=== PATIENT | female | born 1940 | race Caucasian/White ===

== ENCOUNTER 2018-03-27 20:44 | Emergency (ER) | payer OTHER ==
--- NOTE | 2018-03-27 21:30 | ER ---
Nurse's Notes [facility] Name: Vilma Curtis Age: 77 yrs Sex: Female : 1940 Arrival Date: 03/27/2018 Time: 20:49 Bed 5 Private MD: Diagnosis: Fall due to bumping against object;Contusion of right lower leg-hematoma Presentation: 03/27 20:49 Presenting complaint: Patient states: This morning I tripped over a gait in the house la1 and injured my right leg. Transition of care: patient was not received from another setting of care. Onset of symptoms was March 27, 2018. Initial Sepsis Screen: Does the patient meet any 2 criteria? No. Patient's initial sepsis screen is negative. Does the patient have a suspected source of infection? No. Patient's initial sepsis screen is negative. Care prior to arrival: None. 20:49 Method Of Arrival: Wheelchair la1 20:49 Acuity: GILDARDO 4 la1 Triage Assessment: 20:59 General: Appears uncomfortable. Injury Description: trip an fall this morning. ak1 Historical: - Allergies: 20:51 Demerol; la1 20:51 Hydrocodone-Acetaminophen; la1 20:51 Lidocaine; la1 20:51 Metoprolol Tartrate; la1 - PMHx: 20:51 Lung Cancer; Irregular heart rate; la1 - Immunization history:: Adult Immunizations up to date. - Social history:: Smoking status: Patient/guardian denies using tobacco. - Family history:: not pertinent. Screenin:59 Abuse screen: Denies threats or abuse. Denies injuries from another. Nutritional ak1 screening: No deficits noted. Tuberculosis screening: No symptoms or risk factors identified. Fall Risk None identified. Assessment: 20:57 General: Appears uncomfortable, Behavior is calm, cooperative. Pain: Complains of pain ak1 in right rodriguez. Neuro: No deficits noted. Cardiovascular: No deficits noted. Respiratory: No deficits noted. GI: No signs and/or symptoms were reported involving the gastrointestinal system. : No signs and/or symptoms were reported regarding the genitourinary system. EENT: No signs and/or symptoms were reported regarding the EENT system. Derm: No signs and/or symptoms reported regarding the dermatologic system. Musculoskeletal: Range of motion: intact in all extremities, swelling noted to right lower leg just below the knee. Vital Signs: 20:51 BP 157 / 77; Pulse 79; Resp 19; Temp 97.0; Pulse Ox 100% on R/A; Weight 79.83 kg; la1 Height 5 ft. 7 in. (170.18 cm); Pain 7/10; 21:41 BP 151 / 92; Pulse 64; Resp 17; Pulse Ox 99% on R/A; mt 20:51 Body Mass Index 27.57 (79.83 kg, 170.18 cm) la1 ED Course: 20:49 Patient arrived in ED. la1 20:50 Triage completed. la1 20:51 Arm band placed on right wrist. la1 20:53 Prince Swanson MD is Attending Physician. shannon 20:55 Yuki Ferguson, RN is Primary Nurse. ak1 20:59 Patient has correct armband on for positive identification. Bed in low position. Call ak1 light in reach. Side rails up X 1. Adult w/ patient. Pulse ox on. NIBP on. 21:11 ice applied to right knee. ak1 21:18 X-ray completed. Portable x-ray completed in exam room. Patient tolerated procedure bb2 well. 21:20 XRAY Knee RIGHT 3 view In Process Unspecified. EDMS 21:29 Yo Lopez MD is Referral Physician. [facility] 21:42 Knee immobilizer applied on right knee. mt 21:51 No provider procedures requiring assistance completed. Patient did not have IV access mg2 during this emergency room visit. Administered Medications: No medications were administered Outcome: 21:29 Discharge ordered by . [facility] 21:52 Discharged to home via wheelchair, with family. ak1 21:52 Condition: good 21:52 Discharge instructions given to patient, family, Instructed on discharge instructions, follow up and referral plans. medication usage, Demonstrated understanding of instructions, follow-up care, medications, Prescriptions given X 1. 21:53 Patient left the ED. ak1 Signatures: Dispatcher [employer] EDMT Prince Swanson MD MD cha Attema, Lee, RN RN la1 Yuki Ferguson, LIZETTE RN ak1 [facility] bb2 Shahbaz Cancino RN RN mg2
--- NOTE | 2018-03-27 21:30 | EDPHYS ---
Physician Documentation [facility] Name: Vilma Curtis Age: 77 yrs Sex: Female : 1940 Arrival Date: 03/27/2018 Time: 20:49 Bed 5 Private MD: ED Physician Prince Swanson HPI: 03/27 21:18 This 77 yrs old Female presents to ER via Wheelchair with complaints of Knee shannon Injury. 21:18 The patient presents with decreased range of motion, pain, swelling, tenderness. The shannon complaints affect the right knee and right rodriguez. Context: The problem was sustained at home, resulted from the patient falling, twisting of the extremity, the patient can partially bear weight, the patient is able to ambulate. Onset: The symptoms/episode began/occurred today. Modifying factors: The symptoms are alleviated by remaining still, the symptoms are aggravated by movement, weight bearing, bending knee. Treatment prior to arrival includes: no previous treatment, elevation of the extremity. Severity of symptoms: At their worst the symptoms were moderate, in the emergency department the symptoms are unchanged. Historical: - Allergies: 20:51 Demerol; la1 20:51 Hydrocodone-Acetaminophen; la1 20:51 Lidocaine; la1 20:51 Metoprolol Tartrate; la1 - PMHx: 20:51 Lung Cancer; Irregular heart rate; la1 - Immunization history:: Adult Immunizations up to date. - Social history:: Smoking status: Patient/guardian denies using tobacco. - Family history:: not pertinent. ROS: 21:18 Constitutional: Negative for fever, chills, and weight loss, Eyes: Negative for injury, shannon pain, redness, and discharge, ENT: Negative for injury, pain, and discharge, Neck: Negative for injury, pain, and swelling, Cardiovascular: Negative for chest pain, palpitations, and edema, Respiratory: Negative for shortness of breath, cough, wheezing, and pleuritic chest pain, Abdomen/GI: Negative for abdominal pain, nausea, vomiting, diarrhea, and constipation, Back: Negative for injury and pain, : Negative for injury, bleeding, discharge, and swelling, Skin: Negative for injury, rash, and discoloration, Neuro: Negative for headache, weakness, numbness, tingling, and seizure, Psych: Negative for depression, anxiety, suicide ideation, homicidal ideation, and hallucinations, Allergy/Immunology: Negative for hives, rash, and allergies, Endocrine: Negative for neck swelling, polydipsia, polyuria, polyphagia, and marked weight changes, Hematologic/Lymphatic: Negative for swollen nodes, abnormal bleeding, and unusual bruising. 21:18 MS/extremity: Positive for ecchymosis, swelling, tenderness, of the right knee. Exam: 21:18 Constitutional: This is a well developed, well nourished patient who is awake, alert, shannon and in no acute distress. Head/Face: Normocephalic, atraumatic. Eyes: Pupils equal round and reactive to light, extra-ocular motions intact. Lids and lashes normal. Conjunctiva and sclera are non-icteric and not injected. Cornea within normal limits. Periorbital areas with no swelling, redness, or edema. ENT: Nares patent. No nasal discharge, no septal abnormalities noted. Tympanic membranes are normal and external auditory canals are clear. Oropharynx with no redness, swelling, or masses, exudates, or evidence of obstruction, uvula midline. Mucous membranes moist. Neck: Trachea midline, no thyromegaly or masses palpated, and no cervical lymphadenopathy. Supple, full range of motion without nuchal rigidity, or vertebral point tenderness. No Meningismus. Chest/axilla: Normal chest wall appearance and motion. Nontender with no deformity. No lesions are appreciated. Cardiovascular: Regular rate and rhythm with a normal S1 and S2. No gallops, murmurs, or rubs. Normal PMI, no JVD. No pulse deficits. Respiratory: Lungs have equal breath sounds bilaterally, clear to auscultation and percussion. No rales, rhonchi or wheezes noted. No increased work of breathing, no retractions or nasal flaring. Abdomen/GI: Soft, non-tender, with normal bowel sounds. No distension or tympany. No guarding or rebound. No evidence of tenderness throughout. Back: No spinal tenderness. No costovertebral tenderness. Full range of motion. Female : Normal external genitalia. Skin: Warm, dry with normal turgor. Normal color with no rashes, no lesions, and no evidence of cellulitis. Neuro: Awake and alert, GCS 15, oriented to person, place, time, and situation. Cranial nerves II-XII grossly intact. Motor strength 5/5 in all extremities. Sensory grossly intact. Cerebellar exam normal. Normal gait. Psych: Awake, alert, with orientation to person, place and time. Behavior, mood, and affect are within normal limits. 21:18 Musculoskeletal/extremity: Extremities: contusion, decreased ROM, pain, ROM: full passive range of motion, limited active range of motion, Pulses: are normal with no appreciated deficits, Compartment Syndrome exam of affected extremity: is normal. no numbness, no tingling, no sensation deficit, no palor, no weak pulses, severe pain, with active ROM, DVT Exam: No signs of deep vein thrombosis. no pain, no swelling, no tenderness, negative Homans' sign noted on exam, no appreciated bluish discoloration, no erythema, no increased warmth. 21:25 Musculoskeletal/extremity: Tendon exam: DVT Exam: [facility] Vital Signs: 20:51 BP 157 / 77; Pulse 79; Resp 19; Temp 97.0; Pulse Ox 100% on R/A; Weight 79.83 kg; la1 Height 5 ft. 7 in. (170.18 cm); Pain 7/10; 21:41 BP 151 / 92; Pulse 64; Resp 17; Pulse Ox 99% on R/A; mt 20:51 Body Mass Index 27.57 (79.83 kg, 170.18 cm) la1 MDM: 20:53 Patient medically screened. [facility] 03/27 21:04 Order name: XRAY Knee RIGHT 3 view ak1 Administered Medications: No medications were administered Disposition: 03/27/18 21:29 Discharged to Home. Impression: Fall due to bumping against object, Contusion of right lower leg - hematoma. - Condition is Stable. - Discharge Instructions: Contusion, Fall Prevention and Home Safety, Contusion, [id number], Fall Prevention and Home Safety, [id number]. - Prescriptions for Motrin IB 200 mg Oral Tablet - take 2 tablet by ORAL route every 6 hours As needed as needed with food; 24 tablet. - Medication Reconciliation Form, Thank You Letter, Antibiotic Education, Prescription Opioid Use form. - Follow up: Private Physician; When: 2 - 3 days; Reason: Recheck today's complaints, Continuance of care, Re-evaluation by your physician. Follow up: Yo Lopez; When: 2 - 3 days; Reason: Recheck today's complaints, Re-evaluation by your physician. - Problem is new. - Symptoms have improved. Signatures: Dispatcher [employer] EDMS Prince Swanson MD MD cha Attema, Lee, RN RN la1 Yuki Ferguson RN RN ak1 Corrections: (The following items were deleted from the chart) 21:53 21:29 03/27/2018 21:29 Discharged to Home. Impression: Fall due to bumping against ak1 object; Contusion of right lower leg - hematoma. Condition is Stable. Discharge Instructions: Contusion, Fall Prevention and Home Safety, Contusion, [id number], Fall Prevention and Home Safety, [id number]. Prescriptions for Motrin IB 200 mg Oral Tablet - take 2 tablet by ORAL route every 6 hours As needed as needed with food; 24 tablet. and Forms are Medication Reconciliation Form, Thank You Letter, Antibiotic Education, Prescription Opioid Use. Follow up: Private Physician; When: 2 - 3 days; Reason: Recheck today's complaints, Continuance of care, Re-evaluation by your physician. Follow up: Yo Lopez; When: 2 - 3 days; Reason: Recheck today's complaints, Re-evaluation by your physician. Problem is new. Symptoms have improved. shannon
--- NOTE | 2018-03-27 21:30 | RAD REPORT ---
EXAM DESCRIPTION: RAD - Knee Right 3 View - 03/27/2018 9:20 pm CLINICAL HISTORY: Right knee pain FINDINGS: No fracture or dislocation is seen. 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 There is no evidence of loosening of the prosthesis.
[2018-03-27 21:56] VITALS: TEMP 97
[2018-03-27 21:57] VITALS: BP 151/92; O2SAT 99
== END 2018-03-27 21:53 | disposition home or self-care (01) ==
LOC: ER 20:44
DX: S80.11XA Contusion of right lower leg, initial encounter (principal); W18.00XA Striking against unspecified object with subsequent fall, initial encounter; Y93.9 Activity, unspecified; Y92.9 Unspecified place or not applicable; Z88.6 Allergy status to analgesic agent
CPT/HCPCS: 99284

== ENCOUNTER 2019-05-14 04:40 | Observation (INO) | payer OTHER ==
--- OUTSIDE RECORDS SUMMARY | 2019-05-14 04:43 | XMS REPORT | Continuity of Care Document ---
:1940 Author Organization [facility] Care Team Providers Name Role Phone [facility] Unavailable Unavailable Problems Problem Status Onset Classification Date Comments Source Date Reported Atrial Active Problem 03/03/2019 [facility] fibrillation [facility] Cervical Active Problem 03/03/2019 [facility] spondylosis [facility] HTN - Hypertension Active Problem 03/03/2019 [facility] Hyperlipidemia Active Problem 03/03/2019 [facility] Lumbar Active Problem 03/03/2019 [facility] radiculopathy [facility] Peripheral Active Problem 03/03/2019 [facility] neuropathy [facility] Medications No Data Provided for This Section Allergies, Adverse Reactions, Alerts Substance Category Reaction Severity Reaction Status Date Comments Source type Reported Demerol HCl Assertion Drug Active [facility] allergy [facility] HYDROcodone Assertion Drug Active [facility] allergy [facility] Immunizations No Data Provided for This Section Results No Data Provided for This Section Pathology Reports No Data Provided for This Section Diagnostic Reports No Data Provided for This Section Consultation Notes No Data Provided for This Section Discharge Summaries No Data Provided for This Section History and Physicals No Data Provided for This Section Vital Signs No Data Provided for This Section Encounters Location Location Encounter Encounter Reason Attending ADM DC Status Source Details Type Number For Provider Date Date Visit Outpatient [id number] ELIZABETH 04/03 [facility] [place] Outpatient [id number] ELIZABETH 04/29 [facility] [place] [facility] Outside [id number] 08/13 08/15 [facility] [place] [facility] /2017 [facility] Records Procedures No Data Provided for This Section Assessment and Plan No Data Provided for This Section Plan of Care No Data Provided for This Section Social History Social History Date Source Social History TypeResponse 04/29/2018 [facility] [place] [facility] Smoking Status Former smoker; Type: Cigarettes; Exposure to Tobacco Smoke None; Cigarette Smoking Last 365 Days No; Reg Smoking Cessation Counseling No entered on: 04/29/18 Family History No Data Provided for This Section Advance Directives No Data Provided for This Section Functional Status No Data Provided for This Section
--- OUTSIDE RECORDS SUMMARY | 2019-05-14 04:43 | XMS REPORT | Clinical Summary ---
:1940 Author Organization [facility] Address [address] [place] [address] Care Team Providers Name Role Phone Unavailable Primary Care Provider Unavailable Allergies Not on File Medications Not on file Active Problems Not on file Social History Tobacco Use Types Packs/Day Years Used Date Never Assessed Sex Assigned at Date Recorded Not on file Job Start Date Occupation Industry Not on file Not on file Not on file Travel History Travel Start Travel End No recent travel history available. Last Filed Vital Signs Not on file Plan of Treatment Health Maintenance Due Date Last Done Comments COLONOSCOPY SCREENING 1992 SHINGLES VACCINES (#1) 1992 65+ PNEUMOCOCCAL VACCINE (1 of 2 - PCV13) 2007 INFLUENZA VACCINE 06/12/2019 Results Not on fileafter 05/13/2018 Advance Directives Patient has advance care planning documents on file. For more information, please contact:[facility] [place] [address]
[2019-05-14] MEDS ORDERED: DIGOXIN 0.25 MG/ML AMP ONE (05:31)
[2019-05-14] MEDS ORDERED: METOPROLOL TARTRATE 5 MG/5 ML INJ IV ONE ×2 (05:31→07:42)
[2019-05-14 05:49] LABS: Urine Blood NEGATIVE (NEG); Urine Glucose NEGATIVE (NEG); Urine Protein NEGATIVE (NEG)
[2019-05-14 05:51] LABS: Absolute Lymphocytes (CBC) 2.2 K/uL (0.7-4.9); Basophils % 0.9 % (0-1.3); Eosinophils % 2.2 % (0-4.4); Hematocrit 42.8 % (36.0-45.0); Lymphocytes % 26.3 % (15.3-44.8); MPV 10.1 fL (7.6-11.3); Monocytes % 11.7 % (3.3-12.3)
[2019-05-14 05:54] LABS: Protime INR 1.19
[2019-05-14 06:11] LABS: Albumin 3.2 g/dL (3.4-5.0); Bilirubin Direct 0.3 mg/dL (0-0.2); Magnesium 2.1 mg/dL (1.8-2.4); Potassium 3.2 mmol/L (3.5-5.1); Thyroid Stimulating Hormone 2.24 uIU/mL (0.360-3.740); Troponin (Emerg Dept Use Only) 0.14 ng/mL (0.0-0.045)
--- NOTE | 2019-05-14 06:28 | ER ---
Nurse's Notes [facility] Name: Vilma Curtis Age: 78 yrs Sex: Female : 1940 Arrival Date: 05/14/2019 Time: 04:43 Bed 8 Private MD: Diagnosis: Abdominal tenderness;Atrial fibrillation and flutter;Chest pain, unspecified;Hypokalemia Presentation: 05/14 04:50 Presenting complaint: Patient states: abd pain, back pain, chest pain, and pain in all aa1 4 extremities x 1 week. Reports she recently made a drastic change to her diet which consisted of water and crackers only for an endoscopy procedure she is having tomorrow with Dr. Martin. Transition of care: patient was not received from another setting of care. Onset of symptoms was May 06, 2019. Risk Assessment: Do you want to hurt yourself or someone else? Patient reports no desire to harm self or others. Initial Sepsis Screen:. Care prior to arrival: IV initiated. 18 GA, in the right antecubital area. 04:50 Method Of Arrival: EMS: [facility] aa1 04:50 Acuity: GILDARDO 3 aa1 06:43 Initial Sepsis Screen: Does the patient meet any 2 criteria? No. Patient's initial bb sepsis screen is negative. Does the patient have a suspected source of infection? No. Patient's initial sepsis screen is negative. Historical: - Allergies: 05:11 Demerol; aa1 05:11 Hydrocodone-Acetaminophen; aa1 05:11 Lidocaine; aa1 05:11 Metoprolol Tartrate; aa1 - Home Meds: 05:11 Betapace 80 mg oral tab 1 tab 2 times per day [Active]; Caltrate 600+D Plus Minerals aa1 Oral daily [Active]; Xarelto 20 mg oral tab 1 tab once daily [Active]; Myrbetriq 50 mg oral Tb24 1 tab once daily [Active]; Dexilant 60 mg oral CpDB 1 cap once daily [Active]; rosuvastatin 10 mg oral tab 1 tab once daily [Active]; Xanax 0.25 mg Oral tab 1 tab daily [Active]; sucralfate 1 gram Oral tab 1 tab 2 times per day [Active]; Levsinex Oral 0.125 mg twice a day [Active]; Creon oral oral [Active]; - PMHx: 05:11 Irregular heart rate; Lung Cancer; aa1 - Immunization history:: Flu vaccine is up to date. - Social history:: Smoking status: Patient/guardian denies using tobacco. - Ebola Screening: : Patient denies exposure to infectious person Patient denies travel to an Ebola-affected area in the 21 days before illness onset. - Family history:: not pertinent. Screenin:42 Abuse screen: Denies threats or abuse. Nutritional screening: No deficits noted. bb Tuberculosis screening: No symptoms or risk factors identified. Fall Risk Secondary diagnosis (15 points) impaired mobility, IV access (20 points). Ambulatory Aid- None/Bed Rest/Nurse Assist (0 pts). Mental Status- Oriented to own ability (0 pts). Total Briggs Fall Scale indicates Low Risk Score (25-44 pts). Fall prevention measures have been instituted. Side Rails Up X 2 Family Present and informed to notify staff if they need to leave bedside As available Patient and Family Educated on Fall Prevention Program and strategies. Assessment: 05:00 General: Appears in no apparent distress. uncomfortable, Behavior is calm, cooperative, aa1 appropriate for age. Pain: Complains of pain in back, chest, abdomen, right arm, left arm, right leg and left leg Pain began 1 week ago. Neuro: Level of Consciousness is awake, alert, obeys commands, Oriented to person, place, time, situation, Moves all extremities. Speech is normal. Cardiovascular: Heart tones S1 S2 present Capillary refill < 3 seconds Patient's skin is warm and dry. Respiratory: Airway is patent Respiratory effort is even, unlabored, Respiratory pattern is regular, symmetrical. GI: Abdomen is non-distended, Abd is soft X 4 quads Patient currently denies diarrhea, nausea, vomiting. : No signs and/or symptoms were reported regarding the genitourinary system. EENT: No signs and/or symptoms were reported regarding the EENT system. Derm: Skin is intact, is healthy with good turgor, Skin is pink, warm \T\ dry. Musculoskeletal: Circulation, motion, and sensation intact. Capillary refill < 3 seconds. 06:00 General: Appears in no apparent distress. uncomfortable, Behavior is calm, cooperative, bb Reports pain in chest, abdomen and arms. Pain: Complains of pain in chest, abdomen, right arm and left arm. Neuro: Level of Consciousness is awake, alert, obeys commands, Oriented to person, place, time, situation. Cardiovascular: Heart tones S1 S2 present Capillary refill < 3 seconds Patient's skin is warm and dry. Pulses are all present. Edema is absent. Rhythm is atrial fibrillation with rapid ventricular response. Respiratory: Airway is patent Respiratory effort is even, unlabored, Respiratory pattern is regular, Breath sounds are clear bilaterally. GI: Abdomen is non-distended, Bowel sounds present X 4 quads. Abd is soft X 4 quads. Derm: Skin is pink, warm \T\ dry. Musculoskeletal: Circulation, motion, and sensation intact. 06:30 Reassessment: Patient and/or family updated on plan of care and expected duration. Pain bb level reassessed. Patient is alert, oriented x 3, equal unlabored respirations, skin warm/dry/pink. pt resting quietly, awaiting CT scan, family at bedside. 07:28 Reassessment: Patient appears in no apparent distress at this time. Patient is alert, sg oriented x 3, equal unlabored respirations, skin warm/dry/pink. notified of the pt VS with HR of 144 sinus tach, and BP of 124/80, ordered to administer the 2.5 mg Lopressor IVP and continue to monitor pt. 07:35 Reassessment: Patient appears in no apparent distress at this time. pt c/o burning up sg the arm from the IV site, IV fluid rate adjusted appropriately, pt reports feeling better. Vital Signs: 04:50 BP 119 / 85; Pulse 125; Resp 20; Temp 97.6; Pulse Ox 97% on R/A; Weight 75.3 kg (R); aa1 Height 5 ft. 7 in. (170.18 cm); Pain 7/10; 05:48 BP 91 / 68; Pulse 103; Resp 18; Pulse Ox 96% on R/A; aa1 06:45 BP 123 / 67; Pulse 129; Resp 18; Temp 97.9; Pulse Ox 99% on R/A; Pain 5/10; aa1 07:12 BP 126 / 104; Pulse 128; Resp 16 S; Pulse Ox 99% on R/A; bb 07:30 BP 124 / 80; Pulse 144; Resp 17; Pulse Ox 96% on R/A; sg 08:00 BP 127 / 73; Pulse 133; Pulse Ox 96% ; sg 08:15 BP 127 / 73; Pulse 84 MON; Resp 16; Pulse Ox 96% on R/A; sg 09:00 BP 113 / 61; Pulse 82; Resp 18 S; Pulse Ox 96% on R/A; sg 04:50 Body Mass Index 26.00 (75.30 kg, 170.18 cm) aa1 08:15 Sinus Rhythm sg ED Course: 04:43 Patient arrived in ED. ds1 04:46 Prince Swanson MD is Attending Physician. shannon 04:50 Avril Palm, LIZETTE is Primary Nurse. aa1 04:50 Arm band placed on right wrist. aa1 04:52 Triage completed. aa1 05:20 Initial lab(s) drawn, by me, sent to lab. aa1 05:49 EKG done, by ED staff, reviewed by Prince Swanson MD. mt 05:55 X-ray completed. Portable x-ray completed in exam room. Patient tolerated procedure kw well. 05:58 Radiology exam delayed due to lab results not completed at this time. eh 06:00 XRAY Chest (1 view) In Process Unspecified. EDMS 06:26 Abel Rodriguez MD is Hospitalizing Provider. shannon 06:42 Patient has correct armband on for positive identification. Bed in low position. Call bb light in reach. Side rails up X2. Adult w/ patient. monitoring tech on. Pulse ox on. NIBP on. Warm blanket given. 07:09 Report given to Aleisha Olmedo RN. aa1 07:13 No provider procedures requiring assistance completed. Patient admitted, IV remains in aa1 place. 07:24 Report received from Aleisha BAUER. sg 08:59 EKG done, by urinalysis technician. reviewed by Rick Mclain MD Repeat EKG. at1 09:20 Repeat lab(s) drawn. by me, sent to lab. troponin repeat. sg Administered Medications: 05:10 Drug: NS 0.9% 500 ml Route: IV; Rate: bolus; Site: right antecubital; aa1 05:40 Follow up: IV Status: Completed infusion; IV Intake: 500ml aa1 05:10 Drug: Lopressor 2.5 mg Route: IVP; Site: right antecubital; aa1 05:10 Drug: Digoxin 0.5 mg Route: IVP; Site: right antecubital; aa1 05:38 Not Given (Hemodynamic Parameters): Lopressor 2.5 mg IVP once; Hold for SBP <100 or HR aa1 <60. 06:17 Not Given (Duplicate Order): NS 0.9% 1000 ml IV at 125 ml/hr continuous shannon 06:22 Drug: Rocephin - (cefTRIAXone) 1 grams Route: IVPB; Infused Over: 30 mins; Site: right bb antecubital; 06:27 Follow up: IV Status: Completed infusion; IV Intake: 10ml ; per pharmacy protocol bb 06:56 Drug: Xarelto 20 mg Route: PO; bb 06:56 Drug: NS 0.9% with KCl 20 mEq/L 1000 ml Route: IV; Rate: 125 ml/hr; Site: right bb antecubital; 07:06 Follow up: IV Status: Infusion continued upon admission aa1 06:56 Drug: Potassium Chloride 20 mEq Route: IV; Rate: per protocol; Site: right antecubital; bb 09:27 Follow up: IV Status: Infusion continued upon admission sg 07:00 CANCELLED (Duplicate Order): Lopressor 2.5 mg IVP once; Hold for SBP <100 or HR <60. shannon 07:01 CANCELLED (Duplicate Order): Lopressor 2.5 mg IVP once; Hold for SBP <100 or HR <60. shannon 07:12 Drug: Sotalol 80 mg Route: PO; bb 07:30 Drug: Lopressor 2.5 mg Route: IVP; Site: right antecubital; sg 09:12 Not Given (Hemodynamic Parameters): Lopressor 2.5 mg IVP once; Hold for SBP <100 or HR sg <60. 09:13 Not Given (Hemodynamic Parameters): Lopressor 2.5 mg IVP once; Hold for SBP <100 or HR sg <60. 09:27 Not Given (Hemodynamic Parameters): Lopressor 2.5 mg IVP once; Hold for SBP <100 or HR sg <60. Intake: 05:40 IV: 500ml; Total: 500ml. aa1 06:27 IV: 10ml; Total: 510ml. bb Outcome: 06:27 Decision to Hospitalize by Provider. shannon 09:26 Admitted to [facility] accompanied by tech, via wheelchair, room 205, with chart, Report sg called to LIZETTE Slade 09:26 Condition: good 09:26 Instructed on the need for admit, safety practices, Demonstrated understanding of instructions. 09:28 Patient left the ED. sg Signatures: Dispatcher [employer] Yo Kraft RN RN sg Autenrieth, Alissa, RN RN aa1 Prince Swanson MD MD cha Hagler, Americo Rosario, Beata ds1 Aleisha Olmedo RN RN bb Whitley, Kimberlee kw Gonzales, Amanda, food checker EKG Tat1 Elvia Mendoza ct
--- NOTE | 2019-05-14 06:28 | EDPHYS ---
Physician Documentation [facility] Name: Vilma Curtis Age: 78 yrs Sex: Female : 1940 Arrival Date: 05/14/2019 Time: 04:43 Bed 8 Private MD: ED Physician Prince Swanson HPI: 05/14 05:10 This 78 yrs old Female presents to ER via EMS with complaints of chest and shannon abdomen pain. 05:10 The patient or guardian reports chest pain that is located primarily in the substernal shannon area, epigastric area, anterior chest wall. Onset: 1 day(s) ago. The patient presents with a history of irregular heart beat, heart racing. Context: The symptoms occur at rest, during sleep. Onset: The symptoms/episode began/occurred last night. Modifying factors: The symptoms are aggravated by nothing. The patient presents with abdominal pain in the epigastric area, in the upper abdomen, abdominal distention in the epigastric area, in the upper abdomen. Historical: - Allergies: 05:11 Demerol; aa1 05:11 Hydrocodone-Acetaminophen; aa1 05:11 Lidocaine; aa1 05:11 Metoprolol Tartrate; aa1 - Home Meds: 05:11 Betapace 80 mg oral tab 1 tab 2 times per day [Active]; Caltrate 600+D Plus Minerals aa1 Oral daily [Active]; Xarelto 20 mg oral tab 1 tab once daily [Active]; Myrbetriq 50 mg oral Tb24 1 tab once daily [Active]; Dexilant 60 mg oral CpDB 1 cap once daily [Active]; rosuvastatin 10 mg oral tab 1 tab once daily [Active]; Xanax 0.25 mg Oral tab 1 tab daily [Active]; sucralfate 1 gram Oral tab 1 tab 2 times per day [Active]; Levsinex Oral 0.125 mg twice a day [Active]; Creon oral oral [Active]; - PMHx: 05:11 Irregular heart rate; Lung Cancer; aa1 - Immunization history:: Flu vaccine is up to date. - Social history:: Smoking status: Patient/guardian denies using tobacco. - Ebola Screening: : Patient denies exposure to infectious person Patient denies travel to an Ebola-affected area in the 21 days before illness onset. - Family history:: not pertinent. ROS: 05:10 Constitutional: Negative for fever, chills, and weight loss, Eyes: Negative for injury, shannon pain, redness, and discharge, ENT: Negative for injury, pain, and discharge, Neck: Negative for injury, pain, and swelling, Respiratory: Negative for shortness of breath, cough, wheezing, and pleuritic chest pain, Back: Negative for injury and pain, : Negative for injury, bleeding, discharge, and swelling, MS/Extremity: Negative for injury and deformity, Skin: Negative for injury, rash, and discoloration, Neuro: Negative for headache, weakness, numbness, tingling, and seizure, Psych: Negative for depression, anxiety, suicide ideation, homicidal ideation, and hallucinations, Allergy/Immunology: Negative for hives, rash, and allergies, Endocrine: Negative for neck swelling, polydipsia, polyuria, polyphagia, and marked weight changes, Hematologic/Lymphatic: Negative for swollen nodes, abnormal bleeding, and unusual bruising. 05:10 Cardiovascular: Positive for chest pain. 05:10 Respiratory: Positive for shortness of breath. 05:10 Abdomen/GI: Positive for abdominal pain, nausea and vomiting. Exam: 05:10 Constitutional: This is a well developed, well nourished patient who is awake, alert, shannon and in no acute distress. Head/Face: Normocephalic, atraumatic. Eyes: Pupils equal round and reactive to light, extra-ocular motions intact. Lids and lashes normal. Conjunctiva and sclera are non-icteric and not injected. Cornea within normal limits. Periorbital areas with no swelling, redness, or edema. ENT: Nares patent. No nasal discharge, no septal abnormalities noted. Tympanic membranes are normal and external auditory canals are clear. Oropharynx with no redness, swelling, or masses, exudates, or evidence of obstruction, uvula midline. Mucous membranes moist. Neck: Trachea midline, no thyromegaly or masses palpated, and no cervical lymphadenopathy. Supple, full range of motion without nuchal rigidity, or vertebral point tenderness. No Meningismus. Chest/axilla: Normal chest wall appearance and motion. Nontender with no deformity. No lesions are appreciated. Respiratory: Lungs have equal breath sounds bilaterally, clear to auscultation and percussion. No rales, rhonchi or wheezes noted. No increased work of breathing, no retractions or nasal flaring. Abdomen/GI: Soft, non-tender, with normal bowel sounds. No distension or tympany. No guarding or rebound. No evidence of tenderness throughout. Back: No spinal tenderness. No costovertebral tenderness. Full range of motion. Skin: Warm, dry with normal turgor. Normal color with no rashes, no lesions, and no evidence of cellulitis. MS/ Extremity: Pulses equal, no cyanosis. Neurovascular intact. Full, normal range of motion. Neuro: Awake and alert, GCS 15, oriented to person, place, time, and situation. Cranial nerves II-XII grossly intact. Motor strength 5/5 in all extremities. Sensory grossly intact. Cerebellar exam normal. Normal gait. Psych: Awake, alert, with orientation to person, place and time. Behavior, mood, and affect are within normal limits. 05:10 Cardiovascular: Rate: tachycardic, Rhythm: irregularly irregular, Pulses: Pulses are 4+ in bilateral radial, brachial, femoral, popliteal, posterior tibial and and dorsalis pedis arteries.. Heart sounds: normal, Edema: JVD: is not appreciated. Vital Signs: 04:50 BP 119 / 85; Pulse 125; Resp 20; Temp 97.6; Pulse Ox 97% on R/A; Weight 75.3 kg (R); aa1 Height 5 ft. 7 in. (170.18 cm); Pain 7/10; 05:48 BP 91 / 68; Pulse 103; Resp 18; Pulse Ox 96% on R/A; aa1 06:45 BP 123 / 67; Pulse 129; Resp 18; Temp 97.9; Pulse Ox 99% on R/A; Pain 5/10; aa1 07:12 BP 126 / 104; Pulse 128; Resp 16 S; Pulse Ox 99% on R/A; bb 07:30 BP 124 / 80; Pulse 144; Resp 17; Pulse Ox 96% on R/A; sg 08:00 BP 127 / 73; Pulse 133; Pulse Ox 96% ; sg 08:15 BP 127 / 73; Pulse 84 MON; Resp 16; Pulse Ox 96% on R/A; sg 09:00 BP 113 / 61; Pulse 82; Resp 18 S; Pulse Ox 96% on R/A; sg 04:50 Body Mass Index 26.00 (75.30 kg, 170.18 cm) aa1 08:15 Sinus Rhythm sg MDM: 04:46 Patient medically screened. [facility] 05:10 Data reviewed: vital signs, nurses notes, lab test result(s), EKG, radiologic studies, [facility] CT scan, plain films. 05/14 04:49 Order name: Basic Metabolic Panel [facility] 05/14 04:49 Order name: CBC with Diff [facility] 05/14 04:49 Order name: LFT's [facility] 05/14 04:49 Order name: Magnesium [facility] 05/14 04:49 Order name: NT PRO-BNP; Complete Time: 06:16 [facility] 05/14 04:49 Order name: PT-INR; Complete Time: 06:09 [facility] 05/14 04:49 Order name: Troponin (emerg Dept Use Only); Complete Time: 06:16 [facility] 05/14 04:49 Order name: Lipase; Complete Time: 06:16 shannon 05/14 04:49 Order name: Urine Culture [facility] 05/14 04:49 Order name: TSH; Complete Time: 06:16 [facility] 05/14 04:50 Order name: Basic Metabolic Panel; Complete Time: 06:16 EDMS 05/14 04:50 Order name: CBC with Automated Diff; Complete Time: 05:55 EDMS 05/14 04:50 Order name: Liver (Hepatic) Function; Complete Time: 06:16 EDMS 05/14 04:50 Order name: Magnesium; Complete Time: 06:16 EDMS 05/14 04:49 Order name: XRAY Chest (1 view) [facility] 05/14 04:49 Order name: CT Aorta for Dissection [facility] 05/14 05:35 Order name: Urine Dipstick--Ancillary (enter results); Complete Time: 05:55 mw2 05/14 07:44 Order name: CT; Complete Time: 08:12 EDMS 05/14 09:04 Order name: Troponin (emerg Dept Use Only) 05/14 04:49 Order name: EKG; Complete Time: 04:52 [facility] 05/14 04:49 Order name: Cardiac monitoring; Complete Time: 05:11 [facility] 05/14 04:49 Order name: EKG - Nurse/Tech; Complete Time: 05:49 [facility] 05/14 04:49 Order name: IV Saline Lock; Complete Time: 05:11 [facility] 05/14 04:49 Order name: Labs collected and sent; Complete Time: 05:38 shannon 05/14 04:49 Order name: O2 Per Protocol; Complete Time: 05:11 shannon 05/14 04:49 Order name: O2 Sat Monitoring; Complete Time: 05:11 shannon 05/14 04:49 Order name: Urine Dipstick-Ancillary (obtain specimen); Complete Time: 05:38 shannon 05/14 06:36 Order name: CONS Physician Consult EDMS Administered Medications: 05:10 Drug: NS 0.9% 500 ml Route: IV; Rate: bolus; Site: right antecubital; aa1 05:40 Follow up: IV Status: Completed infusion; IV Intake: 500ml aa1 05:10 Drug: Lopressor 2.5 mg Route: IVP; Site: right antecubital; aa1 05:10 Drug: Digoxin 0.5 mg Route: IVP; Site: right antecubital; aa1 05:38 Not Given (Hemodynamic Parameters): Lopressor 2.5 mg IVP once; Hold for SBP <100 or HR aa1 <60. 06:17 Not Given (Duplicate Order): NS 0.9% 1000 ml IV at 125 ml/hr continuous shannon 06:22 Drug: Rocephin - (cefTRIAXone) 1 grams Route: IVPB; Infused Over: 30 mins; Site: right bb antecubital; 06:27 Follow up: IV Status: Completed infusion; IV Intake: 10ml ; per pharmacy protocol bb 06:56 Drug: Xarelto 20 mg Route: PO; bb 06:56 Drug: NS 0.9% with KCl 20 mEq/L 1000 ml Route: IV; Rate: 125 ml/hr; Site: right bb antecubital; 07:06 Follow up: IV Status: Infusion continued upon admission aa1 06:56 Drug: Potassium Chloride 20 mEq Route: IV; Rate: per protocol; Site: right antecubital; bb 09:27 Follow up: IV Status: Infusion continued upon admission sg 07:00 CANCELLED (Duplicate Order): Lopressor 2.5 mg IVP once; Hold for SBP <100 or HR <60. shannon 07:01 CANCELLED (Duplicate Order): Lopressor 2.5 mg IVP once; Hold for SBP <100 or HR <60. shannon 07:12 Drug: Sotalol 80 mg Route: PO; bb 07:30 Drug: Lopressor 2.5 mg Route: IVP; Site: right antecubital; sg 09:12 Not Given (Hemodynamic Parameters): Lopressor 2.5 mg IVP once; Hold for SBP <100 or HR sg <60. 09:13 Not Given (Hemodynamic Parameters): Lopressor 2.5 mg IVP once; Hold for SBP <100 or HR sg <60. 09:27 Not Given (Hemodynamic Parameters): Lopressor 2.5 mg IVP once; Hold for SBP <100 or HR sg <60. Disposition: 05/14/19 06:27 Hospitalization ordered by Abel Rodriguez for Inpatient Admission. Preliminary diagnosis are Abdominal tenderness, Atrial fibrillation and flutter, Chest pain, unspecified, Hypokalemia. - Bed requested for Telemetry/MedSurg (Inpatient). - Status is Inpatient Admission. sg - Condition is Fair. - Problem is new. - Symptoms have improved. UTI on Admission? No Signatures: Dispatcher [employer] EDMS Yo Contreras RN RN sg Avril Palm RN RN aa1 Prince Swanson MD MD cha Ballard, Brenda, RN RN bb Solis, Maria ms Corrections: (The following items were deleted from the chart) 07:00 06:58 Lopressor 2.5 mg IVP once; Hold for SBP <100 or HR <60. ordered. shannon shannon 07:01 06:58 Lopressor 2.5 mg IVP once; Hold for SBP <100 or HR <60. ordered. [facility] shannon 08:12 06:27 Hospitalization Ordered by Abel Rodriguez MD for Inpatient Admission. Preliminary ms diagnosis is Abdominal tenderness; Atrial fibrillation and flutter; Chest pain, unspecified; Hypokalemia. Bed requested for Telemetry/MedSurg (Inpatient). Status is Inpatient Admission. Condition is Fair. Problem is new. Symptoms have improved. UTI on Admission? No. shannon 09:28 08:12 05/14/2019 06:27 Hospitalization Ordered by Abel Rodriguez MD for Inpatient sg Admission. Preliminary diagnosis is Abdominal tenderness; Atrial fibrillation and flutter; Chest pain, unspecified; Hypokalemia. Bed requested for Telemetry/MedSurg (Inpatient). Status is Inpatient Admission. Condition is Fair. Problem is new. Symptoms have improved. UTI on Admission? No. ms
[2019-05-14] MEDS ORDERED: CEFTRIAXONE/SWI 1gm 1 GM/10 ML SYR ONE (06:31)
[2019-05-14] MEDS ORDERED: RIVAROXABAN 20 MG TABLET PO ONE (06:39)
[2019-05-14] MEDS ORDERED: NS KCL 20MEQ 1,000 ML IV ONE (06:45)
[2019-05-14] MEDS ORDERED: KCL 20 MEQ/100 mL IVPB 20 MEQ/100 ML BAG IV ONE (06:46)
--- NOTE | 2019-05-14 06:53 | EKG ---
Test Date: 2019-05-14 Test Time: 05:44:58 Intravenous Therapy Nurse: MARIANNA MEASUREMENT RESULTS: Intervals: Rate: 125 AK: QRSD: 88 QT: 300 QTc: 433 [place]: P: AK: QRS: 59 T: 260 INTERPRETIVE STATEMENTS: Atrial fibrillation with rapid ventricular response Marked ST abnormality, possible inferior subendocardial injury Abnormal ECG Compared to ECG 08/16/2017 17:20:11 ST (T wave) deviation now present Sinus rhythm no longer present T-wave abnormality no longer present Electronically Signed On 05-14-19 06:52:58 CDT by oJrge Chavarria
[2019-05-14] MEDS ORDERED: SOTALOL HCL 80 MG TAB ONE (07:23)
--- NOTE | 2019-05-14 07:43 | RAD REPORT ---
EXAM DESCRIPTION: CT - Angio Aorta For Dissection - 05/14/2019 6:56 am CLINICAL HISTORY: Chest pain COMPARISON: Chest films same date TECHNIQUE: Dynamically enhanced 3 mm thick images of the chest, abdomen, and upper pelvis were obtai humaira during administration of approximately 150mL Isovue 370 IV contrast. Sagittal and coronal reconst ruction images were generated using MIP and reviewed. Exam utilizes a protocol to evaluate entire cou rse of the aorta. All CT scans are performed using dose optimization technique as appropriate and may include automated exposure control or mA/KV adjustment according to patient size. FINDINGS: Aorta is normal in diameter with no dissection or other acute aortic findings. Reconstruct ion images show no significant findings. Aortic arch is bovine configuration. Great vessels are tortu ous but without stenosis or acute finding. Atherosclerotic calcifications are present. No aneurysm or displaced calcifications. No iliac stenosis. No pulmonary emboli present. Pulmonary arteries are relatively prominent. No cardiomegaly or pericard ial effusion. Left ventricular hypertrophy is suspected; however, there is enough cardiac motion limi ting accurate wall assessment. Postsurgical changes are present in the right lung field. Scattered ill-defined ground-glass opacitie s are still present. These have been previously detailed. No new or progressive lung parenchymal proc ess. No pleural thickening, pleural effusion or pneumothorax. No abnormal mediastinal or hilar mass or lymphadenopathy seen. No chest wall mass or abnormal axillar y lymphadenopathy. Celiac, SMA and renal arteries show no suspicious findings. Solid abdominal viscera and bowel show no significant findings. No mass or abnormal lymphadenopathy. No free air, free fluid or inflammatory stranding. No urinary bladder abnormality. Uterus is absent. Gallbladder is absent. Remnant left ov padma is noted with no suspicious finding. Right ovary is not clearly seen and may be atrophic or absen t. Disc and bone degenerative changes are present most notable at L2-3 and L4-5. IMPRESSION: No aneurysm, dissection or acute aortic finding. Atherosclerotic calcifications are pres ent. Left ventricular myocardial hypertrophy is suspected ; however, motion limits accurate assessment on CT. No other acute findings on chest, abdomen and upper pelvis examination.Nonacute findings detailed in the body of the report.
--- NOTE | 2019-05-14 09:08 | RAD REPORT ---
EXAM DESCRIPTION: RAD - Chest Single View - 05/14/2019 5:59 am CLINICAL HISTORY: Cough, abdominal pain, chest pain COMPARISON: January 2017 TECHNIQUE: AP portable chest image was obtained 0501 hours . FINDINGS: No acute lung parenchymal process. Postsurgical changes are noted in the right hemithorax. Trachea is midline. Right hemidiaphragm elevation matches comparison. Heart and vasculature are norm al. No measurable pleural effusion and no pneumothorax. No acute bony abnormality seen. No acute aort ic findings suspected. IMPRESSION: No acute cardiopulmonary process. No suspicious change from comparison.
[2019-05-14] MEDS ORDERED: ACETAMINOPHEN 500 MG TAB PO PRN (09:12)
[2019-05-14] MEDS ORDERED: ONDANSETRON 4 MG/2 ML VIAL IV PRN (09:12)
[2019-05-14] MEDS: NS KCL 20MEQ 20 MEQ/1,000 ML BAG IV SCH ×2 (09:12→17:32)
[2019-05-14] MEDS ORDERED: SODIUM CHLORIDE 0.9% 10ML INJ IV PRN (09:12)
[2019-05-14] MEDS: PANTOPRAZOLE 40 MG INJ IVP SCH (11:30)
[2019-05-14] MEDS: POTASSIUM CL SA 10 MEQ TAB PO SCH ×2 (11:30→20:19)
[2019-05-14 12:10] LABS: Urine Appearance CLEAR; Urine Bilirubin NEGATIVE (NEG); Urine Blood NEGATIVE (NEG); Urine Color YELLOW; Urine Glucose NEGATIVE (NEG); Urine Protein NEGATIVE (NEG); Urine Specific Gravity >=1.030 (1.005-1.030)
[2019-05-14 12:18] LABS: Urine Microscopic Reflex ORDER UMIC
[2019-05-14 12:56] LABS: Urine Bacteria <20 /HPF (<20); Urine Culture Reflex Order REFLEXED; Urine RBC <5 /HPF (NONE SEEN)
[2019-05-14] MEDS ORDERED: RIVAROXABAN 20 MG TABLET PO SCH (17:00)
[2019-05-14] MEDS: SOTALOL HCL 80 MG TAB PO SCH (17:33)
[2019-05-14 21:04] VITALS: BMI 25.9
--- NOTE | 2019-05-15 04:34 | HP ---
Date of Admission: 05/14/2019 Chief Complaint: Heart racing feeling. History Of Present Illness: This is a very pleasant 78-year-old female patient with history of atria l fibrillation, takes her medications regularly including her sotalol and Xarelto, came into emergenc y room with heart racing feeling. The patient woke up from her sleep around 2 o'clock in the morning to go to the bathroom, and at that time, she noted that she felt like having heart racing feeling an d this feeling continued for about an hour and a half. Her brought her to emergency room aft er giving 1 extra dose of sotalol at home. When the patient came into the ER, she was in atrial fibr illation with rapid ventricular rate. In the emergency room, she received 0.5 mg of digoxin and IV L opressor 2.5 mg x3 doses and 1 dose of her Xarelto. She was admitted to the hospital. I saw her in the emergency room this morning for this admission. She did not take her Xarelto yesterday because a s of today she was planning to have ERCP with possibility of a biliary stent placement for bile stric ture problem and this was planned by Dr. Martin, but obviously we will have to cancel that now. Denies any chest pain, but had some shortness of breath and nausea feeling and feeling cold, clammy with th is heart racing feeling. Medications: List reviewed. Review of Systems: Cardiovascular: As mentioned above. GI: Has right upper quadrant pain, for which she has seen Dr. Martin and this was thought to be due to biliary stricture. All other systems reviewed and negative. Allergies: TO HYDROCODONE, MEPERIDINE, AND SHRIMP. Past Medical History: Significant for hypertension, hyperlipidemia, overactive bladder, vitamin D de ficiency, insomnia, gastroesophageal reflux disease, diverticulosis, lung cancer, and atrial fibrilla tion. Past Surgical History: Knee replacement, appendectomy, cholecystectomy, , hysterectomy, his tory of DVT and pulmonary embolism in 1994, and rotator cuff repair. Family History: Mother had kidney disease. Father, blood clot problem. Social History: Negative for smoking or alcohol use. Physical Examination: Vital Signs: When she came into emergency room, temperature 97.6, pulse 125, respiratory rate 20, bl ood pressure 119/85, oxygen saturation 95%, height 5 feet 7 inches, weight 166 pounds. General: Awake, alert, oriented, not in distress. HEENT: Head atraumatic, normocephalic. Conjunctivae nonerythematous. Sclerae white. Mouth, no thr ush or edema noted. Ears/Nose, no mass, lesion, discharge noted. Neck: Supple. No JVD, lymph nodes, bruit, thyromegaly noted. Lungs: Bilateral good equal air entry. Clear to auscultation. No rhonchi. No rales. Heart: Normal heart sounds, no murmur or gallop. Abdomen: Soft, bowel sounds normal. No guarding, rigidity, tenderness, mass, hepatosplenomegaly, dis tention, or bruit noted. Extremities: No leg edema. No calf tenderness. Skin: No rash, ulcer, cellulitis. Lymphatics: No lymph node enlargement in neck, supraclavicular, infraclavicular region. Neuro: No focal neurological deficit. Chest: Unremarkable. External Genitalia: Deferred. Rectal: Deferred. Laboratory Data: White count 8.4, hemoglobin 14.7, platelets 205. Sodium 137, potassium 3.2, chlori de 110, bicarb 25, BUN 10, creatinine 0.71, glucose 100. Liver function tests unremarkable. Troponi n 0.14 on the first set, 0.20 on the second set, 0.21 on the third set. Lactic acid 2.34. Urinalysi s; trace esterase, less than 20 bacteria, negative for nitrites. CT scan of aorta per dissection pro tocol shows no evidence of aneurysm, dissection, or acute aortic finding. Left ventricular hypertrop hy suspected. Chest x-ray; no acute cardiopulmonary changes. EKG; atrial fibrillation with rapid ve ntricular rate. Impression: 1.Atrial fibrillation, chronic, with rapid ventricular rate. 2.Hypokalemia. 3.Biliary stricture. 4.Hypertension. 5.Hyperlipidemia. 6.Overactive bladder. 7.Vitamin D deficiency. 8.Insomnia. 9.Gastroesophageal reflux disease. 10.Diverticulosis. 11.Lung cancer. Plan: Admit the patient to hospital for further evaluation and management of this problem. The [facility] ent is appropriate for inpatient and is expected to spend 2 midnights in hospital. We will continue her anticoagulation therapy, antiarrhythmic therapy per supervisor inspection, and we will follow up with card iologist regarding further recommendation. The patient reports that she has recurrent problem with p alpitation, and about once a week, she has such problem with heart racing feeling. So, she will comm unicate with supervisor inspection regarding further therapeutic intervention. We will continue her Xarelto. I will see her tomorrow for followup. ANI/LEEROY Voice ID: [id number]
[2019-05-15 04:36] LABS: Absolute Lymphocytes (CBC) 1.9 K/uL (0.7-4.9); Basophils % 0.8 % (0-1.3); Eosinophils % 3.1 % (0-4.4); Hematocrit 39.9 % (36.0-45.0); Lymphocytes % 29.7 % (15.3-44.8); MPV 10.1 fL (7.6-11.3); Monocytes % 10.9 % (3.3-12.3); RBC Red Blood Cell Count 4.45 M/uL (3.86-4.86)
[2019-05-15 04:49] LABS: BUN Blood Urea Nitrogen 6 mg/dL (7-18); Bicarbonate 29 mmol/L (21-32); Glucose Level 90 mg/dL (74-106); Potassium 3.9 mmol/L (3.5-5.1); Sodium Level 145 mmol/L (136-145)
[2019-05-15] MEDS: NS KCL 20MEQ 20 MEQ/1,000 ML BAG IV SCH (05:38)
[2019-05-15] MEDS: SOTALOL HCL 80 MG TAB PO SCH (05:38)
--- NOTE | 2019-05-15 07:05 | EKG ---
Test Date: 2019-05-14 Test Time: 08:45:20 Skiver Welt End: MICHAEL MEASUREMENT RESULTS: Intervals: Rate: 82 AL: 184 QRSD: 86 QT: 392 QTc: 457 [place]: P: 42 AL: 184 QRS: 26 T: 104 INTERPRETIVE STATEMENTS: Normal sinus rhythm with sinus arrhythmia Nonspecific ST and T wave abnormality Abnormal ECG Compared to ECG 05/14/2019 05:44:58 Atrial fibrillation no longer present ST (T wave) deviation still present Electronically Signed On 05-15-19 07:02:36 CDT by Jorge Chavarria
--- NOTE | 2019-05-15 08:36 | RAD REPORT ---
EXAM DESCRIPTION: [place] Single View05/15/2019 5:59 am CLINICAL HISTORY: Chest pain COMPARISON: May 14, 2019 FINDINGS: The lungs appear clear of acute infiltrate. Right hemidiaphragm remains elevated. The hea rt is normal size IMPRESSION: No acute abnormalities displayed
[2019-05-15 09:00] VITALS: O2SAT 95
[2019-05-15] MEDS: POTASSIUM CL SA 10 MEQ TAB PO SCH (09:05)
[2019-05-15] MEDS: PANTOPRAZOLE 40 MG INJ IVP SCH (09:06)
[2019-05-15 11:59] VITALS: BP 151/68; TEMP 98.3
--- NOTE | 2019-05-15 13:54 | DS ---
Date of Discharge: 05/15/2019 Physical Examination: HEENT: Unremarkable. Lungs: Clear to auscultation. Heart: Heart sounds normal. Abdomen: Soft. Bowel sounds normal. No guarding, rigidity, tenderness, or distention. Extremities: No leg edema. Laboratory Data: Today white count 6.5, hemoglobin 13.5, platelets 178. Sodium 145, potassium 3.9, chloride 111, bicarb 29, BUN 6, creatinine 0.54, glucose 90. Yesterday, potassium of 3.2. Discharge Medications And Instructions: Continue all prior home medication except change sotalol 80 mg, the patient to take 1 tablet in the morning and 2 tablets in the evening. Follow up with Dr. Blanc in 2 weeks and follow up at my office in 1 month. Hospital Course: This is a 78-year-old female patient admitted to the hospital with atrial fibrillat ion with rapid ventricular rate. Please see dictated H and P for more information. The patient is o n sotalol 80 mg twice a day and Xarelto 20 mg daily along with her other usual medications that she t akes on a regular basis. She came in with palpitation feeling and after she was evaluated in the ER, she was admitted to the hospital. The patient says that lately she has been having this palpitation feeling at least once a week and it may last up to 2 hours or so. In the emergency room yesterday, she was given IV digoxin, IV Lopressor, and she took 1 extra dose of sotalol before she came to emerg ency room. Cardiology consultation was requested from Dr. Chavarria. The patient remained in [facility] after admission to the hospital. This morning when I saw her, she felt fine, had no complaints and I did discuss details with Dr. Chavarria. He has released her to go home from Cardiology [facility] with instruction to take 1 tablet of sotalol in the morning and 2 tablets in the evening time. T he patient verbalizes these instructions very well and she is medically stable for discharge. Final Diagnoses: 1.Atrial fibrillation, chronic, with rapid ventricular rate. 2.Hypokalemia. 3.Biliary stricture. 4.Hypertension. 5.Hyperlipidemia. 6.Overactive bladder. 7.Vitamin D deficiency. 8.Insomnia. 9.Gastroesophageal reflux disease. 10.Diverticulosis. 11.Lung cancer. ANI/MODL Voice ID: [id number] Report ID: [id number]
--- NOTE | 2019-05-16 07:58 | ECHO ---
HEIGHT: 5 ft 7 in WEIGHT: 166 lb 0 oz DATE OF STUDY: 05/14/[address]: Prince Swanson MD 2-DIMENSIONAL: YES M.MODE: YES DOPPLER: YES COLOR FLOW: YES TDS: NO PORTABLE: NO DEFINITY: NO BUBBLE STUDY: NO DIAGNOSIS: ATRIAL FIBRILLATION CARDIAC HISTORY: CATHERIZATION: NO SURGERY: NO PROSTHETIC VALVE: NO PACEMAKER: NO MEASUREMENTS (cm) DIASTOLIC (NORMALS) SYSTOLIC (NORMALS) IVSd 1.2 (0.6-1.2) LA Diam 3.2 (1.9-4.0) LVEF 78% LVIDd 3.9 (3.5-5.7) LVIDs 2.1 (2.0-3.5) %FS 46% LVPWd 1.2 (0.6-1.2) Ao Diam 2.6 (2.0-3.7) 2 DIMENSIONAL ASSESSMENT: RIGHT ATRIUM: NORMAL LEFT ATRIUM: NORMAL RIGHT VENTRICLE: NORMAL LEFT VENTRICLE: NORMAL TRICUSPID VALVE: NORMAL MITRAL VALVE: NORMAL PULMONIC VALVE: NORMAL AORTIC VALVE: NORMAL PERICARDIAL EFFUSION: NONE AORTIC ROOT: NORMAL LEFT VENTRICULAR WALL MOTION: NORMAL. DOPPLER/COLOR FLOW: NORMAL. COMMENTS: NORMAL LEFT VENTRICULAR SIZE AND FUNCTION. NORMAL LEFT ATRIAL SIZE. NO THROMBUS. TECHNOLOGIST: VANDANA MULLIGAN
--- NOTE | 2019-05-16 12:28 | CON ---
Date of Consultation: 05/15/2019 Reason For Consultation: Atrial fibrillation. History Of Present Illness: Ms. Curtis is a 78-year-old woman. She is known to have atrial fibrill ation. She takes Betapace 80 mg 1 p.o. b.i.d. at home along with Xarelto. Apparently has been having some breakthrough episodes of atrial fibrillation over the last 2-3 months, but on 05/14, she had a very prolonged episode and came into the hospital. She was converted to sinus rhyth m after IV beta blockers. She was hypokalemic at 3.2. Denied any chest pain, nausea, vomiting, diap horesis, PND, pedal edema, or syncope. She had some shortness of breath with her atrial fibrillation . Past Medical History: Include atrial fibrillation, hypertension, dyslipidemia, gastroesophageal refl ux disease. She has had a history of lung cancer status post partial lobectomy and she has had bilia ry stricture for which she is getting an ERCP in the near future. Allergies: SHE IS ALLERGIC TO CODEINE, DEMEROL, SHRIMP, METOPROLOL AND LIDOCAINE. Review of Systems: Negative. Social History: Negative. Family History: Noncontributory. Medications: At home include Xanax, Carafate, Dexilant, Myrbetriq, , Xarelto, sotalol, and Crestor. Physical Examination: General: Today, she was in no acute distress. She was in a sinus rhythm. HEENT: Negative. Neck: Supple with no bruit, lymphadenopathy, JVD, or thyromegaly. Chest: Clear to auscultation and percussion. Cardiac: Revealed a regular rhythm and rate without any murmurs, gallops, or rubs. Abdomen: Benign. Extremities: Revealed no clubbing, cyanosis, or edema. Diagnostic Data: Troponin was 0.21, potassium 3.2. Chest x-ray showed postoperative changes, but ot herwise clear lungs. First EKG showed atrial fibrillation, second one showed normal rhythm. Impression And Plan: 1.Recurrent atrial fibrillation. 2.Biliary stricture. 3.History of lung cancer, status post lobectomy. 4.Dyslipidemia. 5.Gastroesophageal reflux disease. 6.Hypertension. 7.Hypokalemia. I would for sure replace her potassium as that has been done. I think we need to increase her sotalol dose from 80 mg twice a day to have her take 80 mg in the mor maury and 160 in the evening. We may have to even go up higher on the dose and obviously if this does not work, we should probably consider an ablation on her. I would continue the Xarelto. From my st [facility]point, I think she is still clear to undergo her ERCP. I am not concerned about her troponin elev ation. This is definitely secondary to her atrial fibrillation with a rapid rate. She has had negat pop stress test in the past in our office. I will discuss the case further with Dr. Rodriguez. She can g o home today as far as I am concerned. LUIS/LEEROY Voice ID: [id number] Report ID: [id number]
== END 2019-05-15 12:22 | disposition home or self-care (01) ==
LOC: ER 04:40 → ERHOLD 06:50 → INTOOBSV 06:50 → 2ND 09:11
PROVIDERS: ADMIT Internal Medicine; ATTEND Internal Medicine
DX: I48.2 Chronic atrial fibrillation (principal); Z79.01 Long term (current) use of anticoagulants; E87.6 Hypokalemia; I10 Essential (primary) hypertension; E78.5 Hyperlipidemia, unspecified; N32.81 Overactive bladder; E55.9 Vitamin D deficiency, unspecified; G47.00 Insomnia, unspecified; K21.9 Gastro-esophageal reflux disease without esophagitis; K57.90 Diverticulosis of intestine, part unspecified, without perforation or abscess without bleeding; Z85.118 Personal history of other malignant neoplasm of bronchus and lung; K83.1 Obstruction of bile duct; Z96.659 Presence of unspecified artificial knee joint
CPT/HCPCS: 96365; 93005 ×2; 93306; 87088; 85025 ×2; 87086; 80048 ×2; 36415; 83735; 85610; 80076; 84443; 87077; 87186; 84484 ×3; 83690; 83880; 71275; 74175; 71045 ×2; 96375; 99285; 96366; Q9967; J1160; C9113 ×2; J0696; 81003; 81015

== ENCOUNTER 2019-05-22 22:08 | Emergency (ER) | payer OTHER ==
--- OUTSIDE RECORDS SUMMARY | 2019-05-22 22:10 | XMS REPORT | Clinical Summary ---
:1940 Author Organization [facility] Address [address] [place] [address] Care Team Providers Name Role Phone Unavailable [...] INFLUENZA VACCINE 06/12/2019 Results Not on fileafter 05/21/2018 Advance Directives Patient has advance care planning documents on file. For more information, please contact:[facility] [place] [address]
--- OUTSIDE RECORDS SUMMARY | 2019-05-22 22:10 | XMS REPORT | Continuity of Care Document ---
:1940 Author Organization [facility] Care Team Providers Name Role Phone [facility] Unavailable Unavailable Problems Problem Status Onset Classification [...] Number For Provider Date Date Visit Outpatient [id number] ELIZABETH 04/03 [facility] [place] Outpatient [id number] ELIZABETH 04/29 [facility] [place] [facility] [id number] 08/13 08/15 [facility] [place] [facility] Neurology Medical /2017 Neuro [place] Records Procedures No Data Provided for This Section Assessment and Plan No Data Provided for This Section Plan of Care No Data Provided for This Section Social History Social History Date Source Social History TypeResponse 04/29/2018 [facility] Neuro Smoking Status Former smoker; Type: Cigarettes; Exposure to Tobacco Smoke None; Cigarette Smoking Last 365 Days No; Reg Smoking Cessation Counseling No entered on: 04/29/18 Family History No Data Provided for This Section Advance Directives No Data Provided for This Section Functional Status No Data Provided for This Section
[2019-05-22] MEDS ORDERED: FENTANYL CITR 100 MCG/2 ML ONE (23:26)
[2019-05-22] MEDS ORDERED: NS KCL 20MEQ 0 ML IV ONE (23:27)
[2019-05-22 23:37] LABS: Eosinophils % 2.3 % (0-4.4); Hematocrit 43.5 % (36.0-45.0); Lymphocytes % 25.4 % (15.3-44.8); MPV 10.5 fL (7.6-11.3); Monocytes % 9.8 % (3.3-12.3)
[2019-05-22] MEDS ORDERED: NA CHLORIDE 0.9% 1,000 ML ONE (23:42)
[2019-05-22 23:49] LABS: Albumin 3.4 g/dL (3.4-5.0); Bilirubin Direct 0.2 mg/dL (0-0.2); Bilirubin Total 0.7 mg/dL (0.2-1.0); Potassium 3.8 mmol/L (3.5-5.1); Protein, Total 6.4 g/dL (6.4-8.2)
--- NOTE | 2019-05-23 00:43 | EDPHYS ---
Physician Documentation [facility] Name: Vilma Curtis Age: 78 yrs Sex: Female : 1940 Arrival Date: 05/22/2019 Time: 22:09 Bed 4 Private MD: Abel Rodriguez ED Physician Levi Upton HPI: 05/23 00:58 This 78 yrs old Female presents to ER via Wheelchair with complaints of gs Abdominal Swelling, Abdominal Pain. 00:58 The patient presents with abdominal pain that is diffuse. Onset: The symptoms/episode gs began/occurred today. The symptoms radiate to Associated signs and symptoms: Pertinent positives: nausea, Pertinent negatives: nausea and vomiting, fever. The symptoms are described as sharp. Modifying factors: The symptoms are alleviated by nothing, the symptoms are aggravated by nothing. Severity of pain: At its worst the pain was severe in the emergency department the pain is unchanged. The patient has experienced similar episodes in the past, a few times. has pancreatic stent placed. Historical: - Allergies: 05/22 22:28 Demerol; ao 22:28 Hydrocodone-Acetaminophen; ao 22:28 Lidocaine; ao 22:28 Metoprolol Tartrate; ao - Home Meds: 22:28 aspirin 81 mg Oral TbEC 2 tabs once daily [Active]; Betapace 80 mg Oral tab 1 tab 2 ao times per day [Active]; Caltrate 600+D Plus Minerals Oral daily [Active]; Creon Oral [Active]; Dexilant 60 mg Oral CpDB 1 cap once daily [Active]; Levsinex Oral 0.125 mg twice a day [Active]; Enablex 15 mg Oral Tb24 1 tab once daily [Active]; metoprolol tartrate 25 mg Oral tab 1 tab 2 times per day [Active]; Nexium 20 mg Oral cpDR 1 cap 2 times per day [Active]; Nitrofurantoin Macrocrystal Oral [Active]; Myrbetriq 50 mg Oral Tb24 1 tab once daily [Active]; rosuvastatin 10 mg Oral tab 1 tab once daily [Active]; sucralfate 1 gram Oral tab 1 tab 2 times per day [Active]; Vitamin D3 Oral [Active]; Xanax 0.25 mg Oral tab 1 tab daily [Active]; vitamin E Oral [Active]; Xarelto 20 mg Oral tab 1 tab once daily [Active]; nitrofurantoin macrocrystal 100 mg Oral cap 1 cap every 6 hours [Active]; potassium chloride 10 mEq Oral cpER 1 cap 2 times per day [Active]; promethazine 25 mg Oral tab 1 tab once daily [Active]; - PMHx: 22:28 Irregular heart rate; Lung Cancer; ao - PSHx: 22:28 Scope; ao - Immunization history:: Adult Immunizations up to date. - Social history:: Smoking status: Patient uses tobacco products, smokes one pack cigarettes per day. - Ebola Screening: : Patient negative for fever greater than or equal to 101.5 degrees Fahrenheit, and additional compatible Ebola Virus Disease symptoms Patient denies exposure to infectious person Patient denies travel to an Ebola-affected area in the 21 days before illness onset. ROS: 05/23 00:58 All other systems are negative. gs Exam: 00:58 Head/Face: Normocephalic, atraumatic. Eyes: Pupils equal round and reactive to light, gs extra-ocular motions intact. Lids and lashes normal. Conjunctiva and sclera are non-icteric and not injected. Cornea within normal limits. Periorbital areas with no swelling, redness, or edema. ENT: Nares patent. No nasal discharge, no septal abnormalities noted. Tympanic membranes are normal and external auditory canals are clear. Oropharynx with no redness, swelling, or masses, exudates, or evidence of obstruction, uvula midline. Mucous membranes moist. Neck: Trachea midline, no thyromegaly or masses palpated, and no cervical lymphadenopathy. Supple, full range of motion without nuchal rigidity, or vertebral point tenderness. No Meningismus. Chest/axilla: Normal chest wall appearance and motion. Nontender with no deformity. No lesions are appreciated. Cardiovascular: Regular rate and rhythm with a normal S1 and S2. No gallops, murmurs, or rubs. Normal PMI, no JVD. No pulse deficits. Respiratory: Lungs have equal breath sounds bilaterally, clear to auscultation and percussion. No rales, rhonchi or wheezes noted. No increased work of breathing, no retractions or nasal flaring. Back: No spinal tenderness. No costovertebral tenderness. Full range of motion. Skin: Warm, dry with normal turgor. Normal color with no rashes, no lesions, and no evidence of cellulitis. MS/ Extremity: Pulses equal, no cyanosis. Neurovascular intact. Full, normal range of motion. Neuro: Awake and alert, GCS 15, oriented to person, place, time, and situation. Cranial nerves II-XII grossly intact. Motor strength 5/5 in all extremities. Sensory grossly intact. Cerebellar exam normal. Normal gait. 00:58 Constitutional: The patient appears alert, awake. 00:58 ECG was reviewed by the Attending Physician. 00:58 Abdomen/GI: Palpation: mild abdominal tenderness, in all quadrants, rebound tenderness, is not appreciated. Vital Signs: 05/22 22:29 BP 112 / 70; Pulse 57; Resp 18; Temp 98.0(O); Pulse Ox 95% on R/A; Weight 74.84 kg (R); ao Height 5 ft. 7 in. (170.18 cm) (R); Pain 8/10; 23:29 BP 109 / 68; Pulse 60; Resp 18; Pulse Ox 99% on R/A; ao 22:29 Body Mass Index 25.84 (74.84 kg, 170.18 cm) ao MDM: 23:00 Patient medically screened. 05/23 00:58 Differential diagnosis: gastritis, gastroesophageal reflux disease, non-specific abd gs pain, pancreatitis. Data reviewed: vital signs, nurses notes. Counseling: I had a detailed discussion with the patient and/or guardian regarding: the historical points, exam findings, and any diagnostic results supporting the discharge/admit diagnosis, lab results, radiology results, the need for outpatient follow up. Response to treatment: the patient's symptoms have resolved after treatment, the patient's condition has returned to base line, and as a result, I will discharge patient. 05/22 23:05 Order name: Basic Metabolic Panel 05/22 23:05 Order name: CBC with Diff 05/22 23:05 Order name: Hepatic Function 05/22 23:05 Order name: Lipase 05/22 23:06 Order name: Basic Metabolic Panel; Complete Time: 00:38 EDMS 05/22 23:06 Order name: CBC with Automated Diff; Complete Time: 00:38 EDMS 05/22 23:05 Order name: IV Saline Lock; Complete Time: 23:24 05/22 23:05 Order name: Labs collected and sent; Complete Time: 23:24 05/22 23:05 Order name: CT Stone Protocol 05/22 23:06 Order name: Liver (Hepatic) Function; Complete Time: 00:38 [facility] 05/22 23:06 Order name: Lipase; Complete Time: 00:38 [facility] 05/22 23:05 Order name: EKG - Nurse/Tech; Complete Time: 23:49 gs EC:58 Rate is 72 beats/min. Rhythm is regular. AL interval is normal. QRS interval is normal. gs T waves are Normal. No ST changes noted. Clinical impression: Sinus bradycardia. Interpreted by me. Administered Medications: 05/22 23:23 Drug: fentaNYL (PF) 50 mcg Route: IVP; Site: left antecubital; ao 05/23 00:30 Follow up: Response: Pain is decreased ao 01:16 Follow up: Response: No adverse reaction ao 05/22 23:24 Not Given (Duplicate Order; Changed to NS): NS 0.45 % with KCl 20 mEq/L 1000 ml IV at ao 125 ml/hr once 23:31 Drug: NS 0.9% 1000 ml Route: IV; Rate: 125 ml/hr; Site: left antecubital; ao 05/23 01:15 Follow up: IV Status: Order to discontinue infusion; IV Intake: 350ml ao Disposition: 05/23/19 00:42 Discharged to Home. Impression: Generalized abdominal pain. - Condition is Stable. - Discharge Instructions: Abdominal Pain, Adult. - Medication Reconciliation Form, Thank You Letter, Antibiotic Education, Prescription Opioid Use form. - Follow up: Private Physician; When: 1 - 2 days; Reason: Re-evaluation by your physician. Signatures: Dispatcher [facility] Hospital[facility]hupendra Olivas RN RN Levi Walker MD MD gs Corrections: (The following items were deleted from the chart) 01:14 00:42 05/23/2019 00:42 Discharged to Home. Impression: Generalized abdominal pain. ao Condition is Stable. Forms are Medication Reconciliation Form, Thank You Letter, Antibiotic Education, Prescription Opioid Use. Follow up: Private Physician; When: 1 - 2 days; Reason: Re-evaluation by your physician.
--- NOTE | 2019-05-23 00:43 | ER ---
Nurse's Notes [facility] Name: Vilma Curtis Age: 78 yrs Sex: Female : 1940 Arrival Date: 05/22/2019 Time: 22:09 Bed 4 Private MD: Abel Rodriguez Diagnosis: Generalized abdominal pain Presentation: 05/22 22:22 Presenting complaint: Patient states: Abdominal and back pain X2 days. Patient reports ao a stent placement in the pancreas two day ago. Negative for vomiting and positive for nausea. Transition of care: patient was not received from another setting of care. Onset of symptoms is unknown. Risk Assessment: Do you want to hurt yourself or someone else? Patient reports no desire to harm self or others. Initial Sepsis Screen: Does the patient meet any 2 criteria? No. Patient's initial sepsis screen is negative. Does the patient have a suspected source of infection? No. Patient's initial sepsis screen is negative. Care prior to arrival: None. 22:22 Method Of Arrival: Wheelchair ao 22:22 Acuity: GILDARDO 3 ao Triage Assessment: 22:30 General: Appears in no apparent distress. comfortable, Behavior is calm, cooperative, ao appropriate for age. Pain: Complains of pain in abdomen Pain does not radiate. Pain currently is 8 out of 10 on a pain scale. EENT: No signs and/or symptoms were reported regarding the EENT system. Neuro: Level of Consciousness is awake, alert, obeys commands, Oriented to person, place, time, situation, Appropriate for age Moves all extremities. Full function Speech is normal, Facial symmetry appears normal. Cardiovascular: Capillary refill < 3 seconds. Respiratory: Airway is patent Respiratory effort is even, unlabored, Respiratory pattern is regular, symmetrical. GI: Abdomen is non-distended. GI: Reports upper abdominal pain, nausea. : No signs and/or symptoms were reported regarding the genitourinary system. Derm: Skin is pink, warm \T\ dry. normal, Skin temperature is warm. Musculoskeletal: Circulation, motion, and sensation intact. Range of motion: limited in all extremities. Historical: - Allergies: 22:28 Demerol; ao 22:28 Hydrocodone-Acetaminophen; ao 22:28 Lidocaine; ao 22:28 Metoprolol Tartrate; ao - Home Meds: 22:28 aspirin 81 mg Oral TbEC 2 tabs once daily [Active]; Betapace 80 mg Oral tab 1 tab 2 ao times per day [Active]; Caltrate 600+D Plus Minerals Oral daily [Active]; Creon Oral [Active]; Dexilant 60 mg Oral CpDB 1 cap once daily [Active]; Levsinex Oral 0.125 mg twice a day [Active]; Enablex 15 mg Oral Tb24 1 tab once daily [Active]; metoprolol tartrate 25 mg Oral tab 1 tab 2 times per day [Active]; Nexium 20 mg Oral cpDR 1 cap 2 times per day [Active]; Nitrofurantoin Macrocrystal Oral [Active]; Myrbetriq 50 mg Oral Tb24 1 tab once daily [Active]; rosuvastatin 10 mg Oral tab 1 tab once daily [Active]; sucralfate 1 gram Oral tab 1 tab 2 times per day [Active]; Vitamin D3 Oral [Active]; Xanax 0.25 mg Oral tab 1 tab daily [Active]; vitamin E Oral [Active]; Xarelto 20 mg Oral tab 1 tab once daily [Active]; nitrofurantoin macrocrystal 100 mg Oral cap 1 cap every 6 hours [Active]; potassium chloride 10 mEq Oral cpER 1 cap 2 times per day [Active]; promethazine 25 mg Oral tab 1 tab once daily [Active]; - PMHx: 22:28 Irregular heart rate; Lung Cancer; ao - PSHx: 22:28 Scope; ao - Immunization history:: Adult Immunizations up to date. - Social history:: Smoking status: Patient uses tobacco products, smokes one pack cigarettes per day. - Ebola Screening: : Patient negative for fever greater than or equal to 101.5 degrees Fahrenheit, and additional compatible Ebola Virus Disease symptoms Patient denies exposure to infectious person Patient denies travel to an Ebola-affected area in the 21 days before illness onset. Screenin:29 Abuse screen: Denies threats or abuse. Denies injuries from another. Nutritional ao screening: No deficits noted. Tuberculosis screening: No symptoms or risk factors identified. Fall Risk None identified. Assessment: 22:30 General: See triage assessment. ao 23:29 Reassessment: Patient and/or family updated on plan of care and expected duration. Pain ao level reassessed. Patient is alert, oriented x 3, equal unlabored respirations, skin warm/dry/pink. Patient going to CT Patient states feeling better. 23:35 GI: Bowel sounds present X 4 quads. Abd is soft and non tender Abd is non tender. ao 05/23 00:50 Reassessment: DC instructions given to patient and significant other. Patient agree ao with POC and to follow up with surgeon and PCP. Vital Signs: 05/22 22:29 BP 112 / 70; Pulse 57; Resp 18; Temp 98.0(O); Pulse Ox 95% on R/A; Weight 74.84 kg (R); ao Height 5 ft. 7 in. (170.18 cm) (R); Pain 8/10; 23:29 BP 109 / 68; Pulse 60; Resp 18; Pulse Ox 99% on R/A; ao 22:29 Body Mass Index 25.84 (74.84 kg, 170.18 cm) ao ED Course: 22:09 Patient arrived in ED. mr 22:09 Abel Rodriguez MD is Private Physician. mr 22:24 Triage completed. ao 22:29 Arm band placed on right wrist. Patient placed in an exam room, on a stretcher, on ao radiation monitor, on pulse oximetry, Patient notified of wait time. 22:38 Bhupendra Galaviz RN is Primary Nurse. ao 22:54 Levi Upton MD is Attending Physician. gs 23:15 Inserted saline lock: 20 gauge in left antecubital area, using aseptic technique. Blood ao collected. 23:32 Patient has correct armband on for positive identification. residential monitor on. Pulse ao ox on. NIBP on. 23:52 CT Stone Protocol In Process Unspecified. EDMS 23:55 CT completed. Patient tolerated procedure well. Patient moved to CT via stretcher. Patient moved back from CT. 05/23 01:12 No provider procedures requiring assistance completed. IV discontinued, intact, ao bleeding controlled, No redness/swelling at site. Pressure dressing applied. Administered Medications: 05/22 23:23 Drug: fentaNYL (PF) 50 mcg Route: IVP; Site: left antecubital; ao 05/23 00:30 Follow up: Response: Pain is decreased ao 01:16 Follow up: Response: No adverse reaction ao 05/22 23:24 Not Given (Duplicate Order; Changed to NS): NS 0.45 % with KCl 20 mEq/L 1000 ml IV at ao 125 ml/hr once 23:31 Drug: NS 0.9% 1000 ml Route: IV; Rate: 125 ml/hr; Site: left antecubital; ao 05/23 01:15 Follow up: IV Status: Order to discontinue infusion; IV Intake: 350ml ao Intake: 01:15 IV: 350ml; Total: 350ml. ao Outcome: 00:42 Discharge ordered by . gs 01:12 Discharged to home ambulatory. ao 01:12 Condition: stable 01:12 Discharge instructions given to patient, Instructed on discharge instructions, follow up and referral plans. Demonstrated understanding of instructions, follow-up care. 01:14 Patient left the ED. ao Signatures: Dispatcher [employer] Lola Valdez Rahul, Bhupendra Dugan RN RN Levi Walker MD MD
[2019-05-23 02:40] VITALS: TEMP 98
[2019-05-23 02:41] VITALS: BP 109/68; O2SAT 99
--- NOTE | 2019-05-23 09:51 | RAD REPORT ---
EXAM DESCRIPTION: CT Stone Protocol CLINICAL HISTORY: 78 years Female Epigastric pain with nausea. Pancreatic stent placed two days pr ior. TECHNIQUE: Contiguous axial images obtained through the abdomen and pelvis without the administratio n of IV contrast. Coronal and sagittal reformatted images provided. This CT exam was performed according to our departmental dose-optimization program, which includes on e or more of the following dose reduction techniques: automated exposure control, adjustment of the m A and/or kV according to patient size, and/or use of iterative reconstruction technique. COMPARISON: Comparison is made with the prior CT angiogram dated 05/14/2019 FINDINGS: There is now a stent in the mid-distal common bile duct, terminating in the proximal to mi d duodenum. There is pneumobilia without visualized biliary stone. Patient again seen to be status post cholecystectomy. Minimal bibasilar atelectasis. The unenhanced liver, pancreas, spleen, adrenal glands, and kidneys are normal. Again seen is a left posterior bladder calculus without hydroureteronephrosis. Prior hysterectomy. Suspected prior appendectomy. There is no bowel inflammation, obstruction, free intraperitoneal air, or ascites. The Atherosclerosis of the abdominal aorta without aneurysm or evidence of acute retroperitoneal hemorrha ge. Chronic degenerative changes present throughout the spine. IMPRESSION: New stent in the common bile duct with pneumobilia. No other acute findings in the abdomen or pelvis. No evidence of pancreatitis. Stable left posterior bladder calculus. Electronically signed by: Benita Campoverde MD 05/23/2019 12:04 AM CDT Due to temporary technical issues with the PACS/Fluency reporting system, reports are being signed by the in house radiologist as a courtesy to ensure prompt reporting. The interpreting radiologist is f ully responsible for the content of the report.
--- NOTE | 2019-05-23 15:03 | EKG ---
Test Date: 2019-05-22 Test Time: 23:43:55 Principal Quality Engineer: DEMETRIO MEASUREMENT RESULTS: Intervals: Rate: 72 VA: 192 QRSD: 90 QT: 434 QTc: 475 [place]: P: 42 VA: 192 QRS: 14 T: 88 INTERPRETIVE STATEMENTS: Sinus rhythm with marked sinus arrhythmia Otherwise normal ECG Compared to ECG 05/14/2019 08:45:20 ST (T wave) deviation no longer present Electronically Signed On 05-23-19 15:02:50 CDT by Deven Champagne
== END 2019-05-23 01:14 | disposition home or self-care (01) ==
LOC: ER 22:08
DX: R10.84 Generalized abdominal pain (principal); F17.210 Nicotine dependence, cigarettes, uncomplicated; Z85.118 Personal history of other malignant neoplasm of bronchus and lung; Z88.6 Allergy status to analgesic agent
CPT/HCPCS: 96361; 93005; 85025; 80048; 36415; 80076; 83690; 76377; 74176; 96374; 99285; J3010; J7030

== ENCOUNTER 2019-12-07 15:50 | Inpatient (IN) | payer OTHER ==
--- OUTSIDE RECORDS SUMMARY | 2019-12-07 16:06 | XMS REPORT ---
:1940 [facility] Address [address] [place] [address] Dr. Zhu [address] [place] [id number] Care Team Providers Name Role Phone Unavailable Unavailable Unavailable Problems This patient has no known problems. Allergies, Adverse Reactions, Alerts This patient has no known allergies or adverse reactions. Medications This patient has no known medications.
[2019-12-07] MEDS ORDERED: HYDROMORPHONE HCL 0.5 MG/0.5 ML INJ ONE (16:07)
[2019-12-07] MEDS ORDERED: PROMETHAZINE INJ 25 MG/ML AMP ONE (16:27)
[2019-12-07] MEDS ORDERED: NA CHLORIDE 0.9% 100 ML IV ONE ×2 (16:28→18:27)
[2019-12-07 16:36] LABS: Absolute Lymphocytes (CBC) 2.4 K/uL (0.7-4.9); Basophils % 0.6 % (0-1.3); Hematocrit 41.4 % (36.0-45.0); Lymphocytes % 22.9 % (15.3-44.8); MPV 9.9 fL (7.6-11.3); RBC Red Blood Cell Count 4.66 M/uL (3.86-4.86)
[2019-12-07 16:48] LABS: Protime INR 1.14
[2019-12-07 16:50] LABS: Potassium 3.6 mmol/L (3.5-5.1)
--- NOTE | 2019-12-07 17:32 | RAD REPORT ---
EXAM DESCRIPTION: RAD - Pelvis - 12/07/2019 5:19 pm CLINICAL HISTORY: Right hip pain FINDINGS: Moderately displaced impacted subcapital right femoral fracture. No dislocation
--- NOTE | 2019-12-07 17:33 | RAD REPORT ---
EXAM DESCRIPTION: RAD - Hip Right 2 View - 12/07/2019 5:20 pm CLINICAL HISTORY: Right hip pain FINDINGS: Moderately displaced impacted subcapital right femoral fracture. No dislocation
--- NOTE | 2019-12-07 17:34 | RAD REPORT ---
EXAM DESCRIPTION: Naveen Single View12/07/2019 5:21 pm CLINICAL HISTORY: Chest pain COMPARISON: 2018 FINDINGS: The lungs appear clear of acute infiltrate. The heart is normal size IMPRESSION: No acute abnormalities displayed
[2019-12-07] MEDS ORDERED: HYDROMORPHONE HCL 1 MG/ML INJ ONE (18:26)
--- NOTE | 2019-12-07 18:51 | EDPHYS ---
Physician Documentation [facility] Name: Vilma Curtis Age: 78 yrs Sex: Female : 1940 Arrival Date: 12/07/2019 Time: 15:51 Bed 4 Private MD: ED Physician Khoa Parks HPI: 12/08 12:44 This 78 yrs old Female presents to ER via EMS with complaints of Fall Injury. kdr 12:44 Details of fall: The patient fell from an upright position, while walking. Onset: The kdr symptoms/episode began/occurred acutely, just prior to arrival. Associated injuries: The patient sustained Right hip. Severity of symptoms: At their worst the symptoms were mild, moderate, just prior to arrival, in the emergency department the symptoms are unchanged. The patient has not experienced similar symptoms in the past. The patient has not recently seen a physician. The patient was walking and tripped falling onto her right hip.. Historical: - Allergies: 12/07 15:59 Demerol; jl7 15:59 Hydrocodone-Acetaminophen; jl7 15:59 Lidocaine; jl7 15:59 Metoprolol Tartrate; jl7 - Home Meds: 15:59 aspirin 81 mg Oral TbEC 2 tabs once daily [Active]; Betapace 80 mg Oral tab 1 tab 2 jl7 times per day [Active]; Caltrate 600+D Plus Minerals Oral daily [Active]; Creon Oral [Active]; Dexilant 60 mg Oral CpDB 1 cap once daily [Active]; Enablex 15 mg Oral Tb24 1 tab once daily [Active]; Levsinex Oral 0.125 mg twice a day [Active]; metoprolol tartrate 25 mg Oral tab 1 tab 2 times per day [Active]; Myrbetriq 50 mg Oral Tb24 1 tab once daily [Active]; Nexium 20 mg Oral cpDR 1 cap 2 times per day [Active]; nitrofurantoin macrocrystal 100 mg Oral cap 1 cap every 6 hours [Active]; Nitrofurantoin Macrocrystal Oral [Active]; potassium chloride 10 mEq Oral cpER 1 cap 2 times per day [Active]; promethazine 25 mg Oral tab 1 tab once daily [Active]; rosuvastatin 10 mg Oral tab 1 tab once daily [Active]; sucralfate 1 gram Oral tab 1 tab 2 times per day [Active]; Vitamin D3 Oral [Active]; vitamin E Oral [Active]; Xanax 0.25 mg Oral tab 1 tab daily [Active]; Xarelto 20 mg Oral tab 1 tab once daily [Active]; - PMHx: 15:59 Irregular heart rate; Lung Cancer; Hypertension; High Cholesterol; GERD; jl7 - PSHx: 15:59 Scope; jl7 - Immunization history:: Adult Immunizations unknown. - Coronavirus screen:: The patient has NOT traveled to [place], [place], or [place] in the past 14 days. - Social history:: Smoking status: Patient denies any tobacco usage or history of. - Ebola Screening: : No symptoms or risks identified at this time. ROS: 12/08 12:44 Constitutional: Negative for fever, chills, and weight loss, Eyes: Negative for injury, kdr pain, redness, and discharge, ENT: Negative for injury, pain, and discharge, Neck: Negative for injury, pain, and swelling, Cardiovascular: Negative for chest pain, palpitations, and edema, Respiratory: Negative for shortness of breath, cough, wheezing, and pleuritic chest pain, Abdomen/GI: Negative for abdominal pain, nausea, vomiting, diarrhea, and constipation, Back: Negative for injury and pain, : Negative for injury, bleeding, discharge, and swelling, Skin: Negative for injury, rash, and discoloration, Neuro: Negative for headache, weakness, numbness, tingling, and seizure activity. Psych: Negative for depression, anxiety, suicide ideation, homicidal ideation, and hallucinations, Allergy/Immunology: Negative for hives, rash, and allergies, Endocrine: Negative for neck swelling, polydipsia, polyuria, polyphagia, and marked weight changes, Hematologic/Lymphatic: Negative for swollen nodes, abnormal bleeding, and unusual bruising. MS/extremity: Positive for injury or acute deformity, decreased range of motion, pain, tenderness. Exam: 12:44 Constitutional: This is a well developed, well nourished patient who is awake, alert, kdr and in no acute distress. Head/Face: Normocephalic, atraumatic. Eyes: Pupils equal round and reactive to light, extra-ocular motions intact. Lids and lashes normal. Conjunctiva and sclera are non-icteric and not injected. Cornea within normal limits. Periorbital areas with no swelling, redness, or edema. Neck: Trachea midline, no thyromegaly or masses palpated, and no cervical lymphadenopathy. Supple, full range of motion without nuchal rigidity, or vertebral point tenderness. No Meningismus. Chest/axilla: Normal chest wall appearance and motion. Nontender with no deformity. No lesions are appreciated. Cardiovascular: Regular rate and rhythm with a normal S1 and S2. No gallops, murmurs, or rubs. Normal PMI, no JVD. No pulse deficits. Respiratory: Lungs have equal breath sounds bilaterally, clear to auscultation and percussion. No rales, rhonchi or wheezes noted. No increased work of breathing, no retractions or nasal flaring. Abdomen/GI: Soft, non-tender, with normal bowel sounds. No distension or tympany. No guarding or rebound. No evidence of tenderness throughout. Back: No spinal tenderness. No costovertebral tenderness. Full range of motion. Skin: Warm, dry with normal turgor. Normal color with no rashes, no lesions, and no evidence of cellulitis. Neuro: Awake and alert, GCS 15, oriented to person, place, time, and situation. Cranial nerves II-XII grossly intact. Motor strength 5/5 in all extremities. Sensory grossly intact. Cerebellar exam normal. Normal gait. Psych: Awake, alert, with orientation to person, place and time. Behavior, mood, and affect are within normal limits. 12:44 Musculoskeletal/extremity: Extremities: grossly normal except: noted in the right hip: decreased ROM, pain, Pulses good distally and no neuro changes. Vital Signs: 12/07 15:59 BP 160 / 94; Pulse 78; Resp 17; Temp 97.8; Pulse Ox 99% ; ae4 18:03 BP 133 / 79; Pulse 87; Resp 16; Pulse Ox 96% on R/A; ae4 19:25 BP 120 / 69; Pulse 87; Resp 18; Pulse Ox 99% ; ea MDM: 18:50 Patient medically screened. kdr 12/08 12:44 Data reviewed: vital signs, nurses notes, lab test result(s), radiologic studies. kdr Counseling: I had a detailed discussion with the patient and/or guardian regarding: the historical points, exam findings, and any diagnostic results supporting the discharge/admit diagnosis, lab results, radiology results, the need for further work-up and treatment in the hospital. Physician consultation: Abel Rodriguez MD regarding admission, patient's condition, and will see patient in inpatient room, tomorrow. 12/07 16:01 Order name: CBC with Diff; Complete Time: 18:55 kdr 12/07 16:01 Order name: Chem 7; Complete Time: 18:55 kdr 12/07 16:01 Order name: PT-INR; Complete Time: 18:55 kdr 12/07 19:07 Order name: Basic Metabolic Panel EDMS 12/07 19:07 Order name: Basic Metabolic Panel EDMS 12/07 19:07 Order name: CBC with Automated Diff EDMS 12/07 16:01 Order name: Pelvis XRAY; Complete Time: 18:55 kdr 12/07 16:01 Order name: Hip Right 2 View XRAY; Complete Time: 18:55 kdr 12/07 17:16 Order name: Chest Single View XRAY; Complete Time: 18:55 ms 12/07 18:57 Order name: Hip Right Wo Con EDMS 12/07 19:07 Order name: CBC with Automated Diff EDMS 12/07 19:07 Order name: CONS Physician Consult EDWI 12/07 19:07 Order name: Regular EDMS Administered Medications: 12/07 16:10 Drug: Dilaudid 0.5 mg Route: IVP; Site: left antecubital; ae4 18:35 Follow up: Response: Pain is decreased ae4 16:28 Drug: Phenergan 12.5 mg Route: IVP; Site: left antecubital; jl7 17:00 Follow up: Response: No adverse reaction; Nausea is decreased jl7 18:30 Drug: Dilaudid 1 mg Route: IVP; Site: left antecubital; ae4 19:16 Follow up: Response: Pain is decreased ae4 Disposition: 12/07/19 18:50 Hospitalization ordered by Abel Rodriguez for Inpatient Admission. Preliminary diagnosis is Right Hip Fracture. - Bed requested for Telemetry/MedSurg (Inpatient). - Status is Inpatient Admission. ea - Condition is Fair. - Problem is new. - Symptoms have improved. UTI on Admission? No Signatures: Dispatcher [employer] EDWI Khoa Parks MD MD kdr Garcia, Cindy, RN RN Bobo Singletary RN RN jl7 Geri Weiss, LIZETTE RN ea Ellis Eden RN RN ae4 Corrections: (The following items were deleted from the chart) 19: 18:50 Hospitalization Ordered by Abel Rodriguez MD for Inpatient Admission. Preliminary cg diagnosis is Right Hip Fracture. Bed requested for Telemetry/MedSurg (Inpatient). Status is Inpatient Admission. Condition is Fair. Problem is new. Symptoms have improved. UTI on Admission? No. kdr 20:01 19:26 12/07/2019 18:50 Hospitalization Ordered by Abel Rodriguez MD for Inpatient ea Admission. Preliminary diagnosis is Right Hip Fracture. Bed requested for Telemetry/MedSurg (Inpatient). Status is Inpatient Admission. Condition is Fair. Problem is new. Symptoms have improved. UTI on Admission? No. cg
--- NOTE | 2019-12-07 18:51 | ER ---
Nurse's Notes [facility] Name: Vilma Curtis Age: 78 yrs Sex: Female : 1940 Arrival Date: 12/07/2019 Time: 15:51 Bed 4 Private MD: Diagnosis: Right Hip Fracture Presentation: 12/07 15:53 Presenting complaint: EMS states: Fell from standing, on right hip, did not hit head, jl7 reports right hip pain, no other complaints. Transition of care: patient was not received from another setting of care. Onset of symptoms was December 07, 2019. Risk Assessment: Do you want to hurt yourself or someone else? Patient reports no desire to harm self or others. Initial Sepsis Screen: Does the patient meet any 2 criteria? No. Patient's initial sepsis screen is negative. Does the patient have a suspected source of infection? No. Patient's initial sepsis screen is negative. Care prior to arrival: Placed on backboard. pelvic binder placed pt refused any treatment from EMS. 15:53 Method Of Arrival: EMS: [facility] jl7 15:53 Acuity: GILDARDO 4 jl7 16:00 Acuity: GILDARDO 3 jl7 Historical: - Allergies: 15:59 Demerol; jl7 15:59 Hydrocodone-Acetaminophen; jl7 15:59 Lidocaine; jl7 15:59 Metoprolol Tartrate; jl7 - Home Meds: 15:59 aspirin 81 mg Oral TbEC 2 tabs once daily [Active]; Betapace 80 mg Oral tab 1 tab 2 jl7 times per day [Active]; Caltrate 600+D Plus Minerals Oral daily [Active]; Creon Oral [Active]; Dexilant 60 mg Oral CpDB 1 cap once daily [Active]; Enablex 15 mg Oral Tb24 1 tab once daily [Active]; Levsinex Oral 0.125 mg twice a day [Active]; metoprolol tartrate 25 mg Oral tab 1 tab 2 times per day [Active]; Myrbetriq 50 mg Oral Tb24 1 tab once daily [Active]; Nexium 20 mg Oral cpDR 1 cap 2 times per day [Active]; nitrofurantoin macrocrystal 100 mg Oral cap 1 cap every 6 hours [Active]; Nitrofurantoin Macrocrystal Oral [Active]; potassium chloride 10 mEq Oral cpER 1 cap 2 times per day [Active]; promethazine 25 mg Oral tab 1 tab once daily [Active]; rosuvastatin 10 mg Oral tab 1 tab once daily [Active]; sucralfate 1 gram Oral tab 1 tab 2 times per day [Active]; Vitamin D3 Oral [Active]; vitamin E Oral [Active]; Xanax 0.25 mg Oral tab 1 tab daily [Active]; Xarelto 20 mg Oral tab 1 tab once daily [Active]; - PMHx: 15:59 Irregular heart rate; Lung Cancer; Hypertension; High Cholesterol; GERD; jl7 - PSHx: 15:59 Scope; jl7 - Immunization history:: Adult Immunizations unknown. - Coronavirus screen:: The patient has NOT traveled to [place], [place], or [place] in the past 14 days. - Social history:: Smoking status: Patient denies any tobacco usage or history of. - Ebola Screening: : No symptoms or risks identified at this time. Screenin:33 Abuse screen: Denies threats or abuse. Nutritional screening: No deficits noted. ae4 Nutritional screening: No deficits noted. Fall Risk Fall in past 12 months (25 points). No secondary diagnosis (0 pts). IV access (20 points). Ambulatory Aid- None/Bed Rest/Nurse Assist (0 pts). Gait- Normal/Bed Rest/Wheelchair (0 pts) Mental Status- Oriented to own ability (0 pts). 16:34 Tuberculosis screening: No symptoms or risk factors identified. ae4 Assessment: 16:19 General: Appears in no apparent distress. ae4 16:20 Pain: Complains of pain in right inguinal area, right iliac crest and right hip Pain ae4 currently is 8 out of 10 on a pain scale. Neuro: Level of Consciousness is awake, alert, obeys commands, Oriented to person, place, time, situation, Appropriate for age. Cardiovascular: Heart tones S1 S2 present Patient's skin is warm and dry. Respiratory: Airway is patent Respiratory effort is even, unlabored, Respiratory pattern is regular, Breath sounds are clear bilaterally. GI: Abdomen is round non-distended, Bowel sounds present X 4 quads. : No signs and/or symptoms were reported regarding the genitourinary system. EENT: No signs and/or symptoms were reported regarding the EENT system. Derm: Skin is pink, warm \T\ dry. Musculoskeletal: Reports pain in right inguinal area, right iliac crest and right hip. Injury Description: Fall injury. 16:25 Reassessment:. GI: Reports nausea, Provider notified, new orders received. ae4 17:51 Reassessment: Dr. Parks at bedside discussing results and POC. jl7 19:07 Reassessment: Pt taken to CT. ea 19:36 General: Appears uncomfortable, Behavior is appropriate for age. Pain: Complains of ea pain in right hip. Neuro: Level of Consciousness is awake, alert, obeys commands, Oriented to person, place, time, situation, Appropriate for age. Cardiovascular: Patient's skin is warm and dry. Respiratory: Airway is patent Respiratory effort is even, unlabored, Respiratory pattern is regular, symmetrical, pt on O2 at 2 L per nasal cannula. Derm: Skin is pink, warm \T\ dry. Musculoskeletal: Reports pain in right hip. 19:52 Reassessment: Report called to Silva BAUER on second floor. ea 20:00 Reassessment: Patient and/or family updated on plan of care and expected duration. Pain ea level reassessed. Patient is alert, oriented x 3, equal unlabored respirations, skin warm/dry/pink. Pt admitted to second floor, left ED per tech, pt tolerating well. Pt accompanied by significant other. Vital Signs: 15:59 BP 160 / 94; Pulse 78; Resp 17; Temp 97.8; Pulse Ox 99% ; ae4 18:03 BP 133 / 79; Pulse 87; Resp 16; Pulse Ox 96% on R/A; ae4 19:25 BP 120 / 69; Pulse 87; Resp 18; Pulse Ox 99% ; ea ED Course: 15:51 Patient arrived in ED. ss 15:53 Khoa Parks MD is Attending Physician. snw 15:53 Bobo Singletary, LIZETTE is Primary Nurse. jl7 15:56 Triage completed. jl7 15:59 Arm band placed on right wrist. jl7 16:00 Ellis Eden, LIZETTE is Primary Nurse. ae4 16:13 Inserted saline lock: 22 gauge in left antecubital area, using aseptic technique. Blood ae4 collected. 16:33 Placed in gown. Bed in low position. Call light in reach. Side rails up X2. Adult w/ ae4 patient. patient monitor on. Pulse ox on. NIBP on. Warm blanket given. 17:19 Pelvis XRAY In Process Unspecified. EDMS 17:19 Hip Right 2 View XRAY In Process Unspecified. EDMS 17:20 Chest Single View XRAY In Process Unspecified. EDMS 18:50 Abel Rodriguez MD is Hospitalizing Provider. kdr 19:17 Hip Right Wo Con In Process Unspecified. EDMS 19:24 No provider procedures requiring assistance completed. Patient admitted, IV remains in ea place. Administered Medications: 16:10 Drug: Dilaudid 0.5 mg Route: IVP; Site: left antecubital; ae4 18:35 Follow up: Response: Pain is decreased ae4 16:28 Drug: Phenergan 12.5 mg Route: IVP; Site: left antecubital; jl7 17:00 Follow up: Response: No adverse reaction; Nausea is decreased jl7 18:30 Drug: Dilaudid 1 mg Route: IVP; Site: left antecubital; ae4 19:16 Follow up: Response: Pain is decreased ae4 Outcome: 18:50 Decision to Hospitalize by Provider. kdr 19:24 Instructed on the need for admit. ea 19:52 Admitted to Med/surg accompanied by tech, room 221, with chart, Report called to Silva golden RN 19:52 Condition: stable 20:01 Patient left the ED. ea Signatures: Dispatcher [employer] EDMS Khoa Parks MD MD kdr Therrien, Shelly, METAL FABRICATOR WELDER-C METAL FABRICATOR WELDER-Csnw Laura Jaime RN RN ss Leal, Jahala RN RN jl7 Geri Weiss RN RN ea Elliott, Andrea, RN RN ae4
[2019-12-07] MEDS ORDERED: ACETAMINOPHEN 500 MG TAB PO PRN (18:54)
[2019-12-07] MEDS ORDERED: ONDANSETRON 4 MG/2 ML VIAL IV PRN (18:59)
[2019-12-07] MEDS ORDERED: MORPHINE 4 MG/ML SYR IV PRN (18:59)
--- NOTE | 2019-12-07 19:39 | RAD REPORT ---
EXAM DESCRIPTION: CT - Hip Right Wo Con - 12/07/2019 7:17 pm CLINICAL HISTORY: Right hip pain status post fall COMPARISON: X-rays on the same date. TECHNIQUE: Computed axial tomography of the right hip were obtained. Coronal and sagittal reconstruc tion was performed. All CT scans are performed using dose optimization technique as appropriate and may include automated exposure control or mA/KV adjustment according to patient size. FINDINGS: A mildly to moderately displaced subcapital right femoral fracture which is impacted. The fracture extends into the femoral neck. No dislocation Area sclerosis within the right acetabulum probably a bone island IMPRESSION: A mildly to moderately displaced subcapital right femoral fracture which is impacted. Th e fracture extends into the femoral neck.
[2019-12-07 20:33] VITALS: BMI 27.7
[2019-12-08 06:07] LABS: Urine Appearance CLEAR; Urine Bilirubin NEGATIVE (NEG); Urine Blood NEGATIVE (NEG); Urine Color YELLOW; Urine Glucose NEGATIVE (NEG); Urine Protein NEGATIVE (NEG); Urine Urobilinogen 0.2 mg/dL (0.2-1.0); Urine pH 5.5 (5.0-7.0)
[2019-12-08 06:13] LABS: Urine Microscopic Reflex NO UMIC
[2019-12-08 06:14] LABS: Absolute Lymphocytes (CBC) 2.6 K/uL (0.7-4.9); Basophils % 0.5 % (0-1.3); Hematocrit 41.4 % (36.0-45.0); Lymphocytes % 27.4 % (15.3-44.8); MPV 9.8 fL (7.6-11.3); RBC Red Blood Cell Count 4.62 M/uL (3.86-4.86)
[2019-12-08 06:38] LABS: BUN Blood Urea Nitrogen 12 mg/dL (7-18); Bicarbonate 29 mmol/L (21-32); Glucose Level 98 mg/dL (74-106); Potassium 3.6 mmol/L (3.5-5.1); Sodium Level 143 mmol/L (136-145)
[2019-12-08] MEDS ORDERED: PNEUMOCOCCAL VACCINE 0.5 ML IMVAC ONE (08:00)
[2019-12-08] MEDS ORDERED: INFLUENZA VACCINE (for 3y+) 0.5 ML DOSE IMVAC ONE (08:00)
[2019-12-08] MEDS ORDERED: SOTALOL HCL 80 MG TAB PO SCH (09:00)
--- NOTE | 2019-12-08 09:05 | EKG ---
Test Date: 2019-12-08 Test Time: 08:21:15 Technical Recruiter: ALEXIS MEASUREMENT RESULTS: Intervals: Rate: 89 MA: 158 QRSD: 88 QT: 368 QTc: 447 [place]: P: 45 MA: 158 QRS: 56 T: 62 INTERPRETIVE STATEMENTS: Sinus rhythm with occasional premature atrial complexes Otherwise normal ECG Compared to ECG 05/22/2019 23:43:55 Atrial premature complex(es) now present Electronically Signed On 12-08-19 09:05:01 POLISHER AND SANDER by Deven Champagne
--- NOTE | 2019-12-08 09:50 | CON ---
Reason For Consult: Preop clearance before hip joint replacement surgery. History Of Present Illness: Ms. Curtis has a history of paroxysmal atrial fib. She has been doing well for several years with no evidence of atrial fibrillation in a few years. She takes sotalol 160 b.i.d. and rivaroxaban 20 mg. Her last dose of rivaroxaban was Sunday night. Did not take it las t night, so she is in a good anticoagulation position to undergo the hip surgery today. She has a hi story of lung cancer with no evidence of disease, history of dyslipidemia. Medications: Outpatient medications have been alprazolam, Dexilant, mirabegron, Ditropan, Xarelto, C restor, Carafate and sotalol 160 b.i.d. Physical Examination: General: She is alert, oriented, pleasant, not in distress. Lungs: Clear. Heart: Exam is within normal limits. EKG is unremarkable. She is in sinus rhythm on telemetry, though she has a history of atrial fibrill ation. She needs to continue with sotalol, hold Xarelto and she is a good candidate for undergoing h ip surgery. She fell without syncope. Her right hip has a fracture of the pelvic area that contains the hip joint as well as the head of the femoral neck, so she probably needs a fairly extensive surg bria. She is a good surgical candidate with regard to the heart condition. JADE/LEEROY Voice ID: [id number] Report ID: [id number]
[2019-12-08] MEDS: D5 0.9 NS 1,000 ML IV SCH (09:54)
[2019-12-08] MEDS: SOTALOL HCL 80 MG TAB PO SCH ×2 (09:54→17:30)
[2019-12-08] MEDS ORDERED: LIDOCAINE 2% MPF 5 ML VIAL ONE (11:21)
[2019-12-08] MEDS ORDERED: propofoL 200 MG/20 ML VIAL IV ONE (11:21)
[2019-12-08] MEDS ORDERED: FENTANYL CITR 250 MCG/5 ML ONE (11:22)
[2019-12-08] MEDS ORDERED: ROCURONIUM 50 MG/5 ML VIAL IV ONE (11:22)
[2019-12-08] MEDS ORDERED: Ringers Lactate 1,000 ML IV ONE (11:29)
[2019-12-08] MEDS ORDERED: BUPIVACA 0.5%/EPI 0.0005%/PF 30 ML VIAL ONE (11:52)
[2019-12-08] MEDS ORDERED: CEFAZOLIN/SWI 1gm 1 GM/10 ML SYR ONE (11:59)
[2019-12-08] MEDS ORDERED: TRANEXAMIC ACID IV ONE (12:00)
[2019-12-08] MEDS ORDERED: CEFAZOLIN SODIUM 1 GM/VIAL ONE (12:00)
[2019-12-08] MEDS ORDERED: NA CHLORIDE 0.9% IV ONE (12:00)
[2019-12-08] MEDS ORDERED: WATER FOR INJ,STERILE 10 ML ONE (12:00)
[2019-12-08] MEDS ORDERED: TRANEXAMIC ACID 1,000 MG in NA CHLORIDE 0.9% 50 ML IV ONE (12:00)
[2019-12-08] MEDS ORDERED: EPHEDRINE SULF 50 MG/ML VIAL ONE (12:30)
[2019-12-08] MEDS ORDERED: KETOROLAC 30 MG/ML INJ ONE (13:25)
--- NOTE | 2019-12-08 13:43 | P.BOP ---
Preoperative diagnosis: right femoral neck fracture Postoperative diagnosis: same Primary procedure: closed reduction percutaneous screw fixation right hip fracture Oil Heaterman: NONE,NONE Estimated blood loss: <20 cc Specimen: none Anesthesia: General Drain(s): Urinary catheter Implants: 3 - 6.5 mm cannulated screws Fluids & blood products: per anesthesia record Transferred to: Recovery Room Condition: Good
[2019-12-08] MEDS ORDERED: DOCUSATE NA 100 MG CAP PO PRN (13:49)
[2019-12-08] MEDS ORDERED: ONDANSETRON 4 MG/2 ML VIAL ONE (13:59)
[2019-12-08] MEDS ORDERED: HYDROMORPHONE HCL 1 MG/ML INJ ONE (13:59)
--- NOTE | 2019-12-08 14:10 | RAD REPORT ---
EXAM DESCRIPTION: RAD - Hip In Or - 12/08/2019 2:03 pm CLINICAL HISTORY: Femoral fracture FINDINGS: Intraoperative fluoroscopic spot images demonstrate pins affixing a femoral fracture in go od alignment. The surgeries performed by Dr. Hernandez Fluoroscopy time of 1.3 minutes. Eleven fluoroscopic spot images obtained
[2019-12-08 14:19] LABS: Hematocrit 42.4 % (36.0-45.0)
[2019-12-08] MEDS ORDERED: PROMETHAZINE INJ 25 MG/ML AMP ONE (14:22)
--- NOTE | 2019-12-08 14:35 | RAD REPORT ---
EXAM DESCRIPTION: RAD - Hip Right 2 View - 12/08/2019 2:28 pm CLINICAL HISTORY: Femoral fracture FINDINGS: Pins affix a femoral fracture. No dislocation
[2019-12-08] MEDS: CEFAZOLIN/SWI 2gm 2 GM/20 ML SYR IV SCH (17:31)
[2019-12-08] MEDS ORDERED: SOTALOL HCL PO SCH (21:00)
[2019-12-08] MEDS: ROSUVASTATIN 10 MG TAB PO SCH (21:08)
[2019-12-08] MEDS: SUCRALFATE 1 GM TABLET PO SCH (21:08)
--- NOTE | 2019-12-08 23:47 | CON ---
Date of Consultation: 12/08/2019 Reason For Consultation: Right hip pain. History Of Present Illness: Ms. Curtis is a 78-year-old female, who presented to the ER, last night after sustaining a fall on her right side with subsequent pain, to her right hip and inability to bear weight. Prior to the fall, the patient did not use any assist devices. X-rays in the emergency room demonstrate a right minimally displaced femoral neck fracture as well as CAT scan, which confirms valgus impacted, minimally displaced right femoral neck fracture. She denies any other musculoskeletal complaints at this time. Review of Systems: As above, otherwise negative. Past Medical History: Atrial fibrillation, history of lung cancer, hypertension , hypercholesterolemia, GERD. Medications: Aspirin, Betapace, Caltrate, metoprolol, Myrbetriq, Nexium, potassium chloride, promethazine, rosuvastatin, Xarelto, and Xanax. Social History: She denies any tobacco or alcohol. Review of Systems: As above, otherwise negative. Physical Examination: General: No apparent distress. HEENT: Normocephalic, atraumatic. Neck: Supple. Cardiovascular: Brisk cap refill to all digits. Chest: Nonlabored breathing. Abdomen: Nondistended. Psychiatric: Responsive to exam. Musculoskeletal: Bilateral upper extremities functional range of motion without pain. No gross deformities. No obvious dislocations. Left lower extremity functional range of motion without pain. No gross deformities. No obvious dislocations. Right lower extremity, pain with range of motion of the right hip, tenderness to palpation over the right hip. No tenderness to palpation over the right knee, foot, or ankle. Neurovascularly intact distally. X-rays: CAT scan of the right hip demonstrate a minimally displaced valgus impacted femoral neck fracture. Assessment And Plan: Ms. Curtis is a 78-year-old female with a right femoral neck fracture. I discussed with the patient and her family at length. Risks, benefits associated with operative and nonoperative treatment. We will proceed with closed reduction and percutaneous fixation. Risks and benefits associated with the procedure were discussed at length. They expressed understanding and elected to proceed with operative treatment. We will await Cardiology clearance to proceed with surgery as the patient has been off Xarelto for at least 36 hours. CV/MODL Voice ID: [id number] Report ID: [id number] MTDD
[2019-12-09] MEDS: CEFAZOLIN/SWI 2gm 2 GM/20 ML SYR IV SCH ×2 (00:04→06:27)
[2019-12-09] MEDS: TRAMADOL HCL 50 MG TAB PO PRN ×3 (02:19→22:20)
[2019-12-09] MEDS: D5 0.9 NS 1,000 ML IV SCH (03:27)
--- NOTE | 2019-12-09 03:43 | HP ---
Date of Admission: 12/08/2019 Chief Complaint: Fall and hip pain. History Of Present Illness: This is a 78-year-old pleasant female patient who was doing fine in her normal usual state of health until yesterday as she was walking in her house from outside. There was a small step and she stumbled over that, fell down on her right side and immediately soon as she fell down, she heard something popping in her right hip and severe pain started. She was brought into emergency room, after she was evaluated she was admitted to the hospital with hip fracture problem. She denies any head injury or loss of consciousness. Allergies: TO CODEINE CAUSING RASH AND HIVES. DEMEROL CAUSING THROAT SWELLING. Medications: List reviewed. Past Medical History: Significant for peripheral neuropathy, impaired fasting glucose, lung cancer involving right upper lobe, hypertension, mixed hyperlipidemia, paroxysmal atrial fibrillation, gastroesophageal reflux disease , diverticulosis, overactive bladder, insomnia, and vitamin D deficiency. Past Surgical History: VATS, video-assisted thoracoscopic surgery, for a right upper lobe lobectomy due to adenocarcinoma of lung done on October 19, 2014. In the past, she had cholecystectomy, appendectomy, , hysterectomy, right shoulder surgery, knee surgery, removal of melanoma from back. Family History: Significant for father of pulmonary embolism. Mother , had kidney disease. Social History: Negative for smoking, use of alcohol, occasional use of 1 glass of wine. Review of Systems: Musculoskeletal: As mentioned above. All other systems reviewed and negative. Physical Examination: Vital Signs: Temperature 97.6, pulse 107, respiratory rate 18, blood pressure 144/87, oxygen saturation 97%, height 5 feet 7 inches, weight 177 pounds. PHYSICAL EXAMINATION: General: Awake, alert, oriented, not in distress. HEENT: Head atraumatic, normocephalic. Conjunctivae nonerythematous. Sclerae white. Mouth, no thrush or edema noted. Ears/Nose, no mass, lesion, discharge noted. Neck: Supple. No JVD, lymph nodes, bruit, thyromegaly noted. Lungs: Bilateral good equal air entry. Clear to auscultation. No rhonchi. No rales. Heart: Normal heart sounds, no murmur or gallop. Abdomen: Soft, bowel sounds normal. No guarding, rigidity, tenderness, mass, hepatosplenomegaly, distention, or bruit noted. Extremities: No leg edema. No calf tenderness. Skin: No rash, ulcer, cellulitis. Lymphatics: No lymph node enlargement in neck, supraclavicular, infraclavicular region. Neuro: No focal neurological deficit. Chest: Unremarkable. External Genitalia: Deferred. Rectal: Deferred. Laboratory Data: Yesterday, white count 10.5, hemoglobin 14.2, platelets 193. Today, white count 9.4, hemoglobin 14.1, platelets 178. CAT scan of the right hip shows mild to moderately displaced subcapital right femoral fracture, which is impacted. Chest x-ray, no acute cardiopulmonary changes. Hip x-ray also shows right femur subcapital fracture. Impression: 1. Right femur subcapital fracture. 2. Paroxysmal atrial fibrillation. 3. Hypertension. 4. Mixed hyperlipidemia. 5. Impaired fasting glucose. 6. Right-sided lung cancer. 7. Diverticulosis. 8. Overactive bladder. 9. Gastroesophageal reflux disease. Plan: Admit patient to hospital for further evaluation and management of this problem. Patient is appropriate for inpatient and is expected to spend 2 midnights in hospital. She takes Xarelto daily for her paroxysmal atrial fibrillation and last dose of Xarelto was on 12/06/2019, in the evening time. As of this morning when I saw her, she has already beyond 36 hours from the last dose of anticoagulation therapy. Patient is at acceptable risk from hip surgery. Orthopedic consultation has been requested from Dr. Hernandez and cardiac consultation has been requested from [facility]. The patient and the patient' s , Dr. Curtis, has some questions about getting surgery at our local hospital and they will make their final decision. After visiting with Dr. Hernandez , and I did talk to Dr. Hernandez in details and after Dr. Hernandez evaluated her and talked to the patient and , they decided to go with surgery, which Dr. Hernandez is planning to do it today. Home medications will be continued per order and I will see her tomorrow for followup. ANI/MODL Voice ID: [id number] MTDD
[2019-12-09] MEDS: SOTALOL HCL 80 MG TAB PO SCH ×2 (06:27→17:17)
--- NOTE | 2019-12-09 07:55 | P.PN ---
Subjective Date of Service: 12/09/19 Chief Complaint: s/p CRPP right hip Subjective: Doing well pain controlled Physical Examination - Vital Signs Temperature: 97.4 F Blood Pressure: 127/65 Pulse: 79 Respirations: 16 Pulse Ox (%): 99 - Physical Exam General: Alert, In no apparent distress Musculoskeletal: Other (RLE: dressing c/d/i; +EHL/FHL/GSC/TA; sensation grossly intact over the dorsal and plantar foot) Assessment And Plan - Plan Vilma is a 78 yo female s/p CRPP of the right hip POD#1 -PT to mobilize; TDWB RLE -may restart Xarelto for a-fib and DVT prophylaxis -rehab eval pending -d/c erwin after OOB with PT
[2019-12-09 08:23] LABS: Absolute Lymphocytes (CBC) 1.5 K/uL (0.7-4.9); Basophils % 0.6 % (0-1.3); Hematocrit 41.2 % (36.0-45.0); Lymphocytes % 15.3 % (15.3-44.8); MPV 9.2 fL (7.6-11.3); RBC Red Blood Cell Count 4.59 M/uL (3.86-4.86)
[2019-12-09] MEDS: PANTOPRAZOLE 40MG TABLET PO SCH (08:43)
[2019-12-09] MEDS: SUCRALFATE 1 GM TABLET PO SCH ×2 (08:44→20:43)
[2019-12-09] MEDS: HOME MED 1 EA UNK (Mirabegron [Myrbetriq] 1 TAB) PO SCH (08:45)
--- NOTE | 2019-12-09 08:49 | OP ---
Date of Procedure: 12/08/2019 Surgeon: Osvaldo Hernandez MD Preoperative Diagnosis: Right hip femoral neck fracture. Postoperative Diagnosis: Right hip femoral neck fracture. Procedure Performed: Closed reduction percutaneous screw fixation of right femoral neck fracture. Anesthesia: General LMA. Fluids: Per Anesthesia record. Estimated Blood Loss: Less than 20 mL. Complications: None. Implants: Three 6.5 mm cannulated screws. Indication For Procedure: Ms. Curtis is a 78-year-old female presented to the ER yesterday after sustaining a fall on to her right side with subsequent pain to her right hip and inability to bear weight. X-ray findings as well as CT scan findings demonstrated a minimally displaced valgus impacted right femoral neck fracture. We discussed with the patient and her family at length risks and benefits associated with operative and non-operative treatment. They expressed understanding and elected to proceed with the operative treatment. Description Of Procedure: After informed consent was obtained, the patient was identified in the preoperative holding. The right lower extremity was marked. Patient was then taken back to the operating room, transferred to the operating table in the supine fashion and placed under general LMA anesthesia. She was placed on the fracture table with her extremities well padded. Preoperatively, the fluoroscopy was then used to evaluate the right hip and confirm overall proper reduction of the right femoral neck in both AP and lateral views. After proper reduction was obtained, the right extremity was prepped and draped in sterile fashion. A time-out was initiated. The correct patient and the procedure were confirmed and identified. The patient had received preoperative prophylactic antibiotics. Fluoroscopy was then used to harsh out placement of the initial guide pin. A stab incision was made over the lateral thigh. Guide pin was then placed over the lateral aspect of the proximal femur above the level of the lesser trochanter. The guide pin was then placed on the drill and brought into the femoral using center-center position along the inferior aspect of the femoral neck and head. Once the proper position and depth of the pin in the subchondral bone as confirmed with fluoroscopy in AP and lateral views, a second pin was placed in the superior-anterior position within the femoral neck and head followed by a superoposterior pin in femoral neck and head. They were then measured. The screws were placed in an inverted triangle position. The proximal outer cortex was then drilled and three 6.5 mm short thread screws were placed into position, overall reduction and positioning of the screws was confirmed using fluoroscopy. Final x-rays were taken of both AP and lateral views to ensure proper reduction, placement and depth of the screws. Screws were noted to not intraarticular. The wounds were then irrigated thoroughly with normal saline. Subcutaneous tissue was approximated using 2-0 Vicryl. Skin was approximated using neo. Sterile dressings were applied. The patient was awakened and transferred to PACU in stable condition. Postoperative Plan: She will be touchdown weightbearing in the right lower extremity. Physical therapy will be consulted to aid mobilization, which will begin with physical therapy tomorrow. TRESA/LEEROY Voice ID: [id number] Report ID: [id number] TERRA
[2019-12-09] MEDS ORDERED: ALPRAZOLAM 0.25 MG TABLET PO SCH ×2 (09:00→21:00)
[2019-12-09] MEDS ORDERED: MULTIVIT W/ MINERAL TAB PO SCH (09:00)
[2019-12-09] MEDS ORDERED: OXYBUTYNIN CHLORIDE 5 MG TAB PO SCH (09:00)
[2019-12-09] MEDS ORDERED: ENOXAPARIN 40 MG/0.4 ML SQ SCH (17:00)
[2019-12-09 17:44] VITALS: O2SAT 95
[2019-12-09] MEDS: ROSUVASTATIN 10 MG TAB PO SCH (20:43)
--- NOTE | 2019-12-10 01:28 | PN ---
Date of Progress Note: 12/09/2019 Subjective: Patient was seen this morning for followup. No new complaints or problems reported by gladys tyson. Her pain is under good control with pain medications. Objective: Vital Signs: Reviewed. HEENT: Unremarkable. Lungs: Clear to auscultation. Heart: Heart sounds normal. Abdomen: Soft. Bowel sounds normal. No guarding, rigidity, tenderness, or distention. Extremities: No leg edema. Impression: 1.Right hip fracture. 2.Paroxysmal atrial fibrillation. 3.Hypertension. 4.Mixed hyperlipidemia. Plan: Today's CBC results reviewed. CBC is normal. We will continue current pain medications start ing this evening. We will start her on Lovenox and depending on her condition tomorrow, if there is no evidence of any bleeding, we will go ahead and start her on Xarelto starting tomorrow. Physical t herapy to help patient, and if her condition is stable tomorrow, we will plan to discharge her to go to rehab floor. ANI/MODL Voice ID: [id number] Report ID: [id number]
[2019-12-10] MEDS: SOTALOL HCL 80 MG TAB PO SCH (06:00)
[2019-12-10 06:16] LABS: Absolute Lymphocytes (CBC) 2.3 K/uL (0.7-4.9); Basophils % 0.7 % (0-1.3); Hematocrit 39.7 % (36.0-45.0); Lymphocytes % 27.2 % (15.3-44.8); MPV 9.3 fL (7.6-11.3); RBC Red Blood Cell Count 4.47 M/uL (3.86-4.86)
[2019-12-10 06:34] LABS: BUN Blood Urea Nitrogen 10 mg/dL (7-18); Bicarbonate 33 mmol/L (21-32); Glucose Level 101 mg/dL (74-106); Sodium Level 143 mmol/L (136-145)
[2019-12-10] MEDS: SUCRALFATE 1 GM TABLET PO SCH (09:00)
[2019-12-10] MEDS: HOME MED 1 EA UNK (Mirabegron [Myrbetriq] 1 TAB) PO SCH (09:00)
[2019-12-10] MEDS: PANTOPRAZOLE 40MG TABLET PO SCH (09:00)
[2019-12-10 09:15] VITALS: BP 155/72; TEMP 98
--- NOTE | 2019-12-10 11:22 | P.PN ---
Subjective Date of Service: 12/10/19 Chief Complaint: s/p CRPP right hip Subjective: Ambulating, Improving, Working w/ PT pain controlled Physical Examination - Vital Signs Temperature: 98 F Blood Pressure: 155/72 Pulse: 83 Respirations: 18 Pulse Ox (%): 93 - Physical Exam General: Alert, In no apparent distress Musculoskeletal: Other (RLE: dressing c/d/i; minimal swelling of the right hip; NVI distally) Assessment And Plan - Plan Vilma is a 78 yo female s/p CRPP of the right hip POD#2 -PT to mobilize; TDWB RLE -lovenox for DVT prophylaxis; will transition to Xarelto -d/c to rehab today -f/u in my clinic in 2 weeks for staple removal
[2019-12-10] MEDS: TRAMADOL HCL 50 MG TAB PO PRN (11:39)
[2019-12-10] MEDS ORDERED: RIVAROXABAN 20 MG TABLET PO SCH (21:00)
--- NOTE | 2019-12-11 04:27 | DS ---
Date of Discharge: 12/10/2019 Disposition: Discharged to go to rehab floor. Physical Examination: HEENT: Unremarkable. Lungs: Clear to auscultation. Heart: Heart sounds normal. Abdomen: Soft, bowel sounds normal. No guarding, rigidity, tenderness, or distention. Extremities: No leg edema. Laboratory Data: Upon admission, white count 10.5, hemoglobin 14.2, platelets 193. Last white count today 8.4, hemoglobin 13.5, platelets 168. Upon admission, sodium 144, potassium 3.6, chloride 111, bicarb 28, BUN 20, creatinine 0.77, glucose 89. Today, sodium 143, potassium 4, chloride 107, bicarb 33, BUN 10, creatinine 0.58, glucose 101. Hospital Course: This is a 79-year-old female, very pleasant female patient, admitted to the hospital after she fell down at home. Please see dictated H and P for more information. After the patient fell down at home, she immediately started complaining of pain in her right hip. She was brought into the emergency room. After evaluation in the emergency room, she was admitted to the hospital with right hip fracture. Dr. Hernandez from Orthopedic surgery was consulted and Cardiology clearance was obtained and patient had surgery done day before yesterday by Dr. Hernandez. Postoperatively, she did very well. Pain is under good control. As of yesterday, which is her postoperative day #1, she was started on Lovenox 40 mg subcutaneous injection daily in the evening time, which she has tolerated well. There is no evidence of acute blood loss anemia, so starting today, we will discontinue her Lovenox and start her on her usual dose of Xarelto 20 mg daily that she takes for her atrial fibrillation problem. Rehab was consulted. Physical Therapy was consulted and the patient was accepted to rehab and was transferred in stable condition with instruction to continue all her current medical therapy. Final Diagnoses: 1. Right femoral subcapital fracture, status post surgery. 2. Paroxysmal atrial fibrillation. 3. Hypertension. 4. Mixed hyperlipidemia. 5. Impaired fasting glucose. 6. Right-sided lung cancer. 7. Diverticulosis. 8. Overactive bladder. 9. Gastroesophageal reflux disease. ANI/MODL Voice ID: [id number] Report ID: [id number] [facility]
== END 2019-12-10 12:01 | DRG 482 ==
LOC: ER 15:50 → ERHOLD 19:15 → 2ND 19:48
PROVIDERS: ADMIT Internal Medicine; ATTEND Internal Medicine
PROC: 0QS634Z Reposition Right Upper Femur with Internal Fixation Device, Percutaneous Approach (ICD-10-PCS; principal; 2019-12-08 12:00)
DX: S72.011A Unspecified intracapsular fracture of right femur, initial encounter for closed fracture (principal); W10.9XXA Fall (on) (from) unspecified stairs and steps, initial encounter; Y92.009 Unspecified place in unspecified non-institutional (private) residence as the place of occurrence of the external cause; I48.0 Paroxysmal atrial fibrillation; Z79.01 Long term (current) use of anticoagulants; I10 Essential (primary) hypertension; E78.2 Mixed hyperlipidemia; Z85.118 Personal history of other malignant neoplasm of bronchus and lung; K57.90 Diverticulosis of intestine, part unspecified, without perforation or abscess without bleeding; N32.81 Overactive bladder; K21.9 Gastro-esophageal reflux disease without esophagitis
CPT/HCPCS: 36415; 71045; 72170; 73530; 73700; 80048; 81003; 85014; 85018; 85025; 85610; 93005; 96374; 96375; 97110; 97116; 97161; 97530; 99285; J0690; J1170; J1650; J2405; J2550; J2704; J3010; J7042; J7120

== ENCOUNTER 2019-12-09 10:48 | Inpatient (IN) | payer OTHER ==
--- NOTE | 2019-12-09 13:38 | R.PREADM ---
SCREENING DATE AND TIME 12/09/2019 11:34 (BATTERY SERVICE TECHNICIAN) ANTICIPATED REHAB ADMISSION DATE 12/11/[address] [facility] REFERRAL DATE AND TIME 12/09/2019 11:34 (BATTERY SERVICE TECHNICIAN) REFERRAL OFFICE PHONE [phone] REFERRAL ROOM# [id number] ACUTE ADMIT DATE 12/07/2019 Previous Rehabilitation(s): No. ACUTE TECHNICIAN SUPPORT ENGINEER/DC MIXER PIGMENT Griselda Nunn REFERRING PHYSICIAN SWAPNIL OVIEDO REHAB FACILITY [facility] CLINICAL LIAISON Simon Neff PHYSICIAN REVIEWER Dr. Waqar Srinivasan M.D. MR# [id number] NAME ARYA CURTIS ADDRESS [address] [place] [address] PHONE [facility] [id number] DATE OF 1940 AGE 78 N# [id number] GENDER female MARITAL STATUS RACE white ADMIT FROM 02 - [facility] PRE-HOSPITAL LIVING SETTING 01 - Home (private home/apt. board/care, assisted living, snf, transitional living) HOME TYPE AND DETAILS Type of home: single family house # of levels in the residence: 1 # of steps to enter the residence: 1 # of steps within the residence: 1 PRE-HOSPITAL LIVING WITH Family/Relatives FAMILY SUPPORT Yes PRIMARY FAMILY CONTACT NAME Yovany Curtis PRIMARY FAMILY CONTACT PHONE PHONE PRIMARY FAMILY CONTACT ON ADM.? no IS PRIMARY FAMILY CONTACT AUTH. REP.? no 1ST EMERGENCY CONTACT Yovany Curtis 1ST CONTACT PHONE PHONE 1ST CONTACT ON ADM. no IS 1ST CONTACT AUTH. REP.? no PHONE 2ND CONTACT ON ADM.? no PATIENT EMPLOYMENT STATUS Retired (for age) PATIENT EMPLOYER No Employer PAYOR INFORMATION: 1ST PAYOR NAME MEDICARE 1ST PAYOR PHONE [phone] 1ST PAYOR INJURY/ILLNESS DUE TO ACCIDENT? No ANOTHER CONSTITUTION PARTY RESPONSIBLE? No PRIMARY REHAB/ACUTE DIAGNOSIS: Right Hip Femoral Neck Fracture ONSET DATE 12/07/2019 REHAB IMPAIRMENT CATEGORY (CLEOPATRA): 07 Fracture of LE (FracLE) MEETS 60% rule AFFECTED EXTREMITIES: RLE PRIMARY DIAGNOSIS-RELATED SURGERIES: Closed Reduction Percutaneous Screw Fixation of Right Femoral Neck Fracture - performed by KEYONA OVIEDO on 12/08/2019 COMORBID REHAB/ACUTE DIAGNOSES: - Non-Tiered Impaired fasting glucose (R73.01) Paroxysmal atrial fibrillation (I48.0) GERD Diverticulosis of small intestine without perforation or abscess without bleeding (K57.10) Overactive Bladder Insomnia Vitamin D deficiency, unspecified (E55.9) - N/A peripheral neuropathy lung cancer Hypertension Mixed Hyperlipidemia INTERVENTIONS: - Hypertension Fluid management Medications VS - GERD Altered diet Elevation of head of bed Medications Nausea/vomiting Nighttime food/fluid restrictions Nutrition RISK FOR COMPLICATIONS: - Hypertension CVA Hypotension DC TIA - GERD Alteration in sleep Aspiration Dehydration Malnutrition Pain SUMMARY OF ACUTE HOSPITALIZATION: Pt. is a 78 yo Right-handed white female. She has past medical history significant for Peripheral Neuropathy on Neurontin 100mg. Her impairment category is Orthopaedic Disorders 08 - Unilateral Hip Fracture (08.11). Pre-morbidly, Pt. was independent/mod-I in Locomotion, Safety Awareness, Balance, Social Cognition, T ransfers Control, Sphincter Control, Self-Care, Communication, and Endurance; and she had good Locomo tion, Safety Awareness, Balance, Social Cognition, Transfers Control, Sphincter Control, Self-Care, C ommunication, and Endurance. Currently, she has deficits of Locomotion, Balance, Transfers Control, Self-Care, and Endurance. Pt. is now referred to [facility] for acute in-patient rehabilitation in order to maximize patient's functional independence in activities of daily living, strength, ROM, and mobi lity. Patient has realistic goal of being discharged at assistance level 6-Valdez to reside at Home with Fam eder/Relatives. Arya Curtis is a 78 year old female that lives in a single caryn home with her spouse. She ambulates independently without any assistive device. On 12/07/2019, there was a small step inside their home and she stumble over and fell down on her right side and immediately after she fell down she heard something popping in her right hip and severe pain started and was admitted to [facility] and treated. She is now medically stable but in need of 24-hour nursing, doctor supervision and oversite while receiving active and ongoing intensive (PT, reasonably expected to participate in 3hours of therapy a day/15 hours per week and receive care with an intensive interdisciplinary approach. PAST MEDICAL HISTORY Diverticulosis of small intestine without perforation or abscess without bleeding (K57.10) GERD Hypertension Impaired fasting glucose (R73.01) Insomnia Mixed Hyperlipidemia Overactive Bladder Paroxysmal atrial fibrillation (I48.0) Vitamin D deficiency, unspecified (E55.9) lung cancer peripheral neuropathy PAST SURGICAL HISTORY: VATS Cholecystectomy APPENDECTOMY C- section Hysterectomy RIGHT SHOULDER SURGERY KNEE SURGERY MEDICATION ALLERGIES: Codeine Demerol ENVIRONMENTAL ALLERGIES: None Known - Substance Allergies None Known - Other Allergies None Known CODE STATUS: Full code WEIGHT/HEIGHT/BMI: WEIGHT 177 lbs HEIGHT 5' 7" BMI 27.7 DIET: - Diet Type Regular - Diet - Solid Texture Regular - Diet - Liquid Texture Regular - Tube Feed N/A SKIN DIAGRAM: Incision on Right upper leg; extent - small; stage - NS(Not Stageable). Treatment - Per Physician's O rders. REVIEW OF SYSTEMS: - Gen Alert and awake Lying in bed No apparent distress Oriented to: person, time, and place - Vital Signs Temperature: 98.1 F SBP/DBP: 129/69 Pulse: 85 Resp: 17 Vital signs stable, afebrile - CVS RRR VITAL SIGNS Temperature: 98.1 F SBP/DBP: 129/69 Pulse: 85 Resp: 17 Vital signs stable, afebrile MEDICATIONS/TREATMENT: Other- See attached MAR (Medication Administration Record) Arya Curtis.pdf. CURRENT SPHINCTER CONTROL: Pre-hospital bladder status: continent # of bladder accidents in the last 7 days prior to screenin Pre-hospital bowel status: continent # of bowel accidents in the last 7 days prior to screenin Last Bowel Movement Date: CURRENT LOCOMOTION STATUS: distance walked 30 feet DETAILED CURRENT FUNCTIONAL STATUS: - Bladder accident frequency: Ind - No accidents in the past 7 days - Bowel accident frequency: Ind - No accidents in the past 7 days - Walking score based on distance walked: 0(N/A) score based on distance walked: 1(<=50ft) - Wheelchair score based on distance traveled: 0(N/A) QI SCORES: - Self-Care A. Eating 05-Setup or clean-up assistance B. Oral hygiene 05-Setup or clean-up assistance C. Toileting hygiene 03-Partial/moderate assistance E. Shower/bathe self 04-Supervision or touching assistance F. Upper body dressing 04-Supervision or touching assistance G. Lower body dressing 03-Partial/moderate assistance H. Putting on/taking off footwear 02-Substantial/maximal assistance - Mobility A. Roll left and right 02-Substantial/maximal assistance B. Sit to lying 02-Substantial/maximal assistance C. Lying to sitting on side of bed 02-Substantial/maximal assistance D. Sit to stand 02-Substantial/maximal assistance E. Chair/[id number]-[id number] transfer 02-Substantial/maximal assistance F. Toilet transfer 02-Substantial/maximal assistance G. Car transfer 10-Not attempted due to environmental limitations I. Walk 10 feet 03-Partial/moderate assistance J. Walk 50 feet with two turns 88-Not attempted due to medical condition or safety concerns K. Walk 150 feet 88-Not attempted due to medical condition or safety concerns L. Walking 10 feet on uneven surfaces 88-Not attempted due to medical condition or safety concerns M. 1 step (curb) 88-Not attempted due to medical condition or safety concerns N. 4 steps 88-Not attempted due to medical condition or safety concerns O. 12 steps 88-Not attempted due to medical condition or safety concerns P. Picking up object 88-Not attempted due to medical condition or safety concerns R. Wheel 50 feet with two turns 88-Not attempted due to medical condition or safety concerns S. Wheel 150 feet 88-Not attempted due to medical condition or safety concerns - Bladder and Bowel Bladder continence 0-Always continent Bowel continence 0-Always continent - Endurance Fair - Balance Fair - Safety Awareness Fair [facility]IC[facility]: Self-Care, Mobility, Endurance, Balance, and Safety Awareness CURRENT / PREVIOUS ASSISTIVE DEVICES: 3-in-1 Commode [facility] Bed Rolling Walker Shower Chair Tub Bench Wheelchair HISTORY OF FALLS. HAS THE PATIENT HAD TWO OR MORE FALLS IN THE PAST YEAR OR ANY FALL WITH INJURY IN T HE PAST YEAR?: No PRIOR SURGERY. DID THE PATIENT HAVE MAJOR SURGERY DURING THE 100 DAYS PRIOR TO ADMISSION?: No THERAPY NOTES FROM ACUTE CARE: Attached. SPECIAL NEEDS: - Safety Concerns Skin breakdown precautions needed due to skin breakdown risk PRECAUTIONS: - Posterior Hip Precaution No adduction across midline No external rotation No hip flexion >90 degrees No internal rotation No wheel chair propulsion - Weight Bearing Precaution TTWB right LE PATIENT NEEDS ACTIVE AND ONGOING THERAPEUTIC INTERVENTION OF MULTIPLE THERAPY DISCIPLINES, INCLUDING: - Dietary and Nutrition Adequate Nutrition. Nutritional Education. Nutritional Supplements. PATIENT NEEDS CLOSE MEDICAL SUPERVISION BY A REHABILITATION PHYSICIAN FOR: Coordination of Treatment Team Medical and Co-Morbidity Management Sleep Problems Wound Care PATIENT REQUIRES 24X7 REHAB NURSING FOR MEDICAL AND FUNCTIONAL MGT. OF THE FOLLOWING DEFICITS: Disease Management Medication Management Patient/Family Education Providing Safe Environment Skin Integrity PATIENT REQUIRES INTENSIVE, COORDINATED INTERDISCIPLINARY APPROACH TO REHAB: Arranging Home Equipment/Services Discharge Planning Family Intervention/Training [place] Operator/Case Management PATIENT REHAB POTENTIAL: Titus CURTIS is able and expected to receive 3 hours of individualized therapy daily on at least 5 of e very 7 days Titus CURTIS'kamryn prognosis for significant practical improvement within a reasonable period of time appea rs Good Expected level of measurable improvement will be of a practical value to Titus CURTIS's functional capa city or adaptations to impairments Has a viable Discharge Plan Medically appropriate; condition is sufficiently stable to participate in intensive rehab program DISCHARGE PLAN: - Estimated Length of Stay (days) 14. - Consensus on plan Discharge plan has been discussed with primary caregiver. Patient/Family is in agreement with the risa n. Primary caregiver is in agreement with the plan. - Patient/Family Goals Return home with assistance. - Planned Living Setting Upon Discharge Home, to live with Family/Relatives. Transitional Living. RECOMMENDED CARE LEVEL: IRF RECOMMENDATION DETAILS: Recommended Admission to Comprehensive Rehabilitation Program to Increase Functional [place] SCREENER'S COMPLETENESS CONFIRMATION: - Screening Confirmation The patient data collection on this preadmission screening form is finished PHYSICIANS REVIEW AND ADMISSION DETERMINATION Admit - Based on my review of the Pre-Admission Screening results, in my medical judgment and experie nce, I concur with the findings and recommend admission to [facility], as this patient requires an IRF level of care. SIGNATURE PANEL: Clinical Liaison - [electronically] signed by Simon Neff on 12/09/2019 at 12:16 (BATTERY SERVICE TECHNICIAN) Physician Reviewer - [electronically] signed by Dr. Waqar Srinivasan M.D. on 12/09/2019 at 13:37 (BATTERY SERVICE TECHNICIAN )
--- OUTSIDE RECORDS SUMMARY | 2019-12-10 12:13 | XMS REPORT ---
:1940 [facility] Address [address] [place] [address] Dr. Zhu [address] [place] [id number] Care Team Providers Name Role Phone Unavailable Unavailable Unavailable Problems This patient has no known problems. Allergies, Adverse Reactions, Alerts This patient has no known allergies or adverse reactions. Medications This patient has no known medications.
[2019-12-10] MEDS ORDERED: ALPRAZOLAM 0.25 MG TABLET PO PRN (12:56)
[2019-12-10] MEDS ORDERED: DOCUSATE NA 100 MG CAP PO PRN (12:56)
[2019-12-10] MEDS ORDERED: ONDANSETRON 4 MG (ODT) TAB PO PRN (15:42)
[2019-12-10] MEDS: SOTALOL HCL 80 MG TAB PO SCH (18:00)
[2019-12-10 18:59] LABS: Urine Appearance CLEAR; Urine Bilirubin NEGATIVE (NEG); Urine Blood NEGATIVE (NEG); Urine Color YELLOW; Urine Glucose NEGATIVE (NEG); Urine Protein NEGATIVE (NEG); Urine pH 6.5 (5.0-7.0)
[2019-12-10 19:15] LABS: Urine Bacteria <20 /HPF (<20); Urine Culture Reflex Order NOT NEEDED; Urine Mucus 1+ /HPF (NONE SEEN); Urine RBC <5 /HPF (NONE SEEN)
[2019-12-10] MEDS: SUCRALFATE 1 GM TABLET PO SCH (20:00)
[2019-12-10] MEDS: ROSUVASTATIN 10 MG TAB PO SCH (20:52)
[2019-12-10] MEDS: RIVAROXABAN 20 MG TABLET PO SCH (20:53)
[2019-12-10] MEDS: DOCUSATE NA/SENNA CONC 1 TAB PO PRN (21:06)
[2019-12-10] MEDS: TRAMADOL HCL 50 MG TAB PO PRN (21:06)
[2019-12-10] MEDS: HYDROCORTISONE 1 % CREAM 30GM TOP SCH (21:07)
[2019-12-11] MEDS: SOTALOL HCL 80 MG TAB PO SCH ×2 (06:00→17:02)
[2019-12-11 06:01] LABS: Absolute Lymphocytes (CBC) 2.6 K/uL (0.7-4.9); Basophils % 0.9 % (0-1.3); Hematocrit 39.4 % (36.0-45.0); Lymphocytes % 29.7 % (15.3-44.8); MPV 8.9 fL (7.6-11.3); RBC Red Blood Cell Count 4.44 M/uL (3.86-4.86)
[2019-12-11] MEDS: PANTOPRAZOLE 40MG TABLET PO SCH ×2 (06:27→06:30)
[2019-12-11 07:16] LABS: Albumin 2.8 g/dL (3.4-5.0); BUN Blood Urea Nitrogen 11 mg/dL (7-18); Bicarbonate 31 mmol/L (21-32); Glucose Level 100 mg/dL (74-106); Magnesium 2.1 mg/dL (1.8-2.4); Potassium 4.1 mmol/L (3.5-5.1); Prealbumin 12.5 mg/dL (20-40); Sodium Level 143 mmol/L (136-145)
[2019-12-11] MEDS: SUCRALFATE 1 GM TABLET PO SCH ×2 (08:00→20:00)
[2019-12-11] MEDS: MIRABEGRON PO SCH (08:00)
[2019-12-11] MEDS: HYDROCORTISONE 1 % CREAM 30GM TOP SCH ×2 (08:15→21:05)
[2019-12-11] MEDS: TRAMADOL HCL 50 MG TAB PO PRN ×2 (08:16→20:18)
[2019-12-11] MEDS: ACETAMINOPHEN 500 MG TAB PO PRN (11:53)
[2019-12-11] MEDS ORDERED: MAGNESIUM OXIDE 400 MG TAB PO SCH (15:00)
--- NOTE | 2019-12-11 16:17 | FAST ---
ENCOUNTER DATE AND TIME: 12/11/2019 08:00 (INTAKE ASSESSOR) NAME ARYA NOEL DATE OF : 1940 DATE OF ADMISSION: 12/10/2019 12:11 (INTAKE ASSESSOR) PHONE: AGE: 78 N# [id number] GENDER: Female ENCOUNTER PHYSICIAN: Dr. Waqar Srinivasan M.D. ADMISSION DIAGNOSIS: - Orthopaedic Disorders 08 - Unilateral Hip Fracture (08.11) Right Hip Femoral Neck Fracture. ROLL LEFT AND RIGHT: ROLL LEFT AND RIGHT - STEP 1: Does the patient complete the activity by him/herself with no assistance (physical, verbal/nonverbal cueing, setup/clean-up)? No. ROLL LEFT AND RIGHT - STEP 2: Does the patient need only setup/clean-up assistance from one helper? No. ROLL LEFT AND RIGHT - STEP 3: Does the patient need only verbal/nonverbal cueing or touching/steadying/contact guard assistance fro m one helper? Yes. 1. [id number] ADMISSION PERFORMANCE: Supervision or touching assistance CODE: 04 SIT TO LYING: SIT TO LYING - STEP 1: Does the patient complete the activity by him/herself with no assistance (physical, verbal/nonverbal cueing, setup/clean-up)? No. SIT TO LYING - STEP 2: Does the patient need only setup/clean-up assistance from one helper? No. SIT TO LYING - STEP 3: Does the patient need only verbal/nonverbal cueing or touching/steadying/contact guard assistance fro m one helper? Yes. 1. [id number] ADMISSION PERFORMANCE: Supervision or touching assistance CODE: 04 LYING TO SITTING: LYING TO SITTING ON SIDE OF BED - STEP 1: Does the patient complete the activity by him/herself with no assistance (physical, verbal/nonverbal cueing, setup/clean-up)? No. LYING TO SITTING ON SIDE OF BED - STEP 2: Does the patient need only setup/clean-up assistance from one helper? No. LYING TO SITTING ON SIDE OF BED - STEP 3: Does the patient need only verbal/nonverbal cueing or touching/steadying/contact guard assistance fro m one helper? Yes. 1. [id number] ADMISSION PERFORMANCE: Supervision or touching assistance CODE: 04 SIT TO STAND: SIT TO STAND - STEP 1: Does the patient complete the activity by him/herself with no assistance (physical, verbal/nonverbal cueing, setup/clean-up)? No. SIT TO STAND - STEP 2: Does the patient need only setup/clean-up assistance from one helper? No. SIT TO STAND - STEP 3: Does the patient need only verbal/nonverbal cueing or touching/steadying/contact guard assistance fro m one helper? Yes. 1. [id number] ADMISSION PERFORMANCE: Supervision or touching assistance CODE: 04 TRANSFERS: BED, CHAIR: CHAIR/[id number] TRANSFER - STEP 1: Does the patient complete the activity by him/herself with no assistance (physical, verbal/nonverbal cueing, setup/clean-up)? No. CHAIR/[id number] TRANSFER - STEP 2: Does the patient need only setup/clean-up assistance from one helper? No. CHAIR/[id number] TRANSFER - STEP 3: Does the patient need only verbal/nonverbal cueing or touching/steadying/contact guard assistance fro m one helper? Yes. 1. [id number] ADMISSION PERFORMANCE: Supervision or touching assistance CODE: 04 TRANSFER TOILET: TOILET TRANSFER - STEP 1: Does the patient complete the activity by him/herself with no assistance (physical, verbal/nonverbal cueing, setup/clean-up)? No. TOILET TRANSFER - STEP 2: Does the patient need only setup/clean-up assistance from one helper? No. TOILET TRANSFER - STEP 3: Does the patient need only verbal/nonverbal cueing or touching/steadying/contact guard assistance fro m one helper? Yes. 1. [id number] ADMISSION PERFORMANCE: Supervision or touching assistance CODE: 04 TRANSFERS: CAR: Not attempted due to environmental limitations (e.g., lack of equipment, weather constraints) CODE: 10 WALK 10 FEET: WALK 10 FEET - STEP 1: Does the patient complete the activity by him/herself with no assistance (physical, verbal/nonverbal cueing, setup/clean-up)? No. WALK 10 FEET - STEP 2: Does the patient need only setup/clean-up assistance from one helper? No. WALK 10 FEET - STEP 3: Does the patient need only verbal/nonverbal cueing or touching/steadying/contact guard assistance fro m one helper? Yes. 1. [id number] ADMISSION PERFORMANCE: Supervision or touching assistance CODE: 04 WALK 50 FEET: WALK 50 FEET - STEP 1: Does the patient complete the activity by him/herself with no assistance (physical, verbal/nonverbal cueing, setup/clean-up)? No. WALK 50 FEET - STEP 2: Does the patient need only setup/clean-up assistance from one helper? No. WALK 50 FEET - STEP 3: Does the patient need only verbal/nonverbal cueing or touching/steadying/contact guard assistance fro m one helper? Yes. 1. [id number] ADMISSION PERFORMANCE: Supervision or touching assistance CODE: 04 WALK 150 FEET: WALK 150 FEET - STEP 1: Does the patient complete the activity by him/herself with no assistance (physical, verbal/nonverbal cueing, setup/clean-up)? No. WALK 150 FEET - STEP 2: Does the patient need only setup/clean-up assistance from one helper? No. WALK 150 FEET - STEP 3: Does the patient need only verbal/nonverbal cueing or touching/steadying/contact guard assistance fro m one helper? Yes. 1. [id number] ADMISSION PERFORMANCE: Supervision or touching assistance CODE: WALK 10 FEET UNEVEN: Not attempted due to medical condition or safety concerns CODE: 88 1 STEP (CURB): Not attempted due to medical condition or safety concerns CODE: 88 PICKING UP OBJECT: Not attempted due to medical condition or safety concerns CODE: 88 DOES THE PATIENT USE A WHEELCHAIR/SCOOTER? Q1. DOES THE PATIENT USE A WHEELCHAIR/SCOOTER?: Yes CODE: 1 WHEEL 50 FEET WITH TWO TURNS: WHEEL 50 FEET WITH TWO TURNS - STEP 1: Does the patient complete the activity by him/herself with no assistance (physical, verbal/nonverbal cueing, setup/clean-up)? No. WHEEL 50 FEET WITH TWO TURNS - STEP 2: Does the patient need only setup/clean-up assistance from one helper? No. WHEEL 50 FEET WITH TWO TURNS - STEP 3: Does the patient need only verbal/nonverbal cueing or touching/steadying/contact guard assistance fro m one helper? Yes. 1. [id number] ADMISSION PERFORMANCE: Supervision or touching assistance CODE: 04 INDICATE THE TYPE OF WHEELCHAIR/SCOOTER USED: RR1. INDICATE THE TYPE OF WHEELCHAIR/SCOOTER USED.: Manual CODE: 1 WHEEL 150 FEET: WHEEL 150 FEET - STEP 1: Does the patient complete the activity by him/herself with no assistance (physical, verbal/nonverbal cueing, setup/clean-up)? No. WHEEL 150 FEET - STEP 2: Does the patient need only setup/clean-up assistance from one helper? No. WHEEL 150 FEET - STEP 3: Does the patient need only verbal/nonverbal cueing or touching/steadying/contact guard assistance fro m one helper? Yes. 1. [id number] ADMISSION PERFORMANCE: Supervision or touching assistance CODE: 04 INDICATE THE TYPE OF WHEELCHAIR/SCOOTER USED: SS1. INDICATE THE TYPE OF WHEELCHAIR/SCOOTER USED.: Manual CODE: 1 BLADDER AND BOWEL: CODE: EXPR CODE: EXPR SIGNATURE PANEL: The following modified sections: 1. [id number] Admission Performance, 1. [id number] Admission Performance, 1. [id number] Admission Performance, 1. [id number] Admission Performance, 1. [id number] Admission Performance, 1. [id number] Admission Performance, 1. [id number] Admission Performance, 1. [id number] Admission Performance , 1. HS2291H Admission Performance, 1. [id number] Admission Performance, 1. [id number] Admission Performanc e, Q1. Does the patient use a wheelchair/scooter?, 1. [id number] Admission Performance, RR1. Indicate th e type of wheelchair/scooter used., 1. [id number] Admission Performance, Code, SS1. Indicate the type of wheelchair/scooter used. were [electronically] signed by Mason Quiroz PT on SunDec 11 2019 16: 15:38 GMT-0600 (Central Standard Time)
--- NOTE | 2019-12-11 16:21 | FAST ---
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 Waqar Srinivasan M.D. ADMISSION DIAGNOSIS: - Orthopaedic Disorders 08 - Unilateral Hip Fracture (08.11) Right Hip Femoral Neck Fracture. EATING: EATING - STEP 1: Does the patient complete the activity by him/herself with no assistance (physical, verbal/nonverbal cueing, setup/clean-up)? No. EATING - STEP 2: Does the patient need only setup/clean-up assistance from one helper? Yes. 1. [id number] ADMISSION PERFORMANCE: Setup or clean-up assistance CODE: 05 ORAL HYGIENE: ORAL HYGIENE - STEP 1: Does the patient complete the activity by him/herself with no assistance (physical, verbal/nonverbal cueing, setup/clean-up)? No. ORAL HYGIENE - STEP 2: Does the patient need only setup/clean-up assistance from one helper? Yes. 1. [id number] ADMISSION PERFORMANCE: Setup or clean-up assistance CODE: 05 TOILETING HYGIENE: TOILETING HYGIENE - STEP 1: Does the patient complete the activity by him/herself with no assistance (physical, verbal/nonverbal cueing, setup/clean-up)? No. TOILETING HYGIENE - STEP 2: Does the patient need only setup/clean-up assistance from one helper? Yes. 1. [id number] ADMISSION PERFORMANCE: Setup or clean-up assistance CODE: 05 BATHING: Not assessed/no information CODE: - DRESSING - UPPER BODY: DRESSING - UPPER BODY - STEP 1: Does the patient complete the activity by him/herself with no assistance (physical, verbal/nonverbal cueing, setup/clean-up)? No. DRESSING - UPPER BODY - STEP 2: Does the patient need only setup/clean-up assistance from one helper? Yes. 1. [id number] ADMISSION PERFORMANCE: Setup or clean-up assistance CODE: 05 DRESSING - LOWER BODY: DRESSING - LOWER BODY - STEP 1: Does the patient complete the activity by him/herself with no assistance (physical, verbal/nonverbal cueing, setup/clean-up)? No. DRESSING - LOWER BODY - STEP 2: Does the patient need only setup/clean-up assistance from one helper? Yes. 1. [id number] ADMISSION PERFORMANCE: Setup or clean-up assistance CODE: 05 PUTTING ON/TAKING OFF FOOTWEAR: FOOTWEAR - STEP 1: Does the patient complete the activity by him/herself with no assistance (physical, verbal/nonverbal cueing, setup/clean-up)? No. FOOTWEAR - STEP 2: Does the patient need only setup/clean-up assistance from one helper? Yes. 1. [id number] ADMISSION PERFORMANCE: Setup or clean-up assistance CODE: 05 ROLL LEFT AND RIGHT: ROLL LEFT AND RIGHT - STEP 1: Does the patient complete the activity by him/herself with no assistance (physical, verbal/nonverbal cueing, setup/clean-up)? No. ROLL LEFT AND RIGHT - STEP 2: Does the patient need only setup/clean-up assistance from one helper? No. ROLL LEFT AND RIGHT - STEP 3: Does the patient need only verbal/nonverbal cueing or touching/steadying/contact guard assistance fro m one helper? Yes. 1. [id number] ADMISSION PERFORMANCE: Supervision or touching assistance CODE: 04 SIT TO LYING: SIT TO LYING - STEP 1: Does the patient complete the activity by him/herself with no assistance (physical, verbal/nonverbal cueing, setup/clean-up)? No. SIT TO LYING - STEP 2: Does the patient need only setup/clean-up assistance from one helper? No. SIT TO LYING - STEP 3: Does the patient need only verbal/nonverbal cueing or touching/steadying/contact guard assistance fro m one helper? Yes. 1. [id number] ADMISSION PERFORMANCE: Supervision or touching assistance CODE: 04 LYING TO SITTING: LYING TO SITTING ON SIDE OF BED - STEP 1: Does the patient complete the activity by him/herself with no assistance (physical, verbal/nonverbal cueing, setup/clean-up)? No. LYING TO SITTING ON SIDE OF BED - STEP 2: Does the patient need only setup/clean-up assistance from one helper? No. LYING TO SITTING ON SIDE OF BED - STEP 3: Does the patient need only verbal/nonverbal cueing or touching/steadying/contact guard assistance fro m one helper? Yes. 1. [id number] ADMISSION PERFORMANCE: Supervision or touching assistance CODE: 04 SIT TO STAND: SIT TO STAND - STEP 1: Does the patient complete the activity by him/herself with no assistance (physical, verbal/nonverbal cueing, setup/clean-up)? No. SIT TO STAND - STEP 2: Does the patient need only setup/clean-up assistance from one helper? No. SIT TO STAND - STEP 3: Does the patient need only verbal/nonverbal cueing or touching/steadying/contact guard assistance fro m one helper? Yes. 1. [id number] ADMISSION PERFORMANCE: Supervision or touching assistance CODE: 04 TRANSFERS: BED, CHAIR: CHAIR/[id number] TRANSFER - STEP 1: Does the patient complete the activity by him/herself with no assistance (physical, verbal/nonverbal cueing, setup/clean-up)? No. CHAIR/[id number] TRANSFER - STEP 2: Does the patient need only setup/clean-up assistance from one helper? No. CHAIR/[id number] TRANSFER - STEP 3: Does the patient need only verbal/nonverbal cueing or touching/steadying/contact guard assistance fro m one helper? Yes. 1. [id number] ADMISSION PERFORMANCE: Supervision or touching assistance CODE: 04 TRANSFER TOILET: TOILET TRANSFER - STEP 1: Does the patient complete the activity by him/herself with no assistance (physical, verbal/nonverbal cueing, setup/clean-up)? No. TOILET TRANSFER - STEP 2: Does the patient need only setup/clean-up assistance from one helper? No. TOILET TRANSFER - STEP 3: Does the patient need only verbal/nonverbal cueing or touching/steadying/contact guard assistance fro m one helper? Yes. 1. [id number] ADMISSION PERFORMANCE: Supervision or touching assistance CODE: 04 TRANSFERS: CAR: Not assessed/no information CODE: - WALK 10 FEET: Not assessed/no information CODE: - 1 STEP (CURB): Not assessed/no information CODE: - PICKING UP OBJECT: Not assessed/no information CODE: - DOES THE PATIENT USE A WHEELCHAIR/SCOOTER? Q1. DOES THE PATIENT USE A WHEELCHAIR/SCOOTER?: Yes CODE: 1 WHEEL 50 FEET WITH TWO TURNS: WHEEL 50 FEET WITH TWO TURNS - STEP 1: Does the patient complete the activity by him/herself with no assistance (physical, verbal/nonverbal cueing, setup/clean-up)? No. WHEEL 50 FEET WITH TWO TURNS - STEP 2: Does the patient need only setup/clean-up assistance from one helper? Yes. 1. [id number] ADMISSION PERFORMANCE: Setup or clean-up assistance CODE: 05 INDICATE THE TYPE OF WHEELCHAIR/SCOOTER USED: RR1. INDICATE THE TYPE OF WHEELCHAIR/SCOOTER USED.: Manual CODE: 1 WHEEL 150 FEET: WHEEL 150 FEET - STEP 1: Does the patient complete the activity by him/herself with no assistance (physical, verbal/nonverbal cueing, setup/clean-up)? No. WHEEL 150 FEET - STEP 2: Does the patient need only setup/clean-up assistance from one helper? Yes. 1. [id number] ADMISSION PERFORMANCE: Setup or clean-up assistance CODE: 05 INDICATE THE TYPE OF WHEELCHAIR/SCOOTER USED: SS1. INDICATE THE TYPE OF WHEELCHAIR/SCOOTER USED.: Manual CODE: 1 BLADDER AND BOWEL: H350. BLADDER CONTINENCE (3-DAY ASSESSMENT PERIOD): Always continent (no documented incontinence) CODE: 0 H400. BOWEL CONTINENCE (3-DAY ASSESSMENT PERIOD): Always continent CODE: 0 SIGNATURE PANEL: The following modified sections: 1. [id number] Admission Performance, 1. [id number] Admission Performance, 1. XR4125L Admission Performance, 1. RA0442z Admission Performance, 1. CR6000c Admission Performance, 1. DL5940v Admission Performance, 1. WR4370A Admission Performance, 1. QP0457S Admission Performance , 1. ZL7295V Admission Performance, 1. RF1010I Admission Performance, 1. PK8342V Admission Performanc e, 1. TF5676B Admission Performance, Q1. Does the patient use a wheelchair/scooter?, 1. PS4316M Admis kathy Performance, RR1. Indicate the type of wheelchair/scooter used., 1. CL0364O Admission Performanc e, Code, SS1. Indicate the type of wheelchair/scooter used., H350. Bladder Continence (3-day assessme nt period), H400. Bowel Continence (3-day assessment period) were [electronically] signed by Sujatha DamonNRonen on SunDec 11 2019 16:20:57 GMT-0600 (Central Standard Time)
--- NOTE | 2019-12-11 18:40 | R.HP ---
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 board/care, assisted living, nursing home, transitional living) PRE-HOSPITAL LIVING WITH Family/Relatives ENCOUNTER PHYSICIAN: Dr. Waqar Srinivasan M.D. 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) REFERRING FACILITY [facility] HOME TYPE AND DETAILS: Type of home: single family house # of levels in the residence: 1 # of steps to enter the residence: 1 # of steps within the residence: 1 ADMISSION DIAGNOSIS: Right Hip Femoral Neck Fracture ONSET DATE: 12/07/2019 PRIMARY DIAGNOSIS-RELATED SURGERIES: Closed Reduction Percutaneous Screw Fixation of Right Femoral Neck Fracture - performed by KEYONA OVIEDO on 12/08/2019 SECONDARY/COMORBID DIAGNOSES (TIERED): - Non-Tiered Impaired fasting glucose (R73.01) Paroxysmal atrial fibrillation (I48.0) GERD Diverticulosis of small intestine without perforation or abscess without bleeding (K57.10) Overactive Bladder Insomnia Vitamin D deficiency, unspecified (E55.9) - N/A peripheral neuropathy lung cancer Hypertension Mixed Hyperlipidemia HISTORY OF PRESENT ILLNESS (HPI): Pt. is a 78 yo Right-handed white female. She has past medical history significant for Peripheral Neuropathy on Neurontin 100mg. Her impairment category is Orthopaedic Disorders 08 - Unilateral Hip Fracture (08.11). Pre-morbidly, Pt. was independent/mod-I in Locomotion, Safety Awareness, Balance, Social Cognition, T ransfers Control, Sphincter Control, Self-Care, Communication, and Endurance; and she had good Locomo tion, Safety Awareness, Balance, Social Cognition, Transfers Control, Sphincter Control, Self-Care, C ommunication, and Endurance. Currently, she has deficits of Locomotion, Balance, Transfers Control, Self-Care, and Endurance. Pt. is now referred to [facility] for acute in-patient rehabilitation in order to maximize patient's functional independence in activities of daily living, strength, ROM, and mobi lity. Patient has realistic goal of being discharged at assistance level 6-Valdez to reside at Home with Fam eder/Relatives. Arya Curtis is a 78 year old female that lives in a single caryn home with her spouse. She ambulates independently without any assistive device. On 12/07/2019, there was a small step inside their home and she stumble over and fell down on her right side and immediately after she fell down she heard something popping in her right hip and severe pain started and was admitted to [facility] and treated. She is now medically stable but in need of 24-hour nursing, doctor supervision and oversite while receiving active and ongoing intensive (PT, reasonably expected to participate in 3hours of therapy a day/15 hours per week and receive care with an intensive interdisciplinary approach. MEDICATION ALLERGIES: Codeine Demerol ENVIRONMENTAL ALLERGIES: None Known - Substance Allergies None Known - Other Allergies None Known PAST MEDICAL HISTORY: Diverticulosis of small intestine without perforation or abscess without bleeding (K57.10) GERD Hypertension Impaired fasting glucose (R73.01) Insomnia Mixed Hyperlipidemia Overactive Bladder Paroxysmal atrial fibrillation (I48.0) Vitamin D deficiency, unspecified (E55.9) lung cancer peripheral neuropathy PAST SURGICAL HISTORY: VATS Cholecystectomy APPENDECTOMY C- section Hysterectomy RIGHT SHOULDER SURGERY KNEE SURGERY FAMILY HISTORY: Family history is not contributory. SOCIAL HISTORY: - Home Living Family/Relatives REVIEW OF SYSTEMS: - Gen No Chills Fatigue No Fever - Eyes No Double Vision No itchiness - ENMT No Difficulty Swallowing - CVS No Chest Discomfort No Chest Pain Fatigue No Weight Gain - Resp No Cough No Shortness of Breath - GI Continent No Abdominal Pain Constipation No Diarrhea - Continent No Kidney Pain No Painful Urination No Urinary Urgency - MSK Joint Pain Muscle Cramps Stiffness - Skin No Itching No Rash No Suspicious Lesions - Neuro Coordination Difficulty No Difficulty with Concentration No Memory Loss No Seizures Weakness - Psych No Anxiety No Depression No HIV Exposure No Persistent Infections No Seasonal Allergies - Endo No Cold/Heat Intolerance No Excessive Hunger No Excessive Thirst No Excessive Urination PHYSICAL EXAM - Gen Alert and awake Lying in bed No apparent distress Oriented to: person, time, and place - Skin No skin breakdown. Normacephalic - Eyes No abnormalities - ENMT No abnormalities - Neck No abnormalities - CVS RRR - Chest No abnormalities - Resp Clear to auscultation - Abd Soft - GI Non distended Deferred - No abnormalities - Ext Mild right lower extremity edema. - MSK 4+/5 weakness in right lower extremity - Neuro 4/5 strength right lower extremity. - Psych No abnormalities VITAL SIGNS Temperature: 98.1 F SBP/DBP: 136/63 Pulse: 81 Resp: 17 NURSING: - Shower allowing shower - Neuro monitoring sleep QShift and report to MD if pt. is excessively lethargic - Skin care per protocol PRECAUTIONS: - Posterior Hip Precaution No adduction across midline No external rotation No hip flexion >90 degrees No internal rotation No wheel chair propulsion - Weight Bearing Precaution TTWB right LE ACTIVITIES OOB only with supervision QI SCORES: - Self-Care A. Eating 05-Setup or clean-up assistance B. Oral hygiene 05-Setup or clean-up assistance C. Toileting hygiene 03-Partial/moderate assistance E. Shower/bathe self 04-Supervision or touching assistance F. Upper body dressing 04-Supervision or touching assistance G. Lower body dressing 03-Partial/moderate assistance H. Putting on/taking off footwear 02-Substantial/maximal assistance - Mobility A. Roll left and right 02-Substantial/maximal assistance B. Sit to lying 02-Substantial/maximal assistance C. Lying to sitting on side of bed 02-Substantial/maximal assistance D. Sit to stand 02-Substantial/maximal assistance E. Chair/mga-rr-dblax transfer 02-Substantial/maximal assistance F. Toilet transfer 02-Substantial/maximal assistance G. Car transfer 10-Not attempted due to environmental limitations I. Walk 10 feet 03-Partial/moderate assistance J. Walk 50 feet with two turns 88-Not attempted due to medical condition or safety concerns K. Walk 150 feet 88-Not attempted due to medical condition or safety concerns L. Walking 10 feet on uneven surfaces 88-Not attempted due to medical condition or safety concerns M. 1 step (curb) 88-Not attempted due to medical condition or safety concerns N. 4 steps 88-Not attempted due to medical condition or safety concerns O. 12 steps 88-Not attempted due to medical condition or safety concerns P. Picking up object 88-Not attempted due to medical condition or safety concerns R. Wheel 50 feet with two turns 88-Not attempted due to medical condition or safety concerns S. Wheel 150 feet 88-Not attempted due to medical condition or safety concerns - Bladder and Bowel Bladder continence 0-Always continent Bowel continence 0-Always continent - Endurance Fair - Balance Fair - Safety Awareness Fair [facility] DEFICITS: Self-Care, Mobility, Endurance, Balance, and Safety Awareness MEDICATIONS: - Other See attached MAR (Medication Administration Record) Arya Curtis.pdf ASSESSMENT: Pt. is a 78 yo Right-handed white female.She has past medical history significant for Peripheral Neur opathy on Neurontin 100mg.Her impairment category is Orthopaedic Disorders 08 - Unilateral Hip Frac ture (06.22).Pre-morbidly, Pt. was independent/mod-I in Locomotion, Safety Awareness, Balance, Social Cognition, Transfers Control, Sphincter Control, Self-Care, Communication, and Endurance; and she thorne d good Locomotion, Safety Awareness, Balance, Social Cognition, Transfers Control, Sphincter Control, Self-Care, Communication, and Endurance.Currently, she has deficits of Locomotion, Balance, Transfer s Control, Self-Care, and Endurance.Pt. is now referred to [facility] for acut e in-patient rehabilitation in order to maximize patient's functional independence in activities of d aily living, strength, ROM, and mobility.- Rehab Goal Patient has realistic goal of being discharged at assistance level 6-Valdez to reside at Home with Fam eder/Relatives. Arya Curtis is a 78 year old female that lives in a single caryn home with her spouse. She ambulates independently without any assistive device. On 12/07/2019, there was a small step inside their home and she stumble over and fell down on her right side and immediately after she fell down she heard something popping in her right hip and severe pain started and was admitted to [facility] and treated. She is now medically stable but in need of 24-hour nursing, doctor supervision and oversite while receiving active and ongoing intensive (PT, reasonably expected to participate in 3hours of therapy a day/15 hours per week and receive care with an intensive interdisciplinary approach.REHAB PLAN: - Physical Therapy Decreased range of motion - to improve, our physical therapists will perform initial evaluation of pt 's status upon admission and devise an individualized program for increasing patient's Range of Motio n. Gait dysfunction - to improve, our physical therapists will perform initial evaluation of pt's status upon admission and devise an individualized program for Gait Training, and Wheel Chair mobility Inability to transfer - to improve, our physical therapists will perform initial evaluation of pt's s tatus upon admission and devise an individualized program for Bed mobility Need for home safety evaluation - to improve, our physical therapists will perform initial evaluation of pt's status upon admission and devise an individualized program for Home Evaluation Need in caregiver upon discharge - to improve, our physical therapists will perform initial evaluatio n of pt's status upon admission and devise an individualized program for Caregiver Training New precaution - to improve, our physical therapists will perform initial evaluation of pt's status u jorge admission and devise an individualized program for Patient precaution education Edema - to improve, our physical therapists will perform initial evaluation of pt's status upon admi ssion and devise an individualized program for Elevation Training, and Lymphedema Therapy Poor balance - to improve, our physical therapists will perform initial evaluation of pt's status upo n admission and devise an individualized program for Balance Training Poor endurance - to improve, our physical therapists will perform initial evaluation of pt's status u jorge admission and devise an individualized program for Endurance Training Weakness - to improve, our physical therapists will perform initial evaluation of pt's status upon ad mission and devise an individualized program for Aquatic Therapy, Neuromuscular Reeducation, and Stre ngthening Achieving independence - to improve, our physical therapists will perform initial evaluation of pt's status upon admission and devise an individualized program for Community Reintegration Activities - Occupational Therapy ADL deficits - to improve, our occupation therapists will perform initial evaluation of pt's status u jorge admission and devise an individualized program for Bathing, Bed mobility, Community Reintegration , Cooking, Dressing, Eating, Fine Motor Skills, Grooming, Homemaking, Kitchen Mobility, Laundry, Kelsie ent Education, Safety Awareness, Splinting - Positioning, Transfers(Toilet, Tub, Shower), and Wheel C hair Management Need for care transition mgr - to improve, our occupation therapists will perform initial evaluation of pt's s tatus upon admission and devise an individualized program for Caregiver Training Weakness - to improve, our occupation therapists will perform initial evaluation of pt's status upon admission and devise an individualized program for Aquatic Therapy, Balance, Endurance, UE ROM, and U E strengthening MEDICAL PLAN: - Anterior Hip Precaution No abduction No active extension No adduction across midline No external rotation No hip flexion >90 degrees No internal rotation - Diet - Liquid Texture Start Regular - Tube Feed Start N/A - Diet Type Start Regular - Posterior Hip Precaution No adduction across midline No external rotation No hip flexion >90 degrees No internal rotation No wheel chair propulsion - Neuro monitoring sleep QShift and report to MD if pt. is excessively lethargic - Weight Bearing Precaution TTWB right LE - Peripheral Neuropathy Start Neurontin 100mg 1 tab po TID cont - ordered for Peripheral Neuropathy - Skin care per protocol - Other See attached MAR (Medication Administration Record) See attached MAR (Medication Administration Record) Arya Curtis.pdf - Diet - Solid Texture Regular - Shower shower DISCHARGE PLAN: - Estimated Length of Stay (days) 14. - Consensus on plan Discharge plan has been discussed with primary caregiver. Patient/Family is in agreement with the risa n. Primary caregiver is in agreement with the plan. - Patient/Family Goals Return home with assistance. - Planned Living Setting Upon Discharge Home, to live with Family/Relatives. Transitional Living. 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
--- NOTE | 2019-12-11 18:43 | PAPE ---
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 Waqar Srinivasan M.D. ADMISSION DIAGNOSIS: Right Hip Femoral Neck Fracture ONSET DATE 12/07/2019 SECONDARY/COMORBID DIAGNOSES TIERED: - Non-Tiered Impaired fasting glucose (R73.01) Paroxysmal atrial fibrillation (I48.0) GERD Diverticulosis of small intestine without perforation or abscess without bleeding (K57.10) Overactive Bladder Insomnia Vitamin D deficiency, unspecified (E55.9) - N/A peripheral neuropathy lung cancer Hypertension Mixed Hyperlipidemia POST-ADMISSION FUNCTIONAL/MEDICAL STATUS: - Bladder Same accident frequency: Ind - No accidents in the past 7 days - Bowel Same accident frequency: Ind - No accidents in the past 7 days - Walking Same score based on distance walked: 0(N/A) Same score based on distance walked: 1(<=50ft) - Wheelchair Same score based on distance traveled: 0(N/A) STATUS CHANGE EVALUATION: No change in Functional or Medical Status is identified compared with Pre-Admission screening. PATIENT NEEDS CLOSE MEDICAL SUPERVISION BY A REHABILITATION PHYSICIAN FOR: Coordination of Treatment Team Medical and Co-Morbidity Management Sleep Problems Wound Care PATIENT REQUIRES 24X7 REHAB NURSING FOR MEDICAL AND FUNCTIONAL MGT. OF THE FOLLOWING DEFICITS: Disease Management Medication Management Patient/Family Education Providing Safe Environment Skin Integrity PATIENT REQUIRES INTENSIVE, COORDINATED INTERDISCIPLINARY APPROACH TO REHAB: Arranging Home Equipment/Services Discharge Planning Family Intervention/Training Hydraulic Jack Adjuster/Case Management LIST OF IDENTIFIED AND POTENTIAL PROBLEMS: Alteration in Sleep Alteration in leisure activities Bladder, Incontinence Blood Pressure, Hypertension/hypotension Issues Bowel, Incontinence Infection, Actual or Potential Mobility Impaired Pain, Alteration in Comfort Self Care Deficit Skin Integrity, Actual or Potential Urinary Tract Infection (UTI), Actual or Potential RISK FOR COMPLICATIONS - Hypertension CVA. Hypotension. [place]. TIA. - GERD Alteration in sleep. Aspiration. Dehydration. Malnutrition. Pain. INTERVENTIONS - Hypertension - GERD Altered diet. Elevation of head of bed. Medications. Nausea/vomiting. Nighttime food/fluid restrictio ns. Nutrition. PATIENT COULD BE AT RISK FOR COMPLICATIONS FROM ADVERSE MEDICAL CONDITIONS DUE TO HIS/HER COMORBIDITI ES AND THE RIGORS OF THE INTENSIVE REHABILLITATION PROGRAM. METHODS OR INTERVENTIONS TO AVOID COMPLIC ATIONS INCLUDE: - Bleeding Assess lab values and manage abnormalities. Nursing to teach precautions for anti-coagulation therapy . Wound to be assessed every shift. - Infection Clinical staff to assess and manage the signs and symptoms of infection including fever, redness, war mth, etc. - Urinary Tract Infection - Falls Patient will be evaluated for Fall Precautions and will be placed on Fall Precautions as indicated pe r protocol. - Skin Breakdown Nursing will assess skin daily using assessment tool and will place on Skin Breakdown Precautions as indicated per protocol. - Pain Clinical staff may employ non-medication methods such as massage, distraction, decrease stimulus, etc . as needed. Clinical staff will assess patient's pain level every shift per protocol to assess and e nsure pain management effectiveness. Medications will be given and the pain level re-assessed. PRELIMINARY PLAN OF CARE: - Physical Therapy Patient needs Physical Therapy for a daily minimum of 1.5 hours at least 5 out of 7 days, to improve: Mobility, Strengthening, Transfers, Stretching, ROM, Endurance, Ability to manage stairs, Gait, and Balance. - Rehabilitation Nursing Patient requires 24x7 Rehabilitation Nursing for: Pain Issues, Identifying and preventing risk factor s, Monitoring and reporting current medical conditions, Assisting with ambulation and transfer, Carin ting with all ADL-s, Teaching patients about disease process and medications, Family teaching, Provid ing safe environment, Bowel and Bladder Issues, Skin Integrity, and Medication Management. Patient needs Hydraulic Jack Adjuster and/or Case Management for: Discharge Planning, Arranging Home Equipmen t or Services, and Family Interventions. - Dietary and Nutrition Services Patient needs Dietary and Nutrition Services for: Adequate Nutrition, Nutritional Supplements, and Nu tritional Education. - Occupational Therapy Patient needs Occupational Therapy for a daily minimum of 1.5 hours at least 5 out of 7 days, to impr ove Activities of Daily Living, including: Eating, Grooming, Bathing, Dressing, Toileting, Toilet Tra nsfers, Community Reintegration, Higher functional activities, Adaptive Equipment, Splinting, Househo ld Tasks, and Other activities as determined. QI SCORES: - Self-Care A. Eating 05-Setup or clean-up assistance B. Oral hygiene 05-Setup or clean-up assistance C. Toileting hygiene 03-Partial/moderate assistance E. Shower/bathe self 04-Supervision or touching assistance F. Upper body dressing 04-Supervision or touching assistance G. Lower body dressing 03-Partial/moderate assistance H. Putting on/taking off footwear 02-Substantial/maximal assistance - Mobility A. Roll left and right 02-Substantial/maximal assistance B. Sit to lying 02-Substantial/maximal assistance C. Lying to sitting on side of bed 02-Substantial/maximal assistance D. Sit to stand 02-Substantial/maximal assistance E. Chair/dhh-sc-qyaht transfer 02-Substantial/maximal assistance F. Toilet transfer 02-Substantial/maximal assistance G. Car transfer 10-Not attempted due to environmental limitations I. Walk 10 feet 03-Partial/moderate assistance J. Walk 50 feet with two turns 88-Not attempted due to medical condition or safety concerns K. Walk 150 feet 88-Not attempted due to medical condition or safety concerns L. Walking 10 feet on uneven surfaces 88-Not attempted due to medical condition or safety concerns M. 1 step (curb) 88-Not attempted due to medical condition or safety concerns N. 4 steps 88-Not attempted due to medical condition or safety concerns O. 12 steps 88-Not attempted due to medical condition or safety concerns P. Picking up object 88-Not attempted due to medical condition or safety concerns R. Wheel 50 feet with two turns 88-Not attempted due to medical condition or safety concerns S. Wheel 150 feet 88-Not attempted due to medical condition or safety concerns - Bladder and Bowel Bladder continence 0-Always continent Bowel continence 0-Always continent - Endurance Fair - Balance Fair - Safety Awareness Fair POTENTIAL FUNCTIONAL GOALS FOR PATIENT TO ACHIEVE BY DISCHARGE: - Safety Precaution Patient will remain free from falls or injury at time of discharge. - Bed Mobility Patient will perform bed mobility at 4-Amira level of assistance. - Transfers Patient will complete transfers from bed to chair at 4-Amira level of assistance. - Mobility Patient will ambulate 150 ft with 4-Amira level of assistance with RW. PATIENT REHAB POTENTIAL Titus NOEL is able and expected to receive 3 hours of individualized therapy daily on at least 5 of e very 7 days Titus NOEL's prognosis for significant practical improvement within a reasonable period of time appea rs Good Expected level of measurable improvement will be of a practical value to Titus NOEL's functional capa city or adaptations to impairments Has a viable Discharge Plan Medically appropriate; condition is sufficiently stable to participate in intensive rehab program DISCHARGE PLAN: - Estimated Length of Stay (days) 14. - Consensus on plan Discharge plan has been discussed with primary caregiver. Patient/Family is in agreement with the risa n. Primary caregiver is in agreement with the plan. - Patient/Family Goals Return home with assistance. - Planned Living Setting Upon Discharge Home, to live with Family/Relatives. Transitional Living. CONCLUSION ON REHABILITATION NECESSITY: I have evaluated patient's pre-admission functional status and, comparing it to the patient's post-ad mission functional status now, I conclude that the pre-admission assessment was accurate. Patient's c ondition on admission supports the medical necessity of admission to IR[facility]. It is safe to proceed with patient's therapy program. SIGNATURE PANEL: (DIRECTOR TELEVISION)
[2019-12-11] MEDS: MAGNESIUM OXIDE 400 MG TAB PO SCH (20:18)
[2019-12-11] MEDS: DOCUSATE NA/SENNA CONC 1 TAB PO PRN (20:18)
[2019-12-11] MEDS: RIVAROXABAN 20 MG TABLET PO SCH (21:00)
[2019-12-11] MEDS: ROSUVASTATIN 10 MG TAB PO SCH (21:00)
--- NOTE | 2019-12-12 00:02 | PN ---
Date of Progress Note: 12/11/2019 Subjective: Patient was seen for followup. She was on rehab floor sitting at bedside, feeling much better this morning. Objective: Vital Signs: Reviewed. HEENT: Unremarkable. Lungs: Clear to auscultation. Heart: Heart sounds normal. Abdomen: Soft, bowel sounds normal. No guarding, rigidity, tenderness, or distention. Extremities: No leg edema. Skin: Has some faint pink macular rash over her back and she started having this rash and itching as of yesterday. Laboratory Data: White count 8.6, hemoglobin 13.4, platelets 167. Sodium 143, potassium 4.1, chloride 106, bicarb 31, BUN 11, creatinine 0.60, glucose 100. Impression: 1. Contact dermatitis. 2. Right hip fracture. 3. Hypertension. 4. Mixed hyperlipidemia. Plan: Continue current anticoagulation medication, Xarelto. Continue current antihypertensive medication. I will start her on triamcinolone to help with this contact dermatitis problem and I will see her tomorrow for followup. Physical therapy to be provided under guidance of Dr. Srinivasan. ANI/MODL Voice ID: [id number] Report ID: [id number] TERRA
[2019-12-12] MEDS: SOTALOL HCL 80 MG TAB PO SCH ×2 (06:00→17:36)
[2019-12-12] MEDS: PANTOPRAZOLE 40MG TABLET PO SCH (06:30)
[2019-12-12] MEDS: SUCRALFATE 1 GM TABLET PO SCH ×3 (06:54→20:15)
[2019-12-12] MEDS: MIRABEGRON PO SCH (06:54)
[2019-12-12] MEDS: MAGNESIUM OXIDE 400 MG TAB PO SCH ×2 (06:57→20:00)
[2019-12-12] MEDS: TRIAMCINOLONE ACET 0.1% CREAM 80 GM TOP SCH ×2 (07:01→20:16)
[2019-12-12] MEDS: TRAMADOL HCL 50 MG TAB PO PRN (08:28)
[2019-12-12] MEDS: HYDROCORTISONE 1 % CREAM 30GM TOP SCH ×2 (08:32→20:00)
--- NOTE | 2019-12-12 09:58 | P.RH.PN ---
Estimated Length of Stay: 14 Expected Discharge Date: 11/23/19 Discharge Disposition Plan: Home Family Support: Yes [facility]pc Goal: Mobility, Transfers, Self Care Vital Signs: Last Vital Signs Temp 97 F 12/12/19 08:43 Pulse 70 12/12/19 08:43 Resp 17 12/12/19 09:28 BP 140/63 12/12/19 08:43 Pulse Ox 95 12/12/19 09:28 Laboratory: Laboratory Last Values WBC 8.6 K/uL (4.3-10.9) 12/11/19 05:45 RBC 4.44 M/uL (3.86-4.86) 12/11/19 05:45 Hgb 13.8 g/dL (12.0-15.0) 12/11/19 05:45 Hct 39.4 % (36.0-45.0) 12/11/19 05:45 MCV 88.7 fL (80-100) 12/11/19 05:45 MCH 31.1 pg (27.0-35.0) 12/11/19 05:45 MCHC 35.1 g/dL (32.0-36.0) 12/11/19 05:45 RDW 13.3 % (12.1-15.2) 12/11/19 05:45 Plt Count 167 K/uL (152-406) 12/11/19 05:45 MPV 8.9 fL (7.6-11.3) 12/11/19 05:45 Neutrophils % 51.2 % (41.7-73.7) 12/11/19 05:45 Lymphocytes % 29.7 % (15.3-44.8) 12/11/19 05:45 Monocytes % 12.1 % (3.3-12.3) 12/11/19 05:45 Eosinophils % 6.1 % (0-4.4) H 12/11/19 05:45 Basophils % 0.9 % (0-1.3) 12/11/19 05:45 Absolute Neutrophils 4.4 K/uL (1.8-8.0) 12/11/19 05:45 Absolute Lymphocytes 2.6 K/uL (0.7-4.9) 12/11/19 05:45 Absolute Monocytes 1.0 K/uL (0.1-1.3) 12/11/19 05:45 Absolute Eosinophils 0.5 K/uL (0-0.5) 12/11/19 05:45 Absolute Basophils 0.1 K/uL (0-0.5) 12/11/19 05:45 Sodium 143 mmol/L (136-145) 12/11/19 05:45 Potassium 4.1 mmol/L (3.5-5.1) 12/11/19 05:45 Chloride 106 mmol/L (98-107) 12/11/19 05:45 Carbon Dioxide 31 mmol/L (21-32) 12/11/19 05:45 BUN 11 mg/dL (7-18) 12/11/19 05:45 Creatinine 0.60 mg/dL (0.55-1.3) 12/11/19 05:45 Estimated GFR > 90 mL/min (=/>90) 12/11/19 05:45 Glucose 100 mg/dL (74-106) 12/11/19 05:45 Calcium 8.6 mg/dL (8.5-10.1) 12/11/19 05:45 Magnesium 2.1 mg/dL (1.8-2.4) 12/11/19 05:45 Albumin 2.8 g/dL (3.4-5.0) L 12/11/19 05:45 Prealbumin 12.5 mg/dL (20-40) L 12/11/19 05:45 Urine Color Yellow 12/10/19 17:35 Urine Appearance Clear 12/10/19 17:35 Urine pH 6.5 (5.0-7.0) 12/10/19 17:35 Ur Specific [place] 1.010 (1.005-1.030) 12/10/19 17:35 Urine Ketones Negative (NEG) 12/10/19 17:35 Urine Blood Negative (NEG) 12/10/19 17:35 Urine Nitrite Negative (NEG) 12/10/19 17:35 Urine Bilirubin Negative (NEG) 12/10/19 17:35 Urine Urobilinogen 1.0 mg/dL (0.2-1.0) 12/10/19 17:35 Ur Leukocyte Esterase Negative (NEG) 12/10/19 17:35 Urine RBC <5 /HPF (NONE SEEN) 12/10/19 17:35 Urine WBC <5 /HPF (<5) 12/10/19 17:35 Ur Squamous Epith Cells <5 /HPF (NONE SEEN) 12/10/19 17:35 Urine Bacteria <20 /HPF (<20) 12/10/19 17:35 Urine Mucus 1+ /HPF (NONE SEEN) 12/10/19 17:35 Urine Culture Reflexed Not needed 12/10/19 17:35 Urine Glucose Negative (NEG) 12/10/19 17:35 Urine Total Protein Negative (NEG) 12/10/19 17:35 Weight: 177 lb Wound Present: No Closed Surgical Incision Present: Yes Negative Pressure Wound Therapy Present: No Physician Update: Labs reviewed and are stable. Preablumin is mildly low. She is on promod. She is doing very well with physical and occupational therapy. She has a chronic right rotator cuff injury but she is still doing well. She walks 250 feet. Medical Issues: Patient is always continent with bladder and bowel Pain Issues: Patient is taking Tylenol 500mg Q6H PO PRN and Tramadol 50mg Q6H PO PRN Summary: Patient's care plan and shelter goals have been reviewed and revised as necessary. Please see the Rehabilitation Signature page for all necessary signatures.
--- NOTE | 2019-12-12 10:28 | P.PN ---
Subjective Date of Service: 12/12/19 Chief Complaint: s/p CRPP right hip Subjective: Ambulating, Improving, Working w/ PT pain controlled; improving with mobilization Physical Examination - Vital Signs Temperature: 97 F Blood Pressure: 140/63 Pulse: 70 Respirations: 17 Pulse Ox (%): 95 - Physical Exam General: Alert, In no apparent distress Musculoskeletal: Other (RLE: incision clean/dry/intact; no erythema or drainage ; NVI distally; no swelling of thigh) Assessment And Plan - Plan Vilma is a 79 yo female s/p CRPP of her right hip POD#4 -continue to mobilize with PT; TDWB RLE -Xarelto for afib and DVT prophylaxis -dressing changed today without complication -f/u in my clinic 2 weeks postop for staple removal
--- NOTE | 2019-12-12 13:15 | FAST ---
ENCOUNTER DATE AND TIME: 12/12/2019 08:00 (APPLICATION ASSISTANT) NAME ARYA NOEL DATE OF : 1940 DATE OF ADMISSION: 12/10/2019 12:11 (APPLICATION ASSISTANT) PHONE: AGE: 78 N# [id number] GENDER: Female ENCOUNTER PHYSICIAN: Dr. Waqar Srinivasan M.D. ADMISSION DIAGNOSIS: - Orthopaedic Disorders 08 - Unilateral Hip Fracture (08.11) Right Hip Femoral Neck Fracture. EATING: Not assessed/no information CODE: - ORAL HYGIENE: ORAL HYGIENE - STEP 1: Does the patient complete the activity by him/herself with no assistance (physical, verbal/nonverbal cueing, setup/clean-up)? Yes. 1. [id number] ADMISSION PERFORMANCE: Independent CODE: 06 TOILETING HYGIENE: Not assessed/no information CODE: - BATHING: SHOWER/BATHE SELF - STEP 1: Does the patient complete the activity by him/herself with no assistance (physical, verbal/nonverbal cueing, setup/clean-up)? No. SHOWER/BATHE SELF - STEP 2: Does the patient need only setup/clean-up assistance from one helper? No. SHOWER/BATHE SELF - STEP 3: Does the patient need only verbal/nonverbal cueing or touching/steadying/contact guard assistance fro m one helper? Yes. 1. [id number] ADMISSION PERFORMANCE: Supervision or touching assistance CODE: 04 DRESSING - UPPER BODY: DRESSING - UPPER BODY - STEP 1: Does the patient complete the activity by him/herself with no assistance (physical, verbal/nonverbal cueing, setup/clean-up)? No. DRESSING - UPPER BODY - STEP 2: Does the patient need only setup/clean-up assistance from one helper? Yes. 1. [id number] ADMISSION PERFORMANCE: Setup or clean-up assistance CODE: 05 DRESSING - LOWER BODY: DRESSING - LOWER BODY - STEP 1: Does the patient complete the activity by him/herself with no assistance (physical, verbal/nonverbal cueing, setup/clean-up)? No. DRESSING - LOWER BODY - STEP 2: Does the patient need only setup/clean-up assistance from one helper? No. DRESSING - LOWER BODY - STEP 3: Does the patient need only verbal/nonverbal cueing or touching/steadying/contact guard assistance fro m one helper? Yes. 1. [id number] ADMISSION PERFORMANCE: Supervision or touching assistance CODE: 04 PUTTING ON/TAKING OFF FOOTWEAR: FOOTWEAR - STEP 1: Does the patient complete the activity by him/herself with no assistance (physical, verbal/nonverbal cueing, setup/clean-up)? No. FOOTWEAR - STEP 2: Does the patient need only setup/clean-up assistance from one helper? No. FOOTWEAR - STEP 3: Does the patient need only verbal/nonverbal cueing or touching/steadying/contact guard assistance fro m one helper? No. FOOTWEAR - STEP 4: Does the patient need physical assistance - for example lifting or trunk support from one helper - wi th the helper providing less than half of the effort? Yes. 1. [id number] ADMISSION PERFORMANCE: Partial/moderate assistance CODE: 03 DOES THE PATIENT USE A WHEELCHAIR/SCOOTER? CODE: EXPR INDICATE THE TYPE OF WHEELCHAIR/SCOOTER USED: CODE: EXPR INDICATE THE TYPE OF WHEELCHAIR/SCOOTER USED: CODE: EXPR BLADDER AND BOWEL: CODE: EXPR CODE: EXPR SIGNATURE PANEL: The following modified sections: 1. [id number] Admission Performance, 1. OT5142g Admission Performance, 1. PE1084p Admission Performance, 1. KD2543g Admission Performance, 1. SE8173y Admission Performance were [electronically] signed by Lorie Chang OT on SunDec 12 2019 13:14:19 GMT-0600 ([facility] Standard Time)
[2019-12-12] MEDS: ACETAMINOPHEN 500 MG TAB PO PRN (13:21)
--- NOTE | 2019-12-12 14:24 | PN ---
Date of Progress Note: 12/12/2019 Subjective: Patient was seen this morning for followup. She was lying in bed, not in any distress. Denies any new complaints. Still has some rash and itching on her back. Otherwise, no new complain ts or problems reported. Objective: Vital Signs: Reviewed. HEENT: Unremarkable. Lungs: Clear to auscultation. Heart: Sounds normal. Abdomen: Soft. Bowel sounds normal. No guarding, rigidity, tenderness, or distention. Extremities: No leg edema. Impression: 1.Hypertension. 2.Mixed hyperlipidemia. 3.Right hip fracture. 4.Contact dermatitis. 5.Paroxysmal atrial fibrillation. Plan: Continue Xarelto. Continue current antihypertensive medication and topical steroid cream for contact dermatitis per order. I will see her tomorrow for followup visit. Had a bowel movement yest erday and she is doing well. Physical therapy to be provided under guidance of Dr. Srinivasan. ANI/MODL Voice ID: [id number] Report ID: [id number]
[2019-12-12] MEDS: ROSUVASTATIN 10 MG TAB PO SCH ×2 (20:15→21:00)
[2019-12-12] MEDS: RIVAROXABAN 20 MG TABLET PO SCH ×2 (20:20→21:00)
[2019-12-13] MEDS: SOTALOL HCL 80 MG TAB PO SCH ×2 (05:03→17:25)
[2019-12-13 05:26] VITALS: BMI 26.4
[2019-12-13] MEDS: PANTOPRAZOLE 40MG TABLET PO SCH (06:30)
[2019-12-13] MEDS ORDERED: LIDOCAINE 4% PATCH TOP SCH (08:00)
[2019-12-13] MEDS: MIRABEGRON PO SCH (08:00)
[2019-12-13] MEDS: SUCRALFATE 1 GM TABLET PO SCH ×2 (08:00→20:00)
[2019-12-13] MEDS: HYDROCORTISONE 1 % CREAM 30GM TOP SCH ×2 (08:00→20:00)
[2019-12-13] MEDS: TRIAMCINOLONE ACET 0.1% CREAM 80 GM TOP SCH ×2 (08:08→20:32)
[2019-12-13] MEDS: MAGNESIUM OXIDE 400 MG TAB PO SCH ×2 (08:09→20:30)
[2019-12-13] MEDS: TRAMADOL HCL 50 MG TAB PO PRN ×2 (11:18→20:30)
--- NOTE | 2019-12-13 17:19 | PN ---
Date of Progress Note: 12/13/2019 Subjective: Patient was seen this morning for followup. She was sitting at bedside. Denies any com plaints. Her pain is under good control. Last bowel movement was day before yesterday. No heartbur n, indigestion, nausea, vomiting. Objective: Vital Signs: Reviewed. HEENT: Unremarkable. Lungs: Clear to auscultation. Heart: Sounds normal. Abdomen: Soft. Bowel sounds normal. No guarding, rigidity, tenderness, or distention. Extremities: No leg edema. Impression: 1.Paroxysmal atrial fibrillation. 2.Hypertension. 3.Hyperlipidemia. 4.Right hip fracture. 5.Constipation. Plan: We will go ahead and continue current things and I have advised her to take it every day as sh e did not take it last night. Continue current DVT prophylaxis. We will continue current antihypert ensive medication, pain medication, and physical therapy under guidance of Dr. Srinivasan. ANI/MODL Voice ID: [id number] Report ID: [id number]
[2019-12-13] MEDS: DOCUSATE NA/SENNA CONC 1 TAB PO PRN (20:29)
[2019-12-13] MEDS: RIVAROXABAN 20 MG TABLET PO SCH (20:33)
[2019-12-13] MEDS: ROSUVASTATIN 10 MG TAB PO SCH (20:33)
[2019-12-14] MEDS: SOTALOL HCL 80 MG TAB PO SCH ×2 (05:20→17:19)
[2019-12-14] MEDS: PANTOPRAZOLE 40MG TABLET PO SCH (06:26)
[2019-12-14] MEDS: SUCRALFATE 1 GM TABLET PO SCH ×2 (07:42→20:00)
[2019-12-14] MEDS: HYDROCORTISONE 1 % CREAM 30GM TOP SCH ×2 (07:42→20:00)
[2019-12-14] MEDS: MAGNESIUM OXIDE 400 MG TAB PO SCH ×2 (07:43→20:00)
[2019-12-14] MEDS: MIRABEGRON PO SCH (07:44)
[2019-12-14] MEDS: TRIAMCINOLONE ACET 0.1% CREAM 80 GM TOP SCH ×2 (09:38→20:10)
[2019-12-14] MEDS: ACETAMINOPHEN 500 MG TAB PO PRN (14:56)
[2019-12-14] MEDS: DOCUSATE NA/SENNA CONC 1 TAB PO PRN (20:08)
[2019-12-14] MEDS: ROSUVASTATIN 10 MG TAB PO SCH (20:10)
[2019-12-14] MEDS: RIVAROXABAN 20 MG TABLET PO SCH (20:11)
[2019-12-14] MEDS: ALPRAZOLAM 0.25 MG TABLET PO SCH (21:00)
[2019-12-14] MEDS ORDERED: ALPRAZOLAM 0.25 MG TABLET PO SCH (21:00)
[2019-12-14] MEDS: TRAMADOL HCL 50 MG TAB PO PRN (22:00)
[2019-12-15] MEDS: SOTALOL HCL 80 MG TAB PO SCH ×2 (05:48→17:04)
[2019-12-15] MEDS: PANTOPRAZOLE 40MG TABLET PO SCH ×2 (06:30→07:25)
[2019-12-15] MEDS: SUCRALFATE 1 GM TABLET PO SCH ×2 (08:00→20:00)
[2019-12-15] MEDS: TRIAMCINOLONE ACET 0.1% CREAM 80 GM TOP SCH ×2 (08:00→20:10)
[2019-12-15] MEDS: MIRABEGRON PO SCH (08:00)
[2019-12-15] MEDS: MAGNESIUM OXIDE 400 MG TAB PO SCH ×2 (08:00→20:00)
[2019-12-15] MEDS: HYDROCORTISONE 1 % CREAM 30GM TOP SCH ×2 (08:00→20:00)
[2019-12-15] MEDS: TRAMADOL HCL 50 MG TAB PO PRN ×2 (09:08→16:23)
--- NOTE | 2019-12-15 14:46 | FAST ---
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 Waqar Srinivasan M.D. ADMISSION DIAGNOSIS: - Orthopaedic Disorders 08 - Unilateral Hip Fracture (08.11) Right Hip Femoral Neck Fracture. EATING: Not assessed/no information CODE: - ORAL HYGIENE: ORAL HYGIENE - STEP 1: Does the patient complete the activity by him/herself with no assistance (physical, verbal/nonverbal cueing, setup/clean-up)? Yes. 1. [id number] ADMISSION PERFORMANCE: Independent CODE: 06 TOILETING HYGIENE: Not assessed/no information CODE: - BATHING: SHOWER/BATHE SELF - STEP 1: Does the patient complete the activity by him/herself with no assistance (physical, verbal/nonverbal cueing, setup/clean-up)? No. SHOWER/BATHE SELF - STEP 2: Does the patient need only setup/clean-up assistance from one helper? Yes. 1. [id number] ADMISSION PERFORMANCE: Setup or clean-up assistance CODE: 05 DRESSING - UPPER BODY: DRESSING - UPPER BODY - STEP 1: Does the patient complete the activity by him/herself with no assistance (physical, verbal/nonverbal cueing, setup/clean-up)? Yes. 1. [id number] ADMISSION PERFORMANCE: Independent CODE: 06 DRESSING - LOWER BODY: DRESSING - LOWER BODY - STEP 1: Does the patient complete the activity by him/herself with no assistance (physical, verbal/nonverbal cueing, setup/clean-up)? No. DRESSING - LOWER BODY - STEP 2: Does the patient need only setup/clean-up assistance from one helper? No. DRESSING - LOWER BODY - STEP 3: Does the patient need only verbal/nonverbal cueing or touching/steadying/contact guard assistance fro m one helper? Yes. 1. [id number] ADMISSION PERFORMANCE: Supervision or touching assistance CODE: 04 PUTTING ON/TAKING OFF FOOTWEAR: FOOTWEAR - STEP 1: Does the patient complete the activity by him/herself with no assistance (physical, verbal/nonverbal cueing, setup/clean-up)? No. FOOTWEAR - STEP 2: Does the patient need only setup/clean-up assistance from one helper? No. FOOTWEAR - STEP 3: Does the patient need only verbal/nonverbal cueing or touching/steadying/contact guard assistance fro m one helper? Yes. 1. [id number] ADMISSION PERFORMANCE: Supervision or touching assistance CODE: 04 DOES THE PATIENT USE A WHEELCHAIR/SCOOTER? CODE: EXPR INDICATE THE TYPE OF WHEELCHAIR/SCOOTER USED: CODE: EXPR INDICATE THE TYPE OF WHEELCHAIR/SCOOTER USED: CODE: EXPR BLADDER AND BOWEL: CODE: EXPR CODE: EXPR SIGNATURE PANEL: The following modified sections: 1. [id number] Admission Performance, 1. GH5400y Admission Performance, 1. [id number] Admission Performance, 1. MC6629d Admission Performance, 1. ZO9534g Admission Performance, 1. KN7202f Admission Performance, 1. GX2408z Admission Performance, 1. WK8779b Admission Performance , 1. SI1453n Admission Performance were [electronically] signed by MATEUSZ Alexis on SunDec 15 2019 14:45:48 GMT-0600 (Central Standard Time)
--- NOTE | 2019-12-15 15:14 | FAST ---
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 Waqar Srinivasan M.D. ADMISSION DIAGNOSIS: - Orthopaedic Disorders 08 - Unilateral Hip Fracture (08.11) Right Hip Femoral Neck Fracture. EATING: EATING - STEP 1: Does the patient complete the activity by him/herself with no assistance (physical, verbal/nonverbal cueing, setup/clean-up)? No. EATING - STEP 2: Does the patient need only setup/clean-up assistance from one helper? Yes. 1. [id number] ADMISSION PERFORMANCE: Setup or clean-up assistance CODE: 05 ORAL HYGIENE: ORAL HYGIENE - STEP 1: Does the patient complete the activity by him/herself with no assistance (physical, verbal/nonverbal cueing, setup/clean-up)? Yes. 1. [id number] ADMISSION PERFORMANCE: Independent CODE: 06 TOILETING HYGIENE: TOILETING HYGIENE - STEP 1: Does the patient complete the activity by him/herself with no assistance (physical, verbal/nonverbal cueing, setup/clean-up)? No. TOILETING HYGIENE - STEP 2: Does the patient need only setup/clean-up assistance from one helper? Yes. 1. [id number] ADMISSION PERFORMANCE: Setup or clean-up assistance CODE: 05 BATHING: Not assessed/no information CODE: - DRESSING - UPPER BODY: DRESSING - UPPER BODY - STEP 1: Does the patient complete the activity by him/herself with no assistance (physical, verbal/nonverbal cueing, setup/clean-up)? No. DRESSING - UPPER BODY - STEP 2: Does the patient need only setup/clean-up assistance from one helper? Yes. 1. [id number] ADMISSION PERFORMANCE: Setup or clean-up assistance CODE: 05 DRESSING - LOWER BODY: DRESSING - LOWER BODY - STEP 1: Does the patient complete the activity by him/herself with no assistance (physical, verbal/nonverbal cueing, setup/clean-up)? No. DRESSING - LOWER BODY - STEP 2: Does the patient need only setup/clean-up assistance from one helper? Yes. 1. [id number] ADMISSION PERFORMANCE: Setup or clean-up assistance CODE: 05 PUTTING ON/TAKING OFF FOOTWEAR: FOOTWEAR - STEP 1: Does the patient complete the activity by him/herself with no assistance (physical, verbal/nonverbal cueing, setup/clean-up)? No. FOOTWEAR - STEP 2: Does the patient need only setup/clean-up assistance from one helper? Yes. 1. [id number] ADMISSION PERFORMANCE: Setup or clean-up assistance CODE: 05 ROLL LEFT AND RIGHT: ROLL LEFT AND RIGHT - STEP 1: Does the patient complete the activity by him/herself with no assistance (physical, verbal/nonverbal cueing, setup/clean-up)? No. ROLL LEFT AND RIGHT - STEP 2: Does the patient need only setup/clean-up assistance from one helper? Yes. 1. [id number] ADMISSION PERFORMANCE: Setup or clean-up assistance CODE: 05 SIT TO LYING: SIT TO LYING - STEP 1: Does the patient complete the activity by him/herself with no assistance (physical, verbal/nonverbal cueing, setup/clean-up)? No. SIT TO LYING - STEP 2: Does the patient need only setup/clean-up assistance from one helper? Yes. 1. [id number] ADMISSION PERFORMANCE: Setup or clean-up assistance CODE: 05 LYING TO SITTING: LYING TO SITTING ON SIDE OF BED - STEP 1: Does the patient complete the activity by him/herself with no assistance (physical, verbal/nonverbal cueing, setup/clean-up)? No. LYING TO SITTING ON SIDE OF BED - STEP 2: Does the patient need only setup/clean-up assistance from one helper? Yes. 1. [id number] ADMISSION PERFORMANCE: Setup or clean-up assistance CODE: 05 SIT TO STAND: SIT TO STAND - STEP 1: Does the patient complete the activity by him/herself with no assistance (physical, verbal/nonverbal cueing, setup/clean-up)? No. SIT TO STAND - STEP 2: Does the patient need only setup/clean-up assistance from one helper? Yes. 1. [id number] ADMISSION PERFORMANCE: Setup or clean-up assistance CODE: 05 TRANSFERS: BED, CHAIR: CHAIR/[id number] TRANSFER - STEP 1: Does the patient complete the activity by him/herself with no assistance (physical, verbal/nonverbal cueing, setup/clean-up)? No. CHAIR/[id number] TRANSFER - STEP 2: Does the patient need only setup/clean-up assistance from one helper? Yes. 1. [id number] ADMISSION PERFORMANCE: Setup or clean-up assistance CODE: 05 TRANSFER TOILET: TOILET TRANSFER - STEP 1: Does the patient complete the activity by him/herself with no assistance (physical, verbal/nonverbal cueing, setup/clean-up)? No. TOILET TRANSFER - STEP 2: Does the patient need only setup/clean-up assistance from one helper? Yes. 1. [id number] ADMISSION PERFORMANCE: Setup or clean-up assistance CODE: 05 TRANSFERS: CAR: Not assessed/no information CODE: - WALK 10 FEET: Not assessed/no information CODE: - 1 STEP (CURB): Not assessed/no information CODE: - PICKING UP OBJECT: Not assessed/no information CODE: - DOES THE PATIENT USE A WHEELCHAIR/SCOOTER? Q1. DOES THE PATIENT USE A WHEELCHAIR/SCOOTER?: Yes CODE: 1 WHEEL 50 FEET WITH TWO TURNS: WHEEL 50 FEET WITH TWO TURNS - STEP 1: Does the patient complete the activity by him/herself with no assistance (physical, verbal/nonverbal cueing, setup/clean-up)? No. WHEEL 50 FEET WITH TWO TURNS - STEP 2: Does the patient need only setup/clean-up assistance from one helper? Yes. 1. [id number] ADMISSION PERFORMANCE: Setup or clean-up assistance CODE: 05 INDICATE THE TYPE OF WHEELCHAIR/SCOOTER USED: RR1. INDICATE THE TYPE OF WHEELCHAIR/SCOOTER USED.: Manual CODE: 1 WHEEL 150 FEET: Not assessed/no information CODE: - INDICATE THE TYPE OF WHEELCHAIR/SCOOTER USED: SS1. INDICATE THE TYPE OF WHEELCHAIR/SCOOTER USED.: Manual CODE: 1 BLADDER AND BOWEL: H350. BLADDER CONTINENCE (3-DAY ASSESSMENT PERIOD): Always continent (no documented incontinence) CODE: 0 H400. BOWEL CONTINENCE (3-DAY ASSESSMENT PERIOD): Always continent CODE: 0 SIGNATURE PANEL: The following modified sections: 1. TN3882F Admission Performance, 1. [id number] Admission Performance, 1. KV2570M Admission Performance, 1. UL3436D Admission Performance, 1. RH0156h Admission Performance, 1. VA2951r Admission Performance, 1. VP4882a Admission Performance, 1. PR7422j Admission Performance , 1. QS8467O Admission Performance, 1. RK8661N Admission Performance, 1. RW8661I Admission Performanc e, 1. KO1189I Admission Performance, 1. WS4248M Admission Performance, 1. LW3369E Admission Performan ce, 1. YJ6644P Admission Performance, 1. [id number] Admission Performance, Q1. Does the patient use a wh eelchair/scooter?, 1. AD8557R Admission Performance, RR1. Indicate the type of wheelchair/scooter use d., Code, SS1. Indicate the type of wheelchair/scooter used., H350. Bladder Continence (3-day assessm ent period), H400. Bowel Continence (3-day assessment period) were [electronically] signed by Charla Tran C.N.Titus on SunDec 15 2019 15:13:47 GMT-0600 (Central Standard Time)
[2019-12-15] MEDS ORDERED: PANTOPRAZOLE 40MG TABLET PO SCH (16:30)
--- NOTE | 2019-12-15 18:10 | R.PN ---
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 Pt denied any depression. Ambulated 1000' with standby assistance using a rolling walker. VITAL SIGNS Temperature: 97.6 F SBP/DBP: 142/76 Pulse: 74 Resp: 16 MEDICATION ALLERGIES: Codeine Demerol ENVIRONMENTAL ALLERGIES: None Known - Substance Allergies None Known - Other Allergies None Known NURSING: - Shower allowing shower - Neuro monitoring sleep QShift and report to MD if pt. is excessively lethargic - Skin care per protocol PRECAUTIONS: - Posterior Hip Precaution No adduction across midline No external rotation No hip flexion >90 degrees No internal rotation No wheel chair propulsion - Weight Bearing Precaution TTWB right LE ACTIVITIES OOB only with supervision THERAPIES: - Dietary and Nutrition Adequate Nutrition. Nutritional Education. Nutritional Supplements. PHYSICAL EXAM - Gen Alert and awake Lying in bed No apparent distress Oriented to: person, time, and place - Skin No skin breakdown. Normacephalic - Eyes No abnormalities - ENMT No abnormalities - Neck No abnormalities - CVS RRR - Chest No abnormalities - Resp Clear to auscultation - Abd Soft - GI Non distended Deferred - No abnormalities - Ext Mild right lower extremity edema. - MSK 4+/5 weakness in right lower extremity - Neuro 4/5 strength right lower extremity. - Psych No abnormalities ASSESSMENT: Pt. is a 78 yo Right-handed white female.She has past medical history significant for Peripheral Neur opathy on Neurontin 100mg.Her impairment category is Orthopaedic Disorders 08 - Unilateral Hip Frac ture (06.22).Pre-morbidly, Pt. was independent/mod-I in Locomotion, Safety Awareness, Balance, Social Cognition, Transfers Control, Sphincter Control, Self-Care, Communication, and Endurance; and she thorne d good Locomotion, Safety Awareness, Balance, Social Cognition, Transfers Control, Sphincter Control, Self-Care, Communication, and Endurance.Currently, she has deficits of Locomotion, Balance, Transfer s Control, Self-Care, and Endurance.Pt. is now referred to [facility] for acut e in-patient rehabilitation in order to maximize patient's functional independence in activities of d aily living, strength, ROM, and mobility.- Rehab Goal Patient has realistic goal of being discharged at assistance level 6-Valdez to reside at Home with Fam eder/Relatives. MDM/PLAN: - Physical Therapy Decreased range of motion - to improve, our physical therapists will perform initial evaluation of p t's status upon admission and devise an individualized program for increasing patient's Range of Bharath on. Gait dysfunction - to improve, our physical therapists will perform initial evaluation of pt's statu s upon admission and devise an individualized program for Gait Training, and Wheel Chair mobility Inability to transfer - to improve, our physical therapists will perform initial evaluation of pt's status upon admission and devise an individualized program for Bed mobility Need for home safety evaluation - to improve, our physical therapists will perform initial evaluatio n of pt's status upon admission and devise an individualized program for Home Evaluation Need in caregiver upon discharge - to improve, our physical therapists will perform initial evaluati on of pt's status upon admission and devise an individualized program for Caregiver Training New precaution - to improve, our physical therapists will perform initial evaluation of pt's status upon admission and devise an individualized program for Patient precaution education Edema - to improve, our physical therapists will perform initial evaluation of pt's status upon admis kathy and devise an individualized program for Elevation Training, and Lymphedema Therapy Poor balance - to improve, our physical therapists will perform initial evaluation of pt's status up on admission and devise an individualized program for Balance Training Poor endurance - to improve, our physical therapists will perform initial evaluation of pt's status upon admission and devise an individualized program for Endurance Training Weakness - to improve, our physical therapists will perform initial evaluation of pt's status upon a dmission and devise an individualized program for Aquatic Therapy, Neuromuscular Reeducation, and Str engthening Achieving independence - to improve, our physical therapists will perform initial evaluation of pt's status upon admission and devise an individualized program for Community Reintegration Activities - Occupational Therapy ADL deficits - to improve, our occupation therapists will perform initial evaluation of pt's status upon admission and devise an individualized program for Bathing, Bed mobility, Community Reintegratio n, Cooking, Dressing, Eating, Fine Motor Skills, Grooming, Homemaking, Kitchen Mobility, Laundry, Pat ient Education, Safety Awareness, Splinting - Positioning, Transfers(Toilet, Tub, Shower), and Wheel Chair Management 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 of school 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 care worker - to improve, our occupation therapists will perform initial evaluation of pt's status upon admission and devise an individualized program for Caregiver Training Weakness - to improve, our occupation therapists will perform initial evaluation of pt's status upon admission and devise an individualized program for Aquatic Therapy, Balance, Endurance, UE ROM, and UE strengthening - Other See attached MAR (Medication Administration Record) Hardoin, Arya.pdf See attached MAR (Medication Administration Record) See attached MAR (Medication Administration Record) Hardoin, Arya.pdf - Anterior Hip Precaution No abduction No active extension No adduction across midline No external rotation No hip flexion >90 degrees No internal rotation - Diet - Liquid Texture Continue Regular - Tube Feed Continue N/A - Diet Type Continue Regular - Posterior Hip Precaution No adduction across midline No external rotation No hip flexion >90 degrees No internal rotation No wheel chair propulsion - Neuro monitoring sleep QShift and report to MD if pt. is excessively lethargic - Weight Bearing Precaution TTWB right LE - Peripheral Neuropathy Continue Neurontin 100mg 1 tab po TID cont - ordered for Peripheral Neuropathy - Skin care per protocol - Diet - Solid Texture Continue Regular - Shower allowing shower FUNCTIONAL STATUS: UPDATED AT WEEKLY TEAM CONFERENCE - Bladder Same accident frequency: 7-Ind - No accidents in the past 7 days - Bowel Same accident frequency: 7-Ind - No accidents in the past 7 days - Walking Same score based on distance walked: 0(N/A) Same score based on distance walked: 1(<=50ft) - Wheelchair Same score based on distance traveled: 0(N/A) FUNCTIONAL STATUS: - Self-Care A. Eating Ind B. Grooming sup C. Bathing sup D. Dressing - Upper sup E. Dressing - Lower modA F. Toileting sup - Sphincter Control G. Bladder control sup H. Bowel control sup - Transfers Control I. Bed/Chair/Wheelchair Amira J. Toilet Amira K. Tub/Shower Amira - Locomotion L. Walk/Wheelchair (B) sup M. Stairs ADNO - Communication N. Comprehension (B) Valdez O. Expression (B) Valdez - Social Cognition P. Social Interaction Valdez Q. Problem Solving Valdez R. Memory Valdez - Endurance Good - Balance Good - Safety Awareness Good QI SCORES: - Self-Care A. Eating 05-Setup or clean-up assistance B. Oral hygiene 05-Setup or clean-up assistance C. Toileting hygiene 03-Partial/moderate assistance E. Shower/bathe self 04-Supervision or touching assistance F. Upper body dressing 04-Supervision or touching assistance G. Lower body dressing 03-Partial/moderate assistance H. Putting on/taking off footwear 02-Substantial/maximal assistance - Mobility A. Roll left and right 02-Substantial/maximal assistance B. Sit to lying 02-Substantial/maximal assistance C. Lying to sitting on side of bed 02-Substantial/maximal assistance D. Sit to stand 02-Substantial/maximal assistance E. Chair/[id number] transfer 02-Substantial/maximal assistance F. Toilet transfer 02-Substantial/maximal assistance G. Car transfer 10-Not attempted due to environmental limitations I. Walk 10 feet 03-Partial/moderate assistance J. Walk 50 feet with two turns 88-Not attempted due to medical condition or safety concerns K. Walk 150 feet 88-Not attempted due to medical condition or safety concerns L. Walking 10 feet on uneven surfaces 88-Not attempted due to medical condition or safety concerns M. 1 step (curb) 88-Not attempted due to medical condition or safety concerns N. 4 steps 88-Not attempted due to medical condition or safety concerns O. 12 steps 88-Not attempted due to medical condition or safety concerns P. Picking up object 88-Not attempted due to medical condition or safety concerns R. Wheel 50 feet with two turns 88-Not attempted due to medical condition or safety concerns S. Wheel 150 feet 88-Not attempted due to medical condition or safety concerns - Bladder and Bowel Bladder continence 0-Always continent Bowel continence 0-Always continent - Endurance Fair - Balance Fair - Safety Awareness Fair CURRENT FUNC. 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
[2019-12-15] MEDS: DOCUSATE NA/SENNA CONC 1 TAB PO PRN (20:08)
[2019-12-15] MEDS: ROSUVASTATIN 10 MG TAB PO SCH (20:09)
[2019-12-15] MEDS: ALPRAZOLAM 0.25 MG TABLET PO SCH (20:44)
[2019-12-15] MEDS: RIVAROXABAN 20 MG TABLET PO SCH (20:44)
--- NOTE | 2019-12-15 22:54 | PN ---
Date of Progress Note: 12/15/2019 Subjective: Patient was seen this morning for followup. No new complaints or problems reported by h er. Objective: Vital Signs: Reviewed. HEENT: Examination unremarkable. Lungs: Clear to auscultation. Heart: Sounds normal. Abdomen: Soft. Bowel sounds normal. No guarding, rigidity, tenderness, distention. Extremities: No leg edema. Impression: 1.Right hip fracture. 2.Hypertension. 3.Paroxysmal atrial fibrillation. 4.Mixed hyperlipidemia. Plan: We will go ahead and continue current anticoagulation therapy, antihypertensive medication. C ontinue physical therapy under guidance of Dr. Srinivasan. Continue current stool softener. I will se e her tomorrow for followup. ANI/MODL Voice ID: [id number] Report ID: [id number]
[2019-12-16] MEDS: SOTALOL HCL 80 MG TAB PO SCH ×2 (05:17→17:11)
[2019-12-16] MEDS ORDERED: DEXILANT PO SCH (06:30)
[2019-12-16] MEDS: TRIAMCINOLONE ACET 0.1% CREAM 80 GM TOP SCH ×2 (08:00→20:00)
[2019-12-16] MEDS: MIRABEGRON PO SCH (08:00)
[2019-12-16] MEDS: SUCRALFATE 1 GM TABLET PO SCH ×2 (08:00→20:00)
[2019-12-16] MEDS: HYDROCORTISONE 1 % CREAM 30GM TOP SCH (08:00)
[2019-12-16] MEDS: MAGNESIUM OXIDE 400 MG TAB PO SCH ×2 (08:00→20:00)
[2019-12-16] MEDS: TRAMADOL HCL 50 MG TAB PO PRN ×3 (09:36→22:00)
--- NOTE | 2019-12-16 18:22 | R.PN ---
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 Pt denied any depression. Ambulated 600' with independence using a rolling walker. VITAL SIGNS Temperature: 97.6 F SBP/DBP: 129/76 Pulse: 75 Resp: 16 MEDICATION ALLERGIES: Codeine Demerol ENVIRONMENTAL ALLERGIES: None Known - Substance Allergies None Known - Other Allergies None Known NURSING: - Shower allowing shower - Neuro monitoring sleep QShift and report to MD if pt. is excessively lethargic - Skin care per protocol PRECAUTIONS: - Posterior Hip Precaution No adduction across midline No external rotation No hip flexion >90 degrees No internal rotation No wheel chair propulsion - Weight Bearing Precaution TTWB right LE ACTIVITIES OOB only with supervision THERAPIES: - Dietary and Nutrition Adequate Nutrition. Nutritional Education. Nutritional Supplements. PHYSICAL EXAM - Gen Alert and awake Lying in bed No apparent distress Oriented to: person, time, and place - Skin No skin breakdown. Normacephalic - Eyes No abnormalities - ENMT No abnormalities - Neck No abnormalities - CVS RRR - Chest No abnormalities - Resp Clear to auscultation - Abd Soft - GI Non distended Deferred - No abnormalities - Ext Mild right lower extremity edema. - MSK 4+/5 weakness in right lower extremity - Neuro 4/5 strength right lower extremity. - Psych No abnormalities ASSESSMENT: Pt. is a 78 yo Right-handed white female.She has past medical history significant for Peripheral Neur opathy on Neurontin 100mg.Her impairment category is Orthopaedic Disorders 08 - Unilateral Hip Frac ture (06.22).Pre-morbidly, Pt. was independent/mod-I in Locomotion, Safety Awareness, Balance, Social Cognition, Transfers Control, Sphincter Control, Self-Care, Communication, and Endurance; and she thorne d good Locomotion, Safety Awareness, Balance, Social Cognition, Transfers Control, Sphincter Control, Self-Care, Communication, and Endurance.Currently, she has deficits of Locomotion, Balance, Transfer s Control, Self-Care, and Endurance.Pt. is now referred to [facility] for acut e in-patient rehabilitation in order to maximize patient's functional independence in activities of d aily living, strength, ROM, and mobility.- Rehab Goal Patient has realistic goal of being discharged at assistance level 6-Valdez to reside at Home with Fam eder/Relatives. MDM/PLAN: - Physical Therapy Decreased range of motion - to improve, our physical therapists will perform initial evaluation of p t's status upon admission and devise an individualized program for increasing patient's Range of Bharath on. Gait dysfunction - to improve, our physical therapists will perform initial evaluation of pt's statu s upon admission and devise an individualized program for Gait Training, and Wheel Chair mobility Inability to transfer - to improve, our physical therapists will perform initial evaluation of pt's status upon admission and devise an individualized program for Bed mobility Need for home safety evaluation - to improve, our physical therapists will perform initial evaluatio n of pt's status upon admission and devise an individualized program for Home Evaluation Need in caregiver upon discharge - to improve, our physical therapists will perform initial evaluati on of pt's status upon admission and devise an individualized program for Caregiver Training New precaution - to improve, our physical therapists will perform initial evaluation of pt's status upon admission and devise an individualized program for Patient precaution education Edema - to improve, our physical therapists will perform initial evaluation of pt's status upon admi ssion and devise an individualized program for Elevation Training, and Lymphedema Therapy Poor balance - to improve, our physical therapists will perform initial evaluation of pt's status up on admission and devise an individualized program for Balance Training Poor endurance - to improve, our physical therapists will perform initial evaluation of pt's status upon admission and devise an individualized program for Endurance Training Weakness - to improve, our physical therapists will perform initial evaluation of pt's status upon a dmission and devise an individualized program for Aquatic Therapy, Neuromuscular Reeducation, and Str engthening Achieving independence - to improve, our physical therapists will perform initial evaluation of pt's status upon admission and devise an individualized program for Community Reintegration Activities - Occupational Therapy ADL deficits - to improve, our occupation therapists will perform initial evaluation of pt's status upon admission and devise an individualized program for Bathing, Bed mobility, Community Reintegratio n, Cooking, Dressing, Eating, Fine Motor Skills, Grooming, Homemaking, Kitchen Mobility, Laundry, Pat ient Education, Safety Awareness, Splinting - Positioning, Transfers(Toilet, Tub, Shower), and Wheel Chair Management Need for senior resident care director - to improve, our occupation therapists will perform initial evaluation of pt's status upon admission and devise an individualized program for Caregiver Training Weakness - to improve, our occupation therapists will perform initial evaluation of pt's status upon admission and devise an individualized program for Aquatic Therapy, Balance, Endurance, UE ROM, and UE strengthening - Other See attached MAR (Medication Administration Record) Ayra Noel.pdf See attached MAR (Medication Administration Record) - Anterior Hip Precaution No abduction No active extension No adduction across midline No external rotation No hip flexion >90 degrees No internal rotation - Diet - Liquid Texture Continue Regular - Tube Feed Continue N/A - Diet Type Continue Regular - Posterior Hip Precaution No adduction across midline No external rotation No hip flexion >90 degrees No internal rotation No wheel chair propulsion - Neuro monitoring sleep QShift and report to MD if pt. is excessively lethargic - Weight Bearing Precaution TTWB right LE - Peripheral Neuropathy Continue Neurontin 100mg 1 tab po TID cont - ordered for Peripheral Neuropathy - Skin care per protocol - Diet - Solid Texture Continue Regular - Shower allowing shower FUNCTIONAL STATUS: UPDATED AT WEEKLY TEAM CONFERENCE - Bladder Same accident frequency: 7-Ind - No accidents in the past 7 days - Bowel Same accident frequency: 7-Ind - No accidents in the past 7 days - Walking Same score based on distance walked: 0(N/A) Same score based on distance walked: 1(<=50ft) - Wheelchair Same score based on distance traveled: 0(N/A) FUNCTIONAL STATUS: - Self-Care A. Eating Ind B. Grooming sup C. Bathing sup D. Dressing - Upper sup E. Dressing - Lower modA F. Toileting sup - Sphincter Control G. Bladder control sup H. Bowel control sup - Transfers Control I. Bed/Chair/Wheelchair Amira J. Toilet Amira K. Tub/Shower Amira - Locomotion L. Walk/Wheelchair (B) sup M. Stairs ADNO - Communication N. Comprehension (B) Valdez O. Expression (B) Valdez - Social Cognition P. Social Interaction Valdez Q. Problem Solving Valdez R. Memory Valdez - Endurance Good - Balance Good - Safety Awareness Good QI SCORES: - Self-Care A. Eating 05-Setup or clean-up assistance B. Oral hygiene 05-Setup or clean-up assistance C. Toileting hygiene 03-Partial/moderate assistance E. Shower/bathe self 04-Supervision or touching assistance F. Upper body dressing 04-Supervision or touching assistance G. Lower body dressing 03-Partial/moderate assistance H. Putting on/taking off footwear 02-Substantial/maximal assistance - Mobility A. Roll left and right 02-Substantial/maximal assistance B. Sit to lying 02-Substantial/maximal assistance C. Lying to sitting on side of bed 02-Substantial/maximal assistance D. Sit to stand 02-Substantial/maximal assistance E. Chair/[id number] transfer 02-Substantial/maximal assistance F. Toilet transfer 02-Substantial/maximal assistance G. Car transfer 10-Not attempted due to environmental limitations I. Walk 10 feet 03-Partial/moderate assistance J. Walk 50 feet with two turns 88-Not attempted due to medical condition or safety concerns K. Walk 150 feet 88-Not attempted due to medical condition or safety concerns L. Walking 10 feet on uneven surfaces 88-Not attempted due to medical condition or safety concerns M. 1 step (curb) 88-Not attempted due to medical condition or safety concerns N. 4 steps 88-Not attempted due to medical condition or safety concerns O. 12 steps 88-Not attempted due to medical condition or safety concerns P. Picking up object 88-Not attempted due to medical condition or safety concerns R. Wheel 50 feet with two turns 88-Not attempted due to medical condition or safety concerns S. Wheel 150 feet 88-Not attempted due to medical condition or safety concerns - Bladder and Bowel Bladder continence 0-Always continent Bowel continence 0-Always continent - Endurance Fair - Balance Fair - Safety Awareness Fair CURRENT FUNC. 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
[2019-12-16] MEDS: ROSUVASTATIN 10 MG TAB PO SCH (20:39)
[2019-12-16] MEDS: ALPRAZOLAM 0.25 MG TABLET PO SCH (20:40)
[2019-12-16] MEDS: RIVAROXABAN 20 MG TABLET PO SCH (20:40)
--- NOTE | 2019-12-16 23:58 | PN ---
Date of Progress Note: 12/16/2019 Subjective: Patient was seen this morning for followup. Denies any new complaints. Pain is in good control. Objective: Vital Signs: Reviewed. HEENT: Unremarkable. Lungs: Clear to auscultation. Heart: Sounds normal. Abdomen: Soft. Bowel sounds normal. No guarding, rigidity, tenderness, or distention. Extremities: No leg edema. Impression: 1.Right hip fracture. 2.Paroxysmal atrial fibrillation. 3.Hypertension. Plan: We will continue current medications. Continue current anticoagulant medication and physical therapy under the guidance of Dr. Srinivasan and continue current antihypertensive medications. I will see her tomorrow for followup. ANI/MODL Voice ID: [id number] Report ID: [id number]
[2019-12-17] MEDS: SOTALOL HCL 80 MG TAB PO SCH ×2 (05:06→17:25)
[2019-12-17] MEDS: TRIAMCINOLONE ACET 0.1% CREAM 80 GM TOP SCH ×2 (08:00→19:37)
[2019-12-17] MEDS: MIRABEGRON PO SCH (08:00)
[2019-12-17] MEDS: SUCRALFATE 1 GM TABLET PO SCH ×2 (08:00→19:29)
[2019-12-17] MEDS: MAGNESIUM OXIDE 400 MG TAB PO SCH ×2 (08:00→19:29)
[2019-12-17] MEDS: TRAMADOL HCL 50 MG TAB PO PRN ×2 (08:41→21:12)
--- NOTE | 2019-12-17 14:43 | FAST ---
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 Waqar Srinivasan M.D. ADMISSION DIAGNOSIS: - Orthopaedic Disorders 08 - Unilateral Hip Fracture (08.11) Right Hip Femoral Neck Fracture. EATING: Not assessed/no information CODE: - ORAL HYGIENE: ORAL HYGIENE - STEP 1: Does the patient complete the activity by him/herself with no assistance (physical, verbal/nonverbal cueing, setup/clean-up)? Yes. 1. [id number] ADMISSION PERFORMANCE: Independent CODE: 06 TOILETING HYGIENE: Not assessed/no information CODE: - BATHING: SHOWER/BATHE SELF - STEP 1: Does the patient complete the activity by him/herself with no assistance (physical, verbal/nonverbal cueing, setup/clean-up)? Yes. 1. [id number] ADMISSION PERFORMANCE: Independent CODE: 06 DRESSING - UPPER BODY: DRESSING - UPPER BODY - STEP 1: Does the patient complete the activity by him/herself with no assistance (physical, verbal/nonverbal cueing, setup/clean-up)? Yes. 1. [id number] ADMISSION PERFORMANCE: Independent CODE: 06 DRESSING - LOWER BODY: DRESSING - LOWER BODY - STEP 1: Does the patient complete the activity by him/herself with no assistance (physical, verbal/nonverbal cueing, setup/clean-up)? Yes. 1. [id number] ADMISSION PERFORMANCE: Independent CODE: 06 PUTTING ON/TAKING OFF FOOTWEAR: FOOTWEAR - STEP 1: Does the patient complete the activity by him/herself with no assistance (physical, verbal/nonverbal cueing, setup/clean-up)? No. FOOTWEAR - STEP 2: Does the patient need only setup/clean-up assistance from one helper? No. FOOTWEAR - STEP 3: Does the patient need only verbal/nonverbal cueing or touching/steadying/contact guard assistance fro m one helper? Yes. 1. [id number] ADMISSION PERFORMANCE: Supervision or touching assistance CODE: 04 DOES THE PATIENT USE A WHEELCHAIR/SCOOTER? CODE: EXPR INDICATE THE TYPE OF WHEELCHAIR/SCOOTER USED: CODE: EXPR INDICATE THE TYPE OF WHEELCHAIR/SCOOTER USED: CODE: EXPR BLADDER AND BOWEL: CODE: EXPR CODE: EXPR SIGNATURE PANEL: The following modified sections: 1. [id number] Admission Performance, 1. [id number] Admission Performance, 1. [id number] Admission Performance, 1. [id number] Admission Performance, 1. CK1169d Admission Performance were [electronically] signed by MATEUSZ Alexis on SunDec 17 2019 14:41:58 GMT-0600 (Central Standard Time)
--- NOTE | 2019-12-17 18:33 | R.PN ---
ENCOUNTER DATE AND TIME: 12/17/2019 18:31 ([employer]) NAME ARYA NOEL DATE OF : 1940 DATE OF ADMISSION: 12/10/2019 12:11 ([employer]) Right Hip Femoral Neck FractureCHIEF COMPLAINT: Right hip fracture SUBJECTIVE: Pt denied any Shortness of Breath. Pt denied any depression. Ambulated 600' with independence using a rolling walker. VITAL SIGNS Temperature: 97.7 F SBP/DBP: 123/71 Pulse: 76 Resp: 16 MEDICATION ALLERGIES: Codeine Demerol ENVIRONMENTAL ALLERGIES: None Known - Substance Allergies None Known - Other Allergies None Known NURSING: - Shower allowing shower - Neuro monitoring sleep QShift and report to MD if pt. is excessively lethargic - Skin care per protocol PRECAUTIONS: - Posterior Hip Precaution No adduction across midline No external rotation No hip flexion >90 degrees No internal rotation No wheel chair propulsion - Weight Bearing Precaution TTWB right LE ACTIVITIES OOB only with supervision THERAPIES: - Dietary and Nutrition Adequate Nutrition. Nutritional Education. Nutritional Supplements. PHYSICAL EXAM - Gen Alert and awake Lying in bed No apparent distress Oriented to: person, time, and place - Skin No skin breakdown. Normacephalic - Eyes No abnormalities - ENMT No abnormalities - Neck No abnormalities - CVS RRR - Chest No abnormalities - Resp Clear to auscultation - Abd Soft - GI Non distended Deferred - No abnormalities - Ext Mild right lower extremity edema. - MSK 4+/5 weakness in right lower extremity - Neuro 4/5 strength right lower extremity. - Psych No abnormalities ASSESSMENT: Pt. is a 78 yo Right-handed white female.She has past medical history significant for Peripheral Neur opathy on Neurontin 100mg.Her impairment category is Orthopaedic Disorders 08 - Unilateral Hip Frac ture (06.22).Pre-morbidly, Pt. was independent/mod-I in Locomotion, Safety Awareness, Balance, Social Cognition, Transfers Control, Sphincter Control, Self-Care, Communication, and Endurance; and she thorne d good Locomotion, Safety Awareness, Balance, Social Cognition, Transfers Control, Sphincter Control, Self-Care, Communication, and Endurance.Currently, she has deficits of Locomotion, Balance, Transfer s Control, Self-Care, and Endurance.Pt. is now referred to [facility] for acut e in-patient rehabilitation in order to maximize patient's functional independence in activities of d aily living, strength, ROM, and mobility.- Rehab Goal Patient has realistic goal of being discharged at assistance level 6-Valdez to reside at Home with Fam eder/Relatives. MDM/PLAN: - Physical Therapy Decreased range of motion - to improve, our physical therapists will perform initial evaluation of p t's status upon admission and devise an individualized program for increasing patient's Range of Bharath on. Gait dysfunction - to improve, our physical therapists will perform initial evaluation of pt's statu s upon admission and devise an individualized program for Gait Training, and Wheel Chair mobility Inability to transfer - to improve, our physical therapists will perform initial evaluation of pt's status upon admission and devise an individualized program for Bed mobility Need for home safety evaluation - to improve, our physical therapists will perform initial evaluatio n of pt's status upon admission and devise an individualized program for Home Evaluation Need in caregiver upon discharge - to improve, our physical therapists will perform initial evaluati on of pt's status upon admission and devise an individualized program for Caregiver Training New precaution - to improve, our physical therapists will perform initial evaluation of pt's status upon admission and devise an individualized program for Patient precaution education Edema - to improve, our physical therapists will perform initial evaluation of pt's status upon admi ssion and devise an individualized program for Elevation Training, and Lymphedema Therapy Poor balance - to improve, our physical therapists will perform initial evaluation of pt's status up on admission and devise an individualized program for Balance Training Poor endurance - to improve, our physical therapists will perform initial evaluation of pt's status upon admission and devise an individualized program for Endurance Training Weakness - to improve, our physical therapists will perform initial evaluation of pt's status upon a dmission and devise an individualized program for Aquatic Therapy, Neuromuscular Reeducation, and Str engthening Achieving independence - to improve, our physical therapists will perform initial evaluation of pt's status upon admission and devise an individualized program for Community Reintegration Activities - Occupational Therapy ADL deficits - to improve, our occupation therapists will perform initial evaluation of pt's status upon admission and devise an individualized program for Bathing, Bed mobility, Community Reintegratio n, Cooking, Dressing, Eating, Fine Motor Skills, Grooming, Homemaking, Kitchen Mobility, Laundry, Pat ient Education, Safety Awareness, Splinting - Positioning, Transfers(Toilet, Tub, Shower), and Wheel Chair Management Need for care services manager - to improve, our occupation therapists will perform initial evaluation of pt's status upon admission and devise an individualized program for Caregiver Training Weakness - to improve, our occupation therapists will perform initial evaluation of pt's status upon admission and devise an individualized program for Aquatic Therapy, Balance, Endurance, UE ROM, and UE strengthening - Other See attached MAR (Medication Administration Record) Arya Noel.pdf See attached MAR (Medication Administration Record) - Anterior Hip Precaution No abduction No active extension No adduction across midline No external rotation No hip flexion >90 degrees No internal rotation - Diet - Liquid Texture Continue Regular - Tube Feed Continue N/A - Diet Type Continue Regular - Posterior Hip Precaution No adduction across midline No external rotation No hip flexion >90 degrees No internal rotation No wheel chair propulsion - Neuro monitoring sleep QShift and report to MD if pt. is excessively lethargic - Weight Bearing Precaution TTWB right LE - Peripheral Neuropathy Continue Neurontin 100mg 1 tab po TID cont - ordered for Peripheral Neuropathy - Skin care per protocol - Diet - Solid Texture Continue Regular - Shower allowing shower FUNCTIONAL STATUS: UPDATED AT WEEKLY TEAM CONFERENCE - Bladder Same accident frequency: 7-Ind - No accidents in the past 7 days - Bowel Same accident frequency: 7-Ind - No accidents in the past 7 days - Walking Same score based on distance walked: 0(N/A) Same score based on distance walked: 1(<=50ft) - Wheelchair Same score based on distance traveled: 0(N/A) FUNCTIONAL STATUS: - Self-Care A. Eating Ind B. Grooming sup C. Bathing sup D. Dressing - Upper sup E. Dressing - Lower modA F. Toileting sup - Sphincter Control G. Bladder control sup H. Bowel control sup - Transfers Control I. Bed/Chair/Wheelchair Amira J. Toilet Amira K. Tub/Shower Amira - Locomotion L. Walk/Wheelchair (B) sup M. Stairs ADNO - Communication N. Comprehension (B) Valdez O. Expression (B) Valdez - Social Cognition P. Social Interaction Valdez Q. Problem Solving Valdez R. Memory Valdez - Endurance Good - Balance Good - Safety Awareness Good QI SCORES: - Self-Care A. Eating 05-Setup or clean-up assistance B. Oral hygiene 05-Setup or clean-up assistance C. Toileting hygiene 03-Partial/moderate assistance E. Shower/bathe self 04-Supervision or touching assistance F. Upper body dressing 04-Supervision or touching assistance G. Lower body dressing 03-Partial/moderate assistance H. Putting on/taking off footwear 02-Substantial/maximal assistance - Mobility A. Roll left and right 02-Substantial/maximal assistance B. Sit to lying 02-Substantial/maximal assistance C. Lying to sitting on side of bed 02-Substantial/maximal assistance D. Sit to stand 02-Substantial/maximal assistance E. Chair/[id number] transfer 02-Substantial/maximal assistance F. Toilet transfer 02-Substantial/maximal assistance G. Car transfer 10-Not attempted due to environmental limitations I. Walk 10 feet 03-Partial/moderate assistance J. Walk 50 feet with two turns 88-Not attempted due to medical condition or safety concerns K. Walk 150 feet 88-Not attempted due to medical condition or safety concerns L. Walking 10 feet on uneven surfaces 88-Not attempted due to medical condition or safety concerns M. 1 step (curb) 88-Not attempted due to medical condition or safety concerns N. 4 steps 88-Not attempted due to medical condition or safety concerns O. 12 steps 88-Not attempted due to medical condition or safety concerns P. Picking up object 88-Not attempted due to medical condition or safety concerns R. Wheel 50 feet with two turns 88-Not attempted due to medical condition or safety concerns S. Wheel 150 feet 88-Not attempted due to medical condition or safety concerns - Bladder and Bowel Bladder continence 0-Always continent Bowel continence 0-Always continent - Endurance Fair - Balance Fair - Safety Awareness Fair CURRENT FUNC. DEFICITS: Self-Care, Mobility, Endurance, Balance, and Safety Awareness SIGNATURE PANEL: ([employer])
[2019-12-17] MEDS: ROSUVASTATIN 10 MG TAB PO SCH (19:29)
[2019-12-17] MEDS: RIVAROXABAN 20 MG TABLET PO SCH (19:30)
[2019-12-17] MEDS: ALPRAZOLAM 0.25 MG TABLET PO SCH (19:30)
--- NOTE | 2019-12-18 01:10 | PN ---
Date of Progress Note: 12/17/2019 Subjective: Patient was seen this morning for followup. No new complaints or problems reported by p atient. Sitting at bedside. No nausea, vomiting. No constipation. Objective: Vital Signs: Reviewed. HEENT: Unremarkable. Lungs: Clear to auscultation. Cardiac: Heart sounds normal. Abdomen: Soft. Bowel sounds normal. No guarding, rigidity, tenderness, or distention. Extremities: No leg edema. Impression: 1.Right hip fracture. 2.Hypertension. 3.Paroxysmal atrial fibrillation. Plan: Continue current medications. Continue current Xarelto. Physical therapy under guidance of Helen Srinivasan. I will see her tomorrow for followup. She is scheduled to go home on Sunday, which is a day after tomorrow. ANI/MODL Voice ID: [id number] Report ID: [id number]
[2019-12-18] MEDS: SOTALOL HCL 80 MG TAB PO SCH ×2 (05:22→17:32)
[2019-12-18 06:31] LABS: Absolute Lymphocytes (CBC) 2.5 K/uL (0.7-4.9); Basophils % 1.1 % (0-1.3); Hematocrit 40.1 % (36.0-45.0); Lymphocytes % 32.6 % (15.3-44.8); MPV 9.2 fL (7.6-11.3)
[2019-12-18 07:03] LABS: Albumin 3.2 g/dL (3.4-5.0); Magnesium 2.1 mg/dL (1.8-2.4); Potassium 4.1 mmol/L (3.5-5.1); Prealbumin 15.2 mg/dL (20-40)
[2019-12-18] MEDS: SUCRALFATE 1 GM TABLET PO SCH ×2 (08:00→19:43)
[2019-12-18] MEDS: MAGNESIUM OXIDE 400 MG TAB PO SCH ×2 (08:00→19:43)
[2019-12-18] MEDS: TRIAMCINOLONE ACET 0.1% CREAM 80 GM TOP SCH ×2 (08:00→19:43)
[2019-12-18] MEDS: MIRABEGRON PO SCH (08:00)
[2019-12-18] MEDS: TRAMADOL HCL 50 MG TAB PO PRN ×2 (08:46→21:59)
--- NOTE | 2019-12-18 11:25 | FAST ---
SHIFT START DATE/TIME: 12/18/2019 07:00 ([employer]) SHIFT END DATE/TIME: 12/18/2019 19:00 ([employer]) NAME ARYA NOEL DATE OF : 1940 DATE OF ADMISSION: 12/10/2019 12:11 ([employer]) PHONE: AGE: 78 N# [id number] GENDER: Female ENCOUNTER PHYSICIAN: Dr. Waqar Srinivasan M.D. ADMISSION DIAGNOSIS: - Orthopaedic Disorders 08 - Unilateral Hip Fracture (08.11) Right Hip Femoral Neck Fracture. EATING: EATING - STEP 1: Does the patient complete the activity by him/herself with no assistance (physical, verbal/nonverbal cueing, setup/clean-up)? No. EATING - STEP 2: Does the patient need only setup/clean-up assistance from one helper? Yes. 1. [id number] ADMISSION PERFORMANCE: Setup or clean-up assistance CODE: 05 ORAL HYGIENE: ORAL HYGIENE - STEP 1: Does the patient complete the activity by him/herself with no assistance (physical, verbal/nonverbal cueing, setup/clean-up)? No. ORAL HYGIENE - STEP 2: Does the patient need only setup/clean-up assistance from one helper? Yes. 1. [id number] ADMISSION PERFORMANCE: Setup or clean-up assistance CODE: 05 TOILETING HYGIENE: TOILETING HYGIENE - STEP 1: Does the patient complete the activity by him/herself with no assistance (physical, verbal/nonverbal cueing, setup/clean-up)? No. TOILETING HYGIENE - STEP 2: Does the patient need only setup/clean-up assistance from one helper? Yes. 1. [id number] ADMISSION PERFORMANCE: Setup or clean-up assistance CODE: 05 BATHING: Not assessed/no information CODE: - DRESSING - UPPER BODY: Not assessed/no information CODE: - DRESSING - LOWER BODY: Not assessed/no information CODE: - PUTTING ON/TAKING OFF FOOTWEAR: Not assessed/no information CODE: - ROLL LEFT AND RIGHT: Not assessed/no information CODE: - SIT TO LYING: Not assessed/no information CODE: - LYING TO SITTING: Not assessed/no information CODE: - SIT TO STAND: SIT TO STAND - STEP 1: Does the patient complete the activity by him/herself with no assistance (physical, verbal/nonverbal cueing, setup/clean-up)? No. SIT TO STAND - STEP 2: Does the patient need only setup/clean-up assistance from one helper? Yes. 1. [id number] ADMISSION PERFORMANCE: Setup or clean-up assistance CODE: 05 TRANSFERS: BED, CHAIR: CHAIR/[id number] TRANSFER - STEP 1: Does the patient complete the activity by him/herself with no assistance (physical, verbal/nonverbal cueing, setup/clean-up)? No. CHAIR/[id number] TRANSFER - STEP 2: Does the patient need only setup/clean-up assistance from one helper? Yes. 1. [id number] ADMISSION PERFORMANCE: Setup or clean-up assistance CODE: 05 TRANSFER TOILET: TOILET TRANSFER - STEP 1: Does the patient complete the activity by him/herself with no assistance (physical, verbal/nonverbal cueing, setup/clean-up)? No. TOILET TRANSFER - STEP 2: Does the patient need only setup/clean-up assistance from one helper? Yes. 1. [id number] ADMISSION PERFORMANCE: Setup or clean-up assistance CODE: 05 TRANSFERS: CAR: Not assessed/no information CODE: - WALK 10 FEET: Not assessed/no information CODE: - 1 STEP (CURB): Not assessed/no information CODE: - PICKING UP OBJECT: Not assessed/no information CODE: - DOES THE PATIENT USE A WHEELCHAIR/SCOOTER? CODE: EXPR WHEEL 50 FEET WITH TWO TURNS: Not assessed/no information CODE: - INDICATE THE TYPE OF WHEELCHAIR/SCOOTER USED: CODE: EXPR WHEEL 150 FEET: Not assessed/no information CODE: - INDICATE THE TYPE OF WHEELCHAIR/SCOOTER USED: CODE: EXPR BLADDER AND BOWEL: H350. BLADDER CONTINENCE (3-DAY ASSESSMENT PERIOD): Always continent (no documented incontinence) CODE: 0 H400. BOWEL CONTINENCE (3-DAY ASSESSMENT PERIOD): Always continent CODE: 0 SIGNATURE PANEL: The following modified sections: 1. [id number] Admission Performance, 1. [id number] Admission Performance, 1. [id number] Admission Performance, 1. [id number] Admission Performance, 1. [id number] Admission Performance, 1. [id number] Admission Performance, 1. [id number] Admission Performance, Code, H350. Bladder Continence ( 3-day assessment period), H400. Bowel Continence (3-day assessment period) were [electronically] sign ed by Vinicius Flowers on SunDec 18 2019 11:25:11 GMT-0600 (Central Standard Time)
--- NOTE | 2019-12-18 17:09 | P.PN ---
Subjective Date of Service: 12/16/19 Chief Complaint: s/p CRPP right hip Subjective: Ambulating, Improving, Working w/ PT pain controlled; improving with mobilization Physical Examination - Vital Signs Temperature: 97.2 F Blood Pressure: 129/68 Pulse: 81 Respirations: 18 Pulse Ox (%): 93 - Physical Exam General: Alert, In no apparent distress Musculoskeletal: Other (RLE: incisions healing; no active drainage or erythema; NVI distally) - Studies Laboratory Data (last 24 hrs) 12/18/19 05:58: Sodium 143, Potassium 4.1, BUN 9, Creatinine 0.67, Glucose 96, Magnesium 2.1 12/18/19 05:58: WBC 7.8, Hgb 13.6, Hct 40.1, Plt Count 248 D Assessment And Plan - Plan Vilma is a 79 yo female s/p CRPP of her right hip -continue to mobilize with PT; TDWB RLE -Xarelto for afib and DVT prophylaxis -f/u in my clinic 2 weeks after discharge
--- NOTE | 2019-12-18 17:43 | R.PN ---
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 Pt denied any depression. Ambulated 600' with independence and touch down weight bearing using a rolling walker. CBC with differential essentially normal. Prealbumin 15.2. 25 VITAL SIGNS Temperature: 97.2 F SBP/DBP: 129/68 Pulse: 81 Resp: 16 MEDICATION ALLERGIES: Codeine Demerol ENVIRONMENTAL ALLERGIES: None Known - Substance Allergies None Known - Other Allergies None Known NURSING: - Shower allowing shower - Neuro monitoring sleep QShift and report to MD if pt. is excessively lethargic - Skin care per protocol PRECAUTIONS: - Posterior Hip Precaution No adduction across midline No external rotation No hip flexion >90 degrees No internal rotation No wheel chair propulsion - Weight Bearing Precaution TTWB right LE ACTIVITIES OOB only with supervision THERAPIES: - Dietary and Nutrition Adequate Nutrition. Nutritional Education. Nutritional Supplements. PHYSICAL EXAM - Gen Alert and awake Lying in bed No apparent distress Oriented to: person, time, and place - Skin No skin breakdown. Normacephalic - Eyes No abnormalities - ENMT No abnormalities - Neck No abnormalities - CVS RRR - Chest No abnormalities - Resp Clear to auscultation - Abd Soft - GI Non distended Deferred - No abnormalities - Ext Mild right lower extremity edema. - MSK 4+/5 weakness in right lower extremity - Neuro 4/5 strength right lower extremity. - Psych No abnormalities ASSESSMENT: Pt. is a 78 yo Right-handed white female.She has past medical history significant for Peripheral Neur opathy on Neurontin 100mg.Her impairment category is Orthopaedic Disorders 08 - Unilateral Hip Frac ture (08.).Pre-morbidly, Pt. was independent/mod-I in Locomotion, Safety Awareness, Balance, Social Cognition, Transfers Control, Sphincter Control, Self-Care, Communication, and Endurance; and she thorne d good Locomotion, Safety Awareness, Balance, Social Cognition, Transfers Control, Sphincter Control, Self-Care, Communication, and Endurance.Currently, she has deficits of Locomotion, Balance, Transfer s Control, Self-Care, and Endurance.Pt. is now referred to [facility] for acut e in-patient rehabilitation in order to maximize patient's functional independence in activities of d aily living, strength, ROM, and mobility.- Rehab Goal Patient has realistic goal of being discharged at assistance level 6-Valdez to reside at Home with Fam eder/Relatives. MDM/PLAN: - Physical Therapy Decreased range of motion - to improve, our physical therapists will perform initial evaluation of p t's status upon admission and devise an individualized program for increasing patient's Range of Bharath on. Gait dysfunction - to improve, our physical therapists will perform initial evaluation of pt's statu s upon admission and devise an individualized program for Gait Training, and Wheel Chair mobility Inability to transfer - to improve, our physical therapists will perform initial evaluation of pt's status upon admission and devise an individualized program for Bed mobility Need for home safety evaluation - to improve, our physical therapists will perform initial evaluatio n of pt's status upon admission and devise an individualized program for Home Evaluation Need in caregiver upon discharge - to improve, our physical therapists will perform initial evaluati on of pt's status upon admission and devise an individualized program for Caregiver Training New precaution - to improve, our physical therapists will perform initial evaluation of pt's status upon admission and devise an individualized program for Patient precaution education Edema - to improve, our physical therapists will perform initial evaluation of pt's status upon admi ssion and devise an individualized program for Elevation Training, and Lymphedema Therapy Poor balance - to improve, our physical therapists will perform initial evaluation of pt's status up on admission and devise an individualized program for Balance Training Poor endurance - to improve, our physical therapists will perform initial evaluation of pt's status upon admission and devise an individualized program for Endurance Training Weakness - to improve, our physical therapists will perform initial evaluation of pt's status upon a dmission and devise an individualized program for Aquatic Therapy, Neuromuscular Reeducation, and Str engthening Achieving independence - to improve, our physical therapists will perform initial evaluation of pt's status upon admission and devise an individualized program for Community Reintegration Activities - Occupational Therapy ADL deficits - to improve, our occupation therapists will perform initial evaluation of pt's status upon admission and devise an individualized program for Bathing, Bed mobility, Community Reintegratio n, Cooking, Dressing, Eating, Fine Motor Skills, Grooming, Homemaking, Kitchen Mobility, Laundry, Pat ient Education, Safety Awareness, Splinting - Positioning, Transfers(Toilet, Tub, Shower), and Wheel Chair Management Need for healthcare network pricing consultant - to improve, our occupation therapists will perform initial evaluation of pt's status upon admission and devise an individualized program for Caregiver Training Weakness - to improve, our occupation therapists will perform initial evaluation of pt's status upon admission and devise an individualized program for Aquatic Therapy, Balance, Endurance, UE ROM, and UE strengthening - Other See attached MAR (Medication Administration Record) Arya Noel.pdf See attached MAR (Medication Administration Record) - Anterior Hip Precaution No abduction No active extension No adduction across midline No external rotation No hip flexion >90 degrees No internal rotation - Diet - Liquid Texture Continue Regular - Tube Feed Continue N/A - Diet Type Continue Regular - Posterior Hip Precaution No adduction across midline No external rotation No hip flexion >90 degrees No internal rotation No wheel chair propulsion - Neuro monitoring sleep QShift and report to MD if pt. is excessively lethargic - Weight Bearing Precaution TTWB right LE - Peripheral Neuropathy Continue Neurontin 100mg 1 tab po TID cont - ordered for Peripheral Neuropathy - Skin care per protocol - Diet - Solid Texture Continue Regular - Shower allowing shower FUNCTIONAL STATUS: UPDATED AT WEEKLY TEAM CONFERENCE - Bladder Same accident frequency: 7-Ind - No accidents in the past 7 days - Bowel Same accident frequency: 7-Ind - No accidents in the past 7 days - Walking Same score based on distance walked: 0(N/A) Same score based on distance walked: 1(<=50ft) - Wheelchair Same score based on distance traveled: 0(N/A) FUNCTIONAL STATUS: - Self-Care A. Eating Ind B. Grooming sup C. Bathing sup D. Dressing - Upper sup E. Dressing - Lower modA F. Toileting sup - Sphincter Control G. Bladder control sup H. Bowel control sup - Transfers Control I. Bed/Chair/Wheelchair Amira J. Toilet Amira K. Tub/Shower Amira - Locomotion L. Walk/Wheelchair (B) sup M. Stairs ADNO - Communication N. Comprehension (B) Valdez O. Expression (B) Valdez - Social Cognition P. Social Interaction Valdez Q. Problem Solving Valdez R. Memory Valdez - Endurance Good - Balance Good - Safety Awareness Good QI SCORES: - Self-Care A. Eating 05-Setup or clean-up assistance B. Oral hygiene 05-Setup or clean-up assistance C. Toileting hygiene 03-Partial/moderate assistance E. Shower/bathe self 04-Supervision or touching assistance F. Upper body dressing 04-Supervision or touching assistance G. Lower body dressing 03-Partial/moderate assistance H. Putting on/taking off footwear 02-Substantial/maximal assistance - Mobility A. Roll left and right 02-Substantial/maximal assistance B. Sit to lying 02-Substantial/maximal assistance C. Lying to sitting on side of bed 02-Substantial/maximal assistance D. Sit to stand 02-Substantial/maximal assistance E. Chair/[id number] transfer 02-Substantial/maximal assistance F. Toilet transfer 02-Substantial/maximal assistance G. Car transfer 10-Not attempted due to environmental limitations I. Walk 10 feet 03-Partial/moderate assistance J. Walk 50 feet with two turns 88-Not attempted due to medical condition or safety concerns K. Walk 150 feet 88-Not attempted due to medical condition or safety concerns L. Walking 10 feet on uneven surfaces 88-Not attempted due to medical condition or safety concerns M. 1 step (curb) 88-Not attempted due to medical condition or safety concerns N. 4 steps 88-Not attempted due to medical condition or safety concerns O. 12 steps 88-Not attempted due to medical condition or safety concerns P. Picking up object 88-Not attempted due to medical condition or safety concerns R. Wheel 50 feet with two turns 88-Not attempted due to medical condition or safety concerns S. Wheel 150 feet 88-Not attempted due to medical condition or safety concerns - Bladder and Bowel Bladder continence 0-Always continent Bowel continence 0-Always continent - Endurance Fair - Balance Fair - Safety Awareness Fair CURRENT FUNC. 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
[2019-12-18] MEDS: ROSUVASTATIN 10 MG TAB PO SCH (19:44)
[2019-12-18] MEDS: ALPRAZOLAM 0.25 MG TABLET PO SCH (19:44)
[2019-12-18] MEDS: RIVAROXABAN 20 MG TABLET PO SCH (19:44)
[2019-12-18] MEDS: DOCUSATE NA/SENNA CONC 1 TAB PO PRN (21:59)
--- NOTE | 2019-12-18 23:15 | PN ---
Date of Progress Note: 12/18/2019 Subjective: Patient was seen this morning for followup. No new complaints or problems reported by p jah. Lying in bed, not in any distress. Objective: Vital Signs: Reviewed. HEENT: Unremarkable. Lungs: Clear to auscultation. Heart: Sounds normal. Abdomen: Soft. Bowel sounds normal. No guarding, rigidity, tenderness, or distention. Extremities: No leg edema. Laboratory Data: White count 7.8, hemoglobin 13.6, platelets 248. Sodium 143, potassium 4.1, chlori de 107, bicarb 30, BUN 9, creatinine 0.67, glucose 96. Impression: 1.Right hip fracture. 2.Hypertension. 3.Mixed hyperlipidemia. 4.Paroxysmal atrial fibrillation. Plan: We will continue current medications, including Xarelto. Physical Therapy to be provided as p roel Srinivasan. I will see her tomorrow for followup and she is scheduled to go home tomorrow. [facility] she is stable for discharge. I will see her tomorrow morning and then will discharge her marlin rrow. ANI/MODL Voice ID: [id number] Report ID: [id number]
[2019-12-19] MEDS: SOTALOL HCL 80 MG TAB PO SCH (04:52)
[2019-12-19 07:49] VITALS: BP 132/73; TEMP 97.7
[2019-12-19] MEDS ORDERED: MYRBETRIQ 50 MG PO SCH (08:00)
[2019-12-19] MEDS: MAGNESIUM OXIDE 400 MG TAB PO SCH (08:00)
[2019-12-19] MEDS: SUCRALFATE 1 GM TABLET PO SCH (08:00)
[2019-12-19] MEDS: TRIAMCINOLONE ACET 0.1% CREAM 80 GM TOP SCH (09:25)
--- NOTE | 2019-12-19 10:01 | P.RH.PN ---
Estimated Length of Stay: 10 Expected Discharge Date: 12/19/19 Discharge Disposition Plan: Home Family Support: Yes Skilled Nursing Goal: Mobility, Transfers, Self Care Vital Signs: Last Vital Signs Temp 97.7 F 12/19/19 07:48 Pulse 73 12/19/19 07:48 Resp 16 12/19/19 07:48 BP 132/73 12/19/19 07:48 Pulse Ox 97 12/19/19 07:48 Laboratory: Laboratory Last Values WBC 7.8 K/uL (4.3-10.9) 12/18/19 05:58 RBC 4.50 M/uL (3.86-4.86) 12/18/19 05:58 Hgb 13.6 g/dL (12.0-15.0) 12/18/19 05:58 Hct 40.1 % (36.0-45.0) 12/18/19 05:58 MCV 89.1 fL (80-100) 12/18/19 05:58 MCH 30.3 pg (27.0-35.0) 12/18/19 05:58 MCHC 34.0 g/dL (32.0-36.0) 12/18/19 05:58 RDW 12.9 % (12.1-15.2) 12/18/19 05:58 Plt Count 248 K/uL (152-406) D 12/18/19 05:58 MPV 9.2 fL (7.6-11.3) 12/18/19 05:58 Neutrophils % 48.0 % (41.7-73.7) 12/18/19 05:58 Lymphocytes % 32.6 % (15.3-44.8) 12/18/19 05:58 Monocytes % 11.5 % (3.3-12.3) 12/18/19 05:58 Eosinophils % 6.8 % (0-4.4) H 12/18/19 05:58 Basophils % 1.1 % (0-1.3) 12/18/19 05:58 Absolute Neutrophils 3.7 K/uL (1.8-8.0) 12/18/19 05:58 Absolute Lymphocytes 2.5 K/uL (0.7-4.9) 12/18/19 05:58 Absolute Monocytes 0.9 K/uL (0.1-1.3) 12/18/19 05:58 Absolute Eosinophils 0.5 K/uL (0-0.5) 12/18/19 05:58 Absolute Basophils 0.1 K/uL (0-0.5) 12/18/19 05:58 Sodium 143 mmol/L (136-145) 12/18/19 05:58 Potassium 4.1 mmol/L (3.5-5.1) 12/18/19 05:58 Chloride 107 mmol/L (98-107) 12/18/19 05:58 Carbon Dioxide 30 mmol/L (21-32) 12/18/19 05:58 BUN 9 mg/dL (7-18) 12/18/19 05:58 Creatinine 0.67 mg/dL (0.55-1.3) 12/18/19 05:58 Estimated GFR 85 mL/min (=/>90) L 12/18/19 05:58 Glucose 96 mg/dL (74-106) 12/18/19 05:58 Calcium 8.7 mg/dL (8.5-10.1) 12/18/19 05:58 Magnesium 2.1 mg/dL (1.8-2.4) 12/18/19 05:58 Albumin 3.2 g/dL (3.4-5.0) L 12/18/19 05:58 Prealbumin 15.2 mg/dL (20-40) L 12/18/19 05:58 Urine Color Yellow 12/10/19 17:35 Urine Appearance Clear 12/10/19 17:35 Urine pH 6.5 (5.0-7.0) 12/10/19 17:35 Ur Specific [place] 1.010 (1.005-1.030) 12/10/19 17:35 Urine Ketones Negative (NEG) 12/10/19 17:35 Urine Blood Negative (NEG) 12/10/19 17:35 Urine Nitrite Negative (NEG) 12/10/19 17:35 Urine Bilirubin Negative (NEG) 12/10/19 17:35 Urine Urobilinogen 1.0 mg/dL (0.2-1.0) 12/10/19 17:35 Ur Leukocyte Esterase Negative (NEG) 12/10/19 17:35 Urine RBC <5 /HPF (NONE SEEN) 12/10/19 17:35 Urine WBC <5 /HPF (<5) 12/10/19 17:35 Ur Squamous Epith Cells <5 /HPF (NONE SEEN) 12/10/19 17:35 Urine Bacteria <20 /HPF (<20) 12/10/19 17:35 Urine Mucus 1+ /HPF (NONE SEEN) 12/10/19 17:35 Urine Culture Reflexed Not needed 12/10/19 17:35 Urine Glucose Negative (NEG) 12/10/19 17:35 Urine Total Protein Negative (NEG) 12/10/19 17:35 Weight: 168 lb 8 oz Wound Present: Yes Closed Surgical Incision Present: Yes Negative Pressure Wound Therapy Present: No Physician Update: Labs reviewed and are stable. She did well with therapy and is ready for discharge home today. Medical Issues: Patient is always continent with bladder and bowel Pain Issues: Patient is taking Tylenol 500mg Q6H PO PRN and Tramadol 50mg Q6H PO PRN Functional Improvement: pt has been demonstrating consistent progress throughout the week. She has demonstrated the ability to perform functional mobility Independently using her RW while adhering to her TDWB. pt will be safe to return home with her and has met many functional goals. A car transfer and ramp negotiation will be performed prior to discharge. Summary: Patient's care plan and custodial goals have been reviewed and revised as necessary. Please see the Rehabilitation Signature page for all necessary signatures.
--- NOTE | 2019-12-19 13:06 | FAST ---
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 Waqar Srinivasan M.D. ADMISSION DIAGNOSIS: - Orthopaedic Disorders 08 - Unilateral Hip Fracture (08.11) Right Hip Femoral Neck Fracture. EATING: EATING - STEP 1: Does the patient complete the activity by him/herself with no assistance (physical, verbal/nonverbal cueing, setup/clean-up)? No. EATING - STEP 2: Does the patient need only setup/clean-up assistance from one helper? Yes. 1. [id number] ADMISSION PERFORMANCE: Setup or clean-up assistance CODE: 05 ORAL HYGIENE: ORAL HYGIENE - STEP 1: Does the patient complete the activity by him/herself with no assistance (physical, verbal/nonverbal cueing, setup/clean-up)? No. ORAL HYGIENE - STEP 2: Does the patient need only setup/clean-up assistance from one helper? Yes. 1. [id number] ADMISSION PERFORMANCE: Setup or clean-up assistance CODE: 05 TOILETING HYGIENE: TOILETING HYGIENE - STEP 1: Does the patient complete the activity by him/herself with no assistance (physical, verbal/nonverbal cueing, setup/clean-up)? No. TOILETING HYGIENE - STEP 2: Does the patient need only setup/clean-up assistance from one helper? Yes. 1. [id number] ADMISSION PERFORMANCE: Setup or clean-up assistance CODE: 05 BATHING: Not assessed/no information CODE: - DRESSING - UPPER BODY: DRESSING - UPPER BODY - STEP 1: Does the patient complete the activity by him/herself with no assistance (physical, verbal/nonverbal cueing, setup/clean-up)? Yes. 1. [id number] ADMISSION PERFORMANCE: Independent CODE: 06 DRESSING - LOWER BODY: DRESSING - LOWER BODY - STEP 1: Does the patient complete the activity by him/herself with no assistance (physical, verbal/nonverbal cueing, setup/clean-up)? Yes. 1. [id number] ADMISSION PERFORMANCE: Independent CODE: 06 PUTTING ON/TAKING OFF FOOTWEAR: FOOTWEAR - STEP 1: Does the patient complete the activity by him/herself with no assistance (physical, verbal/nonverbal cueing, setup/clean-up)? Yes. 1. [id number] ADMISSION PERFORMANCE: Independent CODE: 06 ROLL LEFT AND RIGHT: ROLL LEFT AND RIGHT - STEP 1: Does the patient complete the activity by him/herself with no assistance (physical, verbal/nonverbal cueing, setup/clean-up)? No. ROLL LEFT AND RIGHT - STEP 2: Does the patient need only setup/clean-up assistance from one helper? Yes. 1. [id number] ADMISSION PERFORMANCE: Setup or clean-up assistance CODE: 05 SIT TO LYING: SIT TO LYING - STEP 1: Does the patient complete the activity by him/herself with no assistance (physical, verbal/nonverbal cueing, setup/clean-up)? No. SIT TO LYING - STEP 2: Does the patient need only setup/clean-up assistance from one helper? Yes. 1. [id number] ADMISSION PERFORMANCE: Setup or clean-up assistance CODE: 05 LYING TO SITTING: LYING TO SITTING ON SIDE OF BED - STEP 1: Does the patient complete the activity by him/herself with no assistance (physical, verbal/nonverbal cueing, setup/clean-up)? No. LYING TO SITTING ON SIDE OF BED - STEP 2: Does the patient need only setup/clean-up assistance from one helper? Yes. 1. [id number] ADMISSION PERFORMANCE: Setup or clean-up assistance CODE: 05 SIT TO STAND: SIT TO STAND - STEP 1: Does the patient complete the activity by him/herself with no assistance (physical, verbal/nonverbal cueing, setup/clean-up)? No. SIT TO STAND - STEP 2: Does the patient need only setup/clean-up assistance from one helper? Yes. 1. [id number] ADMISSION PERFORMANCE: Setup or clean-up assistance CODE: 05 TRANSFERS: BED, CHAIR: CHAIR/[id number] TRANSFER - STEP 1: Does the patient complete the activity by him/herself with no assistance (physical, verbal/nonverbal cueing, setup/clean-up)? No. CHAIR/[id number] TRANSFER - STEP 2: Does the patient need only setup/clean-up assistance from one helper? Yes. 1. [id number] ADMISSION PERFORMANCE: Setup or clean-up assistance CODE: 05 TRANSFER TOILET: TOILET TRANSFER - STEP 1: Does the patient complete the activity by him/herself with no assistance (physical, verbal/nonverbal cueing, setup/clean-up)? Yes. 1. [id number] ADMISSION PERFORMANCE: Independent CODE: 06 TRANSFERS: CAR: Not assessed/no information CODE: - WALK 10 FEET: Not assessed/no information CODE: - 1 STEP (CURB): Not assessed/no information CODE: - PICKING UP OBJECT: Not assessed/no information CODE: - DOES THE PATIENT USE A WHEELCHAIR/SCOOTER? Q1. DOES THE PATIENT USE A WHEELCHAIR/SCOOTER?: Yes CODE: 1 WHEEL 50 FEET WITH TWO TURNS: WHEEL 50 FEET WITH TWO TURNS - STEP 1: Does the patient complete the activity by him/herself with no assistance (physical, verbal/nonverbal cueing, setup/clean-up)? Yes. 1. [id number] ADMISSION PERFORMANCE: Independent CODE: 06 INDICATE THE TYPE OF WHEELCHAIR/SCOOTER USED: RR1. INDICATE THE TYPE OF WHEELCHAIR/SCOOTER USED.: Manual CODE: 1 WHEEL 150 FEET: Not assessed/no information CODE: - INDICATE THE TYPE OF WHEELCHAIR/SCOOTER USED: SS1. INDICATE THE TYPE OF WHEELCHAIR/SCOOTER USED.: Manual CODE: 1 BLADDER AND BOWEL: H350. BLADDER CONTINENCE (3-DAY ASSESSMENT PERIOD): Always continent (no documented incontinence) CODE: 0 H400. BOWEL CONTINENCE (3-DAY ASSESSMENT PERIOD): Always continent CODE: 0 SIGNATURE PANEL: The following modified sections: 1. [id number] Admission Performance, 1. [id number] Admission Performance, 1. [id number] Admission Performance, 1. UT9771a Admission Performance, 1. [id number] Admission Performance, 1. JD2637h Admission Performance, 1. [id number] Admission Performance, 1. [id number] Admission Performance , 1. [id number] Admission Performance, 1. [id number] Admission Performance, 1. [id number] Admission Performanc e, 1. MR7807M Admission Performance, Q1. Does the patient use a wheelchair/scooter?, 1. [id number] Admis kathy Performance, RR1. Indicate the type of wheelchair/scooter used., Code, SS1. Indicate the type of wheelchair/scooter used., H350. Bladder Continence (3-day assessment period), H400. Bowel Continence (3-day assessment period) were [electronically] signed by Charla De La Fuente C.N.A. on SunDec 19 2019 13 :04:45 GMT-0600 (Central Standard Time)
--- NOTE | 2019-12-19 15:54 | FAST ---
ENCOUNTER DATE AND TIME: 12/19/2019 08:00 (RESEARCH SUBJECT) NAME ARYA NOEL DATE OF : 1940 DATE OF ADMISSION: 12/10/2019 12:11 (RESEARCH SUBJECT) PHONE: AGE: 78 N# [id number] GENDER: Female ENCOUNTER PHYSICIAN: Dr. Waqar Srinivasan M.D. ADMISSION DIAGNOSIS: - Orthopaedic Disorders 08 - Unilateral Hip Fracture (.11) Right Hip Femoral Neck Fracture. EATING: Patient refused CODE: 07 ORAL HYGIENE: ORAL HYGIENE - STEP 1: Does the patient complete the activity by him/herself with no assistance (physical, verbal/nonverbal cueing, setup/clean-up)? Yes. 1. ADMISSION PERFORMANCE: Independent CODE: 06 TOILETING HYGIENE: Not assessed/no information CODE: - BATHING: SHOWER/BATHE SELF - STEP 1: Does the patient complete the activity by him/herself with no assistance (physical, verbal/nonverbal cueing, setup/clean-up)? Yes. 1. ADMISSION PERFORMANCE: Independent CODE: 06 DRESSING - UPPER BODY: DRESSING - UPPER BODY - STEP 1: Does the patient complete the activity by him/herself with no assistance (physical, verbal/nonverbal cueing, setup/clean-up)? Yes. 1. ADMISSION PERFORMANCE: Independent CODE: 06 DRESSING - LOWER BODY: DRESSING - LOWER BODY - STEP 1: Does the patient complete the activity by him/herself with no assistance (physical, verbal/nonverbal cueing, setup/clean-up)? Yes. 1. ADMISSION PERFORMANCE: Independent CODE: 06 PUTTING ON/TAKING OFF FOOTWEAR: FOOTWEAR - STEP 1: Does the patient complete the activity by him/herself with no assistance (physical, verbal/nonverbal cueing, setup/clean-up)? Yes. 1. [id number] ADMISSION PERFORMANCE: Independent CODE: 06 DOES THE PATIENT USE A WHEELCHAIR/SCOOTER? CODE: EXPR INDICATE THE TYPE OF WHEELCHAIR/SCOOTER USED: CODE: EXPR INDICATE THE TYPE OF WHEELCHAIR/SCOOTER USED: CODE: EXPR BLADDER AND BOWEL: CODE: EXPR CODE: EXPR SIGNATURE PANEL: The following modified sections: 1. [id number] Admission Performance, 1. WV4199i Admission Performance, 1. DH1146w Admission Performance, 1. EK5037p Admission Performance, 1. NW0031u Admission Performance were [electronically] signed by MATEUSZ Alexis on SunDec 19 2019 15:53:53 GMT-0600 (Central Standard Time)
--- NOTE | 2019-12-20 07:32 | DS ---
Date of Discharge: 12/19/2019 Patient was seen this morning for followup. No new complaints or problems reported by patient. Objective: Vital Signs: Reviewed. HEENT: Examination unremarkable. Lungs: Clear to auscultation. Heart: Sounds normal. Abdomen: Soft. Bowel sounds normal. No guarding, rigidity, tenderness, distention. Extremities Exam: No leg edema. Laboratory Data: Last CBC yesterday, white count 7.8, hemoglobin 13.6, platelets 248. Chemistry: S odium 143, potassium 4.1, chloride 107, bicarb 30, BUN 9, creatinine 0.67, glucose 96. Discharge Diagnoses: 1.Right femoral subcapital fracture. 2.Paroxysmal atrial fibrillation. 3.Hypertension. 4.Mixed hyperlipidemia. 5.Impaired fasting glucose. 6.Right-sided lung cancer. 7.Diverticulosis. 8.Overactive bladder. 9.Gastroesophageal reflux disease. Hospital Course: This is a 79-year-old pleasant female patient who was admitted to rehab floor for r ehab therapy after hip fracture surgery. Patient received her physical therapy as per guidance of Dr Betty Srinivasan and she has done well with therapy and today she was determined stable for discharge from rehab point of view. Medically, she is stable for discharge. Her medical problems remained stable d uring this hospitalization. Her pain is well controlled with medication like tramadol. Her neo will be removed today. She will follow up with Dr. Hernandez on outpatient basis per his instruction. Discharge Medication Instruction: 1.Continue all prior home medications. 2.Next follow up in my office in 2 weeks. 3.Tramadol 50 mg p.o. q.6 hours p.r.n. for pain. Prescription written for 15 tablets with 1 extra re fill. ANI/MODL Voice ID: [id number] Report ID: [id number]
== END 2019-12-19 13:45 | disposition home health service (06) | DRG 560 ==
LOC: 5TH 12-10 12:11
PROVIDERS: ADMIT Internal Medicine; ATTEND Internal Medicine
DX: S72.011D Unspecified intracapsular fracture of right femur, subsequent encounter for closed fracture with routine healing (principal); C34.91 Malignant neoplasm of unspecified part of right bronchus or lung; R73.01 Impaired fasting glucose; I48.0 Paroxysmal atrial fibrillation; K21.9 Gastro-esophageal reflux disease without esophagitis; K57.10 Diverticulosis of small intestine without perforation or abscess without bleeding; I10 Essential (primary) hypertension; E78.2 Mixed hyperlipidemia; L25.9 Unspecified contact dermatitis, unspecified cause; K59.00 Constipation, unspecified; G62.9 Polyneuropathy, unspecified; N32.81 Overactive bladder; G47.00 Insomnia, unspecified; E55.9 Vitamin D deficiency, unspecified
CPT/HCPCS: 36415; 80048; 81001; 82040; 83735; 84134; 85025; 87086; 87088; 97110; 97116; 97161; 97530; 97542

== ENCOUNTER 2020-01-05 07:16 | Emergency (ER) | payer OTHER ==
--- OUTSIDE RECORDS SUMMARY | 2020-01-05 07:19 | XMS REPORT ---
:1940 [facility] Address [address] [place] [address] Dr. Zhu [address] [place] [id number] Care Team Providers Name Role Phone Unavailable Unavailable Unavailable Problems This patient has no known problems. Allergies, Adverse Reactions, Alerts This patient has no known allergies or adverse reactions. Medications This patient has no known medications.
[2020-01-05] MEDS ORDERED: KETOROLAC 30 MG/ML INJ ONE (08:26)
[2020-01-05] MEDS ORDERED: NA CHLORIDE 0.9% 500 ML ONE (08:26)
[2020-01-05] MEDS ORDERED: MORPHINE 4 MG/ML SYR ONE (08:26)
[2020-01-05] MEDS ORDERED: ONDANSETRON 4 MG/2 ML VIAL ONE (08:26)
[2020-01-05 08:31] LABS: Absolute Lymphocytes (CBC) 2.3 K/uL (0.7-4.9); Basophils % 0.8 % (0-1.3); Hematocrit 42.4 % (36.0-45.0); Lymphocytes % 30.1 % (15.3-44.8); MPV 9.3 fL (7.6-11.3); RBC Red Blood Cell Count 4.75 M/uL (3.86-4.86)
[2020-01-05 08:51] LABS: Albumin 3.4 g/dL (3.4-5.0); Bilirubin Direct 0.2 mg/dL (0-0.2); Bilirubin Total 0.8 mg/dL (0.2-1.0); Potassium 3.6 mmol/L (3.5-5.1); Protein, Total 6.7 g/dL (6.4-8.2)
--- NOTE | 2020-01-05 09:55 | RAD REPORT ---
EXAM DESCRIPTION: CT - Chest For Pe Angio - 01/05/2020 9:22 am CLINICAL HISTORY: Chest pain COMPARISON: 2016 TECHNIQUE: Dynamically enhanced axial 3 mm thick images of the chest were obtained during administra tion of <100> mL Isovue 370 IV contrast. Coronal and oblique reconstruction images were generated and reviewed. Exam utilizes a protocol for optimal evaluation of pulmonary arterial tree. Maximum intensity projections 3D imaging was utilized All CT scans are performed using dose optimization technique as appropriate and may include automated exposure control or mA/KV adjustment according to patient size. FINDINGS: A pulmonary embolus is not seen. A web is seen within the right main pulmonary artery. A thoracic aortic aneurysm is not noted. A pleural effusion is not seen. A pericardial effusion is not seen. A lung consolidation is not present. Multiple, bilateral subcentimeter ground-glass nodules unchanged . A couple of the additional nodules are minimally increased in size Right lobectomy IMPRESSION: Negative for a pulmonary embolism. Most of the bilateral subcentimeter ground-glass nodules are unchanged in size. There are couple of n odules minimally increased in size
--- NOTE | 2020-01-05 10:07 | RAD REPORT ---
EXAM DESCRIPTION: CT - Abdomen Pelvis W Contrast - 01/05/2020 9:20 am CLINICAL HISTORY: Abdominal pain COMPARISON: 2015 TECHNIQUE: Computed axial tomography of the abdomen pelvis was obtained. 100 cc Isovue-300 was admin istered intravenously. Oral contrast was not requested which limits evaluation of bowel. All CT scans are performed using dose optimization technique as appropriate and may include automated exposure control or mA/KV adjustment according to patient size. FINDINGS: Cholecystectomy The liver, spleen, pancreas, adrenal and kidneys appear unremarkable. There is no evidence of diverticulitis. Small inguinal hernias Pins affix a right femoral fracture IMPRESSION: No acute abnormality is displayed.
--- NOTE | 2020-01-05 11:54 | ER ---
Nurse's Notes [facility] Name: Vilma Curtis Age: 79 yrs Sex: Female : 1940 Arrival Date: 01/05/2020 Time: 07:18 Bed 16 Private MD: Abel Rodriguez Diagnosis: Abdominal and pelvic pain Presentation: 01/05 07:40 Presenting complaint: Patient states: right upper abd pain/flank pain for a few days, iw also has pain under ribs, hx of pancreatic stone, pain increases when takes a deep breath, had recent right hip surgery on Dec 08 but has been healing well. Transition of care: patient was not received from another setting of care. Onset of symptoms was January 03, 2020. Risk Assessment: Do you want to hurt yourself or someone else? Patient reports no desire to harm self or others. Initial Sepsis Screen: Does the patient meet any 2 criteria? No. Patient's initial sepsis screen is negative. Does the patient have a suspected source of infection? No. Patient's initial sepsis screen is negative. Care prior to arrival: None. 07:40 Method Of Arrival: Wheelchair iw 07:40 Acuity: GILDARDO 3 iw Historical: - Allergies: 07:45 Demerol; iw 07:45 Hydrocodone-Acetaminophen; iw 07:45 Lidocaine; iw 07:45 Metoprolol Tartrate; iw - Home Meds: 07:45 Betapace 80 mg Oral tab 1 tab 2 times per day [Active]; Dexilant 60 mg Oral CpDB 1 cap iw once daily [Active]; Levsin/SL 0.125 mg sublingual subl daily [Active]; Myrbetriq 50 mg Oral Tb24 1 tab once daily [Active]; sucralfate 1 gram Oral tab 1 tab 2 times per day [Active]; Xarelto 20 mg Oral tab 1 tab once daily [Active]; Xanax 0.25 mg Oral tab 1 tab daily [Active]; - PMHx: 07:45 High Cholesterol; GERD; Hypertension; Irregular heart rate; Lung Cancer; iw - PSHx: 07:45 Scope; right hip; iw - Immunization history:: Adult Immunizations not up to date. - Coronavirus screen:: The patient has NOT traveled to [place] in the past 14 days. Proceed with normal triage process as indicated. - Social history:: Smoking status: Patient denies any tobacco usage or history of. - Ebola Screening: : Patient negative for fever greater than or equal to 101.5 degrees Fahrenheit, and additional compatible Ebola Virus Disease symptoms Patient denies exposure to infectious person Patient denies travel to an Ebola-affected area in the 21 days before illness onset No symptoms or risks identified at this time. Screenin:00 Abuse screen: Denies threats or abuse. Denies injuries from another. Nutritional jl7 screening: No deficits noted. Tuberculosis screening: No symptoms or risk factors identified. Fall Risk IV access (20 points). Total Briggs Fall Scale indicates No Risk (0-24 pts). Assessment: 08:00 General: Appears in no apparent distress. uncomfortable, Behavior is calm, cooperative, jl7 appropriate for age. Pain: Complains of pain in right upper quadrant and right lower quadrant Pain does not radiate. Pain currently is 8 out of 10 on a pain scale. Pain began 1 day ago. Is continuous. Neuro: Level of Consciousness is awake, alert, obeys commands, Oriented to person, place, time, situation. Cardiovascular: Patient's skin is warm and dry. Respiratory: Airway is patent Respiratory effort is even, unlabored, Respiratory pattern is regular, symmetrical. GI: Abdomen is non-distended, Stools are reported to be loose, Reports nausea, Patient currently denies diarrhea, vomiting. Derm: Skin is pink, warm \T\ dry. 08:45 Reassessment: Pt's O2 saturation dropped to 87% after medication administration, placed jl7 pt on 1 lpm via nasal canula. 09:00 Reassessment: Patient appears in no apparent distress at this time. Patient and/or jl7 family updated on plan of care and expected duration. Pain level reassessed. Patient is alert, oriented x 3, equal unlabored respirations, skin warm/dry/pink. Reports pain 3/10 at this time. Patient states feeling better. 10:00 Reassessment: Patient appears in no apparent distress at this time. No changes from jl7 previously documented assessment. Patient and/or family updated on plan of care and expected duration. Pain level reassessed. Patient is alert, oriented x 3, equal unlabored respirations, skin warm/dry/pink. Vital Signs: 07:45 BP 159 / 72; Pulse 74; Resp 16; Temp 98.4; Pulse Ox 100% ; Weight 74.39 kg; Height 5 iw ft. 7 in. (170.18 cm); Pain 8/10; 09:00 BP 136 / 72; Pulse 59; Resp 19; Pulse Ox 99% on 1 lpm NC; Pain 3/10; jl7 09:49 BP 125 / 69; Pulse 72; Resp 17 S; Pulse Ox 97% on R/A; jl7 11:30 BP 130 / 70; Pulse 74; Resp 16 S; Pulse Ox 99% on R/A; jl7 07:45 Body Mass Index 25.69 (74.39 kg, 170.18 cm) iw ED Course: 07:18 Patient arrived in ED. mr 07:19 Abel Rodriguez MD is Private Physician. mr 07:39 Khoa Parks MD is Attending Physician. kdr 07:42 Triage completed. iw 07:42 Bobo Singletary RN is Primary Nurse. jl7 07:45 Arm band placed on. iw 08:10 Missed attempt(s): 20 gauge in left forearm. Bleeding controlled, band aid applied, jl7 catheter tip intact. 08:15 Initial lab(s) drawn, by wi, sent to lab. Inserted saline lock: 20 gauge in left jl7 antecubital area, using aseptic technique. Blood collected. 09:00 Patient has correct armband on for positive identification. Bed in low position. Call jl7 light in reach. Side rails up X2. Pulse ox on. NIBP on. Warm blanket given. 09:43 CT Abd/Pelvis - IV Contrast Only In Process Unspecified. EDMS 09:44 CT Chest For PE Angio In Process Unspecified. EDMS 11:52 Abel Rodriguez MD is Referral Physician. kdr 12:19 No provider procedures requiring assistance completed. IV discontinued, intact, jl7 bleeding controlled, No redness/swelling at site. Pressure dressing applied. Administered Medications: 08:20 Drug: NS 0.9% 500 ml Route: IV; Rate: bolus; Site: left antecubital; jl7 09:00 Follow up: Response: No adverse reaction; IV Status: Completed infusion; IV Intake: jl7 500ml 08:21 Drug: Zofran 4 mg Route: IVP; Site: left antecubital; jl7 08:45 Follow up: Response: No adverse reaction; Nausea is decreased jl7 08:23 Drug: TORadol - Ketorolac 15 mg Route: IVP; Site: left antecubital; jl7 08:45 Follow up: Response: No adverse reaction; Pain is decreased jl7 08:25 Drug: morphine 4 mg Route: IVP; Site: left antecubital; jl7 08:45 Follow up: Response: No adverse reaction; Pain is decreased jl7 Intake: 09:00 IV: 500ml; Total: 500ml. jl7 Outcome: 11:53 Discharge ordered by . freeman 12:19 Discharged to home via wheelchair, with family. jl7 12:19 Condition: stable 12:19 Discharge instructions given to patient, family, Instructed on discharge instructions, follow up and referral plans. medication usage, Demonstrated understanding of instructions, follow-up care, medications, Prescriptions given X 1. 12:20 Patient left the ED. jl7 Signatures: Dispatcher [employer] EDMS Khoa Parks MD MD kdr Rivera, Mary mr Williams, Irene, RN RN iw Leal, Jahala, RN RN jl7
--- NOTE | 2020-01-05 11:54 | EDPHYS ---
Physician Documentation [facility] Name: Vilma Curtis Age: 79 yrs Sex: Female : 1940 Arrival Date: 01/05/2020 Time: 07:18 Bed 16 Private MD: Abel Rodriguez ED Physician Khoa Parks HPI: 01/05 12:00 This 79 yrs old Female presents to ER via Wheelchair with complaints of Hip kdr Pain, Abdominal Pain. 12:00 The patient presents with abdominal pain in the right upper quadrant. kdr 12:00 Onset: The symptoms/episode began/occurred gradually, 3 day(s) ago. The symptoms do not kdr radiate. Associated signs and symptoms: Pertinent positives: Pertinent negatives: nausea, vomiting, and diarrhea, chest pain, constipation, diarrhea, dysuria, fever, headache, hematuria, nausea, palpitations, shortness of breath. The symptoms are described as achy, constant, steady. Modifying factors: The symptoms are alleviated by nothing, the symptoms are aggravated by coughing, movement, pressure, touching the area. Severity of pain: At its worst the pain was severe in the emergency department the pain has improved mildly. The patient has not experienced similar symptoms in the past. The patient has been recently seen by a physician: The patient had a left hip fracture and repair about a month ago. Historical: - Allergies: 07:45 Demerol; iw 07:45 Hydrocodone-Acetaminophen; iw 07:45 Lidocaine; iw 07:45 Metoprolol Tartrate; iw - Home Meds: 07:45 Betapace 80 mg Oral tab 1 tab 2 times per day [Active]; Dexilant 60 mg Oral CpDB 1 cap iw once daily [Active]; Levsin/SL 0.125 mg sublingual subl daily [Active]; Myrbetriq 50 mg Oral Tb24 1 tab once daily [Active]; sucralfate 1 gram Oral tab 1 tab 2 times per day [Active]; Xarelto 20 mg Oral tab 1 tab once daily [Active]; Xanax 0.25 mg Oral tab 1 tab daily [Active]; - PMHx: 07:45 High Cholesterol; GERD; Hypertension; Irregular heart rate; Lung Cancer; iw - PSHx: 07:45 Scope; right hip; iw - Immunization history:: Adult Immunizations not up to date. - Coronavirus screen:: The patient has NOT traveled to [place] in the past 14 days. Proceed with normal triage process as indicated. - Social history:: Smoking status: Patient denies any tobacco usage or history of. - Ebola Screening: : Patient negative for fever greater than or equal to 101.5 degrees Fahrenheit, and additional compatible Ebola Virus Disease symptoms Patient denies exposure to infectious person Patient denies travel to an Ebola-affected area in the 21 days before illness onset No symptoms or risks identified at this time. ROS: 12:00 Constitutional: Negative for fever, chills, and weight loss, Eyes: Negative for injury, kdr pain, redness, and discharge, ENT: Negative for injury, pain, and discharge, Neck: Negative for injury, pain, and swelling, Cardiovascular: Negative for chest pain, palpitations, and edema, Respiratory: Negative for shortness of breath, cough, wheezing, and pleuritic chest pain, Back: Negative for injury and pain, : Negative for injury, bleeding, discharge, and swelling, MS/Extremity: Negative for injury and deformity, Skin: Negative for injury, rash, and discoloration, Neuro: Negative for headache, weakness, numbness, tingling, and seizure activity. Psych: Negative for depression, anxiety, suicide ideation, homicidal ideation, and hallucinations, Allergy/Immunology: Negative for hives, rash, and allergies, Endocrine: Negative for neck swelling, polydipsia, polyuria, polyphagia, and marked weight changes, Hematologic/Lymphatic: Negative for swollen nodes, abnormal bleeding, and unusual bruising. 12:00 Abdomen/GI: Positive for abdominal pain, Negative for nausea and vomiting, nausea, vomiting, and diarrhea, nausea, vomiting, diarrhea, constipation, abdominal cramps, abdominal distension, anorexia, dysphagia, hematemesis, black/tarry stool, rectal pain, rectal bleeding, bowel incontinence. Exam: 12:00 Constitutional: This is a well developed, well nourished patient who is awake, alert, kdr and in no acute distress. Head/Face: Normocephalic, atraumatic. Eyes: Pupils equal round and reactive to light, extra-ocular motions intact. Lids and lashes normal. Conjunctiva and sclera are non-icteric and not injected. Cornea within normal limits. Periorbital areas with no swelling, redness, or edema. Neck: Trachea midline, no thyromegaly or masses palpated, and no cervical lymphadenopathy. Supple, full range of motion without nuchal rigidity, or vertebral point tenderness. No Meningismus. Chest/axilla: Normal chest wall appearance and motion. Nontender with no deformity. No lesions are appreciated. Cardiovascular: Regular rate and rhythm with a normal S1 and S2. No gallops, murmurs, or rubs. Normal PMI, no JVD. No pulse deficits. Respiratory: Lungs have equal breath sounds bilaterally, clear to auscultation and percussion. No rales, rhonchi or wheezes noted. No increased work of breathing, no retractions or nasal flaring. Back: No spinal tenderness. No costovertebral tenderness. Full range of motion. Skin: Warm, dry with normal turgor. Normal color with no rashes, no lesions, and no evidence of cellulitis. MS/ Extremity: Pulses equal, no cyanosis. Neurovascular intact. Full, normal range of motion. Neuro: Awake and alert, GCS 15, oriented to person, place, time, and situation. Cranial nerves II-XII grossly intact. Motor strength 5/5 in all extremities. Sensory grossly intact. Cerebellar exam normal. Normal gait. Psych: Awake, alert, with orientation to person, place and time. Behavior, mood, and affect are within normal limits. 12:00 Abdomen/GI: Inspection: abdomen appears normal, Bowel sounds: normal, Palpation: soft, mild abdominal tenderness, in the right upper quadrant. Vital Signs: 07:45 BP 159 / 72; Pulse 74; Resp 16; Temp 98.4; Pulse Ox 100% ; Weight 74.39 kg; Height 5 iw ft. 7 in. (170.18 cm); Pain 8/10; 09:00 BP 136 / 72; Pulse 59; Resp 19; Pulse Ox 99% on 1 lpm NC; Pain 3/10; jl7 09:49 BP 125 / 69; Pulse 72; Resp 17 S; Pulse Ox 97% on R/A; jl7 11:30 BP 130 / 70; Pulse 74; Resp 16 S; Pulse Ox 99% on R/A; jl7 07:45 Body Mass Index 25.69 (74.39 kg, 170.18 cm) iw MDM: 11:53 Patient medically screened. kdr 12:00 Data reviewed: vital signs, nurses notes, lab test result(s), radiologic studies. kdr Counseling: I had a detailed discussion with the patient and/or guardian regarding: the historical points, exam findings, and any diagnostic results supporting the discharge/admit diagnosis, lab results, radiology results, the need for outpatient follow up. Physician consultation: Abel Rodriguez MD was called at 11:30, was contacted at 11:30, and will see patient in office, in 2-3 days. 01/05 07:52 Order name: Basic Metabolic Panel; Complete Time: 08:56 kdr 01/05 07:52 Order name: CBC with Diff; Complete Time: 08:56 kdr 01/05 07:52 Order name: Creatinine for Radiology; Complete Time: 08:56 [facility] 01/05 07:52 Order name: Hepatic Function; Complete Time: 08:56 [facility] 01/05 07:52 Order name: Lipase; Complete Time: 08:56 [facility] 01/05 08:10 Order name: DD; Complete Time: 09:33 [facility] 01/05 07:52 Order name: IV Saline Lock; Complete Time: 08:33 [facility] 01/05 07:52 Order name: CT Abd/Pelvis - IV Contrast Only 01/05 08:10 Order name: US Abdomen Limited 01/05 08:56 Order name: CT Chest For PE Angio; Complete Time: 11:23 kdr 01/05 07:52 Order name: Labs collected and sent; Complete Time: 08:33 [facility] 01/05 11:25 Order name: Urine Dipstick-Ancillary (obtain specimen); Complete Time: 11:41 iw Administered Medications: 08:20 Drug: NS 0.9% 500 ml Route: IV; Rate: bolus; Site: left antecubital; jl7 09:00 Follow up: Response: No adverse reaction; IV Status: Completed infusion; IV Intake: jl7 500ml 08:21 Drug: Zofran 4 mg Route: IVP; Site: left antecubital; jl7 08:45 Follow up: Response: No adverse reaction; Nausea is decreased jl7 08:23 Drug: TORadol - Ketorolac 15 mg Route: IVP; Site: left antecubital; jl7 08:45 Follow up: Response: No adverse reaction; Pain is decreased jl7 08:25 Drug: morphine 4 mg Route: IVP; Site: left antecubital; jl7 08:45 Follow up: Response: No adverse reaction; Pain is decreased jl7 Disposition: 01/05/20 11:53 Discharged to Home. Impression: Abdominal and pelvic pain. - Condition is Stable. - Discharge Instructions: Abdominal Pain, Adult, [id number]. - Prescriptions for Tylenol- Codeine #3 300-30 mg Oral Tablet - take 2 tablets by ORAL route every 6 hours As needed; 16 tablet. - Medication Reconciliation Form, Thank You Letter, Prescription Opioid Use form. - Follow up: Abel Rodriguez MD; When: 2 - 3 days; Reason: If symptoms return, Further diagnostic work-up, Recheck today's complaints, Continuance of care, Re-evaluation by your physician. - Problem is new. - Symptoms have improved. Signatures: Dispatcher [employer] EDMS Khoa Parks MD MD kdr Yue Avalos RN RN iw Bobo Singletary RN RN jl7 Corrections: (The following items were deleted from the chart) 12:20 11:53 01/05/2020 11:53 Discharged to Home. Impression: Abdominal and pelvic pain. jl7 Condition is Stable. Forms are Medication Reconciliation Form, Thank You Letter, Antibiotic Education, Prescription Opioid Use. Follow up: Abel Rodriguez; When: 2 - 3 days; Reason: If symptoms return, Further diagnostic work-up, Recheck today's complaints, Continuance of care, Re-evaluation by your physician. Problem is new. Symptoms have improved. kdr
[2020-01-05 12:27] VITALS: TEMP 98.4
[2020-01-05 12:32] VITALS: BP 130/70; O2SAT 99
== END 2020-01-05 12:20 | disposition home or self-care (01) ==
LOC: ER 07:16
DX: R10.2 Pelvic and perineal pain (principal); I10 Essential (primary) hypertension; E78.00 Pure hypercholesterolemia, unspecified; Z85.118 Personal history of other malignant neoplasm of bronchus and lung; Z79.01 Long term (current) use of anticoagulants; Z88.5 Allergy status to narcotic agent; Z88.8 Allergy status to other drugs, medicaments and biological substances
CPT/HCPCS: 96361; 85025; 80048; 36415; 85379; 80076; 83690; 71275; 74177; 96375; 96374; 99284; Q9967; J7040; J2405

== ENCOUNTER 2022-11-12 07:38 | Inpatient (IN) | payer OTHER ==
--- OUTSIDE RECORDS SUMMARY | 2022-11-12 07:42 | XMS REPORT | Clinical Summary ---
:1940 Author Organization [facility] Address [address] [place] [address] Care Team Providers Name Role Phone Jayson Canchola Unavailable Abel Rodriguez MD Unavailable Zahraa Parker MD Primary Care Provider Allergies Active Allergy Reactions Severity Noted Date Comments Codeine Swelling Medium 06/10/2018 Hydrocodone Swelling Medium 06/10/2018 Shellfish Containing Products Shortness Of Breath High 05/14 Medications Medication Sig Dispensed Refills Start Date End Date Status rivaroxaban (XARELTO) 20 Take 20 mg by 0 Active mg tablet mouth. sotalol (BETAPACE) 80 mg Take by mouth. 0 Active tablet darifenacin (ENABLEX) 15 Take 15 mg by 0 Active mg 24 hr tablet mouth daily. sucralfate (CARAFATE) 1 Take by mouth. 0 Active g tablet dexlansoprazole Take by mouth. 0 Active (DEXILANT) 60 mg capsule hyoscyamine Take 0.125 mg by 0 A ctive (ANASPAZ,LEVSIN) 0.125 mouth every 4 mg tablet (four) hours as needed for cramping. ALPRAZolam (XANAX) 0.25 Take 0.25 mg by 0 Active mg tablet mouth. calcium carbonate Take 600 mg by 0 Active (OS-JARROD) 600 mg calcium mouth 2 (two) (1,500 mg) tablet times a day with meals. beclomethasone Inhale by mouth. 0 Active dipropionate (QVAR INHALATION) acetaminophen (TYLENOL Take 2 tablets 0 07/09/2018 Active EXTRA STRENGTH) 500 mg (1,000 mg) by tabletIndications: mouth every 6 Malignant melanoma of (six) hours as skin of back needed for mild pain. 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 06/21/2018 Lung cancer 06/11/2018 Overview: Mandatory [facility] ICD-10 2020 UPDATE Hypertension 06/11/2018 Atrial fibrillation 06/11/2018 Malignant melanoma of skin of back 06/10/2018 Overview: Added automatically from request for kimberli millan [id number] Malignant melanoma of back 05/28/2018 Surgical History Surgery Date Site/Laterality Comments LUNG CANCER SURGERY 11/12/2013 - Right RUL lobectom y 11/11/2014 TOTAL KNEE ARTHROPLASTY 11/12/2009 - Right 11/11/2010 CHOLECYSTECTOMY 11/12/2007 - 11/11/2008 SHOULDER SURGERY 11/12/2011 - Right 11/11/2012 TOTAL ABDOMINAL HYSTERECTOMY ND EXCISION MAL LESION 07/09/2018 Right Procedure : EXCISION OF TRUNK/ARM/LEG 0.6-1.0 CM MALIGNA NT LESION OF TRUNK, right low er back; Surgeon: Zahraa Parker MD; Location: CHECK O ; Service: SURG ON C - [place] Medical History Medical History Date Comments Atrial fibrillation 2014 pt reports that she had palpitations. pt denies cardioversion or abl ation Neuropathy Adenocarcinoma of right lung 2013 Pulmonary embolism occurred post-op. pt reports that she was Coumadin for a few m onths Gastroesophageal reflux disease Arthritis Hyperlipidemia pt has been on and o ff for years Family History Medical History Relation Name Comments Stomach cancer Brother Kidney disease Mother congenital singl e kidney. did require HD -Brain cancer Sister Bleeding Disorder Neg Hx Coronary artery disease Neg Hx Diabetes Neg Hx Hypertension Neg Hx Stroke Neg Hx VTE Neg Hx Relation Name Status Comments Brother Mother Sister Social History Tobacco Use Types Packs/Day Years Used Date Smoking Tobacco: Former Cigarettes 1 19 1960 - 1979 Smokeless Tobacco: Never Alcohol Use Standard Drinks/Week Comments No 0 (1 standard drink = 0.6 oz pure alcoho l) social drinker Sex Assigned at Date Recorded Not on file Obstetrics History Last Filed Vital Signs Not on file Plan of Treatment Health Maintenance Due Date Last Done Comments COVID-19 Vaccination (#1) 06/09/1941 Results Not on fileafter 11/12/2021 Insurance Payer Benefit Plan / Subscriber ID Effective Dates Phone Addre ss Type Group MEDICARE MEDICARE PART [id number] 2007-Janet [phone] [facility] Medicare A AND B t 2 SOLUTIONS [address] [place] [address] Advance Directives Code Status Date Activated Date Inactivated Comments Full Code 07/09/2018 11:38 AM 07/09/2018 4:20 PM Care Teams Production Manager Relationship Specialty Start Date End Date Jayson Canchola, PCP - External Referring Physician Parts Representative 05/20/[address] [id number] Abel Rodriguez MD PCP - External Primary Internal Medicine 05/20/[address] [place] [address] [place] [id number] Zahraa Parker MD PCP - General Surgical Oncology 05/20/[address] [place] [id number]
--- OUTSIDE RECORDS SUMMARY | 2022-11-12 07:47 | XMS REPORT | Continuity of Care Document ---
:1940 Author Organization [facility] t Address [address] [place] [address] Care Team Providers Name Role Phone YAIMA LANCASTER Primary Care Physician Unavailable Abel Rodriguez Attending Clinician Unavailable Pierre Parker MD Attending Clinician ABDULLAHI NASCIMENTO Attending Clinician Unavailable Abdullahi Nascimento MD Attending Clinician Gregorio Attending Clinician Unavailable Doctor Unassigned, [place] Attending Clinician Unavailable Lab, Ang - Db Attending Clinician Unavailable PIERRE PARKER Attending Clinician Unavailable PIERRE PARKER Attending Clinician Unavailable CHADD TAY Attending Clinician Unavailable Nurse, Adc Pob Immunization Attending Clinician Unavailable Chadd Tay DO Attending Clinician JESÚS HERNÁNDEZ Attending Clinician Unavailable PIERRE PARKER Admitting Clinician Unavailable Gregorio Admitting Clinician Unavailable Payers Payer Name Policy Type Policy Number Effective Date Expiration Date S ource [place]ICARE [place]: [id number] 2007 [place] 00:00:00 Problems Condition Condition Condition Status Onset Resolution Last Treating Co mments Source Name Details Category Date Date Treatment Clinician Date Chronic Chronic Disease Active 2018-0 Univers lung lung 8-10 ity of disease disease 00:00: [place] 00 MD [facility] H/O: H/O: Disease Active Univers thromboemb thromboemb 810 it y of olism olism 00:00: 00 MD [facility] 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 Center Mandatory CMS ICD-10 2020 UPDATE Hypertensi Hypertensi Disease Active U nivers on on 06-11 ity of 00:00: 00 MD [facility] Atrial Atrial Disease Active Univers fibrillati fibrillati 06-11 it y of on on 00:00: 00 MD [facility] Malignant Malignant Disease Active Overview: Univers melanoma melanoma 06-10 Formattin ity of of skin of of skin of 00:00: g of this [place] back back 00 note might be Nathaniel haas n from the Cancer original. Center Added automatic ally from request for surgery [id number] Malignant Malignant Disease Active Uni vers melanoma melanoma 05-28 ity of of back of back 00:00: 00 MD [facility] No known No known Disease Unive rs active active ity of problems problems [facility] [facility] [id number] Arthritis, Problem Co mmon midfoot [facility] - [facility] [id number] Status Problem Commo n 105 post total [facility] left knee - [facility] replacemen [facility] [id number] Tear of Problem Commo n right [facility] extent, Center unspecifie d whether traumatic [id number] Incomplete Problem Co mmon tear of [facility] right - CHI rotator St cuff, kes unspecifie Medica l d whether Center traumatic [id number] Acute Problem Common cystitis [facility] without - [facility] hematuria [facility] [id number] Overactive Problem Co mmon bladder [facility] - [facility] [id number] 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[facility] acromiocla - [facility] vicular [facility] Hyperlipid Hyperlipi Problem Active 2019-03-03 Memoria emia demia 14:40:10 l (disorder) (disorder) He rmann Active Problem 03/03/2019 [facility] 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 14:40:10 l thy thy David (disorder) (disorder) Active Problem 03/03/2019 [facility] Peripheral Periphera Problem Active 2019-03-03 Memoria nerve l nerve 14:40:10 l disease disease David (disorder) (disorder) Active Problem 03/03/2019 [facility] 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 14:40:10 l s s David (disorder) (disorder) Active Problem 03/03/2019 [facility] Allergies, Adverse Reactions, Alerts Allergy Allergy Status Severity Reaction(s) Onset Inactive Treating Comm ents Source Name Type Date Date Clinician MEPERIDI DRUG Active Anxiety Univers NE INGREDI 06-12 ity of 00:00: [place] [facility] SHRIMP DRUG Active SOB Univers INGREDI 06-12 ity of 00:00: [place] 00 [facility] Shrimp Drug Active Shortness of Univ ers Allergy Breath 06-12 ity of 00:00: [place] 00 [facility] CODEINE DRUG Active Med Swelling Univers INGREDI 7-30 ity of 00:00: [place] 00 [facility] HYDROCOD DRUG Active Med Swelling Univer s ONE INGREDI 7-30 ity of 00:00: [place] 00 [facility] Codeine Propensi Active Swelling Unive rs ty to 7-30 ity of adverse 00:00: [place] reaction 00 MD kamryn [facility] Hydrocod Propensi Active Swelling Univ ers one ty to 7-30 ity of adverse 00:00: [place] reaction 00 MD kamryn veloz [facility] Shellfis Propensi Active Shortness Of Univers h ty to Breath 7-30 ity of Containi adverse 00:00: [place] ng reaction 00 MD Sneha veloz [facility] acetamin acetamin Active Unknown Commo n ophen / ophen / Spirit hydrocod hydrocod - [facility]I one one [facility] meperidi meperidi Active Unknown Commo n ne ne [facility] Demerol Demerol Active Memoria HCl HCl [place] HYDROcod HYDROcod Active Memori a one one [place] Family History Family Member Diagnosis Comments Start Date Stop Date Source Natural brother Stomach cancer [facility]ity [facility] [place] MD [facility] Natural mother Kidney disease [facility] [place] MD [facility] Natural sister -Brain cancer Univers ity of [place] MD [facility] Family member [facility] [place] [facility] Family member Coronary artery Univer sity of disease [place] MD Reza taylor [facility] Family member Diabetes [facility] MD Reza taylor [facility] Family member Hypertension Universit y [facility] [place] [facility] MD Reza taylor [facility] Family member Stroke [facility]za [facility] Family member VTE [facility] MD Reza taylor [facility] Social History Social Habit Start Date Stop Date Quantity Comments Source History of Tobacco Common [facility] - Use [facility] Exposure to 2022-10-14 2022-10-24 Not sure University SARS-CoV-2 (event) 00:00:00 10:15:00 [facility] [facility] Alcohol intake 2018-07-11 2018-07-11 Current University of 00:00:00 00:00:00 non-drinker of [place] MD Raphael moore alcohol [facility] (finding) Alcohol Comment 2018-06-21 2018-06-21 social drinker Unive rsity of 00:00:00 00:00:00 [place] MD Reza taylor [facility] Tobacco use and 2018-06-10 2018-06-10 Smokeless Universit y of exposure 00:00:00 00:00:00 tobacco non-user [facility] Cigarettes smoked 2018-06-10 2018-06-10 Univers ity of current (pack per 00:00:00 00:00:00 [place] Joslyn Cervantes ) - Reported Cancer Ce nter Cigarette 2018-06-10 2018-06-10 University of pack-years 00:00:00 00:00:00 [place] MD Reza taylor [facility] Sex [birth year] Universit y of 00:00:00 00:00:00 [place] MD Reza taylor [facility] Smoking Status Start Date Stop Date Source Tobacco smoking consumption [facility] unknown Social History 2018-04-29 20:28:07 2018-04-29 20:28:07 [facility] Medications Ordered Filled Start Stop Current Ordering Indication Dosage Frequency Signature Comments Components Source Medication Medication Date Date Medication? Clinician (SIG) Name Name Bupivicaine Bupivicaine 2021-11 No 2.5mg Common [place] -22 Spirit 00:00: - [facility] Angelito Eaton 2021-11 No 40mg Common (Triamcinol (Triamcinol 1-22 S pirit one) one) 00:00: - [facility] Angelito Eaton 0 No 40mg Common (Triamcinol (Triamcinol 9-02 S pirit one) one) 00:00: - [facility]I 00 [facility] Naropin Naropin 0 No 5mg Common (Ropivacain (Ropivacain 9-02 S pirit e HCl) e HCl) 00:00: - [facility]I 00 [facility] Angelito Eaton 0 No 40mg Common (Triamcinol (Triamcinol 9-02 S pirit one) one) 00:00: - [facility]I 00 [facility] Naropin Naropin 2021-0 No 5mg Common (Ropivacain (Ropivacain 9-02 S pirit e HCl) e HCl) 00:00: - [facility]I 00 [facility] Angelito Eaton 0 No 40mg Common (Triamcinol (Triamcinol 9-02 S pirit one) one) 00:00: - [facility]I 00 [facility] Naropin Naropin 2021-0 No 5mg Common (Ropivacain (Ropivacain 9-02 S pirit e HCl) e HCl) 00:00: - [facility]I 00 [facility] Angelito Antonioalog 2021-0 No 40mg Common (Triamcinol (Triamcinol 9-02 S pirit one) one) 00:00: - [facility]I 00 [facility] Naropin Naropin 2-0 No 5mg Common (Ropivacain (Ropivacain 9-02 S pirit e HCl) e HCl) 00:00: - [facility] Angelito Antonioalog 2021-0 No 40mg Common (Triamcinol (Triamcinol 9-02 S pirit one) one) 00:00: - [facility]I 00 [facility] Naropin Naropin 2021-0 No 5mg Common (Ropivacain (Ropivacain 9-02 S pirit e HCl) e HCl) 00:00: - [facility] 00 [facility] Cyclobenzap Cyclobenzap 2021-0 No 1{table TID Cyclobenza rine HCl 10 rine HCl 10 8-25 t_at_be ilene HCl MG MG 00:00: dtime_a 10 MG 00 s_neede d} Acetaminoph Acetaminoph 2-0 No 1{table QID Acetaminop en-Codeine en-Codeine 8-25 t_as_ne hen-Codein #3 300-30 #3 300-30 00:00: eded} e #3 MG MG 00 300-30 MG Cyclobenzap Cyclobenzap 2022-0 No 1{table TID Cyclobenza rine HCl 10 rine HCl 10 8-25 t_at_be ilene HCl MG MG 00:00: dtime_a 10 MG 00 s_neede d} Acetaminoph Acetaminoph 2022-0 No 1{table QID Acetaminop en-Codeine en-Codeine 8-25 t_as_ne hen-Codein #3 300-30 #3 300-30 00:00: eded} e #3 MG MG 00 300-30 MG Cyclobenzap Cyclobenzap 2022-0 No 1{table TID Cyclobenza rine HCl 10 rine HCl 10 8-25 t_at_be ilene HCl MG MG 00:00: dtime_a 10 MG 00 s_neede d} Acetaminoph Acetaminoph 2022-0 No 1{table QID Acetaminop en-Codeine en-Codeine 8-25 t_as_ne hen-Codein #3 300-30 #3 300-30 00:00: eded} e #3 MG MG 00 300-30 MG Cyclobenzap Cyclobenzap 2022-0 No 1{table TID Cyclobenza rine HCl 10 rine HCl 10 8-25 t_at_be ilene HCl MG MG 00:00: dtime_a 10 MG 00 s_neede d} Acetaminoph Acetaminoph 2022-0 No 1{table QID Acetaminop en-Codeine en-Codeine 8-25 t_as_ne hen-Codein #3 300-30 #3 300-30 00:00: eded} e #3 MG MG 00 300-30 MG Cyclobenzap Cyclobenzap 2022-0 No 1{table TID Cyclobenza rine HCl 10 rine HCl 10 8-25 t_at_be ilene HCl MG MG 00:00: dtime_a 10 MG 00 s_neede d} Acetaminoph Acetaminoph 2022-0 No 1{table QID Acetaminop en-Codeine en-Codeine 8-25 t_as_ne hen-Codein #3 300-30 #3 300-30 00:00: eded} e #3 MG MG 00 300-30 MG Cyclobenzap Cyclobenzap 2022-0 No 1{table TID Cyclobenza rine HCl 10 rine HCl 10 8-25 t_at_be ilene HCl MG MG 00:00: dtime_a 10 MG 00 s_neede d} Acetaminoph Acetaminoph 2022-0 No 1{table QID Acetaminop en-Codeine en-Codeine 8-25 t_as_ne hen-Codein #3 300-30 #3 300-30 00:00: eded} e #3 MG MG 00 300-30 MG Acetaminoph Acetaminoph 2022-0 No 1{table QID Acetaminop en-Codeine en-Codeine 8-25 t_as_ne hen-Codein #3 300-30 #3 300-30 00:00: eded} e #3 MG MG 00 300-30 MG Cyclobenzap Cyclobenzap 2022-0 No 1{table TID Cyclobenza rine HCl 10 rine HCl 10 8-25 t_at_be ilene HCl MG MG 00:00: dtime_a 10 MG 00 s_neede d} Acetaminoph Acetaminoph 2022-0 No 1{table QID Acetaminop en-Codeine en-Codeine 8-25 t_as_ne hen-Codein #3 300-30 #3 300-30 00:00: eded} e #3 MG MG 00 300-30 MG Cyclobenzap Cyclobenzap 2022-0 No 1{table TID Cyclobenza rine HCl 10 rine HCl 10 07-06 t_at_be ilene HCl MG MG 00:00: dtime_a 10 MG 00 s_neede d} codeine-gua Yes Virtussin U nivers ifenesin 06-12 AC 10 ity of 10-100 mg/5 12:57: [place]-100 [place] oral 47 mg/5 mL Medical solution oral Branch liquid fluticasone Yes fluticason Univers propionate 06-12 e ity of 50 12:57: propionate [place] mcg/actuati 47 50 Medical on nasal mcg/actuat Branc h spray ion nasal spray,susp ension codeine-gua Yes Virtussin U nivers ifenesin 06-12 AC 10 ity of 10-100 mg/5 12:57: mg-100 [place] mL oral 47 mg/5 mL Medical solution oral Branch liquid fluticasone Yes fluticason Univers propionate 06-12 e ity of 50 12:57: propionate [place] mcg/actuati 47 50 Medical on nasal mcg/actuat Branc h spray ion nasal spray,susp ension codeine-gua Yes Virtussin U nivers ifenesin 06-12 AC 10 ity of 10-100 mg/5 12:57: mg-100 [place] mL oral 47 mg/5 mL Medical solution oral Branch liquid fluticasone Yes fluticason Univers propionate 06-12 e ity of 50 12:57: propionate [place] mcg/actuati 47 50 Medical on nasal mcg/actuat Branc h spray ion nasal spray,susp ension codeine-gua Yes Virtussin U nivers ifenesin 06-12 AC 10 ity of 10-100 mg/5 12:57: mg-100 [place] mL oral 47 mg/5 mL Medical solution oral Branch liquid fluticasone Yes fluticason Univers propionate 06-12 e ity of 50 12:57: propionate [place] mcg/actuati 47 50 Medical on nasal mcg/actuat Branc h spray ion nasal spray,susp ension codeine-gua Yes Virtussin U nivers ifenesin 06-12 AC 10 ity of 10-100 mg/5 12:57: mg-100 [place] mL oral 47 mg/5 mL Medical solution oral Branch liquid fluticasone Yes fluticason Univers propionate 06-12 e ity of 50 12:57: propionate [place] mcg/actuati 47 50 Medical on nasal mcg/actuat Branc h spray ion nasal spray,susp ension codeine-gua Yes Virtussin U nivers ifenesin 06-12 AC 10 ity of 10-100 mg/5 12:57: mg-100 [place] mL oral 47 mg/5 mL Medical solution oral Branch liquid fluticasone Yes fluticason Univers propionate 06-12 e ity of 50 12:57: propionate [place] mcg/actuati 47 50 Medical on nasal mcg/actuat Branc h spray ion nasal spray,susp ension acetaminoph Yes acetaminop Univers en-codeine 06-12 hen 300 ity of 300-30 mg 12:57: mg-codeine [place] tablet 46 30 mg Medical tablet Branch albuterol Yes Ventolin Univ ers (VENTOLIN 06-12 HFA 90 ity of HFA) 90 12:57: mcg/actuat [place] mcg/actuati 46 ion Medical on inhaler aerosol Branch inhaler amoxicillin Yes amoxicilli Univers -pot 06-12 n 500 ity of clavulanate 12:57: mg-potassi [place] 500 mg 46 um Medical 500-125 mg clavulanat Bra n[facility] tablet e 125 mg tablet benzonatate Yes benzonatat Univers 100 mg 06-12 e 100 mg ity of capsule 12:57: capsule [place] 46 Medical Branch budesonide- Yes Symbicort U nivers formoteroL 06-12 160 ity of 160-4.5 12:57: mcg-4.5 [place] mcg/actuati 46 mcg/actuat Me dical on inhaler ion HFA Branch aerosol inhaler acetaminoph Yes acetaminop Univers en-codeine 06-12 hen 300 ity of 300-30 mg 12:57: mg-codeine [place] tablet 46 30 mg Medical tablet Branch albuterol Yes Ventolin Univ ers (VENTOLIN 06-12 HFA 90 ity of HFA) 90 12:57: mcg/actuat [place] mcg/actuati 46 ion Medical on inhaler aerosol Branch inhaler amoxicillin Yes amoxicilli Univers -pot 06-12 n 500 ity of clavulanate 12:57: mg-potassi [place] 500 mg 46 um Medical 500-125 mg clavulanat Bra [facility] tablet e 125 mg tablet benzonatate Yes benzonatat Univers 100 mg 06-12 e 100 mg ity of capsule 12:57: capsule [place] 46 Medical Branch budesonide- Yes Symbicort U nivers formoteroL 06-12 160 ity of 160-4.5 12:57: mcg-4.5 [place] mcg/actuati 46 mcg/actuat Me dical on inhaler ion HFA Branch aerosol inhaler acetaminoph Yes acetaminop Univers en-codeine 06-12 hen 300 ity of 300-30 mg 12:57: mg-codeine [place] tablet 46 30 mg Medical tablet Branch albuterol Yes Ventcorning Univ ers (VENTOLIN 06-12 HFA 90 ity of HFA) 90 12:57: mcg/actuat [place] mcg/actuati 46 ion Medical on inhaler aerosol Branch inhaler amoxicillin Yes amoxicilli [facility] -pot 06-12 n 500 ity of clavulanate 12:57: mg-potassi [place] 500 mg 46 um Medical 500-125 mg clavulanat Bra nch tablet e 125 mg tablet benzonatate Yes benzonatat Univers 100 mg 06-12 e 100 mg ity of capsule 12:57: capsule [place] 46 Medical Branch budesonide- Yes Symbicort U nivers formoteroL 06-12 160 ity of 160-4.5 12:57: mcg-4.5 [place] mcg/actuati 46 mcg/actuat Me dical on inhaler ion HFA Branch aerosol inhaler acetaminoph Yes acetaminop Univers en-codeine 06-12 hen 300 ity of 300-30 mg 12:57: mg-codeine [place] tablet 46 30 mg Medical tablet Branch albuterol Yes Ventolin Univ ers (VENTOLIN 06-12 HFA 90 ity of HFA) 90 12:57: mcg/actuat [place] mcg/actuati 46 ion Medical on inhaler aerosol Branch inhaler amoxicillin Yes amoxicilli Univers -pot 06-12 n 500 ity of clavulanate 12:57: mg-potassi [place] 500 mg 46 um Medical 500-125 mg clavulanat Bra n[facility] tablet e 125 mg tablet benzonatate Yes benzonatat Univers 100 mg 06-12 e 100 mg ity of capsule 12:57: capsule [place] 46 Medical Branch budesonide- Yes Symbicort U nivers formoteroL 06-12 160 ity of 160-4.5 12:57: mcg-4.5 [place] mcg/actuati 46 mcg/actuat Me dical on inhaler ion HFA Branch aerosol inhaler acetaminoph Yes acetaminop Univers en-codeine 06-12 hen 300 ity of 300-30 mg 12:57: mg-codeine [place] tablet 46 30 mg Medical tablet Branch albuterol Yes Ventolin Univ ers (VENTOLIN 06-12 HFA 90 ity of HFA) 90 12:57: mcg/actuat [place] mcg/actuati 46 ion Medical on inhaler aerosol Branch inhaler amoxicillin Yes amoxicilli Univers -pot 06-12 n 500 ity of clavulanate 12:57: mg-potassi [place] 500 mg 46 um Medical 500-125 mg clavulanat Bra [facility] tablet e 125 mg tablet benzonatate Yes benzonatat Univers 100 mg 06-12 e 100 mg ity of capsule 12:57: capsule [place] 46 Medical Branch budesonide- Yes Symbicort U nivers formoteroL 06-12 160 ity of 160-4.5 12:57: mcg-4.5 [place] mcg/actuati 46 mcg/actuat Me dical on inhaler ion HFA Branch aerosol inhaler acetaminoph Yes acetaminop Univers en-codeine 06-12 hen 300 ity of 300-30 mg 12:57: mg-codeine [place] tablet 46 30 mg Medical tablet Branch albuterol Yes Ventolin Univ ers (VENTOLIN 06-12 HFA 90 ity of HFA) 90 12:57: mcg/actuat [place] mcg/actuati 46 ion Medical on inhaler aerosol Branch inhaler amoxicillin Yes amoxicilli Univers -pot 06-12 n 500 ity of clavulanate 12:57: mg-potassi [place] 500 mg 46 um Medical 500-125 mg clavulanat Bra [facility] tablet e 125 mg tablet benzonatate Yes benzonatat Univers 100 mg 06-12 e 100 mg ity of capsule 12:57: capsule [place] 46 Medical Branch budesonide- Yes Symbicort U nivers formoteroL 06-12 160 ity of 160-4.5 12:57: mcg-4.5 [place] mcg/actuati 46 mcg/actuat Me dical on inhaler ion HFA Branch aerosol inhaler DEXILANT 60 Yes Univer s mg capsule 7-27 ity of 00:00: [place] 00 Medical Branch DEXILANT 60 Yes Univer s mg capsule 7-27 ity of 00:00: [place] 00 Medical Branch DEXILANT 60 0 Yes Univer s mg capsule 7-27 ity of 00:00: [place] 00 Medical Branch DEXILANT 60 0 Yes Univer s mg capsule 7-27 ity of 00:00: [place] 00 Medical Branch DEXILANT 60 0 Yes Univer s mg capsule 7-27 ity of 00:00: [place] 00 Medical Branch DEXILANT 60 0 Yes Univer s mg capsule 7-27 ity of 00:00: [place] 00 Medical Branch rosuvastati Yes 10mg Take 10 mg Univers n 10 mg 7-22 by mouth ity of tablet 00:00: every [place] 00 evening. Medical Branch hyoscyamine Yes DISSOLVE 1 Univers sulfate 7-22 TABLET ity of 0.125 mg 00:00: UNDER THE [place] sublingual 00 TONGUE Medical tablet EVERY 12 Branch HOURS NEEDED rosuvastati Yes 10mg Take 10 mg Univers n 10 mg 7-22 by mouth ity of tablet 00:00: every [place] 00 evening. Medical Branch hyoscyamine Yes DISSOLVE 1 Univers sulfate 7-22 TABLET ity of 0.125 mg 00:00: UNDER THE [place] sublingual 00 TONGUE Medical tablet EVERY 12 Branch HOURS NEEDED rosuvastati Yes 10mg Take 10 mg Univers n 10 mg 7-22 by mouth ity of tablet 00:00: every [place] 00 evening. Medical Branch hyoscyamine Yes DISSOLVE 1 Univers sulfate 7-22 TABLET ity of 0.125 mg 00:00: UNDER THE [place] sublingual 00 TONGUE Medical tablet EVERY 12 Branch HOURS NEEDED rosuvastati Yes 10mg Take 10 mg Univers n 10 mg 7-22 by mouth ity of tablet 00:00: every [place] 00 evening. Medical Branch hyoscyamine Yes DISSOLVE 1 Univers sulfate 7-22 TABLET ity of 0.125 mg 00:00: UNDER THE [place] sublingual 00 TONGUE Medical tablet EVERY 12 Branch HOURS NEEDED rosuvastati Yes 10mg Take 10 mg Univers n 10 mg 7-22 by mouth ity of tablet 00:00: every [place] 00 evening. Medical Branch hyoscyamine Yes DISSOLVE 1 Univers sulfate 7-22 TABLET ity of 0.125 mg 00:00: UNDER THE [place] sublingual 00 TONGUE Medical tablet EVERY 12 Branch HOURS NEEDED rosuvastati Yes 10mg Take 10 mg Univers n 10 mg 7-22 by mouth ity of tablet 00:00: every [place] 00 evening. Medical Branch hyoscyamine Yes DISSOLVE 1 Univers sulfate 7-22 TABLET ity of 0.125 mg 00:00: UNDER THE [place] sublingual 00 TONGUE Medical tablet EVERY 12 Branch HOURS NEEDED CREON Yes TAKE 2 Univers 36,000-114, 7-14 CAPSULES ity of 000- 00:00: BY MOUTH [place] 180,000 00 PER MEAL Medical unit CpDR AND 1 Branch CAPSULE PER SNACK (CHANGED DAYS) CREON Yes TAKE 2 Univers 36,000-114, 7-14 CAPSULES ity of 000- 00:00: BY MOUTH [place] 180,000 00 PER MEAL Medical unit CpDR AND 1 Branch CAPSULE PER SNACK (CHANGED DAYS) CREON 0 Yes TAKE 2 Univers 36,000-114, 7-14 CAPSULES ity of 000- 00:00: BY MOUTH [place] 180,000 00 PER MEAL Medical unit CpDR AND 1 Branch CAPSULE PER SNACK (CHANGED DAYS) CREON 0 Yes TAKE 2 Univers 36,000-114, 7-14 CAPSULES ity of 000- 00:00: BY MOUTH [place] 180,000 00 PER MEAL Medical unit CpDR AND 1 Branch CAPSULE PER SNACK (CHANGED DAYS) CREON 2021-0 Yes TAKE 2 Univers 36,000-114, 7-14 CAPSULES ity of 000- 00:00: BY MOUTH [place] 180,000 00 PER MEAL Medical unit CpDR AND 1 Branch CAPSULE PER SNACK (CHANGED DAYS) CREON 2021-0 Yes TAKE 2 Univers 36,000-114, 7-14 CAPSULES ity of 000- 00:00: BY MOUTH [place] 180,000 00 PER MEAL Medical unit CpDR AND 1 Branch CAPSULE PER SNACK (CHANGED DAYS) Cyclobenzap Cyclobenzap 2021-0 No 1{table Cyclobenza rine HCl 5 rine HCl 5 7-07 t} ilene HCl MG MG 00:00: 5 MG 00 Acetaminoph Acetaminoph 2022-0 No 1{table QID Acetaminop en-Codeine en-Codeine 7-07 t_as_ne hen-Codein #3 300-30 #3 300-30 00:00: eded} e #3 MG MG 00 300-30 MG Acetaminoph Acetaminoph 2022-0 No 1{table QID Acetaminop en-Codeine en-Codeine 7-07 t_as_ne hen-Codein #3 300-30 #3 300-30 00:00: eded} e #3 MG MG 00 300-30 MG Cyclobenzap Cyclobenzap 2022-0 No 1{table Cyclobenza rine HCl 5 rine HCl 5 7-07 t} ilene HCl MG MG 00:00: 5 MG 00 Acetaminoph Acetaminoph 2022-0 No 1{table QID Acetaminop en-Codeine en-Codeine 7-07 t_as_ne hen-Codein #3 300-30 #3 300-30 00:00: eded} e #3 MG MG 00 300-30 MG Cyclobenzap Cyclobenzap 2022-0 No 1{table Cyclobenza rine HCl 5 rine HCl 5 7-07 t} ilene HCl MG MG 00:00: 5 MG 00 Acetaminoph Acetaminoph 2022-0 No 1{table QID Acetaminop en-Codeine en-Codeine 7-07 t_as_ne hen-Codein #3 300-30 #3 300-30 00:00: eded} e #3 MG MG 00 300-30 MG Cyclobenzap Cyclobenzap 2022-0 No 1{table Cyclobenza rine HCl 5 rine HCl 5 7-07 t} ilene HCl MG MG 00:00: 5 MG 00 Acetaminoph Acetaminoph 2022-0 No 1{table QID Acetaminop en-Codeine en-Codeine 7-07 t_as_ne hen-Codein #3 300-30 #3 300-30 00:00: eded} e #3 MG MG 00 300-30 MG Cyclobenzap Cyclobenzap 2022-0 No 1{table Cyclobenza rine HCl 5 rine HCl 5 7-07 t} ilene HCl MG MG 00:00: 5 MG 00 Acetaminoph Acetaminoph 2022-0 No 1{table QID Acetaminop en-Codeine en-Codeine 7-07 t_as_ne hen-Codein #3 300-30 #3 300-30 00:00: eded} e #3 MG MG 00 300-30 MG Cyclobenzap Cyclobenzap 2022-0 No 1{table Cyclobenza rine HCl 5 rine HCl 5 7-07 t} ilene HCl MG MG 00:00: 5 MG 00 Acetaminoph Acetaminoph 2022-0 No 1{table QID Acetaminop en-Codeine en-Codeine 7-07 t_as_ne hen-Codein #3 300-30 #3 300-30 00:00: eded} e #3 MG MG 00 300-30 MG Cyclobenzap Cyclobenzap 2022-0 No 1{table Cyclobenza rine HCl 5 rine HCl 5 7-07 t} ilene HCl MG MG 00:00: 5 MG 00 Acetaminoph Acetaminoph 2022-0 No 1{table QID Acetaminop en-Codeine en-Codeine 7-07 t_as_ne hen-Codein #3 300-30 #3 300-30 00:00: eded} e #3 MG MG 00 300-30 MG Cyclobenzap Cyclobenzap 2022-0 No 1{table Cyclobenza rine HCl 5 rine HCl 5 7-07 t} ilene HCl MG MG 00:00: 5 MG 00 Cyclobenzap Cyclobenzap 2021-0 No 1{table Cyclobenza rine HCl 5 rine HCl 5 7-07 t} ilene HCl MG MG 00:00: 5 MG 00 Acetaminoph Acetaminoph 2-0 No 1{table QID Acetaminop en-Codeine en-Codeine - t_as_ne hen-Codein #3 300-30 #3 300-30 00:00: eded} e #3 MG MG 00 300-30 MG methocarbam 2021-0 Yes TAKE 1 Univ ers oL 750 mg 6-24 TABLET BY ity o f tablet 00:00: MOUTH THREE Medical TIMES Branch DAILY DIRECTED methocarbam 2-0 Yes TAKE 1 Univ ers oL 750 mg 6-24 TABLET BY ity o f tablet 00:00: MOUTH THREE Medical TIMES Branch DAILY DIRECTED methocarbam 2-0 Yes TAKE 1 Univ ers oL 750 mg 6-24 TABLET BY ity o f tablet 00:00: MOUTH THREE Medical TIMES Branch DAILY DIRECTED methocarbam 2-0 Yes TAKE 1 Univ ers oL 750 mg 6-24 TABLET BY ity o f tablet 00:00: MOUTH THREE Medical TIMES Branch DAILY DIRECTED methocarbam 2022-0 Yes TAKE 1 Univ ers oL 750 mg 6-24 TABLET BY ity o f tablet 00:00: MOUTH THREE Medical TIMES Branch DAILY DIRECTED methocarbam 2-0 Yes TAKE 1 Univ ers oL 750 mg 6-24 TABLET BY ity o f tablet 00:00: MOUTH THREE Medical TIMES Branch DAILY DIRECTED ALPRAZolam 2-0 Yes TAKE 1 Unive rs 0.25 mg 6-21 TABLET BY ity of tablet 00:00: MOUTH 00 DAILY AT Medical BEDTIME Branch NEEDED FOR SLEEP ALPRAZolam 2-0 Yes TAKE 1 Unive rs 0.25 mg 6-21 TABLET BY ity of tablet 00:00: MOUTH 00 DAILY AT Medical BEDTIME Branch NEEDED FOR SLEEP ALPRAZolam 2-0 Yes TAKE 1 Unive rs 0.25 mg 6-21 TABLET BY ity of tablet 00:00: MOUTH 00 DAILY AT Medical BEDTIME Branch NEEDED FOR SLEEP ALPRAZolam Yes TAKE 1 Unive rs 0.25 mg 6-21 TABLET BY ity of tablet 00:00: MOUTH ONCE [place] 00 DAILY AT Medical BEDTIME Branch NEEDED FOR SLEEP ALPRAZolam 0 Yes TAKE 1 Unive rs 0.25 mg 6-21 TABLET BY ity of tablet 00:00: MOUTH ONCE [place] 00 DAILY AT Medical BEDTIME Branch NEEDED FOR SLEEP ALPRAZolam 0 Yes TAKE 1 Unive rs 0.25 mg 6-21 TABLET BY ity of tablet 00:00: MOUTH ONCE [place] 00 DAILY AT Medical BEDTIME Branch NEEDED FOR SLEEP dexAMETHaso 2021-0 Yes 4mg Take 4 mg U nivers ne 4 mg 6-17 by mouth ity of tablet 00:00: in the [place] morning Medical and 4 mg Branch in the evening. dexAMETHaso 2021-0 Yes 4mg Take 4 mg U nivers ne 4 mg 6-17 by mouth ity of tablet 00:00: in the [place] morning Medical and 4 mg Branch in the evening. dexAMETHaso 2021-0 Yes 4mg Take 4 mg U nivers ne 4 mg 6-17 by mouth ity of tablet 00:00: in the [place] morning Medical and 4 mg Branch in the evening. dexAMETHaso 2021-0 Yes 4mg Take 4 mg U nivers ne 4 mg 6-17 by mouth ity of tablet 00:00: in the [place] morning Medical and 4 mg Branch in the evening. dexAMETHaso 2021-0 Yes 4mg Take 4 mg U nivers ne 4 mg 6-17 by mouth ity of tablet 00:00: in the [place] morning Medical and 4 mg Branch in the evening. dexAMETHaso 2021-0 Yes 4mg Take 4 mg U nivers ne 4 mg 6-17 by mouth ity of tablet 00:00: in the [place] [id number] morning Medical and 4 mg Branch in the evening. predniSONE predniSONE 2021-0 2021- No 1{table QD predniSONE 10 MG 10 MG 5-10 05-17 t} 10 MG 00:00: 00:00 00 :00 Methocarbam Methocarbam 2021-0 2021- No Methocarba ol 750 MG ol 750 MG - 04-02 mol 750 MG 00:00: 00:00 00 :00 Kenalog Kenalog 2020-0 No 40mg Common (Triamcinol (Triamcinol 4-26 S pirit one) one) 00:00: - [facility] Bupivicaine Bupivicaine 2020-0 No Common [place]-26 Spirit 00:00: - [facility] Kenalog Kenalog 2020-0 No 40mg Common (Triamcinol (Triamcinol 4-26 S pirit one) one) 00:00: - [facility] Bupivicaine Bupivicaine 2020-0 No 2.5mg Common [place] 4-26 Spirit 00:00: - [facility] Kenalog Kenalog 2020-0 No 40mg Common (Triamcinol (Triamcinol 4-26 S pirit one) one) 00:00: - [facility] Bupivicaine Bupivicaine 2020-0 No 2.5mg Common [place] 4-26 Spirit 00:00: - [facility] Kenalog Kenalog 2020-0 No 40mg Common (Triamcinol (Triamcinol 4-26 S pirit one) one) 00:00: - [facility] Bupivicaine Bupivicaine 2020-0 No 2.5mg Common [place] 4-26 Spirit 00:00: - [facility] Kenalog Kenalog 2020-0 No 40mg Common (Triamcinol (Triamcinol 4-26 S pirit one) one) 00:00: - [facility] Bupivicaine Bupivicaine 2020-0 No 2.5mg Common [place] 4-26 Spirit 00:00: - [facility] Kenalog Kenalog 2020-0 No 40mg Common (Triamcinol (Triamcinol 4-26 S pirit one) one) 00:00: - [facility] Bupivicaine Bupivicaine 2020-0 No 2.5mg Common [place] 4-26 Spirit 00:00: - [facility] Kenalog Kenalog 2020-0 No 40mg Common (Triamcinol (Triamcinol 4-26 S pirit one) one) 00:00: - [facility] Bupivicaine Bupivicaine 2020-0 No 2.5mg Common [place] 4-26 Spirit 00:00: - [facility] 00 [facility] Kenalog Kenalog 2020-0 No 40mg Common (Triamcinol (Triamcinol 4-26 S pirit one) one) 00:00: - [facility] Bupivicaine Bupivicaine 2020-0 No 2.5mg Common [place] 4-26 Spirit 00:00: - [facility] Kenalog Kenalog 2020-0 No 40mg Common (Triamcinol (Triamcinol 4-26 S pirit one) one) 00:00: - [facility] Bupivicaine Bupivicaine 2020-0 No 2.5mg Common [place] 4-26 Spirit 00:00: - [facility] Kenalog Kenalog 2020-0 No 40mg Common (Triamcinol (Triamcinol 4-26 S pirit one) one) 00:00: - [facility] Bupivicaine Bupivicaine 2020-0 No 2.5mg Common [place] 4-26 Spirit 00:00: - [facility] 00 [facility] Kenalog Kenalog 2020-0 No 40mg Common (Triamcinol (Triamcinol 4-26 S pirit one) one) 00:00: - [facility] Bupivicaine Bupivicaine 2020-0 No 2.5mg Common [place] 4-26 Spirit 00:00: - [facility] 00 [facility] Kenalog Kenalog 2020-0 No 40mg Common (Triamcinol (Triamcinol 4-26 S pirit one) one) 00:00: - [facility] Bupivicaine Bupivicaine 2020-0 No 2.5mg Common [place] 4-26 Spirit 00:00: - [facility] 00 [facility] Kenalog Kenalog 2020-0 No 40mg Common (Triamcinol (Triamcinol 4-26 S pirit one) one) 00:00: - [facility] Bupivicaine Bupivicaine 2020-0 No 2.5mg Common [place] 4-26 Spirit 00:00: - [facility] 00 [facility] Kenalog Kenalog 2020-0 No 40mg Common (Triamcinol (Triamcinol 4-26 S pirit one) one) 00:00: - [facility] Bupivicaine Bupivicaine 2020-0 No 2.5mg Common [place] 4-26 Spirit 00:00: - [facility] 00 [facility] Kenalog Kenalog 2020-0 No 40mg Common (Triamcinol (Triamcinol 4-26 S pirit one) one) 00:00: - [facility] Bupivicaine Bupivicaine 2020-0 No 2.5mg Common [place] 4-26 Spirit 00:00: - [facility] 00 [facility] Kenalog Kenalog 2020-0 No 40mg Common (Triamcinol (Triamcinol 4-26 S pirit one) one) 00:00: - [facility] Bupivicaine Bupivicaine 2020-0 No Common [place] 4[place]26 Spirit 00:00: - [facility] 00 [facility] Acetaminoph Acetaminoph 2020-0 No 1{table QID Acetaminop en-Codeine en-Codeine 3-25 t_as_ne hen-Codein #3 300-30 #3 300-30 00:00: eded} e #3 MG MG 00 300-30 MG Acetaminoph Acetaminoph 2020-0 No 1{table QID Acetaminop en-Codeine en-Codeine 3-25 t_as_ne hen-Codein #3 300-30 #3 300-30 00:00: eded} e #3 MG MG 00 300-30 MG Acetaminoph Acetaminoph 2020-0 No 1{table QID Acetaminop en-Codeine en-Codeine 3-25 t_as_ne hen-Codein #3 300-30 #3 300-30 00:00: eded} e #3 MG MG 00 300-30 MG Acetaminoph Acetaminoph 2020-0 No 1{table QID Acetaminop en-Codeine en-Codeine 3-25 t_as_ne hen-Codein #3 300-30 #3 300-30 00:00: eded} e #3 MG MG 00 300-30 MG Acetaminoph Acetaminoph 2021-0 No 1{table QID Acetaminop en-Codeine en-Codeine 3-25 t_as_ne hen-Codein #3 300-30 #3 300-30 00:00: eded} e #3 MG MG 00 300-30 MG Acetaminoph Acetaminoph 2021-0 No 1{table QID Acetaminop en-Codeine en-Codeine 3-25 t_as_ne hen-Codein #3 300-30 #3 300-30 00:00: eded} e #3 MG MG 00 300-30 MG Acetaminoph Acetaminoph 2021-0 No 1{table QID Acetaminop en-Codeine en-Codeine 3-25 t_as_ne hen-Codein #3 300-30 #3 300-30 00:00: eded} e #3 MG MG 00 300-30 MG Acetaminoph Acetaminoph 2021-0 No 1{table QID Acetaminop en-Codeine en-Codeine 3-25 t_as_ne hen-Codein #3 300-30 #3 300-30 00:00: eded} e #3 MG MG 00 300-30 MG Acetaminoph Acetaminoph 2021-0 No 1{table QID Acetaminop en-Codeine en-Codeine 3-25 t_as_ne hen-Codein #3 300-30 #3 300-30 00:00: eded} e #3 MG MG 00 300-30 MG Acetaminoph Acetaminoph 2021-0 No 1{table QID Acetaminop en-Codeine en-Codeine 3-25 t_as_ne hen-Codein #3 300-30 #3 300-30 00:00: eded} e #3 MG MG 00 300-30 MG Acetaminoph Acetaminoph 2021-0 No 1{table QID Acetaminop en-Codeine en-Codeine 3-25 t_as_ne hen-Codein #3 300-30 #3 300-30 00:00: eded} e #3 MG MG 00 300-30 MG Acetaminoph Acetaminoph 2021-0 No 1{table QID Acetaminop en-Codeine en-Codeine 3-25 t_as_ne hen-Codein #3 300-30 #3 300-30 00:00: eded} e #3 MG MG 00 300-30 MG Acetaminoph Acetaminoph 2021-0 No 1{table QID Acetaminop en-Codeine en-Codeine 3-25 t_as_ne hen-Codein #3 300-30 #3 300-30 00:00: eded} e #3 MG MG 00 300-30 MG Acetaminoph Acetaminoph 2021-0 No 1{table QID Acetaminop en-Codeine en-Codeine 3-25 t_as_ne hen-Codein #3 300-30 #3 300-30 00:00: eded} e #3 MG MG 00 300-30 MG Acetaminoph Acetaminoph 2021-0 No 1{table QID Acetaminop en-Codeine en-Codeine 3-25 t_as_ne hen-Codein #3 300-30 #3 300-30 00:00: eded} e #3 MG MG 00 300-30 MG Acetaminoph Acetaminoph 2021-0 No 1{table QID Acetaminop en-Codeine en-Codeine 3-25 t_as_ne hen-Codein #3 300-30 #3 300-30 00:00: eded} e #3 MG MG 00 300-30 MG Estradiol Estradiol 2019-11 No Estradiol 0.1 MG/GM 0.1 MG/GM 1-04 0.1 MG/GM 00:00: 00 Estradiol Estradiol 2019-11 No Estradiol 0.1 MG/GM 0.1 MG/GM 1-04 0.1 MG/GM 00:00: 00 Estradiol Estradiol 2019-11 No Estradiol 0.1 MG/GM 0.1 MG/GM 1-04 0.1 MG/GM 00:00: 00 Estradiol Estradiol 2019-11 No Estradiol 0.1 MG/GM 0.1 MG/GM 1-04 0.1 MG/GM 00:00: 00 Estradiol Estradiol 2019-11 No Estradiol 0.1 MG/GM 0.1 MG/GM 1-04 0.1 MG/GM 00:00: 00 Estradiol Estradiol 2019-11 No Estradiol 0.1 MG/GM 0.1 MG/GM 1-04 0.1 MG/GM 00:00: 00 Estradiol Estradiol 2019-11 No Estradiol 0.1 MG/GM 0.1 MG/GM 1-04 0.1 MG/GM 00:00: 00 Estradiol Estradiol 2019-11 No Estradiol 0.1 MG/GM 0.1 MG/GM 1-04 0.1 MG/GM 00:00: 00 Estradiol Estradiol 2019-11 No Estradiol 0.1 MG/GM 0.1 MG/GM 1-04 0.1 MG/GM 00:00: 00 Estradiol Estradiol 2019-11 No Estradiol 0.1 MG/GM 0.1 MG/GM 1-04 0.1 MG/GM 00:00: 00 Estradiol Estradiol 2019-11 No Estradiol 0.1 MG/GM 0.1 MG/GM 1-04 0.1 MG/GM 00:00: 00 Estradiol Estradiol 2019-11 No Estradiol 0.1 MG/GM 0.1 MG/GM 1-04 0.1 MG/GM 00:00: 00 Estradiol Estradiol 2019-11 No Estradiol 0.1 MG/GM 0.1 MG/GM 1-04 0.1 MG/GM 00:00: 00 Estradiol Estradiol 2019-11 No Estradiol 0.1 MG/GM 0.1 MG/GM 1-04 0.1 MG/GM 00:00: 00 Estradiol Estradiol 2019-11 No Estradiol 0.1 MG/GM 0.1 MG/GM 1-04 0.1 MG/GM 00:00: 00 Estradiol Estradiol 2019-11 No Estradiol 0.1 MG/GM 0.1 MG/GM 1-04 0.1 MG/GM 00:00: 00 MethylPREDN MethylPREDN 2019-0 Yes Osvaldo as Common ISolone ISolone 8- Hernandez directed Spiri t 00:00: - [facility] 00 [facility] methylPREDN methylPREDN 2020-0 No methylPRED ISolone 4 ISolone 4 8-21 NISolone 4 MG MG 00:00: MG 00 methylPREDN methylPREDN 2020-0 No methylPRED ISolone 4 ISolone 4 8-21 NISolone 4 MG MG 00:00: MG 00 methylPREDN methylPREDN 2020-0 No methylPRED ISolone 4 ISolone 4 8-21 NISolone 4 MG MG 00:00: MG 00 methylPREDN methylPREDN 2020-0 No methylPRED ISolone 4 ISolone 4 8-21 NISolone 4 MG MG 00:00: MG 00 methylPREDN methylPREDN 2020-0 No methylPRED ISolone 4 ISolone 4 8-21 NISolone 4 MG MG 00:00: MG 00 methylPREDN methylPREDN 2020-0 No methylPRED ISolone 4 ISolone 4 8-21 NISolone 4 MG MG 00:00: MG 00 methylPREDN methylPREDN 2020-0 No methylPRED ISolone 4 ISolone 4 8-21 NISolone 4 MG MG 00:00: MG 00 methylPREDN methylPREDN 2020-0 No methylPRED ISolone 4 ISolone 4 8-21 NISolone 4 MG MG 00:00: MG 00 methylPREDN methylPREDN 2020-0 No methylPRED ISolone 4 ISolone 4 8- NISolone 4 MG MG 00:00: MG 00 methylPREDN methylPREDN 2020-0 No methylPRED ISolone 4 ISolone 4 8-21 NISolone 4 MG MG 00:00: MG 00 methylPREDN methylPREDN 2020-0 No methylPRED ISolone 4 ISolone 4 8- NISolone 4 MG MG 00:00: MG 00 methylPREDN methylPREDN 2020-0 No methylPRED ISolone 4 ISolone 4 8-21 NISolone 4 MG MG 00:00: MG 00 methylPREDN methylPREDN 2020-0 No methylPRED ISolone 4 ISolone 4 8- NISolone 4 MG MG 00:00: MG 00 methylPREDN methylPREDN 2020-0 No methylPRED ISolone 4 ISolone 4 8-21 NISolone 4 MG MG 00:00: MG 00 methylPREDN methylPREDN 2020-0 No methylPRED ISolone 4 ISolone 4 8-21 NISolone 4 MG MG 00:00: MG 00 methylPREDN methylPREDN 2020-0 No methylPRED ISolone 4 ISolone 4 8-21 NISolone 4 MG MG 00:00: MG 00 Bupivicaine Bupivicaine 2020-0 No 5mL Common [place] - Spirit 00:00: - [facility] 00 [facility] Kenalog Kenalog 2020-0 No 40mg Common (Triamcinol (Triamcinol 6-29 S pirit one) one) 00:00: - [facility] 00 [facility] Bupivicaine Bupivicaine 2020-0 No 5mL Common [place] 6[place]29 Spirit 00:00: - [facility] 00 [facility] Kenalog Kenalog 2020-0 No 40mg Common (Triamcinol (Triamcinol 6-29 S pirit one) one) 00:00: - [facility] 00 [facility] Bupivicaine Bupivicaine 2020-0 No 5mL Common [place] 6[place]29 Spirit 00:00: - [facility] 00 [facility] Kenalog Kenalog 2020-0 No 40mg Common (Triamcinol (Triamcinol 6-29 S pirit one) one) 00:00: - [facility] 00 [facility] Bupivicaine Bupivicaine 2020-0 No 5mL Common [place] 6-29 Spirit 00:00: - [facility] 00 [facility] Kenalog Kenalog 2020-0 No 40mg Common (Triamcinol (Triamcinol 6-29 S pirit one) one) 00:00: - [facility] 00 [facility] Bupivicaine Bupivicaine 2020-0 No 5mL Common [place] 6-29 Spirit 00:00: - [facility] 00 [facility] Kenalog Kenalog 2020-0 No 40mg Common (Triamcinol (Triamcinol 6-29 S pirit one) one) 00:00: - [facility] 00 [facility] Bupivicaine Bupivicaine 2020-0 No 5mL Common [place] 6-29 Spirit 00:00: - [facility] 00 [facility] Kenalog Kenalog 2020-0 No 40mg Common (Triamcinol (Triamcinol 6-29 S pirit one) one) 00:00: - [facility] 00 [facility] Bupivicaine Bupivicaine 2020-0 No 5mL Common [place] 6-29 Spirit 00:00: - [facility] 00 [facility] Kenalog Kenalog 2020-0 No 40mg Common (Triamcinol (Triamcinol 6-29 S pirit one) one) 00:00: - [facility] 00 [facility] Bupivicaine Bupivicaine 2020-0 No 5mL Common [place] 6-29 Spirit 00:00: - [facility] 00 [facility] Kenalog Kenalog 2020-0 No 40mg Common (Triamcinol (Triamcinol 6-29 S pirit one) one) 00:00: - [facility] 00 [facility] Bupivicaine Bupivicaine 2020-0 No 5mL Common [place] 6[place]29 Spirit 00:00: - [facility] 00 [facility] Kenalog Kenalog 2020-0 No 40mg Common (Triamcinol (Triamcinol 6-29 S pirit one) one) 00:00: - [facility] 00 [facility] Bupivicaine Bupivicaine 2020-0 No 5mL Common [place] 6[place]29 Spirit 00:00: - [facility] 00 [facility] Kenalog Kenalog 2020-0 No 40mg Common (Triamcinol (Triamcinol 6-29 S pirit one) one) 00:00: - [facility] 00 [facility] Bupivicaine Bupivicaine 2020-0 No 5mL Common [place] 6-29 Spirit 00:00: - [facility] 00 [facility] Kenalog Kenalog 2020-0 No 40mg Common (Triamcinol (Triamcinol 6-29 S pirit one) one) 00:00: - [facility] 00 [facility] Bupivicaine Bupivicaine 2020-0 No 5mL Common [place] 6-29 Spirit 00:00: - [facility] 00 [facility] Kenalog Kenalog 2020-0 No 40mg Common (Triamcinol (Triamcinol 6-29 S pirit one) one) 00:00: - [facility] 00 [facility] Bupivicaine Bupivicaine 2020-0 No 5mL Common [place] 6-29 Spirit 00:00: - [facility] 00 [facility] Kenalog Kenalog 2020-0 No 40mg Common (Triamcinol (Triamcinol 6-29 S pirit one) one) 00:00: - [facility] 00 [facility] Bupivicaine Bupivicaine 2020-0 No 5mL Common [place] 6-29 Spirit 00:00: - [facility] 00 [facility] Kenalog Kenalog 2020-0 No 40mg Common (Triamcinol (Triamcinol 6-29 S pirit one) one) 00:00: - [facility] 00 [facility] Bupivicaine Bupivicaine 2020-0 No 5mL Common [place] 6-29 Spirit 00:00: - [facility] 00 [facility] Kenalog Kenalog 2020-0 No 40mg Common (Triamcinol (Triamcinol 6-29 S pirit one) one) 00:00: - [facility] 00 [facility] Bupivicaine Bupivicaine 2020-0 No 5mL Common [place] 6-29 Spirit 00:00: - [facility] Kenalog Kenalog 2020-0 No 40mg Common (Triamcinol (Triamcinol 6-29 S pirit one) one) 00:00: - [facility] 00 [facility] LIDOCAINE LIDOCAINE 2019-0 No 10mg Com mon HCL 10MG/ML HCL 10MG/ML 5-30 S pirit 00:00: - [facility] Kenalog Kenalog 2019-0 No 40mg Common (Triamcinol (Triamcinol 5-30 S pirit one) one) 00:00: - [facility] LIDOCAINE LIDOCAINE 2019-0 No 10mg Com mon HCL 10MG/ML HCL 10MG/ML 5-30 S pirit 00:00: - [facility] Kenalog Kenalog 2019-0 No 40mg Common (Triamcinol (Triamcinol 5-30 S pirit one) one) 00:00: - [facility] LIDOCAINE LIDOCAINE 2019-0 No 10mg Com mon HCL 10MG/ML HCL 10MG/ML 5-30 S pirit 00:00: - [facility] Kenalog Kenalog 2019-0 No 40mg Common (Triamcinol (Triamcinol 5-30 S pirit one) one) 00:00: - [facility] LIDOCAINE LIDOCAINE 2019-0 No 10mg Com mon HCL 10MG/ML HCL 10MG/ML 5-30 S pirit 00:00: - [facility] 00 [facility] Kenalog Kenalog 2019-0 No 40mg Common (Triamcinol (Triamcinol 5-30 S pirit one) one) 00:00: - [facility] LIDOCAINE LIDOCAINE 2019-0 No 10mg Com mon HCL 10MG/ML HCL 10MG/ML 5-30 S pirit 00:00: - [facility] Kenalog Kenalog 2019-0 No 40mg Common (Triamcinol (Triamcinol 5-30 S pirit one) one) 00:00: - [facility] 00 [facility] LIDOCAINE LIDOCAINE 2019-0 No 10mg Com mon HCL 10MG/ML HCL 10MG/ML 5-30 S pirit 00:00: - [facility] 00 [facility] Kenalog Kenalog 2019-0 No 40mg Common (Triamcinol (Triamcinol 5-30 S pirit one) one) 00:00: - [facility] 00 [facility] LIDOCAINE LIDOCAINE 2019-0 No 10mg Com mon HCL 10MG/ML HCL 10MG/ML 5-30 S pirit 00:00: - [facility] Kenalog Kenalog 2019-0 No 40mg Common (Triamcinol (Triamcinol 5-30 S pirit one) one) 00:00: - [facility] 00 [facility] LIDOCAINE LIDOCAINE 2019-0 No 10mg Com mon HCL 10MG/ML HCL 10MG/ML 5-30 S pirit 00:00: - [facility] Kenalog Kenalog 2019-0 No 40mg Common (Triamcinol (Triamcinol 5-30 S pirit one) one) 00:00: - [facility] 00 [facility] LIDOCAINE LIDOCAINE 2019-0 No 10mg Com mon HCL 10MG/ML HCL 10MG/ML 5-30 S pirit 00:00: - [facility] 00 [facility] Kenalog Kenalog 2019-0 No 40mg Common (Triamcinol (Triamcinol 5-30 S pirit one) one) 00:00: - [facility] LIDOCAINE LIDOCAINE 2019-0 No 10mg Com mon HCL 10MG/ML HCL 10MG/ML 5-30 S pirit 00:00: - [facility] 00 [facility] Kenalog Kenalog 2019-0 No 40mg Common (Triamcinol (Triamcinol 5-30 S pirit one) one) 00:00: - [facility] 00 [facility] LIDOCAINE LIDOCAINE 2019-0 No 10mg Com mon HCL 10MG/ML HCL 10MG/ML 5-30 S pirit 00:00: - [facility] Kenalog Kenalog 2019-0 No 40mg Common (Triamcinol (Triamcinol 5-30 S pirit one) one) 00:00: - [facility] LIDOCAINE LIDOCAINE 2019-0 No 10mg Com mon HCL 10MG/ML HCL 10MG/ML 5-30 S pirit 00:00: - [facility] Kenalog Kenalog 2019-0 No 40mg Common (Triamcinol (Triamcinol 5-30 S pirit one) one) 00:00: - [facility] LIDOCAINE LIDOCAINE 2019-0 No 10mg Com mon HCL 10MG/ML HCL 10MG/ML 5-30 S pirit 00:00: - [facility] Kenalog Kenalog 2019-0 No 40mg Common (Triamcinol (Triamcinol 5-30 S pirit one) one) 00:00: - [facility] LIDOCAINE LIDOCAINE 2019-0 No 10mg Com mon HCL 10MG/ML HCL 10MG/ML 5-30 S pirit 00:00: - [facility] Kenalog Kenalog 2019-0 No 40mg Common (Triamcinol (Triamcinol 5-30 S pirit one) one) 00:00: - [facility] LIDOCAINE LIDOCAINE 2019-0 No 10mg Com mon HCL 10MG/ML HCL 10MG/ML 5-30 S pirit 00:00: - [facility] Kenalog Kenalog 2019-0 No 40mg Common (Triamcinol (Triamcinol 5-30 S pirit one) one) 00:00: - [facility] LIDOCAINE LIDOCAINE 2019-0 No 10mg Com mon HCL 10MG/ML HCL 10MG/ML 5-30 S pirit 00:00: - [facility] Kenalog Kenalog 2019-0 No 40mg Common (Triamcinol (Triamcinol 5-30 S pirit one) one) 00:00: - [facility] rivaroxaban 2018-0 Yes 20mg Take 20 mg Univers (XARELTO) 8-28 by mouth. ity o f 20 mg 14:15: [place] tablet 51 [facility] sotalol 2018-0 Yes Take by Univers (BETAPACE) 8-28 mouth. ity of 80 mg 14:15: [place] tablet 51 [facility] darifenacin Yes 15mg Take 15 mg Univers (ENABLEX) 8-28 by mouth ity of 15 mg 24 hr 14:15: [place] 51 [facility] sucralfate Yes Take by Univ ers (CARAFATE) 8-28 mouth. ity of 1 g tablet 14:15: [place] 51 [facility] dexlansopra Yes Take by Uni vers zole 8-28 mouth. ity of (DEXILANT) 14:15: [place] 60 mg 51 MD capsule [facility] hyoscyamine Yes .125mg Take 0.125 Univers (ANASPAZ,LE 8-28 mg by ity of VSIN) 0.125 14:15: mouth [place] mg tablet 51 every 4 MD (four) Anderso hours as n needed for Cancer cramping. [place] ALPRAZolam Yes .25mg Take 0.25 U nivers (XANAX) 8-28 mg by ity of 0.25 mg 14:15: mouth. [place] tablet 51 [facility] calcium Yes 600mg Take 600 Unive rs carbonate 8-28 mg by ity of (OS-ELISSA) 14:15: mouth 2 [place] 600 mg 51 (two) calcium times a Anderso (1,500 mg) day with n tablet meals. [facility] beclomethas Yes Inhale by U nivers one 8-28 mouth. 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 Acetaminoph Acetaminoph Yes Osvaldo (Schedule Common en-Codeine en-Codeine [facility]) [facility] #3 #3 TAKE 1 - [facility] TABLET BY [facility] TIMES Medical DAILY Center NEEDED FOR PAIN Rosuvastati Rosuvastati Yes Osvaldo not Common n Calcium n Calcium Hernandez defined Sp lamont - [facility] Xarelto Xarelto Yes Osvaldo 1 tablet Co mmon Hernandez with food [facility] Myrbetriq Myrbetriq Yes Osvaldo 1 tablet Common Hernandez [facility] Xanax Xanax Yes Osvaldo 1 tablet Common Hernandez [facility] Tramadol Tramadol Yes Osvaldo not Comm on HCl HCl Hernandez defined [facility] Azithromyci Azithromyci Yes Osvaldo not Common n n Hernandez defined [facility] Premarin Premarin Yes Osvaldo not Comm on Hernandez defined [facility] Creon Creon Yes Osvaldo not Common Hernandez defined [facility] Combivent Combivent Yes Osvaldo not Co mmon Respimat Respimat Hernandez defined [facility] Oxybutynin Oxybutynin Yes Osvaldo not Common Chloride Chloride Hernandez defined [facility] Olamide Olamide Yes Osvaldo not Common Hernandez defined [facility] Alprazolam Alprazolam Yes Osvaldo not Common Hernandez defined [facility] Sucralfate Sucralfate Yes Osvaldo not Common Hernandez defined [facility] Dexilant Dexilant Yes Osvaldo not Comm on Hernandez defined [facility] Trimethopri Trimethopri Yes Osvaldo 1 tablet Common m m Hernandez [facility] Symbicort Symbicort Yes Osvaldo not Co mmon Hernandez defined [facility] Losartan Losartan Yes Osvaldo not Comm on Potassium Potassium [facility] Sotalol HCl Yes Osvaldo not Common Hernandez defined [facility] Estradiol Estradiol Yes Osvaldo not Co mmon Hernandez defined [facility] Creon Creon No Creon Losartan Losartan No Losartan Potassium Potassium Potassium Creon Creon No Creon Xarelto 20 Xarelto 20 No 1{table QD Xarelto 20 MG MG t_with_ MG food} Sotalol HCl Sotalol HCl No Sotalol HCl Dexilant Dexilant No Dexilant Combivent Combivent No Combivent Respimat Respimat Respimat Xanax 0.25 Xanax 0.25 No 1{table BID Xanax 0.25 MG MG t} MG Acetaminoph Acetaminoph No Acetaminop en-Codeine en-Codeine hen-Codein #3 300-30 #3 300-30 e #3 MG MG 300-30 MG Symbicort Symbicort No Symbicort Olamide Olamide No Olamide Azithromyci Azithromyci No Azithromyc n n in Sucralfate Sucralfate No Sucralfate Estradiol Estradiol No Estradiol ALPRAZolam ALPRAZolam No ALPRAZolam Rosuvastati Rosuvastati No Rosuvastat n Calcium n Calcium in Calcium traMADol traMADol No traMADol HCl HCl HCl Losartan Losartan No Losartan Potassium Potassium Potassium Azithromyci Azithromyci No Azithromyc n n in Symbicort Symbicort No Symbicort Estradiol Estradiol No Estradiol Sotalol HCl Sotalol HCl No Sotalol HCl Olamide Olamide No Olamide Sucralfate Sucralfate No Sucralfate Dexilant Dexilant No Dexilant Xanax 0.25 Xanax 0.25 No 1{table BID Xanax 0.25 MG MG t} MG Losartan Losartan No Losartan Potassium Potassium Potassium Combivent Combivent No Combivent Respimat Respimat Respimat Xarelto 20 Xarelto 20 No 1{table QD Xarelto 20 MG MG t_with_ MG food} Rosuvastati Rosuvastati No Rosuvastat n Calcium n Calcium in Calcium traMADol traMADol No traMADol HCl HCl HCl ALPRAZolam ALPRAZolam No ALPRAZolam Acetaminoph Acetaminoph No Acetaminop en-Codeine en-Codeine hen-Codein #3 300-30 #3 300-30 e #3 MG MG 300-30 MG Creon Creon No Creon Estradiol Estradiol No Estradiol Azithromyci Azithromyci No Azithromyc n n in Symbicort Symbicort No Symbicort Rosuvastati Rosuvastati No Rosuvastat n Calcium n Calcium in Calcium Sotalol HCl Sotalol HCl No Sotalol HCl Olamide Olamide No Olamide Sucralfate Sucralfate No Sucralfate Dexilant Dexilant No Dexilant Xanax 0.25 Xanax 0.25 No 1{table BID Xanax 0.25 MG MG t} MG Creon Creon No Creon traMADol traMADol No traMADol HCl HCl HCl Xarelto 20 Xarelto 20 No 1{table QD Xarelto 20 MG MG t_with_ MG food} Losartan Losartan No Losartan Potassium Potassium Potassium Combivent Combivent No Combivent Respimat Respimat Respimat ALPRAZolam ALPRAZolam No ALPRAZolam Acetaminoph Acetaminoph No Acetaminop en-Codeine en-Codeine hen-Codein #3 300-30 #3 300-30 e #3 MG MG 300-30 MG Estradiol Estradiol No Estradiol Azithromyci Azithromyci No Azithromyc n n in Symbicort Symbicort No Symbicort Rosuvastati Rosuvastati No Rosuvastat n Calcium n Calcium in Calcium Sotalol HCl Sotalol HCl No Sotalol HCl Olamide Olamide No Olamide Sucralfate Sucralfate No Sucralfate Dexilant Dexilant No Dexilant Xanax 0.25 Xanax 0.25 No 1{table BID Xanax 0.25 MG MG t} MG Creon Creon No Creon traMADol traMADol No traMADol HCl HCl HCl Xarelto 20 Xarelto 20 No 1{table QD Xarelto 20 MG MG t_with_ MG food} Losartan Losartan No Losartan Potassium Potassium Potassium Combivent Combivent No Combivent Respimat Respimat Respimat Methocarbam Methocarbam No Methocarba ol 750 MG ol 750 MG mol 750 MG ALPRAZolam ALPRAZolam No ALPRAZolam Acetaminoph Acetaminoph No Acetaminop en-Codeine en-Codeine hen-Codein #3 300-30 #3 300-30 e #3 MG MG 300-30 MG Estradiol Estradiol No Estradiol Azithromyci Azithromyci No Azithromyc n n in Symbicort Symbicort No Symbicort Rosuvastati Rosuvastati No Rosuvastat n Calcium n Calcium in Calcium Sotalol HCl Sotalol HCl No Sotalol HCl Olamide Olamide No Olamide Sucralfate Sucralfate No Sucralfate Dexilant Dexilant No Dexilant Xanax 0.25 Xanax 0.25 No 1{table BID Xanax 0.25 MG MG t} MG Creon Creon No Creon traMADol traMADol No traMADol HCl HCl HCl Xarelto 20 Xarelto 20 No 1{table QD Xarelto 20 MG MG t_with_ MG food} Losartan Losartan No Losartan Potassium Potassium Potassium Combivent Combivent No Combivent Respimat Respimat Respimat Methocarbam Methocarbam No Methocarba ol 750 MG ol 750 MG mol 750 MG ALPRAZolam ALPRAZolam No ALPRAZolam Acetaminoph Acetaminoph No Acetaminop en-Codeine en-Codeine hen-Codein #3 300-30 #3 300-30 e #3 MG MG 300-30 MG Sucralfate Sucralfate No Sucralfate Symbicort Symbicort No Symbicort Olamide Olamide No Olamide Xarelto 20 Xarelto 20 No 1{table QD Xarelto 20 MG MG t_with_ MG food} traMADol traMADol No traMADol HCl HCl HCl Rosuvastati Rosuvastati No Rosuvastat n Calcium n Calcium in Calcium Combivent Combivent No Combivent Respimat Respimat Respimat Methocarbam Methocarbam No Methocarba ol 750 MG ol 750 MG mol 750 MG ALPRAZolam ALPRAZolam No ALPRAZolam Acetaminoph Acetaminoph No Acetaminop en-Codeine en-Codeine hen-Codein #3 300-30 #3 300-30 e #3 MG MG 300-30 MG Creon Creon No Creon Azithromyci Azithromyci No Azithromyc n n in Sotalol HCl Sotalol HCl No Sotalol HCl Xanax 0.25 Xanax 0.25 No 1{table BID Xanax 0.25 MG MG t} MG Losartan Losartan No Losartan Potassium Potassium Potassium Dexilant Dexilant No Dexilant Azithromyci Azithromyci No Azithromyc n n in Creon Creon No Creon Rosuvastati Rosuvastati No Rosuvastat n Calcium n Calcium in Calcium Dexilant Dexilant No Dexilant traMADol traMADol No traMADol HCl HCl HCl Xarelto 20 Xarelto 20 No 1{table QD Xarelto 20 MG MG t_with_ MG food} Methocarbam Methocarbam No Methocarba ol 750 MG ol 750 MG mol 750 MG Olamide Olamide No Olamide Sotalol HCl Sotalol HCl No Sotalol HCl Acetaminoph Acetaminoph No Acetaminop en-Codeine en-Codeine hen-Codein #3 300-30 #3 300-30 e #3 MG MG 300-30 MG Symbicort Symbicort No Symbicort ALPRAZolam ALPRAZolam No ALPRAZolam Sucralfate Sucralfate No Sucralfate Combivent Combivent No Combivent Respimat Respimat Respimat Losartan Losartan No Losartan Potassium Potassium Potassium Xanax 0.25 Xanax 0.25 No 1{table BID Xanax 0.25 MG MG t} MG Azithromyci Azithromyci No Azithromyc n n in Creon Creon No Creon Rosuvastati Rosuvastati No Rosuvastat n Calcium n Calcium in Calcium Dexilant Dexilant No Dexilant traMADol traMADol No traMADol HCl HCl HCl Xarelto 20 Xarelto 20 No 1{table QD Xarelto 20 MG MG t_with_ MG food} Methocarbam Methocarbam No Methocarba ol 750 MG ol 750 MG mol 750 MG Olamide Olamide No Olamide Sotalol HCl Sotalol HCl No Sotalol HCl Acetaminoph Acetaminoph No Acetaminop en-Codeine en-Codeine hen-Codein #3 300-30 #3 300-30 e #3 MG MG 300-30 MG Symbicort Symbicort No Symbicort ALPRAZolam ALPRAZolam No ALPRAZolam Sucralfate Sucralfate No Sucralfate Combivent Combivent No Combivent Respimat Respimat Respimat Losartan Losartan No Losartan Potassium Potassium Potassium Xanax 0.25 Xanax 0.25 No 1{table BID Xanax 0.25 MG MG t} MG Azithromyci Azithromyci No Azithromyc n n in Creon Creon No Creon Rosuvastati Rosuvastati No Rosuvastat n Calcium n Calcium in Calcium Dexilant Dexilant No Dexilant traMADol traMADol No traMADol HCl HCl HCl Xarelto 20 Xarelto 20 No 1{table QD Xarelto 20 MG MG t_with_ MG food} Methocarbam Methocarbam No Methocarba ol 750 MG ol 750 MG mol 750 MG Olamide Olamide No Olamide Sotalol HCl Sotalol HCl No Sotalol HCl Acetaminoph Acetaminoph No Acetaminop en-Codeine en-Codeine hen-Codein #3 300-30 #3 300-30 e #3 MG MG 300-30 MG Symbicort Symbicort No Symbicort ALPRAZolam ALPRAZolam No ALPRAZolam Sucralfate Sucralfate No Sucralfate Combivent Combivent No Combivent Respimat Respimat Respimat Losartan Losartan No Losartan Potassium Potassium Potassium Xanax 0.25 Xanax 0.25 No 1{table BID Xanax 0.25 MG MG t} MG Sucralfate Sucralfate No Sucralfate Olamide Olamide No Olamide traMADol traMADol No traMADol HCl HCl HCl Acetaminoph Acetaminoph No Acetaminop en-Codeine en-Codeine hen-Codein #3 300-30 #3 300-30 e #3 MG MG 300-30 MG Creon Creon No Creon Xanax 0.25 Xanax 0.25 No 1{table BID Xanax 0.25 MG MG t} MG Sertraline Sertraline No Sertraline HCl HCl HCl Losartan Losartan No Losartan Potassium Potassium Potassium Methocarbam Methocarbam No Methocarba ol 750 MG ol 750 MG mol 750 MG Dexilant Dexilant No Dexilant Azithromyci Azithromyci No Azithromyc n n in Cranberry Cranberry No Cranberry ALPRAZolam ALPRAZolam No ALPRAZolam Sotalol HCl Sotalol HCl No Sotalol HCl Combivent Combivent No Combivent Respimat Respimat Respimat Symbicort Symbicort No Symbicort Caltrate Caltrate No Caltrate 600 600 600 Levsin Levsin No Levsin Rosuvastati Rosuvastati No Rosuvastat n Calcium n Calcium in Calcium Xarelto 20 Xarelto 20 No 1{table QD Xarelto 20 MG MG t_with_ MG food} Oxybutynin Oxybutynin No Oxybutynin Chloride Chloride Chloride Sucralfate Sucralfate No Sucralfate Olamide Olamide No Olamide traMADol traMADol No traMADol HCl HCl HCl Acetaminoph Acetaminoph No Acetaminop en-Codeine en-Codeine hen-Codein #3 300-30 #3 300-30 e #3 MG MG 300-30 MG Creon Creon No Creon Xanax 0.25 Xanax 0.25 No 1{table BID Xanax 0.25 MG MG t} MG Premarin Premarin No Premarin Sertraline Sertraline No Sertraline HCl HCl HCl Losartan Losartan No Losartan Potassium Potassium Potassium Methocarbam Methocarbam No Methocarba ol 750 MG ol 750 MG mol 750 MG Dexilant Dexilant No Dexilant Azithromyci Azithromyci No Azithromyc n n in Cranberry Cranberry No Cranberry ALPRAZolam ALPRAZolam No ALPRAZolam Sotalol HCl Sotalol HCl No Sotalol HCl Acetaminoph Acetaminoph No Acetaminop en-Codeine en-Codeine hen-Codein #3 300-30 #3 300-30 e #3 MG MG 300-30 MG Combivent Combivent No Combivent Respimat Respimat Respimat Symbicort Symbicort No Symbicort Caltrate Caltrate No Caltrate 600 600 600 Levsin Levsin No Levsin Rosuvastati Rosuvastati No Rosuvastat n Calcium n Calcium in Calcium Xarelto 20 Xarelto 20 No 1{table QD Xarelto 20 MG MG t_with_ MG food} traMADol traMADol No traMADol HCl HCl HCl Sucralfate Sucralfate No Sucralfate Olamide Olamide No Olamide traMADol traMADol No traMADol HCl HCl HCl Acetaminoph Acetaminoph No Acetaminop en-Codeine en-Codeine hen-Codein #3 300-30 #3 300-30 e #3 MG MG 300-30 MG Rosuvastati Rosuvastati No Rosuvastat n Calcium n Calcium in Calcium Creon Creon No Creon Xanax 0.25 Xanax 0.25 No 1{table BID Xanax 0.25 MG MG t} MG Sertraline Sertraline No Sertraline HCl HCl HCl Losartan Losartan No Losartan Potassium Potassium Potassium Methocarbam Methocarbam No Methocarba ol 750 MG ol 750 MG mol 750 MG Dexilant Dexilant No Dexilant Azithromyci Azithromyci No Azithromyc n n in Cranberry Cranberry No Cranberry Sucralfate Sucralfate No Sucralfate ALPRAZolam ALPRAZolam No ALPRAZolam Sotalol HCl Sotalol HCl No Sotalol HCl Combivent Combivent No Combivent Respimat Respimat Respimat Symbicort Symbicort No Symbicort Caltrate Caltrate No Caltrate 600 600 600 Symbicort Symbicort No Symbicort Levsin Levsin No Levsin Rosuvastati Rosuvastati No Rosuvastat n Calcium n Calcium in Calcium Xarelto 20 Xarelto 20 No 1{table QD Xarelto 20 MG MG t_with_ MG food} Creon Creon No Creon Sertraline Sertraline No Sertraline HCl HCl HCl Olamide Olamide No Olamide Acetaminoph Acetaminoph No Acetaminop en-Codeine en-Codeine hen-Codein #3 300-30 #3 300-30 e #3 MG MG 300-30 MG Combivent Combivent No Combivent Respimat Respimat Respimat traMADol traMADol No traMADol HCl HCl HCl Caltrate Caltrate No Caltrate 600 600 600 Azithromyci Azithromyci No Azithromyc n n in Cranberry Cranberry No Cranberry Symbicort Symbicort No Symbicort Methocarbam Methocarbam No Methocarba ol 750 MG ol 750 MG mol 750 MG Dexilant Dexilant No Dexilant Losartan Losartan No Losartan Potassium Potassium Potassium Combivent Combivent No Combivent Respimat Respimat Respimat Sotalol HCl Sotalol HCl No Sotalol HCl Sucralfate Sucralfate No Sucralfate Levsin Levsin No Levsin ALPRAZolam ALPRAZolam No ALPRAZolam Creon Creon No Creon Dexilant Dexilant No Dexilant Xanax 0.25 Xanax 0.25 No 1{table BID Xanax 0.25 MG MG t} MG ALPRAZolam ALPRAZolam No ALPRAZolam Rosuvastati Rosuvastati No Rosuvastat n Calcium n Calcium in Calcium Xarelto 20 Xarelto 20 No 1{table QD Xarelto 20 MG MG t_with_ MG food} Trimethopri Trimethopri No Trimethopr m 100 MG m 100 MG im 100 MG Losartan Losartan No Losartan Potassium Potassium Potassium Cranberry Cranberry No Cranberry traMADol traMADol No traMADol HCl HCl HCl Symbicort Symbicort No Symbicort Creon Creon No Creon Sertraline Sertraline No Sertraline HCl HCl HCl Myrbetriq Myrbetriq No 1{table QD Myrbetriq 50 MG 50 MG t} 50 MG Caltrate Caltrate No Caltrate 600 600 600 Sucralfate Sucralfate No Sucralfate Levsin Levsin No Levsin Methocarbam Methocarbam No Methocarba ol 750 MG ol 750 MG mol 750 MG Olamide Olamide No Olamide Xarelto 20 Xarelto 20 No 1{table QD Xarelto 20 MG MG t_with_ MG food} Azithromyci Azithromyci No Azithromyc n n in Acetaminoph Acetaminoph No Acetaminop en-Codeine en-Codeine hen-Codein #3 300-30 #3 300-30 e #3 MG MG 300-30 MG Combivent Combivent No Combivent Respimat Respimat Respimat Rosuvastati Rosuvastati No Rosuvastat n Calcium n Calcium in Calcium Sotalol HCl Sotalol HCl No Sotalol HCl Xarelto 20 Xarelto 20 No 1{table QD Xarelto 20 MG MG t_with_ MG food} Xanax 0.25 Xanax 0.25 No 1{table BID Xanax 0.25 MG MG t} MG Estradiol Estradiol No Estradiol Losartan Losartan No Losartan Potassium Potassium Potassium ALPRAZolam ALPRAZolam No ALPRAZolam Dexilant Dexilant No Dexilant Azithromyci Azithromyci No Azithromyc n n in Xanax 0.25 Xanax 0.25 No 1{table BID Xanax 0.25 MG MG t} MG Olamide Olamide No Olamide Sotalol HCl Sotalol HCl No Sotalol HCl ALPRAZolam ALPRAZolam No ALPRAZolam Xarelto 20 Xarelto 20 No 1{table QD Xarelto 20 MG MG t_with_ MG food} Estradiol Estradiol No Estradiol Xanax 0.25 Xanax 0.25 No 1{table BID Xanax 0.25 MG MG t} MG Olamide Olamide No Olamide Sotalol HCl Sotalol HCl No Sotalol HCl Premarin Premarin No Premarin Symbicort Symbicort No Symbicort Acetaminoph Acetaminoph No Acetaminop en-Codeine en-Codeine hen-Codein #3 300-30 #3 300-30 e #3 MG MG 300-30 MG Trimethopri Trimethopri No Trimethopr m 100 MG m 100 MG im 100 MG traMADol traMADol No traMADol HCl HCl HCl Combivent Combivent No Combivent Respimat Respimat Respimat Oxybutynin Oxybutynin No Oxybutynin Chloride Chloride Chloride Sucralfate Sucralfate No Sucralfate Dexilant Dexilant No Dexilant Myrbetriq Myrbetriq No 1{table QD Myrbetriq 50 MG 50 MG t} 50 MG Rosuvastati Rosuvastati No Rosuvastat n Calcium n Calcium in Calcium Azithromyci Azithromyci No Azithromyc n n in Trimethopri Trimethopri 2022- No QD Trimethopr m 100 MG m 100 MG 11-26 im 100 MG 00:00 :00 Myrbetriq Myrbetriq 2022- No 1{table QD Myrbetriq 50 MG 50 MG 11-26 t} 50 MG 00:00 :00 Myrbetriq Myrbetriq 2022- No 1{table QD Myrbetriq 50 MG 50 MG 11-26 t} 50 MG 00:00 :00 Trimethopri Trimethopri 2022- No QD Trimethopr m 100 MG m 100 MG 15 im 100 MG 00:00 :00 Trimethopri Trimethopri 2022- No QD Trimethopr m 100 MG m 100 MG 11-26 im 100 MG 00:00 :00 Myrbetriq Myrbetriq 2022- No 1{table QD Myrbetriq 50 MG 50 MG 11-26 t} 50 MG 00:00 :00 Trimethopri Trimethopri 3- No QD Trimethopr m 100 MG m 100 MG -15 im 100 MG 00:00 :00 Myrbetriq Myrbetriq 3- No 1{table QD Myrbetriq 50 MG 50 MG 11-26 t} 50 MG 00:00 :00 Trimethopri Trimethopri 3- No QD Trimethopr m 100 MG m 100 MG 11-26 im 100 MG 00:00 :00 Myrbetriq Myrbetriq 3- No 1{table QD Myrbetriq 50 MG 50 MG 11-26 t} 50 MG 00:00 :00 Myrbetriq Myrbetriq 3- No 1{table QD Myrbetriq 50 MG 50 MG 11-26 t} 50 MG 00:00 :00 Trimethopri Trimethopri 3- No QD Trimethopr m 100 MG m 100 MG 11-26 im 100 MG 00:00 :00 Myrbetriq Myrbetriq 3- No 1{table QD Myrbetriq 50 MG 50 MG 11-26 t} 50 MG 00:00 :00 Trimethopri Trimethopri 3- No QD Trimethopr m 100 MG m 100 MG 11-26 im 100 MG 00:00 :00 Myrbetriq Myrbetriq 3- No 1{table QD Myrbetriq 50 MG 50 MG 11-26 t} 50 MG 00:00 :00 Trimethopri Trimethopri 3- No QD Trimethopr m 100 MG m 100 MG 11-26 im 100 MG 00:00 :00 Myrbetriq Myrbetriq 3- No 1{table QD Myrbetriq 50 MG 50 MG 11-26 t} 50 MG 00:00 :00 Trimethopri Trimethopri 3- No QD Trimethopr m 100 MG m 100 MG 11-26 im 100 MG 00:00 :00 Trimethopri Trimethopri 3- No QD Trimethopr m 100 MG m 100 MG -15 im 100 MG 00:00 :00 Myrbetriq Myrbetriq 3- No 1{table QD Myrbetriq 50 MG 50 MG 11-26 t} 50 MG 00:00 :00 Trimethopri Trimethopri 3- No QD Trimethopr m 100 MG m 100 MG -15 im 100 MG 00:00 :00 Myrbetriq Myrbetriq 3- No 1{table QD Myrbetriq 50 MG 50 MG 15 t} 50 MG 00:00 :00 Trimethopri Trimethopri 3- No QD Trimethopr m 100 MG m 100 MG 15 im 100 MG 00:00 :00 Myrbetriq Myrbetriq 3- No 1{table QD Myrbetriq 50 MG 50 MG 11-26 t} 50 MG 00:00 :00 Trimethopri Trimethopri 3- No QD Trimethopr m 100 MG m 100 MG 15 im 100 MG 00:00 :00 Myrbetriq Myrbetriq 3- No 1{table QD Myrbetriq 50 MG 50 MG 11-26 t} 50 MG 00:00 :00 Myrbetriq Myrbetriq 3- No 1{table QD Myrbetriq 50 MG 50 MG 11-26 t} 50 MG 00:00 :00 Trimethopri Trimethopri 3- No QD Trimethopr m 100 MG m 100 MG 11-26 im 100 MG 00:00 :00 Immunizations Ordered Filled Immunization Date Status Comments [facility] e Immunization Name Name SARS-COV-2 COVID-19 2021-09-20 Completed [facility] PFIZER VACCINE 00:00:00 [facility] SARS-COV-2 COVID-19 2021-09-20 Completed [facility] PFIZER VACCINE 00:00:00 [facility] SARS-COV-2 COVID-19 2021-09-20 Completed [facility] PFIZER VACCINE 00:00:00 [facility] SARS-COV-2 COVID-19 2021-09-20 Completed [facility] PFIZER VACCINE 00:00:00 [facility] SARS-COV-2 COVID-19 2021-09-20 Completed [facility] PFIZER VACCINE 00:00:00 [facility] SARS-COV-2 COVID-19 2021-09-20 Completed [facility] PFIZER VACCINE 00:00:00 [facility] SARS-COV-2 COVID-19 2021-01-06 Completed [facility] of PFIZER VACCINE 00:00:00 [facility] SARS-COV-2 COVID-19 2021-01-06 Completed [facility] of PFIZER VACCINE 00:00:00 [facility] SARS-COV-2 COVID-19 2021-01-06 Completed [facility] of PFIZER VACCINE 00:00:00 [facility] SARS-COV-2 COVID-19 2021-01-06 Completed [facility] of PFIZER VACCINE 00:00:00 [facility] SARS-COV-2 COVID-19 2021-01-06 Completed [facility] of PFIZER VACCINE 00:00:00 [facility] SARS-COV-2 COVID-19 2021-01-06 Completed [facility] of PFIZER VACCINE 00:00:00 [facility] SARS-COV-2 COVID-19 2020-12-09 Completed [facility] of PFIZER VACCINE 00:00:00 [facility] SARS-COV-2 COVID-19 2020-12-09 Completed [facility] of PFIZER VACCINE 00:00:00 [facility] SARS-COV-2 COVID-19 2020-12-09 Completed [facility] of PFIZER VACCINE 00:00:00 [facility] SARS-COV-2 COVID-19 2020-12-09 Completed [facility] of PFIZER VACCINE 00:00:00 [facility] SARS-COV-2 COVID-19 2020-12-09 Completed [facility] of PFIZER VACCINE 00:00:00 [facility] SARS-COV-2 COVID-19 2020-12-09 Completed [facility] of PFIZER VACCINE 00:00:00 [facility] Vital Signs Vital Name Observation Time Observation Value Comments Source height 2022-10-03 09:30:00 67 [in_i] [facility] weight 2022-10-03 09:30:00 180 [lb_av] [facility] temperature 2022-10-03 09:30:00 97.9 [degF] [facility] bmi 2022-10-03 09:30:00 28.19 kg/m2 [facility] blood pressure 2022-10-03 09:30:00 126 mm[Hg] [facility] blood pressure 2022-10-03 09:30:00 84 mm[Hg] [facility] diastolic [facility] height 2022-09-12 08:30:00 67 [in_i] [facility] weight 2022-09-12 08:30:00 180 [lb_av] [facility] temperature 2022-09-12 08:30:00 97.3 [degF] [facility] bmi 2022-09-12 08:30:00 28.19 kg/m2 [facility] blood pressure 2022-09-12 08:30:00 149 mm[Hg] [facility] blood pressure 2022-09-12 08:30:00 84 mm[Hg] [facility] height 2022-07-14 09:30:00 67 [in_i] [facility] weight 2022-07-14 09:30:00 180 [lb_av] [facility] temperature 2022-07-14 09:30:00 97.2 [degF] [facility] bmi 2022-07-14 09:30:00 28.19 kg/m2 [facility] blood pressure 2022-07-14 09:30:00 139 mm[Hg] [facility] blood pressure 2022-07-14 09:30:00 86 mm[Hg] [facility] height 2022-07-06 13:45:00 67 [in_i] [facility] weight 2022-07-06 13:45:00 180 [lb_av] [facility] temperature 2022-07-06 13:45:00 97.0 [degF] [facility] bmi 2022-07-06 13:45:00 28.19 kg/m2 [facility] blood pressure 2022-07-06 13:45:00 126 mm[Hg] [facility] blood pressure 2022-07-06 13:45:00 76 mm[Hg] [facility] Systolic blood 2022-06-12 18:06:00 144 mm[Hg] [facility] of pressure [facility] Diastolic blood 2022-06-12 18:06:00 74 mm[Hg] [facility] of pressure [facility] Heart rate 2022-06-12 18:06:00 88 /min [facility] Body height 2022-06-12 18:06:00 170.2 cm [facility] Body weight 2022-06-12 18:06:00 82.555 kg [facility] BMI 2022-06-12 18:06:00 28.51 kg/m2 [facility] Oxygen saturation in 2022-06-12 18:06:00 100 /min [facility] Arterial blood by [facility] Pulse oximetry Branch height 2022-05-18 13:00:00 67 [in_i] [facility] weight 2022-05-18 13:00:00 183 [lb_av] [facility] temperature 2022-05-18 13:00:00 97.6 [degF] [facility] bmi 2022-05-18 13:00:00 28[facility]66 [facility] blood pressure 2022-05-18 13:00:00 121 mm[Hg] [facility] blood pressure 2022-05-18 13:00:00 67 mm[Hg] [facility] height 2022-03-21 09:00:00 67 [in_i] [facility] weight 2022-03-21 09:00:00 184 [lb_av] [facility] bmi 2022-03-21 09:00:00 28.82 kg/m2 [facility] blood pressure 2022-03-21 09:00:00 127 mm[Hg] [facility] blood pressure 2022-03-21 09:00:00 76 mm[Hg] [facility] - diastolic [facility] height 2022-03-01 14:15:00 67 [in_i] [facility] weight 2022-03-01 14:15:00 184 [lb_av] [facility] temperature 2022-03-01 14:15:00 98.3 [degF] [facility] bmi 2022-03-01 14:15:00 28.82 kg/m2 [facility] oximetry 2022-03-01 14:15:00 96 % [facility] respiratory rate 2022-03-01 14:15:00 16 /min [facility] blood pressure 2022-03-01 14:15:00 163 mm[Hg] [facility] - systolic [facility] blood pressure 2022-03-01 14:15:00 68 mm[Hg] [facility] - diastolic [facility] height 2022-01-12 13:00:00 67 [in_i] [facility] weight 2022-01-12 13:00:00 180 [lb_av] [facility] temperature 2022-01-12 13:00:00 98.2 [degF] [facility] bmi 2022-01-12 13:00:00 28.19 kg/m2 [facility] blood pressure 2022-01-12 13:00:00 130 mm[Hg] Common [facility] - systolic [facility] blood pressure 2022-01-12 13:00:00 80 mm[Hg] Common [facility] diastolic [facility] Procedures Procedure Date / Time Performed Performing Clinician [facility] e EMG/NCV 2022-10-24 06:01:00 Pierre Parker [facility] Plan of Care Planned Activity Planned Date Details Comments Source Future Scheduled 2022-10-26 COVID-19 VACCINE (#1) [facility] 06:26:23 [code = COVID-19 VACCINE (#1)] Future Scheduled 2022-10-26 SHINGLES VACCINES (1 Met [facility] Test 06:26:23 of 2) [code = SHINGLES VACCINES (1 of 2)] Future Scheduled 2022-10-26 65[facility] 06:26:23 VACCINE (1 - PCV) [code = 65+ PNEUMOCOCCAL VACCINE (1 - PCV)] Future Scheduled 2022-10-26 [facility] 06:26:23 [code = INFLUENZA VACCINE] Future Scheduled 2022-05-17 COVID-19 Vaccination [facility] Test 05:45:45 (#1) [code = COVID-19 MD And robinson Cancer Vaccination (#1)] Center Encounters Start End Encounter Admission Attending Care Care Encounter Source Date/Time Date/Time Type Type Clinicians Facility Department ID 2022-09-12 Outpatient Rodriguez, STLMLC STLC [id number] Common 08:43:01 Abel [id number] [facility] 2022-03-10 Outpatient Rodriguez, STLC STLC [id number] Common 10:59:01 Abel [id number] [facility] 2021-12-07 Outpatient Rodriguez, STLC STLC [id number] Common 12:43:42 Abel [id number] [facility] 2021-12-07 Outpatient Rodriguez, STLC STLC [id number] Common 11:57:01 Abel [id number] [facility] 2021-12-07 Outpatient Rodriguez, STLC STLC [id number] Common 11:39:46 Abel [id number] [facility] 2021-12-07 Outpatient Rodriguez, STLC STLC [id number] Common 11:24:46 Abel [id number] [facility] 2022-11-09 2022-11-09 Telephone SHARA Parker [id number] Univers 00:00:00 00:00:00 [facility] [id number] ity dominick [place] [id number] David as DALTON?BLEA [phone] Me dical [address] MEDICAL OFFICE BUILDING 2022-10-24 2022-10-24 [facility] [id number] Univers 10:16:45 23:59:00 ABDULLAHI ity of [facility] 2022-10-24 2022-10-24 [facility] [id number] Univers 10:16:45 23:59:00 Encounter Abdullahi [facility] [id number] ity of [place] [id number] [place] AMAYA [phone] [place] [id number] [address] OFFICE BUILDING 2022-10-09 2022-10-09 Outpatient GC_SWHAOMC_ PRIV PRIV [id number] [facility] 00:00:00 00:00:00 Ladan [id number] [facility] 2022-10-03 2022-10-03 OFFICE STLMLC STLMLC [id number] Co mmon 00:00:00 00:00:00 VISIT Spirit ESTAB PT - [facility] LEVEL 4 [facility] 2022-09-12 2022-09-12 OFFICE STLMLC STLMLC [id number] Co mmon 00:00:00 00:00:00 VISIT Spirit ESTAB PT - [facility] LEVEL 4 [facility] 2022-08-23 2022-08-23 (TEL) STLMLC STLMLC [id number] Co mmon 00:00:00 00:00:00 [facility] - [facility] 2022-08-14 2022-08-14 Telephone [facility] [id number] [id number] Univers 00:00:00 00:00:00 [facility] [id number] ity of [place] [id number] David as DALTON?BLEA [phone] [place] [address] MEDICAL OFFICE BUILDING 2022-07-19 2022-07-19 (TEL) STLMLC STLMLC [id number] Co mmon 00:00:00 00:00:00 [facility] 2022-07-14 2022-07-14 (F/U) STLMLC STLMLC [id number] Co mmon 00:00:00 00:00:00 Follow Up Spir it Visit - [facility] 2022-07-11 2022-07-11 (TEL) STLMLC STLC [id number] Co mmon 00:00:00 00:00:00 [facility] 2022-07-06 2022-07-06 OFFICE STLMLC STLC [id number] Co mmon 00:00:00 00:00:00 VISIT Spirit ESTAB PT - [facility]I LEVEL 4 [facility] 2022-07-06 2022-07-06 (TEL[facility] [id number] Co mmon 00:00:00 00:00:00 [facility] 2022-06-19 2022-06-19 Telephone Elena [facility] 1.2.840.114 [id number] Univers 00:00:00 00:00:00 [facility] [id number] [place] [facility] [id number] David as DALTON?BLEA [phone] [address] MEDICAL OFFICE BUILDING 2022-06-19 2022-06-19 Letter Doctor TUSHAR 1.2.840.114 [id number] Univers 00:00:00 00:00:00 (Out) Unassigned, TERRELL [id number] ity of [place] [facility] [id number] David as [phone] [address] 2022-06-12 2022-06-12 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 10 ity of [place] [id number] David as DALTON?BLEA [id number] [place] [address] MEDICAL OFFICE BUILDING 2022-06-12 2022-06-12 Office Elena [facility] 1.2.840.114 [id number] Univers 13:00:00 13:44:45 Visit [facility] [id number] ity of [facility] [id number] David as DALTON?BLEA [phone] [address] MEDICAL OFFICE BUILDING 2022-06-12 2022-06-12 Outpatient R PIERRE PARKER [facility] [id number] Univers 13:00:00 13:44:45 ELENAPIERRE Howell ity [facility] 2022-06-12 2022-06-12 Orders Doctor TUSHAR 1.2.840.114 [id number] Univers 00:00:00 00:00:00 Only UnassignedTERRELL [id number] ity [facility] 4.2.7.2.686 David as [phone] [address] 2022-05-18 2022-05-18 OFFICE STLMLC STLMLC [id number] Co mmon 00:00:00 00:00:00 VISIT Spirit ESTAB PT - [facility] LEVEL 4 [facility] 2022-05-16 2022-05-16 Orders Doctor TUSHAR 1.2.840.114 [id number] Univers 00:00:00 00:00:00 Only UnassignedTERRELL [id number] ity [facility] [id number] David as [phone] [address] 2022-05-16 2022-05-16 (TEL) STLMLC STLMLC [id number] Co mmon 00:00:00 00:00:00 [facility] 2022-05-02 2022-05-02 (TEL) STLMLC STLMLC [id number] Co mmon 00:00:00 00:00:00 [facility] 2022-05-02 2022-05-02 (TEL) STLMLC STLMLC [id number] Co mmon 00:00:00 00:00:00 [facility] 2022-03-21 2022-03-21 (F/U) STLMLC STLMLC [id number] Co mmon 00:00:00 00:00:00 Follow Up Spir it Visit - [facility] 2022-03-01 2022-03-01 OFFICE STLMLC STLMLC [id number] Co mmon 00:00:00 00:00:00 VISIT EST Spir it PT LEVEL 3 - [facility] 2022-01-12 2022-01-12 OFFICE STLMLC STLMLC [id number] Co mmon 00:00:00 00:00:[address] [facility] LEVEL 4 [facility] 2022-01-03 2022-01-03 (TEL) STLMLC STLMLC [id number] Co mmon 00:00:00 00:00:00 [facility] 2021-10-12 2021-10-12 Outpatient GC_SWHAOMC_ PRIV PRIV [id number] [facility] 02:22:00 02:22:00 AmbrosiomaryamRoyal [id number] Medi elissa 2021-09-20 2021-09-20 Outpatient Bird TAY [facility] [id number] Univers 10:50:00 10:40:31 CHADD [facility] 2021-09-20 2021-09-20 Imm/Inj Nurse, Adc Pob Immunization [facility] 1.2.840.114 [id number] Univers 10:40:07 10:40:31 Visit Chadd Tay 350.1.13 .10 [facility] [id number] [place] HERNANDEZ [phone] Il dical [address] 2021-06-10 2021-06-10 Outpatient R [facility] [id number] Univers 13:00:00 13:00:00 [facility] 2021-04-04 2021-04-04 Outpatient STLMLC STLMLC [id number] Common 00:00:00 00:00:00 [facility] 2021-03-07 2021-03-07 Outpatient STLMLC STLMLC [id number] Common 00:00:00 00:00:00 [facility] 2021-02-03 2021-02-03 Outpatient STLMLC STLMLC [id number] Common 00:00:00 00:00:00 [facility] 2021-01-06 2021-01-06 Outpatient Bird HERNÁNDEZ [facility] [id number] Univers 12:00:00 12:00:00 JESÚS [facility] 2020-12-09 2020-12-09 Outpatient Bird HERNÁNDEZ [facility] [id number] Univers 10:40:00 10:40:00 JESÚS cary [facility] 2020-09-24 2020-09-24 Outpatient STLMLC STLMLC [id number] Common 00:00:00 00:00:00 [facility] 2020-09-21 2020-09-21 Outpatient STLMLC STLMLC [id number] Common 00:00:00 00:00:00 [facility] 2020-09-15 2020-09-15 Outpatient STLMLC STLMLC [id number] Common 00:00:00 00:00:00 [facility] 2020-09-02 2020-09-02 Outpatient STLMLC STLMLC [id number] Common 00:00:00 00:00:00 [facility] 2020-07-23 2020-07-23 Out[facility] [id number] Common 09:00:00 09:00:00 [facility] 2020-07-02 2020-07-02 Out[facility] [id number] Common 09:30:00 09:30:00 [facility] 2020-05-10 2020-05-10 [facility] [id number] Common 13:30:00 13:30:00 t [facility] Sp[facility] t and [facility] 2020-04-15 2020-04-15 Out[facility] [id number] Common 08:15:00 08:15:00 t Specialty/U Sp [facility]ont Specialty rology - [facility] 2018-08-13 2018-08-15 Outside nullFlavo MNA [id number] Memoria 21:53:00 04:59:59 Medical r Neurology 01 l Jack Hernandez 2018-08-13 2018-08-14 Outpatient MHMISCHER MHMISCHER [id number] 16:53:00 23:59:59 2018-04-29 2018-04-29 Outpatient MHIE MHIE [id number] Memoria 13:00:00 13:00:00 01 echo Hernandez 2018-04-03 2018-04-03 Outpatient [facility] [id number] Memoria 15:30:00 15:30:00 00 echo Hernandez Results This patient has no known results.
[2022-11-12] MEDS ORDERED: PANTOPRAZOLE 40 MG INJ ONE (08:26)
[2022-11-12] MEDS ORDERED: NA CHLORIDE 0.9% 1,000 ML ONE ×2 (08:26→12:23)
[2022-11-12] MEDS ORDERED: ONDANSETRON 4 MG/2 ML VIAL ONE (08:26)
[2022-11-12] MEDS ORDERED: DIGOXIN 0.25 MG/ML AMP ONE (08:43)
[2022-11-12 08:50] LABS: Hematocrit 42.2 % (36.0-45.0); MCV 90.3 fL (80-100); RBC Red Blood Cell Count 4.67 M/uL (3.86-4.86)
[2022-11-12 08:51] LABS: Protime INR 2.04
[2022-11-12 09:12] LABS: Albumin 3.5 g/dL (3.4-5.0); Bilirubin Direct 0.1 mg/dL (0-0.2); Bilirubin Total 0.5 mg/dL (0.2-1.0); Potassium 3.7 mmol/L (3.5-5.1); Protein, Total 6.8 g/dL (6.4-8.2)
[2022-11-12 09:22] LABS: Troponin High Sensitivity 59.9 pg/mL (<58.9)
--- NOTE | 2022-11-12 09:25 | RAD REPORT ---
EXAM DESCRIPTION: RAD - Chest Single View - 11/12/2022 9:18 am CLINICAL HISTORY: CHEST PAINfilm COMPARISON: Two view chest 07/15/2021 TECHNIQUE: AP portable chest image was obtained 11/12/2022 9:18 am . FINDINGS: Lung volumes are low. No focal consolidation, mass or failure finding. The low lung volume s accentuate the interstitial pattern. No definitive evidence for significant interstitial edema or i nfiltrate. Heart and vasculature are normal. No measurable pleural effusion and no pneumothorax. No acute bony abnormality seen. No acute aortic findings suspected. IMPRESSION: Limited portable study without acute cardiopulmonary finding.
[2022-11-12 09:38] LABS: SARS-COV-2 RT PCR NEGATIVE (NEGATIVE)
--- NOTE | 2022-11-12 10:41 | RAD REPORT ---
EXAM DESCRIPTION: CT - Abdomen Pelvis W Contrast - 11/12/2022 10:05 am CLINICAL HISTORY: chest pain/epigastric pain, hx of pancreatitis COMPARISON: <Comparisons> TECHNIQUE: Biphasic, helical CT imaging of the abdomen and pelvis was performed following 100 ml non -ionic IV contrast. Oral contrast: No. All CT scans are performed using dose optimization technique as appropriate and may include automated exposure control or mA/KV adjustment according to patient size. FINDINGS: Lung base findings are detailed in separate CT chest report. The liver, spleen, and pancreas show no suspicious findings. Liver attenuation shows fatty infiltrati on. Gallbladder is absent. Biliary tree within normal range for a post cholecystectomy patient. Symmetric renal function is seen with no hydronephrosis or suspicious renal mass. No pyelonephritis o r acute parenchymal process. No bladder abnormalities. No adrenal abnormalities. Uterus is absent. Ri ght ovary is absent or atrophic. A 3 centimeter oval soft tissue mass in the anterolateral left adnex al is believed to be the left ovary which is unchanged from 2020 imaging. No dilated bowel loops or bowel wall thickening. No free air, free fluid or inflammatory stranding. No mass or bulky lymphadenopathy. There is a very minimal fat only umbilical hernia. Fat extends int o each inguinal canal. No acute or destructive bone findings. Degenerative changes are present typical for age. Degenerative changes are most pronounced at the L4-5 disc level. Aortoiliac atherosclerotic calcifications are pr esent. IMPRESSION: Contrast enhanced CT abdomen and pelvis showing no emergent finding. Nonacute findings are detailed in the body of the report. Fatty infiltration of the liver may be prog ressive from 2020 comparison. Otherwise the exam is without significant interval change.
--- NOTE | 2022-11-12 10:49 | RAD REPORT ---
EXAM DESCRIPTION: CT - Chest For Pe Angio - 11/12/2022 10:04 am CLINICAL HISTORY: chest pain, rule out PE COMPARISON: Thorax Wo Con dated 07/26/2022; Chest Single View dated 11/12/2022; Chest For Pe Angio date d 01/05/2020; Abdomen Pelvis W Contrast dated 11/12/2022 TECHNIQUE: Dynamically enhanced 3 mm thick images of the chest were obtained during administration o f approximately 150mL Isovue 370 IV contrast. Coronal and oblique MIP reconstruction images were gene rated and reviewed. Exam utilizes a protocol to evaluate the pulmonary arterial tree. All CT scans are performed using dose optimization technique as appropriate and may include automated exposure control or mA/KV adjustment according to patient size. FINDINGS: No pulmonary emboli are identified. Aortic assessment is limited on a PE protocol study. Aortic calcifications are present without aneury sm. An acute aortic process is not suspected. No pericardial thickening or effusion. No cardiomegaly is present. Issa of the left ventricle do appear thickened though CT sensitivity for ventricular wal l thickness assessment is limited. The left apex scarring changes are present. No suspicious mass or nodule seen in the lung parenchyma. No areas of consolidation are present. There are post surgical and scarring changes in the right hem ithorax from prior nodule removal. A few very small faint and widely scattered areas of ground-glass opacification are noted in the lung sanchez. This could be atelectasis. Minimal areas of alveolitis or infiltrate are possible. These are very minimal findings. No pleural effusion or pleural thickening. No mediastinal or hilar suspicious masses. No chest wall masses or abnormal axillary lymphadenopathy. IMPRESSION: No pulmonary emboli identified. A few, very smallareas of ground-glass opacification are present scattered throughout the lung sanchez . This can be atelectasis. Alveolitis or other infectious/ inflammatory process would be possible. Th shireen are very minimal findings. Issa of the left ventricle appear thickened without overall cardiomegaly. Sensitivity is limited in CT evaluation of wall thickness.
[2022-11-12] MEDS ORDERED: NA CHLORIDE 0.9% 500 ML ONE (11:03)
[2022-11-12] MEDS ORDERED: MAGNESIUM SULFATE 1 gm IVPB 1 GM/100 ML BAG IV ONE (11:03)
[2022-11-12 11:09] LABS: Urine Blood Negative (Negative); Urine Glucose Negative (Negative); Urine Protein Negative (Negative); Urine Specific Gravity <=1.005 (1.005-1.030)
[2022-11-12] MEDS ORDERED: AMIODARONE HCL 150 MG/3 ML INJ IV ONE (11:22)
[2022-11-12] MEDS ORDERED: D5W 100 ML IV ONE (11:23)
[2022-11-12] MEDS ORDERED: AMIODARONE IN DEXTROSE,ISO-OSM 360 MG/200 ML BAG IV ONE (11:23)
--- NOTE | 2022-11-12 11:35 | EDPHYS ---
Physician Documentation [facility] Name: Vilma Curtis Age: 81 yrs Sex: Female : 1940 Arrival Date: 11/12/2022 Time: 07:41 Bed 7 Private MD: Abel Rodriguez ED Physician Rick Mclain HPI: 11/12 08:23 This 81 yrs old Female presents to ER via Wheelchair with complaints of chest pain, abd rn pain, back pain. 08:24 The patient presents with abdominal pain in the epigastric area. Onset: The rn symptoms/episode began/occurred yesterday. The symptoms radiate to back. Associated signs and symptoms: Pertinent positives: chest pain, nausea, dark stool, Pertinent negatives: fever. The symptoms are described as intermittent, sharp. Modifying factors: The symptoms are alleviated by nothing, the symptoms are aggravated by touching the area. Severity of pain: At its worst the pain was moderate in the emergency department the pain has improved. The patient has experienced similar episodes in the past. The patient has not recently seen a physician. Pt reports upper abd pain that radiates to chest and back, began last night. No fever/cough. + mild congestion. + generalized body aches and feels "cold". No sob. Reports dark stool, on xarelto. No vomiting. Called her pcp and told her to come in to rule out heart attack. + hx of pancreatitis. . Historical: - Allergies: 08:04 Demerol; ss 08:04 Hydrocodone-Acetaminophen; ss - Home Meds: 08:35 Dexilant 60 mg Oral CpDB 1 cap once daily [Active]; Betapace 80 mg Oral tab 1 tab 2 jl7 times per day [Active]; Levsin/SL 0.125 mg sublingual subl daily [Active]; Myrbetriq 50 mg Oral Tb24 1 tab once daily [Active]; potassium chloride 10 mEq Oral cpER 1 cap 2 times per day [Active]; rosuvastatin 10 mg Oral tab 1 tab once daily [Active]; Xanax 0.125 Oral tab 1 tab daily [Active]; Xarelto 20 mg Oral tab 1 tab once daily [Active]; Symbicort inhalation [Active]; - PMHx: 08:04 GERD; High Cholesterol; Hypertension; Irregular heart rate; Lung Cancer; ss 08:34 Atrial fibrillation; ss - Immunization history:: Client reports receiving the 2nd dose of the Covid vaccine. - Social history:: Smoking status: Patient denies any tobacco usage or history of. - Family history:: not pertinent. - Hospitalizations: : No recent hospitalization is reported. ROS: 08:24 Constitutional: Negative for fever, and weight loss Eyes: Negative for injury, pain, rn redness, and discharge, Cardiovascular: Negative for palpitations, and edema Respiratory: Negative for wheezing, and pleuritic chest pain, Abdomen/GI: + upper abd pain and nausea, + dark stool Back: + mid back pain : Negative for injury, bleeding, discharge, and swelling, MS/Extremity: Negative for injury and deformity, Skin: Negative for injury, rash, and discoloration, Neuro: Negative for headache, numbness, tingling, and seizure. Exam: 08:24 Constitutional: This is a well developed, well nourished patient who is awake, alert, rn and in no acute distress. Head/Face: Normocephalic, atraumatic. Eyes: Normal conjunctivae ENT: dry MM, no stridor Cardiovascular: Irregular rhythm, tachycardic. No pulse deficits. Respiratory: No increased work of breathing, no retractions or nasal flaring. Abdomen/GI: soft, mild epigastric tenderness, no rebound, neg bates Back: No spinal tenderness. No costovertebral tenderness Skin: Warm, dry, no cyanosis MS/ Extremity: Pulses equal, no cyanosis. Neuro: Awake and alert, GCS 15, oriented to person, place, time, and situation. Cranial nerves II-XII grossly intact. Motor strength 5/5 in all extremities. Sensory grossly intact. Able to ambulate from wheelchair to bed without assistance. 12:05 ECG was reviewed by the Attending Physician. rn Vital Signs: 08:03 Resp 16; Weight 81.65 kg; Height 5 ft. 7 in. (170.18 cm); Pain 10/10; ss 08:07 BP 73 / 52; Temp 97.6(TE); Pulse Ox 98% on R/A; ss 08:46 BP 100 / 69; Pulse 125; Resp 16; Pulse Ox 98% ; ss 08:53 BP 95 / 74; Pulse 130; Resp 14; Pulse Ox 99% ; jl7 09:24 BP 84 / 60; Pulse 109; Resp 16; Pulse Ox 97% ; hb 10:33 BP 95 / 77; Pulse 120; Resp 15; Pulse Ox 99% ; hb 11:48 BP 85 / 48; Pulse 90; Resp 15; Pulse Ox 99% ; hb 12:10 BP 99 / 56; Pulse 80; Resp 15; Pulse Ox 97% ; jl7 13:15 BP 108 / 64; Pulse 73; Resp 15; Pulse Ox 99% ; jl7 14:00 BP 86 / 52; Pulse 88; Resp 16; Pulse Ox 99% on R/A; hb 15:00 BP 100 / 59; Pulse 69; Resp 19; Pulse Ox 96% ; jl7 16:00 BP 102 / 63; Pulse 71; Resp 19; Pulse Ox 99% on R/A; hb 19:18 BP 112 / 58; Pulse 72; Resp 18; Pulse Ox 97% on R/A; ha1 08:03 Body Mass Index 28.19 (81.65 kg, 170.18 cm) ss MDM: 07:43 Patient medically screened. rn 08:32 Differential diagnosis: cholecystitis, Cholelithiasis, diverticulitis, gastritis, rn gastroesophageal reflux disease, GI Bleed, non-specific abd pain, pancreatitis, Peptic Ulcer Disease, Perf. Duodenal Ulcer, Perf. Gastric Ulcer, Peritonitis, Pyelonephritis, urinary tract infection. ED course: Pt presents with multiple system complaints, most likely pancreatitis given hx and radiation to chest and back, but will have to rule out acute IA as well as pulmonary etiologies of pain such as PE or infection. Pt hypotensive with dark stool, will have to be evaluated for GI bleed as well and on xarelto which complicates things. Pt will require extensive w/u for acute illness complicated by anticoagulation and chronic illnesses. . 11:11 ED course: COnsulted with Dr. Maguire and discussed care/case, recommended IV amiodarone rn given afib with rvr and hypotension. . 11:33 Data reviewed: vital signs, nurses notes, lab test result(s), radiologic studies, CT rn scan, plain films, and as a result, I will admit patient. Counseling: I had a detailed discussion with the patient and/or guardian regarding: the historical points, exam findings, and any diagnostic results supporting the discharge/admit diagnosis, lab results, radiology results, the need for further work-up and treatment in the hospital. Response to treatment: the patient's symptoms have mildly improved after treatment, and as a result, I will admit patient. Admission orders: after a detailed discussion of the patient's condition and case, the admit orders are written by me. ED course: Pt with neg ct PE and abdomen/pelvis. Slightly elevated troponin, afib with RVR. NOrmal lipase. Normal h/h. Discussed case with Dr. Maguire, will admit to hospitalist service for afib with rvr and hypotension. Normal lactate. Discussed all of this with patient. . 12:02 ED course: Pt appears to have converted back to sinus rhythm, BP improved now to 101/58.rn 13:29 ED course: Rpt ECG shows sinus rhythm. . rn 14:41 Test interpretation: by ED physician or midlevel provider: ECG, plain radiologic rn studies, CXR neg for acute finding. 11/12 08:19 Order name: Basic Metabolic Panel rn 11/12 08:19 Order name: CBC with Diff; Complete Time: 09:31 rn 11/12 08:19 Order name: LFT's; Complete Time: 09:31 rn 11/12 08:19 Order name: NT PRO-BNP; Complete Time: 09:31 rn 11/12 08:19 Order name: PT-INR; Complete Time: 09:31 rn 11/12 08:19 Order name: Troponin HS; Complete Time: 09:31 rn 11/12 08:19 Order name: CMP; Complete Time: 09:31 rn 11/12 08:19 Order name: Lipase; Complete Time: 09:31 rn 11/12 08:20 Order name: COVID-19/FLU A+B; Complete Time: 09:58 rn 11/12 08:20 Order name: Blood Culture Adult (2) rn 11/12 08:20 Order name: Lactate w/ 2H reflex if indic.; Complete Time: 09:31 rn 11/12 11:09 Order name: Urine Dipstick-Ancillary; Complete Time: 11:46 EDMS 11/12 12:41 Order name: CBC with Automated Diff EDMS 11/12 12:41 Order name: CBC with Automated Diff EDMS 11/12 08:19 Order name: XRAY Chest (1 view); Complete Time: 09:31 rn 11/12 08:19 Order name: EKG; Complete Time: 08:20 rn 11/12 08:19 Order name: CT Chest For PE Angio rn 11/12 08:19 Order name: CT Abd/Pelvis - IV Contrast Only; Complete Time: 10:52 rn 11/12 08:24 Order name: Chest For Pe Angio; Complete Time: 10:52 EDMS 11/12 08:19 Order name: Cardiac monitoring; Complete Time: 08:43 rn 11/12 08:19 Order name: EKG - Nurse/Tech; Complete Time: 08:43 rn 11/12 08:19 Order name: IV Saline Lock; Complete Time: 08:43 rn 11/12 08:19 Order name: Labs collected and sent; Complete Time: 08:43 rn 11/12 08:19 Order name: O2 Per Protocol; Complete Time: 08:43 rn 11/12 08:19 Order name: O2 Sat Monitoring; Complete Time: 08:43 rn 11/12 08:19 Order name: Urine Dipstick-Ancillary (obtain specimen); Complete Time: 11:11 rn 11/12 12:41 Order name: CONS Physician Consult EDLA 11/12 12:41 Order name: Heart Healthy EDLA EC:05 Rate is 140 beats/min. Rhythm is irregularly irregular. QRS [place] is Normal. [place] interval rn is normal. QRS interval is normal. QT interval is normal. No Q waves. T waves are Inverted in leads I, aVL. No ST changes noted. Clinical impression: Atrial Fibrillation. Interpreted by me. Reviewed by me. Administered Medications: 08:40 Drug: Digoxin 0.5 mg Route: IVP; Site: right antecubital; jl7 09:00 Follow up: Response: No adverse reaction; No change in condition jl7 08:44 Drug: ProTONIX (pantoprazole) 40 mg Route: IVP; Site: right antecubital; hb 16:34 Follow up: Response: No adverse reaction jl7 08:44 Drug: NS 0.9% 1000 ml Route: IV; Rate: 1000 ml; Site: right antecubital; hb 09:45 Follow up: Response: No adverse reaction; IV Status: Completed infusion; IV Intake: jl7 1000ml 08:45 Drug: Zofran (Ondansetron) 4 mg Route: IVP; Site: right antecubital; jl7 16:34 Follow up: Response: No adverse reaction jl7 11:04 Drug: NS 0.9% 500 ml Route: IV; Rate: bolus; Site: right antecubital; 11:30 Follow up: Response: No adverse reaction; IV Status: Completed infusion; IV Intake: jl7 500ml 11:04 Drug: Magnesium Sulfate 1 grams Route: IVPB; Infused Over: 1 hrs; Site: right antecubital; 12:04 Follow up: Response: No adverse reaction; IV Status: Completed infusion 7 11:32 Drug: amiodarone 150 mg Volume: 100 ml; Route: IVPB; Infused Over: 10 mins; Site: right jl7 antecubital; 11:42 Follow up: Response: No adverse reaction; IV Status: Completed infusion jl 11:48 Drug: amiodarone 900 mg, D5W 500 ml Route: IVPB; Rate: 1 mg/min; Site: right antecubital; 16:00 Follow up: Response: No adverse reaction; IV Status: Infusion continued upon admission jl 12:50 Drug: Rocephin (cefTRIAXone) 1 grams Route: IV; Rate: calculated rate; Site: right jl7 antecubital; 12:52 Follow up: Response: No adverse reaction; IV Status: Completed infusion jl 12:53 Drug: Zithromax (azithromycin) 500 mg Route: IVPB; Infused Over: 1 hrs; Site: left jl7 forearm; 13:53 Follow up: Response: No adverse reaction; IV Status: Completed infusion; IV Intake: jl7 250ml 12:53 Drug: NS 0.9% 1000 ml Route: IV; Rate: 1000 ml; Site: left forearm; [facility] 14:00 Follow up: Response: No adverse reaction; IV Status: Completed infusion; IV Intake: jl7 1000ml Disposition Summary: 11/12/22 11:35 Hospitalization Ordered Hospitalization Status: Inpatient Admission rn Provider: Dontrell Pearl rn [facility] rn Condition: Fair rn Problem: new rn Symptoms: have improved rn Bed/Room Type: Standard rn Room Assignment: 210(11/12/22 18:32) dw Diagnosis - Persistent atrial fibrillation rn - Hypotension, unspecified rn - Chest pain, unspecified rn Forms: - Medication Reconciliation Form rn - SBAR form admitted attorneys time excluding procedures: 11:33 Critical care time: Bedside Care: 35 minutes, Consultation: 5 minutes. Total time: 40 rn minutes Signatures: Dispatcher [employer] EDMS Clarissa Paniagua RN Rick Crystal MD MD rn Smirch, Shelby, RN RN ss Baxter, Heather, RN RN hb Leal, Jahala, RN RN jl7 Corrections: (The following items were deleted from the chart) 08:05 08:04 Allergies: Metoprolol Tartrate; [facility] 08:05 08:04 Allergies: Lidocaine; [facility] 08:34 08:24 Constitutional: This is a well developed, well nourished patient who is awake, rn alert, and in no acute distress. Head/Face: Normocephalic, atraumatic. Eyes: Normal conjunctivae ENT: dry MM, no stridor Cardiovascular: Irregular rhythm, regular rate. No pulse deficits. Respiratory: No increased work of breathing, no retractions or nasal flaring. Abdomen/GI: soft, mild epigastric tenderness, no rebound, neg bates Back: No spinal tenderness. No costovertebral tenderness Skin: Warm, dry, no cyanosis MS/ Extremity: Pulses equal, no cyanosis. Neuro: Awake and alert, GCS 15, oriented to person, place, time, and situation. Cranial nerves II-XII grossly intact. Motor strength 5/5 in all extremities. Sensory grossly intact. Able to ambulate from wheelchair to bed without assistance. rn 18:32 11:35 rn elaine
--- NOTE | 2022-11-12 11:35 | ER ---
Nurse's Notes [facility] Name: Vilma Curtis Age: 81 yrs Sex: Female : 1940 Arrival Date: 11/12/2022 Time: 07:41 Bed 7 Private MD: Abel Rodriguez Diagnosis: Persistent atrial fibrillation;Hypotension, unspecified;Chest pain, unspecified Presentation: 11/12 08:03 Chief complaint: Patient states: generalized body aches and tingling all over that ss began at 0500 this morning. Denies fever/ cough. Coronavirus screen: Client presents with at least one sign or symptom that may indicate coronavirus-19. Ebola Screen: Patient denies exposure to infectious person. Patient denies travel to an Ebola-affected area in the 21 days before illness onset. Initial Sepsis Screen: Does the patient meet any 2 criteria? No. Patient's initial sepsis screen is negative. Does the patient have a suspected source of infection? No. Patient's initial sepsis screen is negative. Risk Assessment: Do you want to hurt yourself or someone else? Patient reports no desire to harm self or others. Onset of symptoms was November 12, 2022. 08:03 Method Of Arrival: Wheelchair ss 08:03 Acuity: GILDARDO 2 ss Historical: - Allergies: 08:04 Demerol; ss 08:04 Hydrocodone-Acetaminophen; ss - Home Meds: 08:35 Dexilant 60 mg Oral CpDB 1 cap once daily [Active]; Betapace 80 mg Oral tab 1 tab 2 jl7 times per day [Active]; Levsin/SL 0.125 mg sublingual subl daily [Active]; Myrbetriq 50 mg Oral Tb24 1 tab once daily [Active]; potassium chloride 10 mEq Oral cpER 1 cap 2 times per day [Active]; rosuvastatin 10 mg Oral tab 1 tab once daily [Active]; Xanax 0.125 Oral tab 1 tab daily [Active]; Xarelto 20 mg Oral tab 1 tab once daily [Active]; Symbicort inhalation [Active]; - PMHx: 08:04 GERD; High Cholesterol; Hypertension; Irregular heart rate; Lung Cancer; ss 08:34 Atrial fibrillation; ss - Immunization history:: Client reports receiving the 2nd dose of the Covid vaccine. - Social history:: Smoking status: Patient denies any tobacco usage or history of. - Family history:: not pertinent. - Hospitalizations: : No recent hospitalization is reported. Screenin:23 [facility] ED Fall Risk Assessment (Adult) Score/Fall Risk Level 0 - 2 = Low Risk hb Oriented to surroundings, Maintained a safe environment. Abuse screen: Denies threats or abuse. Denies injuries from another. Nutritional screening: No deficits noted. Tuberculosis screening: No symptoms or risk factors identified. Assessment: 09:01 General: Appears in no apparent distress. Behavior is calm, cooperative. Pain: Pain hb currently is 5 out of 10 on a pain scale. Neuro: Level of Consciousness is awake, alert, obeys commands, Oriented to person, place, time, situation. Cardiovascular: Patient's skin is warm and dry. Respiratory: Respiratory effort is even, unlabored, Respiratory pattern is regular, symmetrical. GI: No signs and/or symptoms were reported involving the gastrointestinal system. : No signs and/or symptoms were reported regarding the genitourinary system. EENT: No signs and/or symptoms were reported regarding the EENT system. Derm: Skin is pink, warm \T\ dry. Musculoskeletal: Reports back pain. 10:34 Reassessment: Patient appears in no apparent distress at this time. Patient and/or hb family updated on plan of care and expected duration. Pain level reassessed. Patient is alert, oriented x 3, equal unlabored respirations, skin warm/dry/pink. 11:48 Reassessment: Patient appears in no apparent distress at this time. Patient and/or hb family updated on plan of care and expected duration. Pain level reassessed. Patient is alert, oriented x 3, equal unlabored respirations, skin warm/dry/pink. 12:21 Reassessment: Patient appears in no apparent distress at this time. Patient and/or hb family updated on plan of care and expected duration. Pain level reassessed. Patient is alert, oriented x 3, equal unlabored respirations, skin warm/dry/pink. 13:30 Reassessment: Patient appears in no apparent distress at this time. Patient and/or hb family updated on plan of care and expected duration. Pain level reassessed. Patient is alert, oriented x 3, equal unlabored respirations, skin warm/dry/pink. 14:30 Reassessment: Patient appears in no apparent distress at this time. Patient and/or hb family updated on plan of care and expected duration. Pain level reassessed. Patient is alert, oriented x 3, equal unlabored respirations, skin warm/dry/pink. 15:30 Reassessment: Patient appears in no apparent distress at this time. Patient and/or hb family updated on plan of care and expected duration. Pain level reassessed. Patient is alert, oriented x 3, equal unlabored respirations, skin warm/dry/pink. Vital Signs: 08:03 Resp 16; Weight 81.65 kg; Height 5 ft. 7 in. (170.18 cm); Pain 10/10; ss 08:07 BP 73 / 52; Temp 97.6(TE); Pulse Ox 98% on R/A; ss 08:46 BP 100 / 69; Pulse 125; Resp 16; Pulse Ox 98% ; ss 08:53 BP 95 / 74; Pulse 130; Resp 14; Pulse Ox 99% ; jl7 09:24 BP 84 / 60; Pulse 109; Resp 16; Pulse Ox 97% ; hb 10:33 BP 95 / 77; Pulse 120; Resp 15; Pulse Ox 99% ; hb 11:48 BP 85 / 48; Pulse 90; Resp 15; Pulse Ox 99% ; hb 12:10 BP 99 / 56; Pulse 80; Resp 15; Pulse Ox 97% ; jl7 13:15 BP 108 / 64; Pulse 73; Resp 15; Pulse Ox 99% ; jl7 14:00 BP 86 / 52; Pulse 88; Resp 16; Pulse Ox 99% on R/A; hb 15:00 BP 100 / 59; Pulse 69; Resp 19; Pulse Ox 96% ; jl7 16:00 BP 102 / 63; Pulse 71; Resp 19; Pulse Ox 99% on R/A; hb 19:18 BP 112 / 58; Pulse 72; Resp 18; Pulse Ox 97% on R/A; ha1 08:03 Body Mass Index 28.19 (81.65 kg, 170.18 cm) ED Course: 07:41 Patient arrived in ED. mr 07:41 Abel Rodriguez MD is Private Physician. mr 07:43 Rick Mclain MD is Attending Physician. rn 08:04 Triage completed. ss 08:04 Arm band placed on right wrist. ss 08:20 Bobo Singletary RN is Primary Nurse. jl7 08:30 Client placed on continuous cardiac and pulse oximetry monitoring. NIBP monitoring jl7 applied. 08:30 Warm blanket given. jl7 08:36 Inserted saline lock: 20 gauge in right antecubital area, using aseptic technique. hb Blood collected. 08:54 Initial lab(s) drawn, by ED staff, sent to lab. EKG done, by ED staff, reviewed by faisal Mclain MD COVID swab sent to lab. Flu and/or RSV swab sent to lab. 09:20 XRAY Chest (1 view) In Process Unspecified. EDMS 09:25 Patient has correct armband on for positive identification. hb 10:06 Chest For Pe Angio In Process Unspecified. EDMS 10:07 CT Abd/Pelvis - IV Contrast Only In Process Unspecified. EDMS 11:34 Dontrell Pearl MD is Hospitalizing Provider. rn 12:10 Basic Metabolic Panel Sent. jl7 12:12 No provider procedures requiring assistance completed. Patient admitted, IV remains in jl7 place. intact, No redness/swelling at site. 12:15 EKG done, by ED staff, reviewed by Rick Mclain MD. mm9 12:21 Assisted to bedside commode. hb Administered Medications: 08:40 Drug: Digoxin 0.5 mg Route: IVP; Site: right antecubital; jl7 09:00 Follow up: Response: No adverse reaction; No change in condition jl7 08:44 Drug: ProTONIX (pantoprazole) 40 mg Route: IVP; Site: right antecubital; hb 16:34 Follow up: Response: No adverse reaction jl7 08:44 Drug: NS 0.9% 1000 ml Route: IV; Rate: 1000 ml; Site: right antecubital; hb 09:45 Follow up: Response: No adverse reaction; IV Status: Completed infusion; IV Intake: jl7 1000ml 08:45 Drug: Zofran (Ondansetron) 4 mg Route: IVP; Site: right antecubital; jl7 16:34 Follow up: Response: No adverse reaction 7 11:04 Drug: NS 0.9% 500 ml Route: IV; Rate: bolus; Site: right antecubital; hb 11:30 Follow up: Response: No adverse reaction; IV Status: Completed infusion; IV Intake: jl7 500ml 11:04 Drug: Magnesium Sulfate 1 grams Route: IVPB; Infused Over: 1 hrs; Site: right antecubital; 12:04 Follow up: Response: No adverse reaction; IV Status: Completed infusion jl7 11:32 Drug: amiodarone 150 mg Volume: 100 ml; Route: IVPB; Infused Over: 10 mins; Site: right jl7 antecubital; 11:42 Follow up: Response: No adverse reaction; IV Status: Completed infusion jl7 11:48 Drug: amiodarone 900 mg, D5W 500 ml Route: IVPB; Rate: 1 mg/min; Site: right antecubital; 16:00 Follow up: Response: No adverse reaction; IV Status: Infusion continued upon admission jl7 12:50 Drug: Rocephin (cefTRIAXone) 1 grams Route: IV; Rate: calculated rate; Site: right jl7 antecubital; 12:52 Follow up: Response: No adverse reaction; IV Status: Completed infusion jl7 12:53 Drug: Zithromax (azithromycin) 500 mg Route: IVPB; Infused Over: 1 hrs; Site: left jl7 forearm; 13:53 Follow up: Response: No adverse reaction; IV Status: Completed infusion; IV Intake: jl7 250ml 12:53 Drug: NS 0.9% 1000 ml Route: IV; Rate: 1000 ml; Site: left forearm; jl7 14:00 Follow up: Response: No adverse reaction; IV Status: Completed infusion; IV Intake: jl7 1000ml Medication: 09:01 VIS not applicable for this client. hb Intake: 09:45 IV: 1000ml; Total: 1000ml. jl7 11:30 IV: 500ml; Total: 1500ml. jl7 13:53 IV: 250ml; Total: 1750ml. jl7 14:00 IV: 1000ml; Total: 2750ml. jl7 Outcome: 11:35 Decision to Hospitalize by Provider. rn 16:37 Admitted to ER Hold. Please see [facility] for further documentation. jl7 16:37 Condition: stable 16:37 Discharge instructions given to patient, Instructed on the need for admit, Demonstrated understanding of instructions. 20:32 Patient left the ED. as6 Signatures: Dispatcher [employer] GUTIERREZ TorresoLla Rick Mclain MD MD rn Smirch, Shelby, RN RN ss Baxter, Heather, RN RN hb Leal, Jahala, RN RN jl7 Justin Dotson RN RN as6 Leni Harris RN RN ha1 Ria Francisco 9 Corrections: (The following items were deleted from the chart) 08:05 08:04 Allergies: Metoprolol Tartrate; [facility] 08:05 08:04 Allergies: Lidocaine; [facility] 08: 08:03 Acuity: GILDARDO 3 [facility]
[2022-11-12] MEDS ORDERED: CEFTRIAXONE 1000 MG/VIAL ONE (12:23)
[2022-11-12] MEDS ORDERED: AZITHROMYCIN 500 MG INJ IVPB ONE (12:23)
[2022-11-12] MEDS ORDERED: NA CHLORIDE 0.9% 250 ML ONE (12:23)
[2022-11-12] MEDS ORDERED: AMIODARONE HCL 900 MG in Dextrose 5%-Water 482 ML IV SCH (13:00)
[2022-11-12] MEDS ORDERED: TRAMADOL HCL 50 MG TAB PO PRN (15:29)
--- NOTE | 2022-11-12 15:32 | P.HP ---
Certification for Inpatient Patient admitted to: Inpatient With expected LOS: >2 Midnights Patient will require the following post-hospital care: None Practitioner: I am a practitioner with admitting privileges, knowledge of patient current condition, hospital course, and medical plan of care. Services: Services provided to patient in accordance with Admission requirements found in Title 42 Section 412.3 of the Code of Federal Regulations Patient History Date of Service: 11/12/22 Reason for admission: A fib History of Present Illness: Patient is 81 years of age admitted from the emergency room started having palpitations around 5 o'clock in the morning currently feeling weak in some shortness of breath and appeared in the emergency room started on amiodarone by the emergency room doctor and patient reverted back to sinus rhythm. She's already anticoagulated with Xarelto and also take sotalol Allergies hydrocodone Allergy (Verified 12/10/19 12:54) Itching/Hives/Rash lidocaine Allergy (Verified 12/10/19 12:54) Itching/Hives/Rash meperidine [From Demerol] Allergy (Verified 12/10/19 12:54) Itching/Hives/Rash metoprolol Allergy (Verified 12/10/19 12:54) Itching/Hives/Rash shrimp Adverse Reaction (Verified 12/10/19 12:54) Anaphylaxis Home Medications: ALPRAZolam [Xanax*] 0.5 tab PO BEDTIME 05/14/19 Mirabegron [Myrbetriq] 1 tab PO DAILY 05/14/19 Rivaroxaban [Xarelto] 20 mg PO BEDTIME 05/14/19 Rosuvastatin [Crestor*] 1 tab PO BEDTIME 05/14/19 Sucralfate [Carafate*] 1 tab PO BID 05/14/19 Sotalol HCl [Sotalol] 80 tab PO BID 12/07/19 Tramadol HCl [Ultram] 50 mg PO Q6HP PRN 12/11/19 Dexlansoprazole [Dexilant] 60 mg PO DAILY 11/12/22 - Past Medical/Surgical History Diabetic: No -: Lung cancer -: Afib -: High cholesterol -: bilateral knees surgery 10 years ago -: elizabeth shoulder surgery 6 years ago -: gallbladder removal -: appendectomy -: recent colonoscopy -: upper lobe of R lung removal 2 years ago -: hysterectomy - Family History Father -: Other (see notes) Notes: no hx of illness per pt Mother -: Kidney disease - Social History Alcohol use: No CD- Drugs: No Caffeine use: No Physical Examination - Vital Signs Temperature: 97.6 F Blood Pressure: 100/69 Pulse: 125 Respirations: 18 Pulse Ox (%): 100 - Physical Exam General: Alert, In no apparent distress, Oriented x3 HEENT: Other Respiratory: Clear to auscultation bilaterally, Normal air movement Cardiovascular: No edema, Regular rate/rhythm, Normal S1 S2 Gastrointestinal: Normal bowel sounds, Soft and benign Musculoskeletal: No clubbing, No swelling - Studies Laboratory Data (last 24 hrs) 11/12/22 08:36: PT 22.4 H, INR 2.04 11/12/22 08:36: WBC 12.00 H, Hgb 14.5, Hct 42.2, Plt Count 264 11/12/22 08:36: Sodium 139, Potassium 3.7, BUN 26 H, Creatinine 1.02, Glucose 149 H, Total Bilirubin 0.5, AST 24, ALT 24, Alkaline Phosphatase 75, Lipase 134 Assessment and Plan - Problems (Diagnosis) (1) Atrial fibrillation Onset Date: 01/10/17 Current Visit: No Status: Acute Plan: Patient is 81 years of age with a history of atrial fibrillation admitted to the emergency room with low blood pressure she converted to sinus rhythm with the amiodarone. Labs chest x-rays all reviewed unremarkable no evidence of trauma embolism patient is compliant with sotalol and Xarelto at homeClient to admit consult cardiologyLabs reviewed white count is mildly elevated PT/INR is elevated Qualifiers: Atrial fibrillation type: longstanding persistent Qualified Code(s): I48.11 - Longstanding persistent atrial fibrillation - Advance Directives Does patient have a Living Will: No Does patient have a Durable POA for Healthcare: No
[2022-11-12] MEDS ORDERED: RIVAROXABAN 20 MG TABLET PO SCH ×2 (17:00→21:00)
[2022-11-12] MEDS ORDERED: RIVAROXABAN 20 MG TABLET PO ONE (17:14)
[2022-11-12 17:21] VITALS: BMI 28.1
--- NOTE | 2022-11-12 20:19 | CON ---
Date of Consultation: 11/12/2022 Reason For Consultation: Atrial fibrillation with rapid ventricular response. History Of Present Illness: A 81-year-old female with history of paroxysmal atrial fibrillation, on sotalol at home, presented with palpitations that started around 5 o'clock along with shortness of br eath and some chest discomfort. Presented to the emergency room, she was in atrial fibrillation with rapid ventricular response. We started the patient on amiodarone drip and she converted to sinus rh ythm throughout the day, feels better otherwise. No further chest pain or shortness of breath. Past Medical History: History of AFib, lung cancer, hypertension, dyslipidemia. Medications: Refer to reconciliation sheet for detailed list. Allergies: HYDROCODONE, LIDOCAINE, AND METOPROLOL. Family History: No premature coronary artery disease or cancer. Social History: She does not smoke or drink. Does not use any drugs. Review of Systems: All systems reviewed and they were negative except what mentioned in HPI. Physical Examination: Vital Signs: Reviewed. Head and Neck: Pupils are equal, reactive to light. Intact eye movements. No JVD. No cervical lym phadenopathy. Neck is supple. Thyroid is not enlarged. Lungs: Clear to auscultation bilaterally. No rhonchi, wheezing, or crackles. No accessory muscle u se. Heart: Regular rate and rhythm. No extra sounds. Abdomen: Soft, nontender. Bowel sounds positive. No organomegaly. No masses or hernia. No rigidi ty or rebound. Extremities: No edema, clubbing, or cyanosis. Intact pulses. Skin: No rash. Neurologic: Alert, awake, oriented x3. No acute focal deficits appreciated. Lymph Nodes: No cervical or axillary lymphadenopathy. Investigations: Labs were reviewed. BUN is 26, creatinine 1.02. Troponin 59. Hemoglobin is 14.5. Assessment And Recommendations: 1.Atrial fibrillation with rapid ventricular response. Converted to sinus rhythm, on amiodarone. D iscontinue sotalol permanently and continue the IV amiodarone load for 24 hours and then switch her t o oral after that and continue anticoagulation with Xarelto. 2.Elevated troponin. She had chest pain. This is likely demand; however, there is a plan for a shai nd troponin 2 more sets and re-evaluate accordingly. SR/MODL Voice ID: [id number] Report ID: [id number]
[2022-11-12] MEDS ORDERED: ALPRAZOLAM 0.25 MG TABLET PO SCH (21:00)
[2022-11-12] MEDS ORDERED: SOTALOL HCL 160 MG PO SCH (21:00)
[2022-11-12] MEDS ORDERED: ROSUVASTATIN 10 MG TAB PO SCH (21:00)
[2022-11-12] MEDS: LIPASE/PROTEASE/AMYLASE CAP PO SCH (21:11)
[2022-11-12] MEDS: SUCRALFATE 1 GM TABLET PO SCH (21:11)
[2022-11-13 04:54] VITALS: O2SAT 98
[2022-11-13 06:34] LABS: Absolute Lymphocytes (CBC) 2.3 K/uL (0.7-4.9); Hematocrit 37.1 % (36.0-45.0); Lymphocytes % 29.1 % (15.3-44.8); MCV 91.4 fL (80-100); MPV 9.4 fL (7.6-11.3); RBC Red Blood Cell Count 4.06 M/uL (3.86-4.86)
[2022-11-13 06:48] LABS: Magnesium 2.5 mg/dL (1.6-2.4); Potassium 3.9 mmol/L (3.5-5.1)
[2022-11-13 06:52] LABS: Troponin High Sensitivity 153.4 pg/mL (<58.9)
[2022-11-13] MEDS: LIPASE/PROTEASE/AMYLASE CAP PO SCH ×2 (08:34→12:10)
[2022-11-13] MEDS: SUCRALFATE 1 GM TABLET PO SCH (08:35)
[2022-11-13] MEDS ORDERED: PANTOPRAZOLE 40MG TABLET PO SCH (09:00)
[2022-11-13] MEDS ORDERED: HOME MED 1 EA UNK (Dexlansoprazole [Dexilant] 30 MG Cap.Dr.Bp) PO SCH (09:00)
[2022-11-13] MEDS ORDERED: HOME MED 1 EA UNK (Mirabegron [Myrbetriq] 50 MG Tab.Er.24h) PO SCH (09:00)
[2022-11-13 12:22] VITALS: BP 152/67; TEMP 97.6
--- NOTE | 2022-11-13 13:15 | P.DS ---
Admission Date: 11/12/22 Discharge Date: 11/13/22 Disposition: ROUTINE DISCHARGE Discharge Condition: GOOD Reason for Admission: A fib Consultations: 1. Cardiology Hospital Course: DIAGNOSES: # Atrial Fibrillation with Rapid Ventricular Response # Type II Non-ST Segment Elevation Myocardial Infarction (Demand Ischemia) secondary to above # History of Lung Cancer s/p Right Upper Lobe Resection # Dyslipidemia # Left Adnexal Opacity (3 cm) HOSPITAL COURSE: Mrs. Vilma Curtis is a pleasant 81 year old female with a past medical history significant for chronic atrial fibrillation, lung cancer s/p RUL resection, and dyslipidemia who was admitted to the [facility] on 11/12/2022 for atrial fibrillation with rapid ventricular response. She was admitted to the Medicine service. Cardiology was consulted and she was evaluated by Dr. Maguire. He recommended that she be started on a 24-hour amiodarone drip, and she converted to sinus rhythm shortly after starting drip. She has remained in sinus rhythm for the remainder of her hospitalization. She was also found to have a slightly elevated, but flat troponin, which was thought to be secondary to demand ischemia. Dr. Maguire has cleared her for discharge home with amiodarone 200 mg twice daily. On 11/13/2022, she was seen on morning rounds and deemed medically stable for discharge. She was discharged with instructions to schedule follow-up appointments with her PCP (Dr. Rodriguez) and with Cardiology (Dr. Maguire). She was provided a prescription for amiodarone. She was given the opportunity to ask questions and reported no further questions. Furthermore, all questions were answered to the best of my ability. A copy of this discharge summary will be sent to the above providers to facilitate continuity of care. Today, I personally spent 25 minutes on her case, of which greater than 50% of the time was spent in patient education, counseling, and coordination of care as described above. Vital Signs/Physical Exam: Temp Pulse Resp BP Pulse Ox 97.6 F 69 16 152/67 H 96 11/13/22 12:00 11/13/22 12:00 11/13/22 12:00 11/13/22 12:00 11/13/22 12:00 General: Alert, In no apparent distress, Oriented x3 HEENT: Atraumatic, PERRLA, Mucous membr. moist/pink, EOMI, Sclerae nonicteric Neck: JVD not distended Respiratory: Clear to auscultation bilaterally, Normal air movement Cardiovascular: No edema, Regular rate/rhythm, Normal S1 S2, No gallops, No rubs, No murmurs Gastrointestinal: Normal bowel sounds, Soft and benign, Non-distended, No tenderness, No rebound, No guarding Musculoskeletal: No clubbing Integumentary: No rashes Neurological: Normal gait, Cranial nerves 3-12 intact, Normal affect Laboratory Data at Discharge: WBC 8.00 K/uL (4.3-10.9) 11/13/22 06:01 Hgb 12.9 g/dL (12.0-15.0) D 11/13/22 06:01 Hct 37.1 % (36.0-45.0) 11/13/22 06:01 Plt Count 194 K/uL (152-406) D 11/13/22 06:01 PT 22.4 SECONDS (9.5-12.5) H 11/12/22 08:36 INR 2.04 11/12/22 08:36 Sodium 143 mmol/L (136-145) 11/13/22 06:01 Potassium 3.9 mmol/L (3.5-5.1) 11/13/22 06:01 BUN 12 mg/dL (7-18) 11/13/22 06:01 Creatinine 0.70 mg/dL (0.55-1.02) 11/13/22 06:01 Glucose 128 mg/dL (74-106) H 11/13/22 06:01 Magnesium 2.5 mg/dL (1.6-2.4) H 11/13/22 06:01 Total Bilirubin 0.5 mg/dL (0.2-1.0) 11/12/22 08:36 AST 24 U/L (15-37) 11/12/22 08:36 ALT 24 U/L (13-56) 11/12/22 08:36 Alkaline Phosphatase 75 U/L (45-117) 11/12/22 08:36 Lipase 134 U/L (73-393) 11/12/22 08:36 Home Medications: RX: ALPRAZolam [Xanax*] 0.5 tab PO BEDTIME 05/14/19 RX: Mirabegron [Myrbetriq] 1 tab PO DAILY 05/14/19 RX: Rivaroxaban [Xarelto*] 20 mg PO BEDTIME 05/14/19 RX: Rosuvastatin [Crestor*] 1 tab PO BEDTIME 05/14/19 RX: Sucralfate [Carafate*] 1 tab PO BID 05/14/19 RX: Tramadol HCl [Ultram] 50 mg PO Q6HP PRN 12/11/19 RX: Dexlansoprazole [Dexilant] 60 mg PO DAILY 11/12/22 RX: Amiodarone HCl [Cordarone*] 200 mg PO BID #60 tab 11/13/22 New Medications: RX: Amiodarone HCl [Cordarone*] 200 mg PO BID #60 tab Physician Discharge Instructions: 1. Please call and schedule a follow-up appointment with your PCP (Dr. Rodriguez) in 3-5 days - Please have him follow-up on the spot on your left ovary 2. Please call and schedule a follow-up appointment with Cardiology (Dr. Maguire) in 5-7 days Diet: AHA Activity: Ad julianna Followup: Abel Rodriguez MD [Primary Care Provider] - Ramirez Maguire MD [ACTIVE - CAN ADMIT] - Time spent managing pt's care (in minutes): 25
--- NOTE | 2022-11-13 17:17 | PN ---
Date of Progress Note: 11/13/2022 Subjective: Seen by bedside. Doing very well. Does not have any chest pain. Remained in sinus rhy thm overnight. No shortness of breath. No nausea, vomiting, diarrhea. All other systems reviewed a nd they were negative. Physical Examination: Vital Signs: Reviewed. Head and Neck: Pupils are equal, reactive to light. Intact eye movements. No JVD. No cervical lym phadenopathy. Neck is supple. Thyroid is not enlarged. Lungs: Clear to auscultation bilaterally. No rhonchi, wheezing, or crackles. No accessory muscle u se. Heart: Regular rate and rhythm. No extra sounds. Abdomen: Soft, nontender. Bowel sounds positive. No organomegaly. No masses or hernia. No rigidi ty or rebound. Extremities: No edema, clubbing, or cyanosis. Intact pulses. Skin: No rash. Neurologic: Alert, awake, oriented x3. No acute focal deficits appreciated. Lymph Nodes: No cervical or axillary lymphadenopathy. Investigations: BUN 12, creatinine 0.7. Troponin peaked at 217 and down to 153, and hemoglobin 12.9 . Assessment And Recommendations: 1.Atrial fibrillation with rapid ventricular response. Converted to sinus rhythm on amiodarone. Di scontinue sotalol. Continue amiodarone 200 mg twice a day. Continue Xarelto 20 mg daily. Follow up in about a month. 2.Elevated troponin. There is no chest pain. This is likely demand ischemia. We will plan for out patient stress test and an echo. The patient will follow up with Dr. Chavarria upon discharge and we will set her up for the above testi ng. SR/MODL Voice ID: [id number] Report ID: [id number]
--- NOTE | 2022-11-14 14:34 | EKG ---
Test Date: 2022-11-12 Test Time: 08:29:13 Hand Dry Cleaner: PAULA MEASUREMENT RESULTS: Intervals: Rate: 140 DC: QRSD: 88 QT: 332 QTc: 506 [place]: P: DC: QRS: 42 T: 137 INTERPRETIVE STATEMENTS: Atrial fibrillation with rapid ventricular response ST & T wave abnormality, consider lateral ischemia Abnormal ECG Compared to ECG 12/08/2019 08:21:15 ST (T wave) deviation now present Possible ischemia now present Sinus rhythm no longer present Atrial premature complex(es) no longer present Electronically Signed On 11-14-22 14:32:14 PREMIUM SERVICE REPRESENTATIVE by Ramirez Maguire
--- NOTE | 2022-11-15 16:09 | EKG ---
Test Date: 2022-11-12 Test Time: 12:11:01 Shop Hand: VERONICA MEASUREMENT RESULTS: Intervals: Rate: 74 NH: 224 QRSD: 90 QT: 404 QTc: 448 [place]: P: 58 NH: 224 QRS: 30 T: 142 INTERPRETIVE STATEMENTS: Sinus rhythm with 1st degree AV block Cannot rule out Anterior infarct, age undetermined ST & T wave abnormality, consider lateral ischemia Abnormal ECG Compared to ECG 11/12/2022 08:29:13 First degree AV block now present Myocardial infarct finding now present Atrial fibrillation no longer present ST (T wave) deviation still present Possible ischemia still present Electronically Signed On 11-15-22 16:06:36 FINAL INSPECTOR MOVEMENT ASSEMBLY by Ramirez Maguire
== END 2022-11-13 14:56 | disposition home or self-care (01) | DRG 282 ==
LOC: ER 07:38 → ERHOLD 12:37 → 2ND 19:21
PROVIDERS: ADMIT Internal Medicine Sleep Medicine; ATTEND Internal Medicine
DX: I48.11 Longstanding persistent atrial fibrillation (principal); I21.A1 Myocardial infarction type 2; E78.5 Hyperlipidemia, unspecified; K21.9 Gastro-esophageal reflux disease without esophagitis; E78.00 Pure hypercholesterolemia, unspecified; R91.8 Other nonspecific abnormal finding of lung field; Z85.118 Personal history of other malignant neoplasm of bronchus and lung; Z79.01 Long term (current) use of anticoagulants; Z79.899 Other long term (current) drug therapy; Z88.8 Allergy status to other drugs, medicaments and biological substances; Z88.5 Allergy status to narcotic agent; Z91.013 Allergy to seafood; Z88.4 Allergy status to anesthetic agent; Z90.2 Acquired absence of lung [part of]; Z90.49 Acquired absence of other specified parts of digestive tract; Z90.710 Acquired absence of both cervix and uterus; Z20.822 Contact with and (suspected) exposure to COVID-19; Z84.1 Family history of disorders of kidney and ureter
CPT/HCPCS: 0240U; 36415; 71045; 71275; 74177; 80048; 80053; 80076; 81003; 83605; 83690; 83735; 83880; 84484; 85025; 85610; 87040; 93005; 99285; C9113; J0282; J0456; J1160; J2405; J3475; J7030; J7040; J7050; J7060; Q9967

== ENCOUNTER → 2024-02-06 | Emergency (ER) | payer OTHER ==
[~2024-02-06] MED LIST: DIAZEPAM 5 MG TABLET ONE; FENTANYL CITR 100 MCG/2 ML ONE; KETOROLAC 30 MG/ML INJ ONE; ONDANSETRON 4 MG/2 ML VIAL ONE; dexAMETHasone 10 MG/ML VIAL ONE
--- OUTSIDE RECORDS SUMMARY | 2024-02-06 10:38 | XMS REPORT | Clinical Summary ---
Author Name Unknown Organization [facility] Address [address] [place] [address] Care Team Providers Care Reducing Machine Operator Name Role Phone Jayson Canchola Unavailable [phone] Abel Rodriguez MD Unavailable [phone] Zahraa Parker MD Primary Care Provider [phone] Torsten Escalante MD Unavailable Allergies Active Allergy Reactions Criticality Noted Date Comments Codeine Swelling Medium 06/10/2018 Hydrocodone Swelling Medium 06/10/2018 Shellfish Containing Products Shortness Of Breath High 06/10/2018 Medications Medication Sig Dispensed Refills Start Date End Date Status rivaroxaban (XARELTO) 20 mg tablet Take 20 mg by mouth. 0 Active sotalol (BETAPACE) 80 mg tablet Take by mouth. 0 Active darifenacin (ENABLEX) 15 mg 24 hr tablet Take 15 mg by mouth daily. 0 Active sucralfate (CARAFATE) 1 g tablet Take by mouth. 0 Active dexlansoprazole (DEXILANT) 60 mg capsule Take by mouth. 0 Active hyoscyamine (ANASPAZ,LEVSIN) 0.125 mg tablet Take 0.125 mg by mouth every 4 (four) hours as needed for cramping. 0 Active ALPRAZolam (XANAX) 0.25 mg tablet Take 0.25 mg by mouth. 0 Active calcium carbonate (OS-JARROD) 600 mg calcium (1,500 mg) tablet Take 600 mg by mouth 2 (two) times a day with meals. 0 Active beclomethasone dipropionate (QVAR INHALATION) Inhale by mouth. 0 Active acetaminophen (TYLENOL EXTRA STRENGTH) 500 mg tabletIndications:Hannah chung melanoma of skin of back Take 2 tablets (1,000 mg) by mouth every 6 (six) hours as needed for mild pain. 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 8 Lung cancer 06/11/2018 Overview: Mandatory CMS ICD-10 2020 UPDATE Hypertension 06/11/2018 Atrial fibrillation 06/11/2018 Malignant melanoma of skin of back 06/10/2018 Overview: Added automatically from request for surgery [id number] Malignant melanoma of back 05/28/2018 Surgical History Surgery Date Site/Laterality Comments LUNG CANCER SURGERY 11/12/2013 - 11/11/2014 Right RUL lobectomy TOTAL KNEE ARTHROPLASTY 11/12/2009 - 11/11/2010 Right CHOLECYSTECTOMY 11/12/2007 - 11/11/2008 SHOULDER SURGERY 11/12/2011 - 11/11/2012 Right TOTAL ABDOMINAL HYSTERECTOMY NH EXCISION MAL LESION TRUNK/ARM/LEG 0.6-1.0 CM 07/09/2018 Right Procedure: EXCISION OF MALIGNANT LESION OF TRUNK, right lower back; Surgeon: Zahraa Parker MD; Location: [facility]; Service: SURG ONC - [place] Medical History Medical History Date Comments Atrial fibrillation 2014 pt reports t hat she had palpitations. pt denies cardioversion or ablation Neuropathy Adenocarcinoma of right lung 2013 Pulmonary embolism occurred post -op. pt reports that she was Coumadin for a few months Gastroesophageal reflux disease Arthritis Hyperlipidemia pt has been on a nd off for years Family History Medical History Relation Name Comments Stomach cancer Brother Kidney disease Mother congenital si ngle kidney. did require HD -Brain cancer Sister Bleeding Disorder Neg Hx Coronary artery disease Neg Hx Diabetes Neg Hx Hypertension Neg Hx Stroke Neg Hx VTE Neg Hx Relation Name Status Comments Brother Mother Sister Social History Tobacco Use Types Packs/Day Years Used Date Smoking Tobacco: Former Cigarettes 1 19 1 - 1979 Smokeless Tobacco: Never Alcohol Use Standard Drinks/Week Comments No 0 (1 standard drink = 0.6 oz pur e alcohol) social drinker Sex and Gender Information Value Date Recorded Sex Assigned at Not on file Gender Identity Not on file Sexual Orientation Not on file Obstetrics History Plan of Treatment Health Maintenance Due Date Last Done Comments COVID-19 Vaccine (#1) 06/09/1941 Influenza Vaccine 07/13/2023 Advance Directives Latest Code Status on File Code Status Date Activated Date Inactivated Comments Full Code 07/09/2018 11:38 AM 07/09/2018 4:20 PM Care Teams Reducing Machine Operator Relationship Specialty Start Date End Date Jayson Canchola PA [address] [place] [id number] PCP - External Referring Physician Quality Assurance Assessor 05/20/18 Abel Rodriguez MD [address] [place] [address] [phone] PCP - External Primary Care Provider Internal Medicine 05/20/18 Zahraa Parker MD [address] [place] [address] [phone] PCP - General Surgical Oncology 05/20/18 Torsten Escalante MD [address] [place] [address] [phone] Consulting Physician Internal Medicine 06/21/18
[2024-02-06 11:24] LABS: Absolute Basophils 0.1 K/uL (0-0.5); Absolute Eosinophils 0.3 K/uL (0-0.5); Absolute Lymphocytes (CBC) 1.6 K/uL (0.7-4.9); Absolute Monocytes 0.8 K/uL (0.1-1.3); Basophils % 0.9 % (0-1.3); Eosinophils % 3.7 % (0-4.4); Hematocrit 36.9 % (36.0-45.0); Hemoglobin 12.4 g/dL (12.0-15.0); Lymphocytes % 18.3 % (15.3-44.8); MCH 29.6 pg (27.0-35.0); MCHC 33.7 g/dL (32.0-36.0); MCV 87.9 fL (80-100); MPV 8.7 fL (7.6-11.3); Monocytes % 8.9 % (3.3-12.3); Neutrophils % 68.2 % (41.7-73.7); Platelets 241 thou/uL (152-406); RBC Red Blood Cell Count 4.21 M/uL (3.86-4.86); Red Cell Distribution Width 13.7 % (12.1-15.2)
[2024-02-06 11:47] LABS: Albumin 3.8 g/dL (3.4-5.0); Albumin/Globulin Ratio 1.2 (1.1-1.8); Anion Gap 5.4 mEq/L (5.0-15.0); Bilirubin Total 0.6 mg/dL (0.2-1.0); Globulin 3.2 g/dL (2.3-3.5); Potassium 3.4 mEq/L (3.5-5.1)
--- NOTE | 2024-02-06 13:13 | RAD REPORT ---
EXAM DESCRIPTION: RAD - Hip Right 2 View - 02/06/2024 12:42 pm CLINICAL HISTORY: Right hip pain FINDINGS: Pins affix a subcapital right femoral fracture. No acute fracture or dislocation seen. Osteoporosis. Mild osteoarthritis involves the right hip consisting joint space narrowing and subchondral sclerosis
--- NOTE | 2024-02-06 13:13 | RAD REPORT ---
EXAM DESCRIPTION: RAD - Pelvis - 02/06/2024 12:42 pm CLINICAL HISTORY: Pelvic pain FINDINGS: Pins affix a subcapital right femoral fracture. No acute fracture or dislocation seen. Osteoporosis. Mild osteoarthritis involves the hips consisting joint space narrowing and subchondral sclerosis
--- NOTE | 2024-02-06 13:14 | RAD REPORT ---
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 Osteoarthritis involves the facet joints of lower lumbar spine. Vascular calcifications seen Central spinal stenosis present
--- NOTE | 2024-02-06 13:50 | EDPHYS ---
Physician Documentation [facility] Name: Vilma Curtis Age: 83 yrs Sex: Female : 1940 Arrival Date: 02/06/2024 Time: 10: Bed 9 Private MD: Abel Rodriguez ED Physician Prince Swanson HPI: 02/05 13:39 This 83 yrs old Female presents to ER via Wheelchair with complaints of Leg shannon Pain, Hip Pain. 13:39 The patient presents with decreased range of motion, pain. The complaints affect the shannon right hip, lateral aspect of right thigh, right gluteal fold and right hamstring. Historical: - Allergies: 10:46 Demerol; hb 10:46 Hydrocodone-Acetaminophen; hb 10:46 Shrimp; hb - PMHx: 10:46 GERD; Atrial fibrillation; High Cholesterol; Irregular heart rate; Hypertension; Lung hb Cancer; - Immunization history:: Adult Immunizations up to date. - Social history:: Smoking status: Patient denies any tobacco usage or history of. ROS: 13:40 Constitutional: Negative for fever, chills, and weight loss, Eyes: Negative for injury, shannon pain, redness, and discharge, ENT: Negative for injury, pain, and discharge, Neck: Negative for injury, pain, and swelling, Cardiovascular: Negative for chest pain, palpitations, and edema, Respiratory: Negative for shortness of breath, cough, wheezing, and pleuritic chest pain, Abdomen/GI: Negative for abdominal pain, nausea, vomiting, diarrhea, and constipation, : Negative for injury, bleeding, discharge, and swelling, Skin: Negative for injury, rash, and discoloration, Neuro: Negative for headache, weakness, numbness, tingling, and seizure, Psych: Negative for depression, anxiety, suicide ideation, homicidal ideation, and hallucinations, Allergy/Immunology: Negative for hives, rash, and allergies, Endocrine: Negative for neck swelling, polydipsia, polyuria, polyphagia, and marked weight changes, Hematologic/Lymphatic: Negative for swollen nodes, abnormal bleeding, and unusual bruising, 13:40 Back: Positive for injury or acute deformity, decreased range of motion, pain at rest, pain with movement, radiated pain, Exam: 13:40 Constitutional: This is a well developed, well nourished patient who is awake, alert, shannon and in no acute distress. Head/Face: Normocephalic, atraumatic. Eyes: Pupils equal round and reactive to light, extra-ocular motions intact. Lids and lashes normal. Conjunctiva and sclera are non-icteric and not injected. Cornea within normal limits. Periorbital areas with no swelling, redness, or edema. ENT: Nares patent. No nasal discharge, no septal abnormalities noted. Tympanic membranes are normal and external auditory canals are clear. Oropharynx with no redness, swelling, or masses, exudates, or evidence of obstruction, uvula midline. Mucous membranes moist. Neck: Trachea midline, no thyromegaly or masses palpated, and no cervical lymphadenopathy. Supple, full range of motion without nuchal rigidity, or vertebral point tenderness. No Meningismus. Chest/axilla: Normal chest wall appearance and motion. Nontender with no deformity. No lesions are appreciated. Cardiovascular: Regular rate and rhythm with a normal S1 and S2. No gallops, murmurs, or rubs. Normal PMI, no JVD. No pulse deficits. Respiratory: Lungs have equal breath sounds bilaterally, clear to auscultation and percussion. No rales, rhonchi or wheezes noted. No increased work of breathing, no retractions or nasal flaring. Abdomen/GI: Soft, non-tender, with normal bowel sounds. No distension or tympany. No guarding or rebound. No evidence of tenderness throughout. Female : Normal external genitalia. Skin: Warm, dry with normal turgor. Normal color with no rashes, no lesions, and no evidence of cellulitis. MS/ Extremity: Pulses equal, no cyanosis. Neurovascular intact. Full, normal range of motion. Neuro: Awake and alert, GCS 15, oriented to person, place, time, and situation. Cranial nerves II-XII grossly intact. Motor strength 5/5 in all extremities. Sensory grossly intact. Cerebellar exam normal. Normal gait. Psych: Awake, alert, with orientation to person, place and time. Behavior, mood, and affect are within normal limits. 13:40 Back: pain, that is moderate, ROM is painful, normal spinal alignment noted, CVA tenderness, is absent, muscle spasm, is appreciated in the left low back, left mid back, right mid back and right low back, Vital Signs: 10:45 BP 114 / 70; Pulse 68; Resp 16; Temp 97.9; Pulse Ox 100% on R/A; Weight 81.65 kg; hb Height 5 ft. 7 in. ; Pain 10/10; 11:56 BP 141 / 67; Pulse 62; Resp 18; Pulse Ox 96% on R/A; kb3 13:30 BP 137 / 70; Pulse 64; Resp 16; Pulse Ox 98% on R/A; me1 15:00 BP 142 / 69; Pulse 59; Resp 14; Pulse Ox 98% on R/A; me1 15:00 BP 134 / 66; Pulse 61; Resp 17; Temp 98.1(O); Pulse Ox 98% on R/A; Pain 2/10; me1 10:45 Body Mass Index 28.19 (81.65 kg, 170.18 cm) hb 10:45 Pain Scale: Adult hb 15:00 Pain Scale: Adult me1 MDM: 10:34 Patient medically screened. [facility] 13:44 Differential diagnosis: closed fracture, contusion, tendonitis. Data reviewed: vital shannon signs, nurses notes, lab test result(s), radiologic studies, MRI, plain films. Consideration of Admission/Observation Escalation of care including admission/observation considered. I considered the following discharge prescriptions or medication management in the emergency department Medications were administered in the Emergency Department. See MAR. Independent interpretation of the following test(s) in the Emergency Department X-Ray: My interpretation is lumbar, l spine, hip. Test considered but Not performed: CT: no ct lumbar. Care significantly affected by the following chronic conditions: Hypertension, Obesity, Cancer, gerd , a fib, high cholesterol. 02/05 10:53 Order name: CBC with Diff; Complete Time: 12:50 [facility] 02/05 10:53 Order name: Comprehensive Metabolic Panel; Complete Time: 12:50 [facility] 02/05 10:53 Order name: Pelvis XRAY; Complete Time: 13:39 [facility] 02/05 10:55 Order name: Hip Right 2 View XRAY; Complete Time: 13:39 [facility] 02/05 10:55 Order name: Lumbar Spine (3 Views) XRAY; Complete Time: 13:39 [facility] 02/05 13:39 Order name: PO challenge: juice; Complete Time: 14:03 [facility] Administered Medications: 11:37 Drug: Decadron - Dexamethasone IVP 10 mg IVP once Route: IVP; Site: left antecubital; kd3 14:04 Follow up: Response: No adverse reaction me1 11:37 Drug: Ketorolac IVP 15 mg IVP once Route: IVP; Site: left antecubital; kd3 14:04 Follow up: Response: No adverse reaction me1 11:37 Drug: Diazepam PO 10 mg PO once Route: PO; kd3 14:04 Follow up: Response: No adverse reaction; Pain is decreased me1 11:37 Drug: fentaNYL (PF) IVP 25 mcg IVP once Route: IVP; Site: left antecubital; kd3 14:04 Follow up: Response: No adverse reaction; Pain is decreased me1 11:37 Drug: Ondansetron IVP 4 mg IVP once; over 2 minutes Route: IVP; Site: left antecubital; kd3 14:03 Follow up: Response: No adverse reaction; Nausea is decreased me1 Disposition Summary: 02/06/24 13:50 Discharge Ordered Notes: Location: Home shannon Problem: new shannon Symptoms: have improved shannon Condition: Stable shannon Diagnosis - Sciatica, right side shannon - Intervertebral disc disorders with radiculopathy, lumbar region shannon - Radiculopathy, lumbar region shannon - Unspecified symptoms and signs involving the musculoskeletal system shannon Followup: shannon - With: Abel Rodriguez MD - When: 2 - 3 days - Reason: Recheck today's complaints, Continuance of care, Re-evaluation by your physician Followup: shannon - With: Waqar Srinivasan MD - When: 2 - 3 days - Reason: Recheck today's complaints, Re-evaluation by your physician Discharge Instructions: - Discharge Summary Sheet shannon - Herniated Disk shannon - Lumbosacral Radiculopathy shannon - Sciatica shannon - Degenerative Disk Disease shannon - Sciatica, [id number] shannon - Herniated Disk, [id number] shannon - Radicular Pain shannon Forms: - Medication Reconciliation Form shannon - Thank You Letter shannon - Antibiotic Education shannon - Prescription Opioid Use shannon - Patient Portal Instructions shannon - Leadership Thank You Letter shannon Prescriptions: - dexamethasone 4 mg Oral tablet - take 1 tablet ORAL route once daily; 5 tablet; Refills: 0, Product Selection shannon Permitted - diclofenac sodium 50 mg Oral tablet, delayed release (enteric coated) - take 1 tablet ORAL route 2 times per day; 20 tablet; Refills: 0, Product [facility] Selection Permitted - Valium 2 mg Oral Tablet - take 1 tablet ORAL route every 8 hours As needed; 20 tablet; Refills: 0, shannon Product Selection Permitted Signatures: Dispatcher [employer] Prince Dunn, Catherine Ferrara MD, cha, RN RN hb Doucette, Kyli, RN RN kd3 Estephanie Hernandez RN me1
--- NOTE | 2024-02-06 13:50 | ER ---
Nurse's Notes [facility] Name: Vilma Curtis Age: 83 yrs Sex: Female : 1940 Arrival Date: 02/06/2024 Time: 10:27 Bed 9 Private MD: Abel Rodriguez Diagnosis: Sciatica, right side;Intervertebral disc disorders with radiculopathy, lumbar region;Radiculopathy, lumbar region;Unspecified symptoms and signs involving the musculoskeletal system Presentation: 02/05 10:45 Chief complaint: Severe right hip pain that radiates to right groin and leg after hb working in garden 2 days ago, unrelieved by Gabapentin. Coronavirus screen: At this time, the client does not indicate any symptoms associated with coronavirus-19. Ebola Screen: No symptoms or risks identified at this time. Initial Sepsis Screen: Does the patient meet any 2 criteria? No. Patient's initial sepsis screen is negative. Does the patient have a suspected source of infection? No. Patient's initial sepsis screen is negative. Risk Assessment: Do you want to hurt yourself or someone else? Patient reports no desire to harm self or others. Onset of symptoms was February 06, 2024. 10:45 Method Of Arrival: Wheelchair hb 10:45 Acuity: GILDARDO 3 hb Triage Assessment: 10:46 General: Appears in no apparent distress. uncomfortable, Behavior is calm, cooperative. hb Pain: Pain currently is 10 out of 10 on a pain scale. Neuro: Level of Consciousness is awake, alert, obeys commands, Oriented to person, place, time, situation. Cardiovascular: Patient's skin is warm and dry. Respiratory: Respiratory effort is even, unlabored, Respiratory pattern is regular, symmetrical. Musculoskeletal: Reports severe right hip pain that radiates to groin and right leg. Historical: - Allergies: 10:46 Demerol; hb 10:46 Hydrocodone-Acetaminophen; hb 10:46 Shrimp; hb - PMHx: 10:46 GERD; Atrial fibrillation; High Cholesterol; Irregular heart rate; Hypertension; Lung hb Cancer; - Immunization history:: Adult Immunizations up to date. - Social history:: Smoking status: Patient denies any tobacco usage or history of. Screenin:01 [facility] ED Fall Risk Assessment (Adult) History of falling in the last 3 months, me1 including since admission No falls in past 3 months (0 pts) Confusion or Disorientation No (0 pts) Intoxicated or Sedated No (0 pts) Impaired Gait Yes (1 pt) Mobility Assist Device Used Yes (1 pt) Altered Elimination No (0 pt) Score/Fall Risk Level 0 - 2 = Low Risk Maintained a safe environment, Provided non-skid footwear, Hourly rounding (assess needs \T\ fall precautionary measures) done. Abuse screen: Denies threats or abuse. Nutritional screening: No deficits noted. Tuberculosis screening: No symptoms or risk factors identified. Assessment: 11:55 General: Appears in no apparent distress. Behavior is calm, cooperative. Pain: kb3 Complains of pain in left leg. Neuro: Level of Consciousness is awake, alert, obeys commands, Oriented to person, place, time, situation. Cardiovascular: Patient's skin is warm and dry. Respiratory: Airway is patent Trachea midline Respiratory effort is even, unlabored, Respiratory pattern is regular, symmetrical. 13:59 General: Appears uncomfortable, well groomed, well developed, well nourished, Behavior me1 is calm, cooperative, appropriate for age, Reports Severe right hip pain that radiates to right groin and leg after working in garden 2 days ago, unrelieved by Gabapentin. Pain: Complains of pain in right low back and right mid back and left mid back and left low back and right hamstring and right gluteal fold and lateral aspect of right thigh and right hip Pain currently is 5 out of 10 on a pain scale. Quality of pain is described as shooting, Pain began Is continuous. Neuro: Level of Consciousness is awake, alert, obeys commands, Oriented to person, place, time, situation. Cardiovascular: Patient's skin is warm and dry. Respiratory: Airway is patent Trachea midline Respiratory effort is even, unlabored, Respiratory pattern is regular, symmetrical. Musculoskeletal: Reports pain in right low back and right mid back and left mid back and left low back and right hamstring and right gluteal fold and lateral aspect of right thigh and right hip and left leg. Vital Signs: 10:45 BP 114 / 70; Pulse 68; Resp 16; Temp 97.9; Pulse Ox 100% on R/A; Weight 81.65 kg; hb Height 5 ft. 7 in. ; Pain 10/10; 11:56 BP 141 / 67; Pulse 62; Resp 18; Pulse Ox 96% on R/A; kb3 13:30 BP 137 / 70; Pulse 64; Resp 16; Pulse Ox 98% on R/A; me1 15:00 BP 142 / 69; Pulse 59; Resp 14; Pulse Ox 98% on R/A; me1 15:00 BP 134 / 66; Pulse 61; Resp 17; Temp 98.1(O); Pulse Ox 98% on R/A; Pain 2/10; me1 10:45 Body Mass Index 28.19 (81.65 kg, 170.18 cm) hb 10:45 Pain Scale: Adult hb 15:00 Pain Scale: Adult me1 ED Course: 10:30 Patient arrived in ED. rg4 10:30 Abel Rodriguez MD is Private Physician. rg4 10:34 Prince Swanson MD is Attending Physician. shannon 10:46 Triage completed. hb 10:46 Arm band placed on. hb 11:12 Valorie Crawley, LIZETTE is Primary Nurse. kd3 12:44 Pelvis XRAY In Process Unspecified. EDMS 12:44 Hip Right 2 View XRAY In Process Unspecified. EDMS 12:44 Lumbar Spine (3 Views) XRAY In Process Unspecified. EDMS 13:48 Abel Rodriguez MD is Referral Physician. shannon 13:48 Waqar Srinivasan MD is Referral Physician. shannon 14:01 Patient has correct armband on for positive identification. Bed in low position. Call me1 light in reach. Side rails up X2. Provided Education on: POC. Verbalized understanding. . 14:01 No provider procedures requiring assistance completed. me1 16:07 IV discontinued, intact, bleeding controlled, No redness/swelling at site. Pressure me1 dressing applied. Administered Medications: 11:37 Drug: Decadron - Dexamethasone IVP 10 mg IVP once Route: IVP; Site: left antecubital; kd3 14:04 Follow up: Response: No adverse reaction me1 11:37 Drug: Ketorolac IVP 15 mg IVP once Route: IVP; Site: left antecubital; kd3 14:04 Follow up: Response: No adverse reaction me1 11:37 Drug: Diazepam PO 10 mg PO once Route: PO; kd3 14:04 Follow up: Response: No adverse reaction; Pain is decreased me1 11:37 Drug: fentaNYL (PF) IVP 25 mcg IVP once Route: IVP; Site: left antecubital; kd3 14:04 Follow up: Response: No adverse reaction; Pain is decreased me1 11:37 Drug: Ondansetron IVP 4 mg IVP once; over 2 minutes Route: IVP; Site: left antecubital; kd3 14:03 Follow up: Response: No adverse reaction; Nausea is decreased me1 Medication: 14:02 VIS not applicable for this client. ok1 Outcome: 13:50 Discharge ordered by . shannon 16:07 Patient left the ED. hb 16:07 Discharged to home via wheelchair, with family, [facility] 16:07 Condition: stable 16:07 Discharge instructions given to patient, family, Instructed on discharge instructions, follow up and referral plans. medication usage, Demonstrated understanding of instructions, follow-up care, medications, Prescriptions given X 3, Signatures: Dispatcher [employer] Prince Dunn MD MD cha Baxter, Heather, RN RN Juliette Zaldivar rg4 Valorie Crawley RN RN kd3 Amanda Wooten, LIZETTE BAUER kb3 Estephanie Hernandez, LIZETTE RN me1 Corrections: (The following items were deleted from the chart) 13:59 10:45 Chief complaint: Severe right hip pain that radiates to right groin and leg after me1 working in [place] 2 days ago, unrelieved by Gabapentin.
[2024-02-06 16:35] VITALS: BP 134/66; TEMP 98.1; O2SAT 98
== END ==
LOC: ER 10:27
DX: M54.31 Sciatica, right side (principal); M51.16 Intervertebral disc disorders with radiculopathy, lumbar region; R29.91 Unspecified symptoms and signs involving the musculoskeletal system; Z88.5 Allergy status to narcotic agent; Z91.013 Allergy to seafood
CPT/HCPCS: 85025; 36415; 80053; 72100; 72170; 73502; J3010; J1100; J2405

== ENCOUNTER 2024-02-11 10:28 | Emergency (ER) | payer OTHER ==
--- OUTSIDE RECORDS SUMMARY | 2024-02-11 10:31 | XMS REPORT | Clinical Summary ---
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 8 Lung cancer 06/11/2018 Overview: Mandatory CMS ICD-10 2020 UPDATE Hypertension 06/11/2018 Atrial fibrillation 06/11/2018 Malignant melanoma of skin of back 06/10/2018 Overview: Added automatically from request for surgery [id number] Malignant melanoma of back 05/28/2018 Surgical History Surgery Date Site/Laterality Comments LUNG CANCER SURGERY 11/12/2013 - 11/11/2014 Right RUL lobectomy TOTAL KNEE ARTHROPLASTY 11/12/2009 - 11/11/2010 Right CHOLECYSTECTOMY 11/12/2007 - 11/11/2008 SHOULDER SURGERY 11/12/2011 - 11/11/2012 Right TOTAL ABDOMINAL HYSTERECTOMY KS EXCISION MAL LESION TRUNK/ARM/LEG 0.6-1.0 CM 07/09/2018 Right Procedure: EXCISION OF MALIGNANT LESION OF TRUNK, right lower back; Surgeon: Zahraa Parker MD; Location: [facility]; Service: SURG ONC - [facility] Medical [...] 11:38 AM 07/09/2018 4:20 PM Care Teams Rehab Nurse Relationship Specialty Start Date End Date Jayson Canchola PA [address] [place] [id number] PCP - External Referring Physician Rand Butter 05/20/18 Abel Rodriguez MD [address] [place] [address] [phone] PCP - External Primary Care Provider Internal Medicine 05/20/18 Zahraa Parker MD [address] [place] [address] [phone] PCP - General Surgical Oncology 05/20/18 Torsten Escalante MD [address] [place] [address] [phone] Consulting Physician Internal Medicine 06/21/18
--- NOTE | 2024-02-11 12:17 | RAD REPORT ---
EXAM DESCRIPTION: MRI - Lumbar Spine Debra Olivera - 02/11/2024 11:58 am CLINICAL HISTORY: Low back pain, right-sided radiculopathy COMPARISON: 10/10/2023 TECHNIQUE: Sagittal T1-weighted, T2-weighted and T2-STIR weighted sequences were obtained. Axial T1 -weighted and heavily T2-weighted sequenceswere obtained through the lumbar disc levels. FINDINGS: Lumbar bodies are normal in height and alignment. No suspicious marrow signal. No paraspin al masses. Conus is normal with no clumping or thickening of the cauda equina. T12-L1 level: No significant findings. L1-2 level: Mild broad-based disc bulge and slight disc height loss without significant neural forami nal narrowing or central spinal stenosis. L2-3 level: Moderate disc height loss with broad-based disc bulge and ligamentum flavum facet hypertr ophy results in moderate right neural foraminal narrowing. Left neural foramen is adequate. No signif icant central spinal stenosis. L3-4 level: Broad-based disc bulge with ligamentum flavum facet hypertrophy results in mild bilateral neural foraminal narrowing. No significant central spinal stenosis. L4-5 level: Grade 1 anterolisthesis of L4 on L5 with moderate disc height loss in conjunction with fa cet and ligamentum flavum hypertrophy results in moderate central spinal stenosis. There is significa nt narrowing at the left subarticular zone that likely compresses the traversing left L5 nerve root. Neural foraminal narrowing is moderate on the left and mild on the right. L5-S1 level: Disc extrusion identified on the right side which extends caudally along the L5 and like ly compresses the traversing right S1 nerve. Note that this is only seen on the sagittal as the axial s do not though this far down. Facet hypertrophy is also noted. This results in mild right and left n eural foraminal narrowing. No significant central spinal stenosis. IMPRESSION: New large right-sided inferiorly projecting disc extrusion at L5-S1 likely compresses th e right S1 nerve root and is probably the source of the patient's symptoms. This may be at the level of the epidural fat but was not included in the field of view on the axial sequences given how low it extends. Other degenerative changes as noted above which are similar to prior.
--- NOTE | 2024-02-11 12:39 | ER ---
Nurse's Notes [facility] Name: Vilma Curtis Age: 83 yrs Sex: Female : 1940 Arrival Date: 02/11/2024 Time: 10:28 Bed IW1 Private MD: Abel Rodriguez Diagnosis: Disc extusion L5-S1;Lumbago with sciatica, right side Presentation: 02/10 10:52 Chief complaint: Patient states: Was seen in ER last for sciatic pain by Dr matilda Swanson who wanted to do MRI but was unable to do so at that time, "He told me to come back on Sunday but I didn't have a caregiver to bring me so I came back today." Pt was prescribed Valium, steroids and anti-inflammatories but states that hey are not helping. Coronavirus screen: Vaccine status: Patient reports receiving the 2nd dose of the covid vaccine. Ebola Screen: No symptoms or risks identified at this time. Initial Sepsis Screen: Does the patient meet any 2 criteria? No. Patient's initial sepsis screen is negative. Does the patient have a suspected source of infection? No. Patient's initial sepsis screen is negative. Risk Assessment: Do you want to hurt yourself or someone else? Patient reports no desire to harm self or others. Onset of symptoms was February 11, 2024. 10:52 Method Of Arrival: Wheelchair 10:52 Acuity: GILDARDO 3 ph Triage Assessment: 10:56 General: Appears in no apparent distress. comfortable, Behavior is calm, cooperative. ph Pain: Complains of pain in back. Neuro: Level of Consciousness is awake, alert, obeys commands, Oriented to person, place, time, situation. Historical: - Allergies: 10:55 Demerol; ph 10:55 shrimp; ph 10:55 Hydrocodone-Acetaminophen; ph - PMHx: 10:55 Atrial fibrillation; GERD; High Cholesterol; Hypertension; Irregular heart rate; Lung ph Cancer; - Immunization history:: Adult Immunizations unknown. - Social history:: Smoking status: unknown. Screenin:[address] [facility] ED Fall Risk Assessment (Adult) History of falling in the last 3 months, ph including since admission No falls in past 3 months (0 pts) Confusion or Disorientation No (0 pts) Intoxicated or Sedated No (0 pts) Impaired Gait No (0 pts) Mobility Assist Device Used No (0 pt) Altered Elimination No (0 pt) Score/Fall Risk Level 0 - 2 = Low Risk Oriented to surroundings, Maintained a safe environment, Hourly rounding (assess needs \\T\\ fall precautionary measures) done. Abuse screen: Denies threats or abuse. Denies injuries from another. Nutritional screening: No deficits noted. Tuberculosis screening: No symptoms or risk factors identified. Assessment: 12:46 General: Appears in no apparent distress. Behavior is calm, cooperative. Pain: ph Complains of pain in right low back and back Pain radiates to right leg. Neuro: Level of Consciousness is awake, alert, obeys commands, Oriented to person, place, time, situation. Derm: Skin is pink, warm \\T\\ dry. 12:52 Reassessment: No changes from previously documented assessment. Patient and/or family ll1 updated on plan of care and expected duration. Pain level reassessed. Patient is alert, oriented x 3, equal unlabored respirations, skin warm/dry/pink. Vital Signs: 10:52 BP 132 / 71; Pulse 67; Resp 18; Temp 97.8; Pulse Ox 96% on R/A; Weight 82.1 kg; Height ph 5 ft. 7 in. ; 12:51 BP 121 / 71; Pulse 66; Resp 17; Pulse Ox 96% ; ll1 10:52 Body Mass Index 28.35 (82.10 kg, 170.18 cm) ph ED Course: 10:31 Patient arrived in ED. rg4 10:31 Abel Rodrgiuez MD is Private Physician. rg4 10:36 Sabino Galindo DO is Attending Physician. ms3 10:55 Triage completed. ph 10:56 Arm band placed on Patient placed in waiting room, Patient notified of wait time. ph 12:00 MRI Lumbar Spine wo Con In Process Unspecified. EDMS 12:47 Patient has correct armband on for positive identification. ph 12:47 No provider procedures requiring assistance completed. Patient did not have IV access ph during this emergency room visit. 12:52 Provided Education on: follow-up with PCP. ll1 Administered Medications: No medications were administered Medication: 10:57 VIS not applicable for this client. ph Outcome: 12:39 Discharge ordered by . ms3 12:52 Discharged to home ambulatory, ll1 12:52 Condition: stable 12:52 Discharge instructions given to patient, Instructed on discharge instructions, follow up and referral plans. Demonstrated understanding of instructions, follow-up care, 12:53 Patient left the ED. ll1 Signatures: Dispatcher [employer] Deidre Sawyer RN RN matilda Zaldivar, Juliette rg4 Zoie Morales RN RN ll1 Sabino Galindo DO DO ms3
--- NOTE | 2024-02-11 12:39 | EDPHYS ---
Physician Documentation [facility] Name: Vilma Curtis Age: 83 yrs Sex: Female : 1940 Arrival Date: 02/11/2024 Time: 10:28 Bed IW1 Private MD: Abel Rodriguez ED Physician Sabino Galindo HPI: 02/10 11:04 This 83 yrs old Female presents to ER via Wheelchair with complaints of Back pain ms3 radiating down right leg. 11:04 83-year-old female with past medical history of atrial fibrillation, GERD, ms3 hyperlipidemia, hypertension, lung cancer presents to the emergency department for right back pain radiating down her right leg. Patient denies urinary incontinence or retention, bowel incontinence, or saddle anesthesia. Patient states she was seen by Dr. Swanson on and was told to come the following day for MRI. Patient was unable to come to the emergency department at that time. Patient states Dr. Curtis needs MRI prior to giving patient shots for her back pain.. Historical: - Allergies: 10:55 Demerol; ph 10:55 shrimp; ph 10:55 Hydrocodone-Acetaminophen; ph - PMHx: 10:55 Atrial fibrillation; GERD; High Cholesterol; Hypertension; Irregular heart rate; Lung ph Cancer; - Immunization history:: Adult Immunizations unknown. - Social history:: Smoking status: unknown. ROS: 11:04 Constitutional: Negative for fever, and chills. Neck: Negative for injury, pain, and ms3 swelling, Cardiovascular: Negative for chest pain, and palpitations. Respiratory: Negative for shortness of breath, cough, wheezing, and pleuritic chest pain, Abdomen/GI: Negative for abdominal pain, nausea, vomiting, diarrhea, and constipation, MS/Extremity: Negative for injury and deformity, Skin: Negative for injury, rash, and discoloration, 11:04 Back: Positive for Back pain radiating down right leg, ms3 Exam: 11:04 Constitutional: This is a well developed, well nourished patient who is awake, alert, ms3 and in no acute distress. Head/Face: Normocephalic, atraumatic. Chest/axilla: Normal chest wall appearance and motion. Nontender with no deformity. Cardiovascular: Regular rate and rhythm with a normal S1 and S2. No gallops, murmurs, or rubs. Normal PMI, no JVD. No pulse deficits. Respiratory: Lungs have equal breath sounds bilaterally, clear to auscultation and percussion. No rales, rhonchi or wheezes noted. No increased work of breathing, no retractions or nasal flaring. Abdomen/GI: Soft, non-tender, with normal bowel sounds. No distension or tympany. No guarding or rebound. No evidence of tenderness throughout. Skin: Warm, dry with normal turgor. Normal color with no rashes, no lesions, and no evidence of cellulitis. MS/ Extremity: Pulses equal, no cyanosis. Neurovascular intact. Full, normal range of motion. 11:04 Back: pain, that is moderate, of the right low back, Vital Signs: 10:52 BP 132 / 71; Pulse 67; Resp 18; Temp 97.8; Pulse Ox 96% on R/A; Weight 82.1 kg; Height ph 5 ft. 7 in. ; 12:51 BP 121 / 71; Pulse 66; Resp 17; Pulse Ox 96% ; ll1 10:52 Body Mass Index 28.35 (82.10 kg, 170.18 cm) ph MDM: 11:01 Patient medically screened. ms3 12:39 Differential diagnosis: Metastatic Disease Neoplasm Sciatica versus back pain. Data ms3 reviewed: vital signs, nurses notes, radiologic studies, MRI, and as a result, I will discharge patient. Care significantly affected by the following chronic conditions: Atrial fibrillation, GERD, hyperlipidemia, hypertension, lung cancer. Counseling: I had a detailed discussion with the patient and/or guardian regarding the historical points, exam findings, and any diagnostic results supporting the discharge/admit diagnosis, radiology results, the need for outpatient follow up, to return to the emergency department if symptoms worsen or persist or if there are any questions or concerns that arise at home. Special discussion: I discussed with the patient/guardian in detail that at this point there is no indication for admission to the hospital. It is understood, however, that if the symptoms persist or worsen the patient needs to return immediately for re-evaluation. ED course: Discussed MRI results with patient. Patient to follow-up with her neurosurgeon in 2 to 3 days. Patient understands and agrees with plan. All questions were answered. Return precautions discussed include worsening symptoms, or any other concerns. On reevaluation patient is alert and oriented x 4, in no apparent distress, nontoxic-appearing, ambulatory in emergency room, speaking full sentences. 02/10 11:01 Order name: MRI Lumbar Spine wo Con; Complete Time: 12:28 ms3 Administered Medications: No medications were administered Disposition Summary: 02/11/24 12:39 Discharge Ordered Notes: Location: Home ms3 Condition: Stable ms3 Diagnosis - Disc extusion L5-S1 ms3 - Lumbago with sciatica, right side ms3 Followup: ms3 - With: Private Physician - When: 1 - 2 days - Reason: Recheck today's complaints Discharge Instructions: - Discharge Summary Sheet ms3 - Sciatica ms3 Forms: - Medication Reconciliation Form ms3 - Thank You Letter ms3 - Antibiotic Education ms3 - Prescription Opioid Use ms3 - Patient Portal Instructions ms3 - Leadership Thank You Letter ms3 Signatures: Dispatcher [employer] Deidre Sawyer RN RN Sabino Eckert DO DO ms3 Corrections: (The following items were deleted from the chart) 11:12 11:04 Constitutional: Negative for fever, and chills. Neck: Negative for injury, pain, ms3 and swelling, Cardiovascular: Negative for chest pain, and palpitations. Respiratory: Negative for shortness of breath, cough, wheezing, and pleuritic chest pain, Abdomen/GI: Negative for abdominal pain, nausea, vomiting, diarrhea, and constipation, MS/Extremity: Negative for injury and deformity, Skin: Negative for injury, rash, and discoloration, ms3
[2024-02-11 17:53] VITALS: BP 132/71; TEMP 97.8; O2SAT 96
== END 2024-02-11 12:53 | disposition home or self-care (01) ==
LOC: ER 10:28
DX: M54.41 Lumbago with sciatica, right side (principal); M51.26 Other intervertebral disc displacement, lumbar region; Z88.5 Allergy status to narcotic agent; Z91.013 Allergy to seafood
CPT/HCPCS: 72148; 99282

== ENCOUNTER 2024-04-30 15:39 | Emergency (ER) | payer OTHER ==
--- OUTSIDE RECORDS SUMMARY | 2024-04-30 15:42 | XMS REPORT | Clinical Summary ---
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 Active sotalol (BETAPACE) 80 mg tablet Take by mouth. Active darifenacin (ENABLEX) 15 mg 24 hr tablet Take 15 mg by mouth daily. Active sucralfate (CARAFATE) 1 g tablet Take by mouth. Active dexlansoprazole (DEXILANT) 60 mg capsule Take by mouth. Active hyoscyamine (ANASPAZ,LEVSIN) 0.125 mg tablet Take 0.125 mg by mouth every 4 (four) hours as needed for cramping. Active ALPRAZolam (XANAX) 0.25 mg tablet Take 0.25 mg by mouth. Active calcium carbonate (OS-JARROD) 600 mg calcium (1,500 mg) tablet Take 600 mg by mouth 2 (two) times a day with meals. Active beclomethasone dipropionate (QVAR INHALATION) Inhale by mouth. Active acetaminophen (TYLENOL EXTRA STRENGTH) 500 mg tabletIndications:Hannah chung melanoma of skin of back Take 2 tablets (1,000 mg) by mouth every 6 (six) hours as needed for mild pain. 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 8 Lung cancer 06/11/2018 Overview: Mandatory CMS ICD-10 2020 UPDATE Hypertension 06/11/2018 Atrial fibrillation 06/11/2018 Malignant melanoma of skin of back 06/10/2018 Overview: Added automatically from request for surgery [id number] Malignant melanoma of back 05/28/2018 Surgical History Surgery Date Site/Laterality Comments LUNG CANCER SURGERY 11/12/2013 - 11/11/2014 Right RUL lobectomy TOTAL KNEE ARTHROPLASTY 11/12/2009 - 11/11/2010 Right CHOLECYSTECTOMY 11/12/2007 - 11/11/2008 SHOULDER SURGERY 11/12/2011 - 11/11/2012 Right TOTAL ABDOMINAL HYSTERECTOMY UT EXCISION MAL LESION TRUNK/ARM/LEG 0.6-1.0 CM 07/09/2018 Right Procedure: EXCISION OF MALIGNANT LESION OF TRUNK, right lower back; Surgeon: Zahraa Parker MD; Location: [facility]; Service: SURG ONC - [facility] [...] Smoking Tobacco: Former Cigarettes 1 19 1 96 - 1979 Smokeless Tobacco: Never Alcohol Use Standard Drinks/Week Comments No 0 (1 standard drink = 0.6 oz pur e alcohol) social drinker Sex and Gender Information Value Date Recorded Sex Assigned at Not on file Gender Identity Not on file Sexual Orientation Not on file Obstetrics History Plan of Treatment Health Maintenance Due Date Last Done Comments COVID-19 Vaccine ( season) 2023 Influenza Vaccine 07/13/2024 Advance Directives * Full Code (Latest Code Status on File) Date Activated Date Inactivated Comments 07/09/2018 11:38 AM 07/09/2018 4:20 PM Care Teams Granulator Machine Operator Relationship Specialty Start Date End Date Jayson Canchola PA [address] [place] [address] [id number] PCP - External Referring Physician Gambling Floor Supervisor 05/20/18 Abel Rodriguez MD [address] [place] [address] [phone] [email or web address] PCP - External Primary Care Provider Internal Medicine 05/20/18 Zahraa Parker MD [address] [place] [phone] [email or web address] PCP - General Surgical Oncology 05/20/18 Torsten Escalante MD [address] [place] [phone] [email or web address] Consulting Physician Internal Medicine 06/21/18
[2024-04-30] MEDS ORDERED: ACETAMINOPHEN 325 MG TABLET ONE (15:46)
--- NOTE | 2024-04-30 16:38 | RAD REPORT ---
EXAM DESCRIPTION: RAD - Tib Fib Left - 04/30/2024 4:10 pm CLINICAL HISTORY: PAIN COMPARISON: No comparisons TECHNIQUE: Left tibia and fibula, 2 views. FINDINGS: No fracture is identified. Total knee arthroplasty hardware in satisfactory alignment. There is no dislocation or periosteal reaction noted. Mild midfoot degenerative changes. Small calcan eal spur. No foreign body or other soft tissue abnormality. IMPRESSION: No acute abnormalities. Mild degenerative changes and small calcaneal spur.
--- NOTE | 2024-04-30 17:22 | EDPHYS ---
Physician Documentation [facility] Name: Vilma Curtis Age: 83 yrs Sex: Female : 1940 Arrival Date: 04/30/2024 Time: 15:39 Bed 7 Private MD: ED Physician Isaac Wynn HPI: 04/30 15:45 83-year-old female with a history of atrial fibrillation and other past medical history sp3 who is a patient of Dr. Rodriguez on [facility] now presents to the ED with mechanical fall with injury to the left hip and lateral lower extremity. Patient was in the pantry and turned around and tripped over a box and fell on her left side. Patient has a left knee replacement but no other orthopedic surgeries in the affected region. She denies any head injury, loss of consciousness, upper extremity or upper body pain or any other signs or symptoms on ROS at this time.. Historical: - Allergies: 15:53 Demerol; rs5 15:53 Hydrocodone-Acetaminophen; rs5 15:53 shrimp; rs5 - PMHx: 15:53 Atrial fibrillation; High Cholesterol; Hypertension; Irregular heart rate; GERD; Lung rs5 Cancer; - PSHx: 15:53 None; rs5 - Immunization history:: Adult Immunizations up to date. - Infectious Disease History:: Denies. - Social history:: Smoking status: Patient denies any tobacco usage or history of. ROS: 15:46 Constitutional: Negative for fever, chills, and weight loss, Eyes: Negative for injury, sp3 pain, redness, and discharge, ENT: Negative for injury, pain, and discharge, Neck: Negative for injury, pain, and swelling, Cardiovascular: Negative for chest pain, palpitations, and edema, Respiratory: Negative for shortness of breath, cough, wheezing, and pleuritic chest pain, Abdomen/GI: Negative for abdominal pain, nausea, vomiting, diarrhea, and constipation, Back: Negative for injury and pain, Skin: Negative for injury, rash, and discoloration, Neuro: Negative for headache, weakness, numbness, tingling, and seizure, Psych: Negative for depression, anxiety, suicide ideation, homicidal ideation, and hallucinations, Allergy/Immunology: Negative for hives, rash, and allergies, Endocrine: Negative for neck swelling, polydipsia, polyuria, polyphagia, and marked weight changes, Hematologic/Lymphatic: Negative for swollen nodes, abnormal bleeding, and unusual bruising, 15:46 All other systems are negative, Exam: 15:46 Constitutional: This is a well developed, well nourished patient who is awake, alert, sp3 and in no acute distress. Head/Face: Normocephalic, atraumatic. Eyes: Pupils equal round and reactive to light, extra-ocular motions intact. Lids and lashes normal. Conjunctiva and sclera are non-icteric and not injected. Cornea within normal limits. Periorbital areas with no swelling, redness, or edema. ENT: Nares patent. No nasal discharge, no septal abnormalities noted. External auditory canals are clear. Oropharynx with no redness, swelling, or masses, exudates, or evidence of obstruction, uvula midline. Mucous membranes moist. Neck: Trachea midline, no thyromegaly or masses palpated, and no cervical lymphadenopathy. Supple, full range of motion without nuchal rigidity, or vertebral point tenderness. No Meningismus. Chest/axilla: Normal chest wall appearance and motion. Nontender with no deformity. No lesions are appreciated. Cardiovascular: Regular rate and rhythm with a normal S1 and S2. No gallops, murmurs, or rubs. Normal PMI, no JVD. No pulse deficits. Respiratory: Lungs have equal breath sounds bilaterally, clear to auscultation and percussion. No rales, rhonchi or wheezes noted. No increased work of breathing, no retractions or nasal flaring. Abdomen/GI: Soft, non-tender, with normal bowel sounds. No distension or tympany. No guarding or rebound. No evidence of tenderness throughout. Back: No spinal tenderness. No costovertebral tenderness. Full range of motion. Skin: Warm, dry with normal turgor. Normal color with no rashes, no lesions, and no evidence of cellulitis. Neuro: Awake and alert, GCS 15, oriented to person, place, time, and situation. Cranial nerves II-XII grossly intact. Motor strength 5/5 in all extremities. Sensory grossly intact. Cerebellar exam normal. Normal gait. Psych: Awake, alert, with orientation to person, place and time. Behavior, mood, and affect are within normal limits. 15:46 Musculoskeletal/extremity: No pain to the hip on axial load. Pain is mainly on the lateral femur approximately one third down from the hip. Patient also has lateral lower extremity pain between the knee and the ankle. Joint exam demonstrates no significant abnormality or swelling. Distal neurovascular exam is normal.. Vital Signs: 15:40 BP 117 / 72; Pulse 72; Resp 17; Temp 97.8(O); Pulse Ox 99% on R/A; rs5 16:25 BP 127 / 71; Pulse 70; Resp 17; Pulse Ox 99% on R/A; rs5 17:42 BP 142 / 57; Pulse 74; Resp 16; Pulse Ox 93% on R/A; Pain 10/10; nj1 19:04 BP 140 / 62; Pulse 71; Resp 17; Pulse Ox 97% on R/A; rs5 17:42 Pain Scale: Adult nj1 MDM: 15:41 Patient medically screened. sp3 15:47 Data reviewed: vital signs, nurses notes, radiologic studies. ED course: 83-year-old sp3 female with mechanical fall injuring the left lower extremity. X-rays of the hip and left tib-fib will be obtained and Tylenol be given p.o. for pain control. I am not highly suspicious for fracture and patient likely has contusions only. Disposition pending workup and patient course with probable discharge.. 17:20 ED course: Left femoral neck fracture noted on x-ray. We will administer morphine and sp3 Zofran IV and transfer patient to [facility] given that we have no orthopedic coverage here currently.. 17:55 ED course: Patient accepted at [facility].. sp3 04/30 17:20 Order name: CBC with Diff; Complete Time: 17:53 sp3 04/30 17:20 Order name: CMP; Complete Time: 17:57 sp3 04/30 15:45 Order name: Hip Left 2 View XRAY; Complete Time: 17:38 sp3 04/30 15:45 Order name: Tib Fib Left XRAY; Complete Time: 17:38 sp3 04/30 15:45 Order name: NPO; Complete Time: 15:45 sp3 04/30 17:20 Order name: IV Saline Lock; Complete Time: 17:32 sp3 04/30 17:20 Order name: Labs collected and sent; Complete Time: 17:32 sp3 Administered Medications: 15:50 Drug: Acetaminophen PO 650 mg PO once Route: PO; rs5 16:26 Follow up: Response: No adverse reaction; Pain is decreased rs5 17:38 Drug: Ondansetron IVP 4 mg IVP once; over 2 minutes Route: IVP; Site: right antecubital;nj1 18:00 Follow up: Response: No adverse reaction rs5 17:40 Drug: morphine IVP or IV 4 mg IVP once over 4 mins Route: IVP; Infused Over: 4 mins; nj1 Site: right antecubital; 18:00 Follow up: Response: No adverse reaction; Pain is decreased rs5 Disposition Summary: 04/30/24 17:21 Transfer Ordered Notes: Transfer Location: [facility] sp3 Reason: Higher level of care sp3 Condition: Stable sp3 Problem: new sp3 Symptoms: are unchanged sp3 Accepting Physician: ROBINA(04/30/24 19:23) bm8 Diagnosis - Left femoral neck fracture, mechanical fall sp3 Forms: - Medication Reconciliation Form sp3 - SBAR form sp3 Signatures: Dispatcher [employer] EDMS Isaac Wynn MD MD sp3 Chidi Smyth, RN RN rs5 Neetu Lancaster RN RN nj1 Lencho Bradshaw RN RN bm8 Corrections: (The following items were deleted from the chart) 15:45 15:45 Hip Left 2 View+RAD.RAD.BRZ ordered. EDMS EDMS 15:45 15:45 Tib Fib Left+RAD.RAD.BRZ ordered. EDMS EDMS 19:23 17:21 TBD sp3 bm8
--- NOTE | 2024-04-30 17:22 | ER ---
Nurse's Notes [facility] Name: Vilma Curtis Age: 83 yrs Sex: Female : 1940 Arrival Date: 04/30/2024 Time: 15:39 Bed 7 Private MD: Diagnosis: Left femoral neck fracture, mechanical fall Presentation: 04/30 15:40 Chief complaint: Patient states: Mechanical fall, co left hip pain. No deformity noted. nj1 No pain while at rest. Onset of symptoms was April 30, 2024. 15:40 Method Of Arrival: EMS: [facility] 15:40 Acuity: GILDARDO 3 nj1 15:40 Coronavirus screen: At this time, the client does not indicate any symptoms associated rs5 with coronavirus-19. 15:40 Ebola Screen: No symptoms or risks identified at this time. Initial Sepsis Screen: Does rs5 the patient meet any 2 criteria? No. Patient's initial sepsis screen is negative. Does the patient have a suspected source of infection? No. Patient's initial sepsis screen is negative. Risk Assessment: Do you want to hurt yourself or someone else? Patient reports no desire to harm self or others. Historical: - Allergies: 15:53 Demerol; rs5 15:53 Hydrocodone-Acetaminophen; rs5 15:53 shrimp; rs5 - PMHx: 15:53 Atrial fibrillation; High Cholesterol; Hypertension; Irregular heart rate; GERD; Lung rs5 Cancer; - PSHx: 15:53 None; rs5 - Immunization history:: Adult Immunizations up to date. - Infectious Disease History:: Denies. - Social history:: Smoking status: Patient denies any tobacco usage or history of. Screenin:40 [facility] ED Fall Risk Assessment (Adult) History of falling in the last 3 months, rs5 including since admission Yes- single mechanical fall (1 pt) Confusion or Disorientation No (0 pts) Intoxicated or Sedated No (0 pts) Impaired Gait Yes (1 pt) Mobility Assist Device Used No (0 pt) Altered Elimination No (0 pt) Score/Fall Risk Level 0 - 2 = Low Risk Oriented to surroundings, Maintained a safe environment. Abuse screen: Denies threats or abuse. Nutritional screening: No deficits noted. Tuberculosis screening: No symptoms or risk factors identified. Assessment: 15:41 General: Appears in no apparent distress. uncomfortable, Behavior is calm, cooperative. rs5 Pain: Complains of pain in left hip Pain currently is 7 out of 10 on a pain scale. Quality of pain is described as aching, Is continuous. Neuro: Level of Consciousness is awake, alert, obeys commands, Oriented to person, place, time, situation. Cardiovascular: Patient's skin is warm and dry. Rhythm is regular. Respiratory: Airway is patent Respiratory effort is even, unlabored, Respiratory pattern is regular, symmetrical. GI: Abdomen is round non-distended, Abd is soft and non tender X 4 quads. : No signs and/or symptoms were reported regarding the genitourinary system. EENT: No signs and/or symptoms were reported regarding the EENT system. Derm: Skin is intact, Skin is pink, warm \T\ dry. Musculoskeletal: Range of motion: intact in all extremities. 16:25 Reassessment: Patient and/or family updated on plan of care and expected duration. Pain rs5 level reassessed. Patient is alert, oriented x 3, equal unlabored respirations, skin warm/dry/pink. Patient states feeling better. 17:42 Reassessment: Patient appears in no apparent distress at this time. Patient and/or nj1 family updated on plan of care and expected duration. Pain level reassessed. Patient is alert, oriented x 3, equal unlabored respirations, skin warm/dry/pink. 19:04 Reassessment: No changes from previously documented assessment. rs5 19:05 Reassessment: report given to EMS at bedside. rs5 Vital Signs: 15:40 BP 117 / 72; Pulse 72; Resp 17; Temp 97.8(O); Pulse Ox 99% on R/A; rs5 16:25 BP 127 / 71; Pulse 70; Resp 17; Pulse Ox 99% on R/A; rs5 17:42 BP 142 / 57; Pulse 74; Resp 16; Pulse Ox 93% on R/A; Pain 10/10; nj1 19:04 BP 140 / 62; Pulse 71; Resp 17; Pulse Ox 97% on R/A; rs5 17:42 Pain Scale: Adult nj1 ED Course: 15:40 Patient arrived in ED. nj1 15:40 Isaac Wynn MD is Attending Physician. sp3 15:40 Patient has correct armband on for positive identification. Placed in gown. Bed in low rs5 position. Call light in reach. Side rails up X2. 15:40 No provider procedures requiring assistance completed. rs5 15:41 Triage completed. nj1 15:46 Chidi Smyth, RN is Primary Nurse. rs5 16:12 Hip Left 2 View XRAY In Process Unspecified. EDMS 16:12 Tib Fib Left XRAY In Process Unspecified. EDMS 17:25 Inserted saline lock: 20 gauge in right antecubital area, using aseptic technique. nj1 Blood collected. 17:38 initiated transfer to [facility]. bd 18:36 pt accepted in transfer to [facility] by dr wellington,admin approval given by Chelo Garcia.pt going to [facility]. 19:04 Patient transferred, IV remains in place. rs5 19:22 Provided Education on: need for transfer. bm8 19:22 Arm band placed on right wrist. bm8 Administered Medications: 15:50 Drug: Acetaminophen PO 650 mg PO once Route: PO; rs5 16:26 Follow up: Response: No adverse reaction; Pain is decreased rs5 17:38 Drug: Ondansetron IVP 4 mg IVP once; over 2 minutes Route: IVP; Site: right antecubital;nj1 18:00 Follow up: Response: No adverse reaction rs5 17:40 Drug: morphine IVP or IV 4 mg IVP once over 4 mins Route: IVP; Infused Over: 4 mins; nj1 Site: right antecubital; 18:00 Follow up: Response: No adverse reaction; Pain is decreased rs5 Medication: 15:55 VIS not applicable for this client. rs5 Outcome: 17:21 ER care complete, transfer ordered by . sp3 19:04 Transferred by ground EMS to [facility], Transfer form completed. rs5 19:04 Condition: stable 19:04 Discharge instructions given to patient, family, Instructed on the need for transfer, Demonstrated understanding of instructions, 19:23 Patient left the ED. bm8 Signatures: Dispatcher [employer] EDMS Kristen Paula Setul, MD MD sp3 Chidi Smyth, RN RN rs5 Neetu Lancaster RN RN nj1 Bradshaw, Lencho, RN RN bm8 Corrections: (The following items were deleted from the chart) 17:42 17:40 Ondansetron IVP 4 mg IVP in right antecubital nj1 nj1 19:04 18:50 Reassessment: No changes from previously documented assessment. rs5 rs5
[2024-04-30] MEDS ORDERED: ONDANSETRON 4 MG/2 ML VIAL ONE (17:31)
[2024-04-30] MEDS ORDERED: MORPHINE 4 MG/ML SYR ONE (17:31)
--- NOTE | 2024-04-30 17:31 | RAD REPORT ---
EXAM DESCRIPTION: RAD - Hip Left 2 View - 04/30/2024 4:10 pm CLINICAL HISTORY: fall COMPARISON: Hip Left 2 View dated 04/01/2018 TECHNIQUE: Left hip, AP and frogleg views of the left hip. FINDINGS: Impacted left femoral neck fracture at the basicervical line. No dislocation. No acute or destructive bony process seen. IMPRESSION: Impacted left femoral neck fracture.
[2024-04-30 17:38] LABS: Absolute Basophils 0.1 K/uL (0-0.5); Absolute Eosinophils 0.2 K/uL (0-0.5); Absolute Lymphocytes (CBC) 1.8 K/uL (0.7-4.9); Absolute Neutrophil 9.4 K/uL (1.8-8.0); Basophils % 0.6 % (0-1.3); Eosinophils % 1.7 % (0-4.4); Hematocrit 33.9 % (36.0-45.0); Hemoglobin 11.6 g/dL (12.0-15.0); Lymphocytes % 14.2 % (15.3-44.8); MCH 30.2 pg (27.0-35.0); MCHC 34.1 g/dL (32.0-36.0); MCV 88.4 fL (80-100); MPV 8.6 fL (7.6-11.3); Monocytes % 8.2 % (3.3-12.3); Neutrophils % 75.3 % (41.7-73.7); Platelets 220 thou/uL (152-406); RBC Red Blood Cell Count 3.83 M/uL (3.86-4.86); Red Cell Distribution Width 13.9 % (12.1-15.2)
[2024-04-30 17:55] LABS: Albumin 3.5 g/dL (3.4-5.0); Albumin/Globulin Ratio 1.2 (1.1-1.8); Anion Gap 5.5 mEq/L (5.0-15.0); Bilirubin Total 0.6 mg/dL (0.2-1.0); Potassium 3.5 mEq/L (3.5-5.1); Protein, Total 6.5 g/dL (6.4-8.2)
[2024-04-30 19:36] VITALS: BP 140/62; TEMP 97.8; O2SAT 97
== END 2024-04-30 19:23 | disposition short-term general hospital (02) ==
LOC: ER 15:39
DX: S72.092A Other fracture of head and neck of left femur, initial encounter for closed fracture (principal); W18.09XA Striking against other object with subsequent fall, initial encounter; Z79.01 Long term (current) use of anticoagulants
CPT/HCPCS: 85025; 36415; 80053; 73502; 73590; J2405

== ENCOUNTER 2025-06-18 13:05 | Observation (INO) | payer OTHER ==
--- OUTSIDE RECORDS SUMMARY | 2025-06-18 13:09 | XMS REPORT | Clinical Summary ---
Author Name Unknown Organization [facility] Address [address] [place] [address] Care Team Providers Care Professor Of Philosophy Name Role Phone Jayson Canchola Unavailable [phone] Abel Rodriguez MD Unavailable Zahraa Parker MD Primary Care Provider [phone] Torsten Escalante MD Unavailable Allergies Active Allergy Reactions Criticality Noted Date Comments Codeine Swelling Medium 06/10/2018 Hydrocodone Swelling Medium 06/10/2018 Shellfish Containing Products Shortness Of Breath High 06/10/2018 Medications rivaroxaban (XARELTO) 20 mg tablet Take 20 [...] Active acetaminophen (TYLENOL EXTRA STRENGTH) 500 mg tabletIndications :Malignant melanoma of skin of back Take 2 tablets (1,000 mg) by mouth every 6 (six) hours as needed for mild pain. 0 8 Active Active Problems Problem Noted Date Diagnosed Date Chronic lung disease 06/21/2018 H/O: thromboembolism 06/21/2018 detention current use of anticoagulant 8 Lung cancer 06/11/2018 Overview (08/12/2020): Mandatory CMS ICD-10 2020 UPDATE Hypertension 06/11/2018 Atrial fibrillation 06/11/2018 Malignant melanoma of skin of back 06/10/2018 Overview (06/10/2018): Added automatically from request for surgery [id number] Malignant melanoma of back 05/28/2018 Surgical History Surgery Date Site/Laterality Comments LUNG CANCER SURGERY 11/12/2013 - 11/11/2014 Right RUL lobectomy TOTAL KNEE ARTHROPLASTY 11/12/2009 - 11/11/2010 Right CHOLECYSTECTOMY 11/12/2007 - 11/11/2008 SHOULDER SURGERY 11/12/2011 - 11/11/2012 Right TOTAL ABDOMINAL HYSTERECTOMY AZ EXCISION MAL LESION TRUNK/ARM/LEG 0.6-1.0 CM 07/09/2018 Right Procedure: EXCISION OF MALIGNANT LESION OF TRUNK, right lower back; Surgeon: Zahraa Parker MD; Location: [facility]; Service: SURG ONC - MELANOMA Medical History [...] Smoking Tobacco: Former Cigarettes 1 19 1 961 - 1979 Smokeless Tobacco: Never Alcohol Use Standard Drinks/Week Comments No 0 (1 standard drink = 0.6 oz pur e alcohol) social drinker Comments No Sex and Gender Information Value Date Recorded Sex Assigned at Not on file Legal Sex Female 2:23 PM CDT Gender Identity Not on file Sexual Orientation Not on file 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 Not on file Not on file Not on file Obstetrics History Plan of Treatment Health Maintenance Due Date Last Done Comments Pneumococcal Vaccine: 50+ Years (1 of 1 - PCV) 993 COVID-19 Vaccine ( - 2023- season) 2024 Influenza Vaccine (#1) 2025 Insurance MEDICARE PART A AND B MEDICARE PART A AND B MEDICARE PART A AND B [place] [id number] Advance Directives * Full Code (Latest Code Status on File) Date Activated Date Inactivated Comments 07/09/2018 11:38 AM 07/09/2018 4:20 PM Care Teams Professor Of Philosophy Relationship Specialty Start Date End Date Jayson Canchola PA [address] [place] [address] [id number] PCP - External Referring Physician Social Services 05/20/18 Abel Rodriguez MD [address] [place] [address] [phone] [email or web address] PCP - External Primary Care Provider Internal Medicine 05/20/18 Zahraa Parker MD [address] [place] [phone] [email or web address] PCP - General Surgical Oncology 05/20/18 Torsten Escalante MD [address] [place] [phone] [email or web address] ras Consulting Physician Internal Medicine 06/21/18
[2025-06-18] MEDS ORDERED: METOPROLOL TARTRATE 5 MG/5 ML INJ IV ONE (13:29)
[2025-06-18 13:38] LABS: Absolute Lymphocytes (CBC) 1.6 K/uL (0.7-4.9); Hematocrit 36.5 % (36.0-45.0); Hemoglobin 12.0 g/dL (12.0-15.0); MCH 28.3 pg (27.0-35.0); MCHC 32.9 g/dL (32.0-36.0); MCV 86.0 fL (80-100); MPV 8.9 fL (7.6-11.3); Nucleated RBC Absolute Count 0.0 (0-0); Nucleated Red Blood Cells % 0.0 % (0-0); RBC Red Blood Cell Count 4.25 M/uL (3.86-4.86); White Blood Count 7.90 thou/uL (4.3-10.9)
[2025-06-18 13:53] LABS: PT Prothrombin Time 24.2 SECONDS (10-13.0); Protime INR 2.19
[2025-06-18 13:59] LABS: ALT/SGPT 28 U/L (13-56); AST/SGOT 27 U/L (15-37); Albumin 3.3 g/dL (3.4-5.0); Albumin/Globulin Ratio 1.1 (1.1-1.8); Alkaline Phosphatase 85 U/L (45-117); Anion Gap 8.8 mEq/L (5.0-15.0); BUN Blood Urea Nitrogen 24 mg/dL (7-18); Globulin 2.9 g/dL (2.3-3.5); Glucose Level 104 mg/dL (74-106); Magnesium 2.1 mg/dL (1.6-2.4); NT PRO-BNP 1844 pg/mL (<450); Potassium 3.8 mEq/L (3.5-5.1); Troponin High Sensitivity 55.4 pg/mL (<58.9)
[2025-06-18] MEDS ORDERED: NA CHLORIDE 0.9% 500 ML ONE (14:04)
[2025-06-18] MEDS ORDERED: AMIODARONE HCL 150 MG/3 ML INJ IV ONE (14:04)
[2025-06-18] MEDS ORDERED: D5W 100 ML IV ONE (14:04)
[2025-06-18 14:15] LABS: Bilirubin Indirect, Calculated 0.1 mg/dL (0.2-0.8)
--- NOTE | 2025-06-18 14:51 | ER ---
Nurse's Notes [facility] Name: Vilma Curtis Age: 84 yrs Sex: Female : 1940 Arrival Date: 06/18/2025 Time: 13:05 Bed IW10 Private MD: Diagnosis: Palpitations, atrial flutter with RVR Presentation: 06/18 13:19 Chief complaint: Patient states: "I have been feeling sob for some time but this me1 morning I became dizzy. I checked my blood pressure and it was 80s /50s but my HR was in the 130's." Called Dr Maguire and he sent her to ER. Coronavirus screen: Vaccine status: Patient reports receiving the 2nd dose of the covid vaccine. Ebola Screen: No symptoms or risks identified at this time. Initial Sepsis Screen: Does the patient meet any 2 criteria? HR > 90 bpm. Does the patient have a suspected source of infection? No. Patient's initial sepsis screen is negative. Risk Assessment: Do you want to hurt yourself or someone else? Patient reports no desire to harm self or others. Onset of symptoms is unknown. 13:19 Method Of Arrival: Wheelchair me1 13:19 Acuity: GILDARDO 3 me1 Historical: - Allergies: 13:20 Demerol; me1 13:20 Hydrocodone-Acetaminophen; me1 13:20 shrimp; me1 13:20 Codeine; me1 - PMHx: 13:20 Atrial fibrillation; GERD; High Cholesterol; Hypertension; Irregular heart rate; Lung me1 Cancer; - PSHx: 13:20 right upper lung lobectomy (Lung Cancer); me1 - Immunization history:: Adult Immunizations up to date. - Infectious Disease History:: Denies. - Social history:: Smoking status: Patient/guardian denies using tobacco, but has a distant history of tobacco abuse. Screenin:21 [facility] ED Fall Risk Assessment (Adult) History of falling in the last 3 months, kc6 including since admission No falls in past 3 months (0 pts) Confusion or Disorientation No (0 pts) Intoxicated or Sedated No (0 pts) Impaired Gait No (0 pts) Mobility Assist Device Used No (0 pt) Altered Elimination No (0 pt) Score/Fall Risk Level 0 - 2 = Low Risk Oriented to surroundings. Abuse screen: Denies threats or abuse. Denies injuries from another. Nutritional screening: No deficits noted. Tuberculosis screening: No symptoms or risk factors identified. Assessment: 13:21 Pain: Denies pain. 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 Cardiovascular: Denies chest af3 pain, Capillary refill < 3 seconds Rhythm is atrial fibrillation with rapid ventricular response. GI: No signs and/or symptoms were reported involving the gastrointestinal system. : No signs and/or symptoms were reported regarding the genitourinary system. EENT: No signs and/or symptoms were reported regarding the EENT system. Derm: No signs and/or symptoms reported regarding the dermatologic system. Skin is intact, is healthy with good turgor, Skin is pink, warm \\T\\ dry. normal. Musculoskeletal: No signs and/or symptoms reported regarding the musculoskeletal system. 13:21 General: Appears in no apparent distress. comfortable, Behavior is calm, cooperative, af3 appropriate for age, Reports dizziness. Respiratory: Airway is patent Respiratory effort is even, unlabored, Respiratory pattern is regular, symmetrical. 14:21 Reassessment: Patient appears in no apparent distress at this time. No changes from kc6 previously documented assessment. Patient and/or family updated on plan of care and expected duration. Pain level reassessed. Patient is alert, oriented x 3, equal unlabored respirations, skin warm/dry/pink. Patient denies pain at this time. 15:21 Reassessment: Patient appears in no apparent distress at this time. No changes from kc6 previously documented assessment. Patient and/or family updated on plan of care and expected duration. Pain level reassessed. Patient is alert, oriented x 3, equal unlabored respirations, skin warm/dry/pink. 16:21 Reassessment: Patient appears in no apparent distress at this time. No changes from kc6 previously documented assessment. Patient and/or family updated on plan of care and expected duration. Pain level reassessed. Patient is alert, oriented x 3, equal unlabored respirations, skin warm/dry/pink. 17:20 Reassessment: Patient appears in no apparent distress at this time. No changes from kc6 previously documented assessment. Patient and/or family updated on plan of care and expected duration. Pain level reassessed. Patient is alert, oriented x 3, equal unlabored respirations, skin warm/dry/pink. 18:20 Reassessment: Patient appears in no apparent distress at this time. No changes from kc6 previously documented assessment. Patient and/or family updated on plan of care and expected duration. Pain level reassessed. Patient is alert, oriented x 3, equal unlabored respirations, skin warm/dry/pink. 19:30 Reassessment: Patient appears in no apparent distress at this time. No changes from cp4 previously documented assessment. Patient and/or family updated on plan of care and expected duration. Pain level reassessed. Patient is alert, oriented x 3, equal unlabored respirations, skin warm/dry/pink. Patient informed that she will be getting a bed but it is taking some time to rearrange things up stairs. Vital Signs: 13:19 BP 116 / 66; Pulse 126; Resp 19; Temp 98.2; Pulse Ox 96% ; Weight 83.01 kg; Height 5 me1 ft. 7 in. ; Pain 0/10; 13:35 BP 103 / 62; Pulse 126; kc6 13:47 BP 92 / 66; Pulse 115; Resp 18 S; Pulse Ox 94% on R/A; kc6 15:07 BP 104 / 74; Pulse 114; Resp 16 S; Pulse Ox 95% on R/A; kc6 17:20 BP 107 / 77; Pulse 118; Resp 18 S; Pulse Ox 99% on R/A; Pain 0/10; kc6 19:30 BP 107 / 77; Pulse 112; Resp 17; Pulse Ox 96% ; cp4 13:19 Body Mass Index 28.66 (83.01 kg, 170.18 cm) me1 13:19 Pain Scale: Adult ms1 17:20 Pain Scale: Adult [facility] ED Course: 13:09 Patient arrived in ED. im 13:09 Isaac Wynn MD is Attending Physician. sp3 13:20 Triage completed. me1 13:20 Arm band placed on Patient placed in an exam room. me1 13:20 Initial lab(s) drawn, by ED staff, sent to lab. EKG done, by ED staff, reviewed by kc6 Isaac Wynn MD. Inserted saline lock: 20 gauge in left antecubital area, using aseptic technique. Blood collected. Flushed with 10 mL NS. Patient maintains SpO2 saturation greater than 95% on room air. 13:21 Patient has correct armband on for positive identification. Bed in low position. Call [facility] light in reach. Side rails up X 1. Adult w/ patient. babysitter on. Pulse ox on. NIBP on. Door closed. Noise minimized. Lights dimmed. Warm blanket given. Pillow given. Verbal reassurance given. 13:29 Anali Ruiz, LIZETTE is Primary Nurse. kc6 13:43 XRAY Chest (1 view) In Process Unspecified. EDMS 14:51 Abel Rodriguez MD is Hospitalizing Provider. sp3 16:49 EKG done, by ED staff, reviewed by Isaac Wynn MD. kc6 19:05 No provider procedures requiring assistance completed. Patient admitted, IV remains in kc place. 20:07 Provided Education on: admission. cp4 Administered Medications: 13:35 Drug: Metoprolol IVP 5 mg IVP once; Hold for SBP <100 or HR <60. Route: IVP; Site: left [facility] antecubital; 14:02 Follow up: Response: No adverse reaction; Blood pressure is lowered; Cardiac rhythm is kc6 unchanged 14:14 Drug: NS 0.9% IV 500 ml 500 ml IV at 1 bolus once; to be given as a bolus over 30 kc6 minutes Volume: 500 ml; Route: IV; Rate: 1 bolus; Site: left antecubital; 15:06 Follow up: Response: No adverse reaction; IV Status: Completed infusion; IV Intake: kc6 500ml 14:14 Drug: amiodarone IVPB 150 mg 100 ml IVPB once over 10 mins; (mix in D5W) Volume: 100 kc6 ml; Route: IVPB; Infused Over: 10 mins; Site: left antecubital; 14:28 Follow up: Response: No adverse reaction; Blood pressure is unchanged; Cardiac rhythm kc6 is unchanged; IV Status: Completed infusion; IV Intake: 100ml 15:06 Drug: Enoxaparin Sub-Q 80 mg Sub-Q once Route: Sub-Q; Site: right lower abdomen; kc6 15:49 Follow up: Response: No adverse reaction kc6 15:48 Drug: amiodarone IVPB 900 mg, D5W IV 500 ml IVPB at 1 mg/min continuous; for 6 hrs, kc6 then change to 0.5 mg/min Route: IVPB; Rate: 1 mg/min; Site: left antecubital; 19:00 Follow up: Response: No adverse reaction; Blood pressure is unchanged; Cardiac rhythm kc6 is unchanged; IV Status: Infusion continued upon admission; IV Intake: 500ml Medication: 19:05 VIS not applicable for this client. kc6 Intake: 14:28 IV: 100ml; Total: 100ml. kc6 15:06 IV: 500ml; Total: 600ml. kc6 19:00 IV: 500ml; Total: 1100ml. kc6 Outcome: 14:51 Decision to Hospitalize by Provider. sp3 19:05 Admitted to ER Hold. Please see [facility] for further documentation. kc6 19:05 Condition: stable 19:05 Instructed on the need for admit, 20:14 Patient left the ED. cp4 Signatures: Dispatcher [employer] EDMS Isaac Wynn MD MD sp3 Anali Ruiz RN RN kc6 Marjorie Jules Michelle, RN RN me1 Sheila Hazel cp4 Rosalinda Rudolph RN RN af3 Corrections: (The following items were deleted from the chart) 13:38 13:37 Pain: Denies pain. kc6 kc6 13:42 13:36 General: Appears in no apparent distress. comfortable, Behavior is calm, af3 cooperative, appropriate for age, Reports dizziness af3 13:42 13:36 Pain: Denies pain. 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 af3 af3 13:42 13:36 GI: No deficits noted. af3 af3 13:42 13:36 : No deficits noted. af3 af3 13:42 13:36 EENT: No deficits noted. af3 af3 13:42 13:36 Derm: No deficits noted. af3 af3 13:42 13:36 Respiratory: No deficits noted. af3 af3 13:42 13:36 GI: No signs and/or symptoms were reported involving the gastrointestinal system. af3 af3 13:42 13:36 : No signs and/or symptoms were reported regarding the genitourinary system. af3af3 13:42 13:36 EENT: No signs and/or symptoms were reported regarding the EENT system. af3 af3 13:36 Derm: No signs and/or symptoms reported regarding the dermatologic system. af3 af3 13:36 Musculoskeletal: No signs and/or symptoms reported regarding the musculoskeletal af3 system. af3 13:21 Cardiovascular: Rhythm is atrial fibrillation with rapid ventricular response af3 af3 13:21 Derm: No signs and/or symptoms reported regarding the dermatologic system. af3 af3 13:21 Respiratory: No deficits noted. af3 af3
--- NOTE | 2025-06-18 14:51 | EDPHYS ---
Physician Documentation [facility] Name: Vilma Curtis Age: 84 yrs Sex: Female : 1940 Arrival Date: 06/18/2025 Time: 13:05 Bed [id number] Private MD: ED Physician Isaac Wynn HPI: 06/18 14:46 This 84 yrs old Female presents to ER via Wheelchair with complaints of palpitations. sp3 14:46 84-year-old female with history of atrial fibrillation currently on metoprolol and sp3 amiodarone at home, presents with palpitations and episodic chest pain. Heart rate in the 130s at home. They called cardiology office who referred them to the ED. No shortness of breath, fever, headache, abdominal pain or any other signs or symptoms on ROS at this time.. Historical: - Allergies: 13:20 Demerol; me1 13:20 Hydrocodone-Acetaminophen; me1 13:20 shrimp; me1 13:20 Codeine; me1 - PMHx: 13:20 Atrial fibrillation; GERD; High Cholesterol; Hypertension; Irregular heart rate; Lung me1 Cancer; - PSHx: 13:20 right upper lung lobectomy (Lung Cancer); me1 - Immunization history:: Adult Immunizations up to date. - Infectious Disease History:: Denies. - Social history:: Smoking status: Patient/guardian denies using tobacco, but has a distant history of tobacco abuse. ROS: 14:47 Constitutional: Negative for fever, chills, and weight loss, Eyes: Negative for injury, sp3 pain, redness, and discharge, ENT: Negative for injury, pain, and discharge, Neck: Negative for injury, pain, and swelling, Respiratory: Negative for shortness of breath, cough, wheezing, and pleuritic chest pain, Abdomen/GI: Negative for abdominal pain, nausea, vomiting, diarrhea, and constipation, Back: Negative for injury and pain, MS/Extremity: Negative for injury and deformity, Skin: Negative for injury, rash, and discoloration, Neuro: Negative for headache, weakness, numbness, tingling, and seizure, Psych: Negative for depression, anxiety, suicide ideation, homicidal ideation, and hallucinations, Allergy/Immunology: Negative for hives, rash, and allergies, Endocrine: Negative for neck swelling, polydipsia, polyuria, polyphagia, and marked weight changes, Hematologic/Lymphatic: Negative for swollen nodes, abnormal bleeding, and unusual bruising, 14:47 All other systems are negative, Exam: 14:48 Constitutional: This is a well developed, well nourished patient who is awake, alert, sp3 and in no acute distress. Head/Face: Normocephalic, atraumatic. Eyes: Pupils equal round and reactive to light, extra-ocular motions intact. Lids and lashes normal. Conjunctiva and sclera are non-icteric and not injected. Cornea within normal limits. Periorbital areas with no swelling, redness, or edema. Neck: Trachea midline, no thyromegaly or masses palpated, and no cervical lymphadenopathy. Supple, full range of motion without nuchal rigidity, or vertebral point tenderness. No Meningismus. Chest/axilla: Normal chest wall appearance and motion. Nontender with no deformity. No lesions are appreciated. Respiratory: Lungs have equal breath sounds bilaterally, clear to auscultation and percussion. No rales, rhonchi or wheezes noted. No increased work of breathing, no retractions or nasal flaring. Abdomen/GI: Soft, non-tender, with normal bowel sounds. No distension or tympany. No guarding or rebound. No evidence of tenderness throughout. Back: No spinal tenderness. No costovertebral tenderness. Full range of motion. Skin: Warm, dry with normal turgor. Normal color with no rashes, no lesions, and no evidence of cellulitis. 14:48 Cardiovascular: Rate: tachycardic, 14:49 ECG was reviewed by the Attending Physician. EKG demonstrates atrial flutter at 125 bpm sp3 with QTc of 518, leftward axis nonspecific diffuse ST/T changes without evidence of acute ischemia. Vital Signs: 13:19 BP 116 / 66; Pulse 126; Resp 19; Temp 98.2; Pulse Ox 96% ; Weight 83.01 kg; Height 5 me1 ft. 7 in. ; Pain 0/10; 13:35 BP 103 / 62; Pulse 126; kc6 13:47 BP 92 / 66; Pulse 115; Resp 18 S; Pulse Ox 94% on R/A; kc6 15:07 BP 104 / 74; Pulse 114; Resp 16 S; Pulse Ox 95% on R/A; kc6 17:20 BP 107 / 77; Pulse 118; Resp 18 S; Pulse Ox 99% on R/A; Pain 0/10; kc6 19:30 BP 107 / 77; Pulse 112; Resp 17; Pulse Ox 96% ; cp4 13:19 Body Mass Index 28.66 (83.01 kg, 170.18 cm) me1 13:19 Pain Scale: Adult me1 17:20 Pain Scale: Adult kc6 MDM: 13:12 Medical Screening Exam initiated sp3 14:49 Data reviewed: vital signs, nurses notes, old medical records, lab test result(s), EKG, sp3 radiologic studies. ED course: 84-year-old female with PMH above now with atrial flutter with RVR. Differential diagnosis includes atrial flutter, atrial fibrillation, acute coronary syndrome, electrolyte abnormality, among others. Patient took metoprolol p.o. prior to arrival. I given 5 mg additional metoprolol here which brought heart rate down into the 110 range and blood pressure in the low 90s systolically. Patient still mentating fine and in no acute distress since yesterday feels better. Amiodarone 150 mg IV drip started. I discussed the case with Dr. Rodriguez and Dr. Downs who will be seeing her in consultation. Will continue amiodarone drip and single dose Lovenox.. 06/18 13:14 Order name: Basic Metabolic Panel; Complete Time: 14:27 3 06/18 13:14 Order name: CBC with Diff; Complete Time: 14:00 3 06/18 13:14 Order name: LFT's; Complete Time: 14:27 3 06/18 13:14 Order name: Magnesium; Complete Time: 14:27 3 06/18 13:14 Order name: NT PRO-BNP; Complete Time: 14:27 3 06/18 13:14 Order name: PT-INR; Complete Time: 14:00 3 06/18 13:14 Order name: Troponin HS; Complete Time: 14:27 3 06/18 16:49 Order name: Troponin High Sensitivity [facility] 06/18 13:14 Order name: XRAY Chest (1 view); Complete Time: 15:12 3 06/18 13:14 Order name: EKG; Complete Time: 13:15 3 06/18 14:23 Order name: EKG Electrocardiogram EDMS 06/18 13:14 Order name: Cardiac monitoring; Complete Time: 13:29 sp3 06/18 13:14 Order name: EKG - Nurse/Tech; Complete Time: 13:29 sp3 06/18 13:14 Order name: IV Saline Lock; Complete Time: 13:29 sp3 06/18 13:14 Order name: Labs collected and sent; Complete Time: 13:29 sp3 06/18 13:14 Order name: O2 Per Protocol; Complete Time: 13: sp3 06/18 13:14 Order name: O2 Sat Monitoring; Complete Time: 13: sp3 Administered Medications: 13:35 Drug: Metoprolol IVP 5 mg IVP once; Hold for SBP <100 or HR <60. Route: IVP; Site: [address]; 14:02 Follow up: Response: No adverse reaction; Blood pressure is lowered; Cardiac rhythm is kc6 unchanged 14:14 Drug: NS 0.9% IV 500 ml 500 ml IV at 1 bolus once; to be given as a bolus over 30 kc6 minutes Volume: 500 ml; Route: IV; Rate: 1 bolus; Site: left bannerubital; 15:06 Follow up: Response: No adverse reaction; IV Status: Completed infusion; IV Intake: kc6 500ml 14:14 Drug: amiodarone IVPB 150 mg 100 ml IVPB once over 10 mins; (mix in D5W) Volume: 100 kc6 ml; Route: IVPB; Infused Over: 10 mins; Site: left antecubital; 14:28 Follow up: Response: No adverse reaction; Blood pressure is unchanged; Cardiac rhythm kc6 is unchanged; IV Status: Completed infusion; IV Intake: 100ml 15:06 Drug: Enoxaparin Sub-Q 80 mg Sub-Q once Route: Sub-Q; Site: right lower abdomen; kc6 15:49 Follow up: Response: No adverse reaction kc6 15:48 Drug: amiodarone IVPB 900 mg, D5W IV 500 ml IVPB at 1 mg/min continuous; for 6 hrs, kc6 then change to 0.5 mg/min Route: IVPB; Rate: 1 mg/min; Site: left antecubital; 19:00 Follow up: Response: No adverse reaction; Blood pressure is unchanged; Cardiac rhythm kc6 is unchanged; IV Status: Infusion continued upon admission; IV Intake: 500ml Disposition Summary: 06/18/25 14:51 Hospitalization Ordered Notes: Hospitalization Status: Inpatient Admission sp3 Provider: Abel Rodriguez sp3 Location: Telemetry/MedSurg (Inpatient) sp3 Condition: Stable sp3 Problem: an acute exacerbation sp3 Symptoms: have worsened sp3 Bed/Room Type: Standard sp3 Room Assignment: 216(06/18/25 19:27) kb3 Diagnosis - Palpitations, atrial flutter with RVR sp3 Forms: - Medication Reconciliation Form sp3 - SBAR form sp3 - Leadership Thank You Letter sp3 Signatures: Dispatcher [employer] EDIsaac Muñoz MD MD sp3 Anali Ruiz RN RN kc6 Amanda Wooten RN RN kb3 Lorie Smith rv1 Niyah Haynes bc6 Estephanie Hernandez RN RN me1 Corrections: (The following items were deleted from the chart) 18:01 14:51 sp3 6 19:03 18:01 206 bc6 rv1 19:27 19:03 rv1 kb3
[2025-06-18] MEDS ORDERED: ENOXAPARIN 80 MG/0.8 ML SQ ONE (15:00)
--- NOTE | 2025-06-18 15:05 | RAD REPORT ---
EXAMINATION: ONE VIEW CHEST XR CLINICAL INDICATION: Female, 84 years old.,CHEST PAIN TECHNIQUE: Frontal chest projection is submitted. Examination is limited by patient positioning and t echnique. COMPARISON: 04/02/2024. FINDINGS: The lungs are suboptimally inflated which limits evaluation. Elevation of the right hemidiaphragm. R ight perihilar patchy opacity. No pneumothorax or sizable effusion. The heart is normal in size. Mediastinal contours are unremarkable. IMPRESSION: Right perihilar patchy opacity, concerning for pneumonia.
[2025-06-18] MEDS: AMIODARONE HCL 900 MG in Dextrose 5%-Water 482 ML IV SCH (15:48)
[2025-06-18] MEDS ORDERED: METOPROLOL TARTRATE 5 MG/5 ML INJ IV PRN (19:20)
[2025-06-18 20:25] VITALS: BMI 29.4
[2025-06-18] MEDS: ALPRAZOLAM 0.25 MG TABLET PO SCH (21:56)
[2025-06-19 07:50] LABS: Absolute Lymphocytes (CBC) 1.6 K/uL (0.7-4.9); Hematocrit 35.9 % (36.0-45.0); Hemoglobin 11.9 g/dL (12.0-15.0); MCH 28.7 pg (27.0-35.0); MCHC 33.2 g/dL (32.0-36.0); MCV 86.4 fL (80-100); MPV 9.0 fL (7.6-11.3); Nucleated RBC Absolute Count 0.0 (0-0); Nucleated Red Blood Cells % 0.0 % (0-0); RBC Red Blood Cell Count 4.15 M/uL (3.86-4.86); White Blood Count 7.80 thou/uL (4.3-10.9)
--- NOTE | 2025-06-19 07:52 | RAD REPORT ---
EXAM: Chest Pa And Lat (2 Views) HISTORY: 84 years Female SOB COMPARISON: 06/18/2025 FINDINGS: LUNGS/PLEURA: Slight improved lung volumes. Persistent mild opacities in the right lung base. CARDIAC/MEDIASTINUM: The cardiac silhouette is within normal limits. UPPER ABDOMEN: No significant abnormality. BONES: No acute abnormality. LINES/TUBES/OTHER: N/A IMPRESSION: Slight improved lung volumes with some residual right basilar airspace disease that may reflect pneum onia.
[2025-06-19 07:58] VITALS: O2SAT 94
[2025-06-19 08:05] LABS: Anion Gap 6.1 mEq/L (5.0-15.0); BUN Blood Urea Nitrogen 21.0 mg/dL (7-18); Glucose Level 113.0 mg/dL (74-106); Potassium 4.1 mEq/L (3.5-5.1)
[2025-06-19] MEDS: ASPIRIN EC 81 MG TAB PO SCH (08:13)
--- NOTE | 2025-06-19 10:13 | P.CNS ---
Date of Consult: 06/19/25 Chief Complaint: Atrial fibrillation History of Present Illness: Patient with PMH of atrial fibrillation, presented with palpitations, low BP, denies chest pain, no syncope, no breathing problems Allergies codeine Allergy (Verified 06/18/25 20:26) Itching/Hives/Rash hydrocodone Allergy (Verified 06/18/25 20:26) Itching/Hives/Rash lidocaine Allergy (Verified 06/18/25 20:26) Itching/Hives/Rash meperidine [From Demerol] Allergy (Verified 06/18/25 20:26) Itching/Hives/Rash shrimp Adverse Reaction (Verified 06/18/25 20:26) Anaphylaxis Home medications list reviewed: Yes - Past Medical/Surgical History Diabetic: No -: Lung cancer -: Afib -: High cholesterol -: bilateral knees surgery 10 years ago -: elizabeth shoulder surgery 6 years ago -: gallbladder removal -: appendectomy -: colonoscopy -: upper lobe of R lung removal 2 years ago -: hysterectomy -: bilateral hip sx - Family History Father Medical History: Other (see notes) Notes: no hx of illness per pt Mother Medical History: Kidney disease - Social History Smoking Status: Former smoker Alcohol use: Yes CD- Drugs: Yes Caffeine use: Yes Place of Residence: Home Review of Systems 10-point ROS is otherwise unremarkable Physical Examination Temp Pulse Resp BP Pulse Ox 97.9 F 70 16 140/75 97 06/19/25 08:00 06/19/25 08:00 06/19/25 08:00 06/19/25 08:00 06/19/25 08:00 General: Alert, In no apparent distress HEENT: Atraumatic, PERRLA, Mucous membr. moist/pink, EOMI, Sclerae nonicteric Neck: Supple, 2+ carotid pulse no bruit, No LAD, Without JVD or thyroid abnormality Respiratory: Clear to auscultation bilaterally, Normal air movement Cardiovascular: Regular rate/rhythm, Normal S1 S2 Gastrointestinal: Normal bowel sounds, No tenderness Musculoskeletal: No tenderness Integumentary: No rashes Neurological: Normal gait, Normal speech, Normal tone, Normal affect Lymphatics: No axilla or inguinal lymphadenopathy Laboratory Data (last 24 hrs) 06/18/25 06/18/25 06/18/25 13:23 13:23 13:23 WBC 7.90 Hgb 12.0 Hct 36.5 Plt Count 192 PT 24.2 H INR 2.19 Sodium 142 Potassium 3.8 BUN 24 H Creatinine 1.08 H Glucose 104 Magnesium 2.1 Total Bilirubin 0.3 AST 27 ALT 28 Alkaline Phosphatase 85 - Problems (1) Atrial fibrillation Onset Date: 01/10/17 Current Visit: No Status: Acute Plan: patient converted to sinus rhythm with amiodarone drip continue Amiodarone 200 mg po BID Continue Xarelto 20 mg daily outpatient follow up with cardiology. Qualifiers: (2) Hyperlipidemia Onset Date: 10/13/16 Current Visit: No Status: Acute Plan: lipid panel as outpatient. (3) Hypertension Onset Date: 10/13/16 Current Visit: No Status: Acute Plan: BP is WNL, continue home medications.
--- NOTE | 2025-06-19 11:13 | HP ---
Date of Admission: 06/18/2025 Chief Complaint: Shortness of breath and dizziness. History Of Present Illness: This is an 84-year-old pleasant female patient who came into emergency room with above-mentioned complaints and after she was evaluated, I was contacted for admission by physician from emergency room and she reported that for last few days, she is having increasing problem with shortness of breath with any activity and today she started to have some dizziness feeling. She checked her blood pressure at home which was 78/50, and her pulse rate was around 132, and after that, she contacted her certified [place] administrator in his office, Dr. Maguire, and she was advised to come to emergency room. So the patient did come to ER and after she was evaluated, she was admitted to the hospital with atrial fibrillation with rapid ventricular rate. IV amiodarone drip was started in the emergency room, and when I saw her, she was on IV amiodarone drip. Hemodynamically stable. Her pulse rate was around 120 or so. The patient denies any chest pain. No nausea, vomiting, or diarrhea. No fevers or chills. Allergies: TO CODEINE CAUSING RASH AND HIVES, AND DEMEROL CAUSING THROAT SWELLING. Medications: At home, she takes alprazolam 0.25 mg at bedtime as needed for sleep, amiodarone 100 mg daily, Symbicort inhaler 2 puffs 2 times a day, furosemide 20 mg daily, lipase 36,000 unit capsule as prescribed by her GI physician, Claritin 10 mg daily as needed for allergies, Myrbetriq 50 mg daily, Xarelto 20 mg daily in evening, sertraline 50 mg she takes 2 tablets daily, alfuzosin 10 mg daily, Dexilant 60 mg daily, metoprolol succinate 25 mg 2 times a day, rosuvastatin 10 mg daily, hyoscyamine 0.125 mg 4 times a day as needed, fluticasone nasal spray 1 spray each nostril 2 times a day as needed. Review of Systems: Cardiovascular: As mentioned above. Respiratory: As mentioned above. All other systems reviewed and negative. Past Medical History: Significant for COVID-19 infection, June 11, 2021. Peripheral neuropathy. Impaired fasting glucose. Lung cancer involving right upper lobe. Hypertension. Hyperlipidemia, mixed. Paroxysmal atrial fibrillation. Gastroesophageal reflux disease. Diverticulosis. Overactive bladder. Insomnia. Depression. Vitamin D deficiency. 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 Cholecystectomy. Appendectomy. . Hysterectomy. Shoulder surgery involving right shoulder. Right hip surgery. Left foot surgery for repair of Achilles tendon, and removal of melanoma from back. Family History: Father , had pulmonary embolism. Mother , had kidney disease. Social History: Negative for smoking. Use of alcohol, occasional. Physical Examination: Vital Signs: Height 5 feet 7 inches, weight 187 pounds, temperature 97.7, pulse 118, respiratory rate 18, blood pressure 111/69, oxygen saturation 95%. General: Awake, alert, oriented, not in distress. HEENT: Head atraumatic, normocephalic. Conjunctivae nonerythematous. Sclerae white. Mouth, no thrush or edema noted. Ears/Nose, no mass, lesion, discharge noted. Neck: Supple. No JVD, lymph nodes, bruit, thyromegaly noted. Lungs: Bilateral good equal air entry. Clear to auscultation. No rhonchi. No rales. Heart: Normal heart sounds, no murmur or gallop. Abdomen: Soft, bowel sounds normal. No guarding, rigidity, tenderness, mass, hepatosplenomegaly, distention, or bruit noted. Extremities: No leg edema. No calf tenderness. Skin: No rash, ulcer, cellulitis. Lymphatics: No lymph node enlargement in neck, supraclavicular, infraclavicular region. Neuro: No focal neurological deficit. Chest: Unremarkable. External Genitalia: Deferred. Rectal: Deferred. Laboratory Data: WBC 7.9, hemoglobin 12, platelets 192. Sodium 142, potassium 3.8, chloride 109, bicarb 28, BUN 24, creatinine 1.08, glucose 104, liver function tests unremarkable. First troponin 55.4, second troponin 59.7. ProBNP 1844. Chest x-ray: Right peripheral patchy opacities. EKG shows atrial fibrillation with rapid ventricular rate. Impression: 1. Paroxysmal atrial fibrillation with rapid ventricular rate. 2. Rule out pneumonia. 3. Hypertension. 4. Mixed hyperlipidemia. 5. Impaired fasting glucose. 6. Insomnia. 7. Depression. Plan: We will admit patient to hospital for further evaluation and management of this problem. The patient is appropriate for inpatient and is expected to spend 2 midnights in hospital. For her atrial fibrillation with rapid ventricular rate, she was started on IV amiodarone drip. We will continue that and Cardiology consultation has been requested. We will follow up with certified [place] administrator regarding further intervention. At home, patient takes Xarelto, but she did get 1 dose of Lovenox in the emergency room, so we will consider to restart her Xarelto starting tomorrow. For hypertension, she takes metoprolol, but we will consider to restart it tomorrow depending on her blood pressure. For hyperlipidemia, she is on statin therapy. No need for further intervention. For depression, we will continue her antidepressant medication and no need for further intervention. When I saw her in the emergency room, she was quite emotional about the whole situation that happened today and hopefully she will feel better by tomorrow. If necessary, we will consider increasing dose of antidepressant medication. For her overactive bladder, no need for further intervention, and for her allergic rhinitis, no need for further intervention. Total time spent 60 minutes including communication with the emergency room physician, review of last office visit record from 06/01/2025, review of emergency room visit record, and performing today's evaluation and management. ANI/MODArjun Voice ID: [id number] TERRA
--- NOTE | 2025-06-19 11:41 | RAD REPORT ---
EXAMINATION: Thorax Wo Con CLINICAL INDICATION: Female, 84 years old. abnormal CXR TECHNIQUE: Routine CT scan of the chest without intravenous contrast. One or more of the following do se reduction techniques were used: Automated exposure control, adjustment of the mA and/or kV according to patient size, and/or iterative reconstruction. Unless otherwise specified, incidental fi ndings do not require dedicated imaging follow-up. [id number]. COMPARISON: Chest CT 11/20/2023, chest radiograph same day FINDINGS: LOWER NECK: Visualized thyroid gland and soft tissues are normal. MEDIASTINUM AND LYMPH NODES: No mediastinal mass or fluid collection. Normal size mediastinal, hilar, and axillary lymph nodes. THORACIC AORTA: No thoracic aortic aneurysm. Atherosclerotic changes are present. PULMONARY ARTERIES: Enlarged main pulmonary arteries could indicate pulmonary artery hypertension. Un able to evaluate for pulmonary emboli due to either protocol or lack of contrast. HEART: Normal heart size. Mild coronary artery calcifications.No significant pericardial effusion. Ao rtic valve and mitral annular calcifications. LUNGS AND AIRWAYS: Peripheral nodular opacity in the posterior aspect of the right lower lobe measuri ng 14 mm. Scarring architectural distortion the lateral aspect of the right lung base. A few scattered nodular groundglass opacities are present superior segment of the right lower lobe as well as in the left upper and left lower lobe. Right upper lobectomy PLEURA: No pleural effusions. No pneumothorax. OSSEOUS STRUCTURES AND CHEST WALL: No fracture or suspicious osseous lesions. UPPER ABDOMEN: No acute abnormalities. IMPRESSION: Mild bilateral nodular and groundglass opacities most consistent with a mild infectious process. No c onsolidative pneumonia. No pulmonary edema.
[2025-06-19 12:21] VITALS: BP 121/66; TEMP 98.1
--- NOTE | 2025-06-21 11:04 | PN ---
Progress note regarding code 44. Essentially, the patient was admitted with AFib and RVR. The patient was started on IV amiodarone an d quickly converted. Heart rate was controlled. The patient improved faster than anticipated and we spoke with Dr. Rodriguez regarding her care, and it was determined that the patient was not appropriate f or inpatient as the patient improved faster than anticipated. The patient will be dischar ged home. I agree with code 44. /MODL Voice ID: [id number] Report ID: [id number]
== END 2025-06-19 13:47 | disposition home or self-care (01) ==
LOC: ER 13:05 → ERHOLD 16:58 → INTOOBSV 16:58 → 2ND 19:32
PROVIDERS: ADMIT Internal Medicine; ATTEND Internal Medicine
DX: I48.11 Longstanding persistent atrial fibrillation (principal); R42 Dizziness and giddiness; R06.02 Shortness of breath; G62.9 Polyneuropathy, unspecified; R73.01 Impaired fasting glucose; I10 Essential (primary) hypertension; E78.2 Mixed hyperlipidemia; G47.00 Insomnia, unspecified; F32.A Depression, unspecified; Z88.5 Allergy status to narcotic agent; Z86.16 Personal history of COVID-19; Z79.01 Long term (current) use of anticoagulants
CPT/HCPCS: 96365; 96361; 93005 ×5; 85025 ×2; 80048 ×2; 36415; 83735; 85610; 80076; 84484 ×3; 83880; 71250; 71045; 71046; 96375; 96372; 99285; 96366; J1650; J0282 ×2; J7060; J7040; G0378